=== PATIENT | male | born 1940 | race Caucasian/White ===

== ENCOUNTER 2018-03-23 05:11 | Inpatient (IN) | payer MEDICARE ==
[~2018-03-23] VITALS: Ht 175.3 cm; Wt 78.1 kg
[2018-03-23] VITALS (7 sets, daily range): BP systolic 115–141; BP diastolic 58–67
[~2018-03-23 05:11] MED LIST: CHOL200018 PO; DOXY100C2 PO; GLUC500C2 PO; HCT25T PO; MULT-608 PO; OMEG1CAP74 PO; VLS80C PO
--- OUTSIDE RECORDS SUMMARY | 2018-03-23 05:20 | XMS REPORT | CCD ---
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 Name Role Phone PP Unavailable CCM Unavailable Summary Purpose Interface Exchange Insurance Providers Payer name Policy type / Coverage type Covered democrat ID Effective Begin Date Effective End Date WPS Medicare Part B Medicare Part B [id number] Unknown [facility] Medicare Part B [id number] Unknown Family history Brother Diagnosis Age At Onset No Family Disease Entered N/A Father Diagnosis Age At Onset Stroke Unknown Arthritis Unknown Mother Diagnosis Age At Onset Hypertension Unknown Diabetes Unknown Cancer Unknown Daughter Diagnosis Age At Onset No Family Disease Entered N/A Social History Social History Element Codes Description Effective Dates Number of children Unknown 1 daughter - does not have contact with her 11/24/2011 Employment Unknown Currently employed bee-keeper 11/24/[address]: 774652 Currently drinks alcohol 1 beer & 1 wine daily 11/24/2011 Has the patient ever used illegal drugs? Unknown Has never used illegal drugs 11/24/2011 Marital status Unknown Single Co-habiting with girlfriend 11/20/[address]: 711565891 Never smoker 11/20/2011 Allergies, Adverse Reactions, Alerts Substance Reaction Codes Entered Date Inactivated Date Status * NO KNOWN FOOD ALLERGIES Unknown 11/24/2011 No Inactive Date Active * NO KNOWN ENVIRONMENTAL ALLERGIES Unknown 11/24/2011 No Inactive Date Active SULFA (SULFONAMIDES) Unknown 04/20/2017 No Inactive Date Active Past Medical History Illness Codes Condition Status Onset Date Resolved Date Encounter for removal of sutures ICD-9: V58.32 ICD-10: Z48.02 Active 10/28/2017 Unknown Essential (primary) hypertension ICD-9: 401.1 ICD-10: I10 Active 09/16/2016 Unknown Mixed hyperlipidemia ICD-9: 272.2 ICD-10: E78.2 Active 09/17/2017 Unknown Benign paroxysmal vertigo, bilateral ICD-9: 386.11 ICD-10: H81.13 Active 07/17/2017 Unknown Dizziness and giddiness ICD-9: 780.4 ICD-10: R42 Active 07/17/2017 Unknown Ganglion, left hand ICD-9: 727.43 ICD-10: M67.442 Active 10/15/2016 Unknown Enlarged prostate without lower urinary tract symptoms ICD-9: 600.00 ICD-10: N40.0 Active 03/10/2016 Unknown Other skin changes ICD -9: 709.8 ICD-10: R23.8 Active 03/19/2017 Unknown Squamous cell carcinoma of skin of unspecified parts of face ICD-9: 173.32 ICD-10: C44.320 Active 04/23/2016 Unknown Essential (primary) hypertension ICD-9: 401.9 ICD-10: I10 Active 10/27/2013 Unknown Insect bite (nonvenomous) of unspecified parts of thorax, initial encounter ICD-9: 911.4 ICD-10: S20.96XA Active 03/10/2016 Unknown Mucous in stools ICD-9 : 792.1 Active 10/25/2014 Unknown Polymyalgia rheumatica ICD-9: 725 Active 06/29/2014 Unknown Arthralgia ICD-9: 719.40 Active 03/30/2014 Unknown Knee pain ICD-9: 719.46 Active 03/30/2014 Unknown Myalgia and myositis ICD-9: 729.1 Active 03/30/2014 Unknown Need for vaccine for TD (tetanus-diphtheria) ICD-9: V06.5 Active 03/30/2014 Unknown Osteoarthritis ICD-9: 715.90 Active 03/30/2014 Unknown Tick bite ICD-9: 919.4 Active 03/30/2014 Unknown Suture check ICD-9: V58.49 Active 02/22/2014 Unknown ESSENTIAL HYPERTENSION ICD-9: 401.9 Active 10/27/2013 Unknown Osteoarthritis Unknown Active 06/01/2013 Unknown BPPV (benign paroxysmal positional vertigo) ICD-9: 386.11 Active 06/01/2013 Unknown Cellulitis, leg ICD-9 : 682.6 Active 10/11/2012 Unknown Blood glucose elevated ICD-9: 790.29 Active 04/26/2012 Unknown Encounter for long-term (current) use of medications ICD-9: V58.69 Active 04/26/2012 Unknown Dysuria ICD-9: 788.1 Active 04/08/2012 Unknown UTI ICD-9: 599.0 Active 04/08/2012 Unknown Bullous rash ICD-9: 694.9 Active 01/13/2012 Unknown Pityriasis rosea ICD-9 : 696.3 Active 01/13/2012 Unknown Skin cancer Unknown Inactive 11/24/2011 Unknown Heart murmur ICD-9: 785.2 Active 11/24/2011 Unknown Rash ICD-9: 782.1 Active 11/24/2011 Unknown Hyperlipidemia Unknown Active 11/20/2011 Unknown Hypertension Unknown Active 11/20/2011 Unknown Problems Condition Codes Effective Dates Condition Status Encounter for removal of sutures ICD-9: V58.32 ICD-10: Z48.02 10/28/2017 Active Essential (primary) hypertension ICD-9: 401.1 ICD-10: I10 09/16/2016 Active Mixed hyperlipidemia ICD-9: 272.2 ICD-10: E78.2 09/17/2017 Active Benign paroxysmal vertigo, bilateral ICD-9: 386.11 ICD-10: H81.13 07/17/2017 Active Dizziness and giddiness ICD-9: 780.4 ICD-10: R42 07/17/2017 Active Ganglion, left hand ICD-9: 727.43 ICD-10: M67.442 10/15/2016 Active Enlarged prostate without lower urinary tract symptoms ICD-9: 600.00 ICD-10: N40.0 03/10/2016 Active Other skin changes ICD -9: 709.8 ICD-10: R23.8 03/19/2017 Active Squamous cell carcinoma of skin of unspecified parts of face ICD-9: 173.32 ICD-10: C44.320 04/23/2016 Active Essential (primary) hypertension ICD-9: 401.9 ICD-10: I10 10/27/2013 Active Insect bite (nonvenomous) of unspecified parts of thorax, initial encounter ICD-9: 911.4 ICD-10: S20.96XA 03/10/2016 Active Mucous in stools ICD-9 : 792.1 10/25/2014 Active Polymyalgia rheumatica ICD-9: 725 06/29/2014 Active Arthralgia ICD-9: 719.40 03/30/2014 Active Knee pain ICD-9: 719.46 03/30/2014 Active Myalgia and myositis ICD-9: 729.1 03/30/2014 Active Need for vaccine for TD (tetanus-diphtheria) ICD-9: V06.5 03/30/2014 Active Osteoarthritis ICD-9: 715.90 03/30/2014 Active Tick bite ICD-9: 919.4 03/30/2014 Active Suture check ICD-9: V58.49 02/22/2014 Active ESSENTIAL HYPERTENSION ICD-9: 401.9 10/27/2013 Active Osteoarthritis Unknown 06/01/2013 Active BPPV (benign paroxysmal positional vertigo) ICD-9: 386.11 06/01/2013 Active Cellulitis, leg ICD-9 : 682.6 10/11/2012 Active Blood glucose elevated ICD-9: 790.29 04/26/2012 Active Encounter for long-term (current) use of medications ICD-9: V58.69 04/26/2012 Active Dysuria ICD-9: 788.1 04/08/2012 Active UTI ICD-9: 599.0 04/08/2012 Active Bullous rash ICD-9: 694.9 01/13/2012 Active Pityriasis rosea ICD-9 : 696.3 01/13/2012 Active Skin cancer Unknown 11/24/2011 Inactive Heart murmur ICD-9: 785.2 11/24/2011 Active Rash ICD-9: 782.1 11/24/2011 Active Hyperlipidemia Unknown 11/20/2011 Active Hypertension Unknown 11/20/2011 Active Medications Medication Codes Instructions Start Date Stop Date Status Fill Instructions irbesartan 300 mg-hydrochlorothiazide 12.5 mg tablet RxNorm: 884522 TAKE ONE TABLET BY MOUTH ONCE DAILY 02/08/2018 No Stop Date Active amlodipine 10 mg tablet RxNorm: 819836 TAKE ONE TABLET BY MOUTH ONCE DAILY 01/20/2018 No Stop Date Active Maxzide-25mg 37.5 mg-25 mg tablet RxNorm: 94348 TAKE ONE-HALF TABLET BY MOUTH ONCE DAILY 01/04/2018 No Stop Date Active Maxzide-25mg 37.5 mg-25 mg tablet RxNorm: 64525 1/2 Tablet(s) PO daily 07/17/2017 01/03/2018 Inactive irbesartan 300 mg-hydrochlorothiazide 12.5 mg tablet RxNorm: 693822 TAKE ONE TABLET BY MOUTH ONCE DAILY 05/04/2017 Inactive amlodipine 10 mg tablet RxNorm: 846528 TAKE ONE TABLET BY MOUTH ONCE DAILY 04/20/2017 01/19/2018 Inactive hydrochlorothiazide 25 mg tablet RxNorm: 402487 TAKE ONE-HALF TABLET BY MOUTH ONCE DAILY WITH IRBESARTAN COMBINATION PILL 01/12/2017 07/16/2017 Inactive irbesartan 300 mg-hydrochlorothiazide 12.5 mg tablet RxNorm: 120023 TAKE ONE TABLET BY MOUTH ONCE DAILY 07/11/2016 Inactive amlodipine 10 mg tablet RxNorm: 264105 TAKE ONE TABLET BY MOUTH ONCE DAILY 07/11/2016 04/06/2017 Inactive hydrochlorothiazide 25 mg tablet RxNorm: 950463 1/2 Tablet(s) PO daily take with the irbesartan combination pill 09/05/2015 09/17/2015 Inactive irbesartan 300 mg-hydrochlorothiazide 12.5 mg tablet RxNorm: 944803 1 Tablet(s) PO daily 07/10/2015 07/03/2016 Inactive amlodipine 10 mg tablet RxNorm: 196202 1 Tablet(s) PO daily 07/03/2016 Inactive tramadol 50 mg tablet RxNorm: 714719 1 Tablet(s) PO Q6 hours prn 07/17/2014 07/31/2014 Inactive Voltaren 1 % topical gel RxNorm: 143330 4 Gram(s) TOP QID 06/2902/26/2015 Inactive [SAVINGS FOR UNINSURED PATIENTS -- BIN:[id number], PCN: [id number], Group: [id number], ID# [id number], Process claim through [place] Self Representation Document Preparation, for questions: . THIS IS NOT INSURANCE.] irbesartan 300 mg-hydrochlorothiazide 12.5 mg tablet RxNorm: 860033 1 Tablet(s) PO daily 06/07/2014 06/01/2015 Inactive amlodipine 10 mg tablet RxNorm: 488957 1 Tablet(s) PO daily 06/01/2015 Inactive ketorolac 60 mg/2 mL intramuscular solution RxNorm: 202797 1 Milliliter(s) IM 04/27/2014 04/27/2014 Inactive prednisone 20 mg tablet RxNorm: 204623 3 Tablet(s) PO daily 04/15/2014 Inactive prednisone 20 mg tablet RxNorm: 859673 3 Tablet(s) PO daily 04/10/2014 Inactive doxycycline hyclate 100 mg tablet RxNorm: 266951 1 Tablet(s) PO BID 04/07/2014 04/10/2014 Inactive for total of 2 weeks on abt. Exforge HCT 10 mg-320 mg-25 mg tablet RxNorm: 703254 1 Tablet(s) PO daily 04/03/2014 06/07/2014 Inactive doxycycline hyclate 100 mg tablet RxNorm: 981994 1 Tablet(s) PO BID 03/30/2014 04/06/2014 Inactive K-Dur 10 mEq tablet,extended release RxNorm: 766722 1 Tablet(s) PO daily 11/28/2013 11/27/2013 Inactive K-Dur 10 mEq tablet,extended release RxNorm: 777659 1 Tablet(s) PO daily 11/28/2013 12/07/2013 Inactive aspirin 81 mg chewable tablet RxNorm: 191369 1 Tablet(s) PO daily 10/27/2013 05/18/2017 Inactive Exforge HCT 10 mg-320 mg-25 mg tablet RxNorm: 855953 1 Tablet(s) PO daily 08/11/2013 04/02/2014 Inactive Exforge 5 mg-320 mg tablet RxNorm: 560585 1 Tablet(s) PO daily TAKE ONE TABLET BY MOUTH EVERY DAY 07/27/2013 08/10/2013 Inactive lisinopril 40 mg tablet RxNorm: 179118 1 Tablet(s) PO daily 02/201407/26/2013 Inactive Exforge 5 mg-320 mg tablet RxNorm: 443723 Tablet(s) PO TAKE ONE TABLET BY MOUTH EVERY DAY 06/20/2013 06/29/2013 Inactive doxycycline hyclate 100 mg tablet RxNorm: 398203 1 Tablet(s) PO BID 11/23/2012 12/22/2012 Inactive doxycycline hyclate 100 mg tablet RxNorm: 750122 1 Tablet(s) PO BID 10/11/2012 10/20/2012 Inactive Exforge 5 mg-320 mg tablet RxNorm: 202737 1 Tablet(s) PO daily 05/25/2012 09/17/2015 Inactive Exforge 5 mg-320 mg tablet RxNorm: 890495 1 Tablet(s) PO daily 05/19/2012 05/24/2012 Inactive Exforge 5 mg-320 mg tablet RxNorm: 874059 1 Tablet(s) PO daily 04/29/2012 05/18/2012 Inactive Cipro 500 mg tablet RxNorm: 031869 1 Tablet(s) PO BID 201104/14/2012 Inactive Diovan 320 mg tablet RxNorm: 805549 1 Tablet(s) PO 03/29/2012 04/28/2012 Inactive Diovan 160 mg tablet RxNorm: 364574 1 Tablet(s) PO daily 201103/28/2012 Inactive clotrimazole-betamethasone 1 %-0.05 % Lotion RxNorm: 438562 1 Application TOP TID 11/24/2011 03/28/2012 Inactive mupirocin 2 % Ointment RxNorm: 581337 1 Application TOP TID 09/201101/22/2012 Inactive glucosamine &[id number]-[id number] oral RxNorm: oral No Start Date 09/15/2016 Inactive Exforge HCT 10 mg-320 mg-25 mg tablet RxNorm: 196503 1 Tablet(s) PO daily No Start Date 08/10/2013 Inactive Lotrisone 1 %-0.05 % Topical Cream RxNorm: 058656 Topical No Start Date 11/23/2011 Inactive niacinamide 500 mg tablet RxNorm: 621814 1 Tablet(s) PO BID No Start Date 04/19/2017 Inactive hydrochlorothiazide 25 mg tablet RxNorm: 185774 1/2 Tablet(s) PO daily No Start Date 07/16/2017 Inactive Fish Oil 300 mg-1,000 mg capsule RxNorm: 349496 1 Capsule(s) PO daily No Start Date 09/15/2016 Inactive bee pollen 550 mg capsule RxNorm: 750558 2 Capsule(s) PO daily No Start Date 09/15/2016 Inactive Vitamin D3 1,000 unit tablet RxNorm: 489304 1 Tablet(s) PO daily No Start Date 09/15/2016 Inactive Centrum Silver Ultra Men's oral RxNorm: 01901 oral No Start Date 09/15/2016 Inactive levofloxacin 500 mg tablet RxNorm: 096723 1 Tablet(s) PO daily No Start Date 03/10/2016 Inactive Proscar 5 mg tablet RxNorm: 296488 1 Tablet(s) PO daily No Start Date 03/18/2017 Inactive Diovan 160 mg tablet RxNorm: 768798 1 Tablet(s) PO daily No Start Date 02/03/2012 Inactive niacin 500 mg tablet RxNorm: 593312 1 Tablet(s) PO QHS No Start Date 06/29/2013 Inactive Medication Administered Medication Codes Instructions Start Date Status ketorolac 60 mg/2 mL intramuscular solution RxNorm: 135542 1Milliliter 04/27/2014 No longer Active Immunizations Vaccine Codes Date Status Influenza CVX: 141 03/29/2017 completed PPD Unknown 10/03/2015 completed Tetanus, Diptheria, Pertussis CVX: 113 completed Tetanus, Diptheria, Pertussis CVX: 113 completed Tetanus/Diptheria CVX: 113 03/30/2014 completed Tetanus/Diptheria CVX: 113 03/30/2014 completed PPD Unknown 02/22/2014 completed Influenza CVX: 141 05/02/2013 completed Influenza CVX: 141 06/22/2010 completed Pneumococcal (Adult) CVX: 33 06/22/2009 completed Tetanus, Diptheria, Pertussis CVX: 113 completed Tetanus/Diptheria CVX: 113 06/22/1994 completed Assessments Condition Codes Effective Dates Encounter for removal of sutures ICD-10: Z48.02 ICD-9: V58.32 10/28/2017 Mixed hyperlipidemia ICD-10: E78.2 ICD-9: 272.2 09/17/2017 Essential (primary) hypertension ICD-10: I10 ICD-9: 401.1 09/17/2017 Dizziness and giddiness ICD-10: R42 ICD-9: 780.4 07/17/2017 Benign paroxysmal vertigo, bilateral ICD-10: H81.13 ICD-9: 386.11 07/17/2017 Ganglion, left hand ICD-10: M67.442 ICD-9: 727.43 04/20/2017 Other skin changes ICD-10: R23.8 ICD-9: 709.8 03/19/2017 Squamous cell carcinoma of skin of unspecified parts of face ICD-10: C44.320 ICD-9: 173.32 04/24/2016 Essential (primary) hypertension ICD-10: I10 ICD-9: 401.9 03/11/2016 Insect bite (nonvenomous) of unspecified parts of thorax, initial encounter ICD-10: S20.96XA ICD-9: 911.4 03/11/2016 Enlarged prostate without lower urinary tract symptoms ICD- 10: N40.0 ICD-9: 600.00 03/11/2016 ESSENTIAL HYPERTENSION ICD-9: 401.9 02/27 Mucous in stools ICD-9: 792.1 10/26/2014 Polymyalgia rheumatica ICD-9: 725 2014 Myalgia and myositis ICD-9: 729.1 2013 Arthralgia ICD-9: 719.40 04/27/2014 Tick bite ICD-9: 919.4 03/30/2014 Need for vaccine for TD (tetanus-diphtheria) ICD-9: V06.5 03/30/2014 Osteoarthritis ICD-9: 715.90 03/30/2014 Knee pain ICD-9: 719.46 03/30/2014 Suture check ICD-9: V58.49 02/22/2014 BPPV (benign paroxysmal positional vertigo) ICD-9: 386.11 06/01/2013 ENCNTR LONG-RX USE NEC ICD-9: V58.69 04/2013 Cellulitis, leg ICD-9: 682.6 10/11/2012 PITYRIASIS ROSEA ICD-9: 696.3 04/26/2012 Blood glucose elevated ICD-9: 790.29 10/2011 UTI ICD-9: 599.0 04/08/2012 Dysuria ICD-9: 788.1 04/08/2012 BULLOUS DERMATOSES ICD-9: 694.9 2011 Rash ICD-9: 782.1 01/13/2012 Heart murmur ICD-9: 785.2 11/24/2011 Reason For Visit Reason For Visit Effective Dates Notes hypertension 09/17/2017 hypertension 07/17/2017 paresthesia 04/20/2017 hypertension 03/19/2017 joint complaint 10/15/2016 hypertension 09/16/2016 hypertension 03/11/2016 hypertension 09/05/2015 hypertension 02/27/2015 hypertension 10/26/2014 muscle soreness especially at night hypertension 06/29/2014 muscle soreness especially at night hypertension 04/27/2014 muscle soreness hypertension 03/30/2014 muscle soreness hypertension 10/27/2013 hypertension 07/27/2013 vertigo 06/30/2013 hypertension 06/01/2013 knee pain 11/23/2012 rash 10/11/2012 hypertension 05/25/2012 hypertension 04/29/2012 dysuria 04/08/2012 hypertension 03/29/2012 rash 02/12/2012 rash 01/13/2012 rash 01/06/2012 pain 11/24/2011 pt states that since he has had surgery for an anal fissure, he continues to have pain. he states that it appears to be like a bed sore Results Observation Observation Code Item Item Code Result Date Comp Metabolic Qvd904 NA 139 mEq/L 09/17/2017 Comp Metabolic Bwz548 K 4.2 mEq/L 09/17/2017 Comp Metabolic Uol797 CL 105 mEq/L 09/17/2017 Comp Metabolic Fbm896 CO2 24.0 mEq/L 09/17/2017 Comp Metabolic Vlr620 ANION GAP 14 09/17/2017 Comp Metabolic Ppv230 GLUCOSE 102 mg/dL 09/17/2017 Comp Metabolic Spe580 Creat 0.9 mg/dL 09/17/2017 Comp Metabolic Rox940 eGFR 91 ml/min/1.73m2 09/17/2017 Comp Metabolic Ypp345 BUN 18 mg/dL 09/17/2017 Comp Metabolic Yhi033 B/C Ratio 20.9 Ratio 09/17/2017 Comp Metabolic Sgl562 CALCIUM 9.8 mg/dL 09/17/2017 Comp Metabolic Zxq637 ALK PHOS 59 U/L 09/17/2017 Comp Metabolic Qhx252 AST(SGOT) 28 U/L 09/17/2017 Comp Metabolic Gbd463 ALT(SGPT) 20 U/L 09/17/2017 Comp Metabolic Lru560 BILI T 0.6 mg/dL 09/17/2017 Comp Metabolic Nmy745 ALBUMIN 4.3 g/dL 09/17/2017 Comp Metabolic Tfw415 TPRO 7.2 g/dL 09/17/2017 Comp Metabolic Fen736 GLOB 2.9 g/dL 09/17/2017 Comp Metabolic Sjp899 A/G Ratio 1.5 Ratio 09/17/2017 Comp Metabolic Hje275 Osmo 280 mOsmo 09/17/2017 Tsh Ord6 TSH (3rd IS) 1.50 uIU/mL 09/17/2017 Lipid Ord30 CHOL 214 mg/dL 09/17/2017 Lipid Ord30 HDL 46.0 mg/dl 09/17/2017 Lipid Ord30 TRIG 110 mg/dL 09/17/2017 Lipid Ord30 LDL 146 mg/dL 09/17/2017 Lipid Ord30 C/HDL 4.7 Ratio 09/17/2017 Cbc With Differential Ord2 WBC 7.93 K/ul 09/17/2017 Cbc With Differential Ord2 RBC 4.87 M/ul 09/17/2017 Cbc With Differential Ord2 HGB 15.2 g/dl 09/17/2017 Cbc With Differential Ord2 Neut% 61.7 % 09/17/2017 Cbc With Differential Ord2 HCT 44.5 % 09/17/2017 Cbc With Differential Ord2 Lymph% 29.8 % 09/17/2017 Cbc With Differential Ord2 MCV 91.4 fl 09/17/2017 Cbc With Differential Ord2 MCH 31.2 pg 09/17/2017 Cbc With Differential Ord2 [place]% 7.6 % 09/17/2017 Cbc With Differential Ord2 MCHC 34.2 pg 09/17/2017 Cbc With Differential Ord2 Eos% 0.8 % 09/17/2017 Cbc With Differential Ord2 PLT 289 K/ul 09/17/2017 Cbc With Differential Ord2 Baso% 0.1 % 09/17/2017 Cbc With Differential Ord2 Neut ABS# 4.90 K/ul 09/17/2017 Cbc With Differential Ord2 RDW 13.4 % 09/17/2017 Cbc With Differential Ord2 Lymph ABS# 2.36 K/ul 09/17/2017 Cbc With Differential Ord2 [place] ABS# 0.6 K/ul 09/17/2017 Cbc With Differential Ord2 Eos ABS# 0.1 K/ul 09/17/2017 Cbc With Differential Ord2 Baso ABS# 0.0 K/ul 09/17/2017 Tsh Ord6 hTSH II 1.29 uIU/mL 03/19/2017 Cbc With Differential Ord2 WBC 6.44 K/ul 03/19/2017 Cbc With Differential Ord2 RBC 4.62 M/ul 03/19/2017 Cbc With Differential Ord2 HGB 14.8 g/dl 03/19/2017 Cbc With Differential Ord2 HCT 43.2 % 03/19/2017 Cbc With Differential Ord2 Neut% 58.8 % 03/19/2017 Cbc With Differential Ord2 Lymph% 30.0 % 03/19/2017 Cbc With Differential Ord2 MCV 93.5 fl 03/19/2017 Cbc With Differential Ord2 [place]% 9.6 % 03/19/2017 Cbc With Differential Ord2 MCH 32.0 pg 03/19/2017 Cbc With Differential Ord2 Eos% 1.4 % 03/19/2017 Cbc With Differential Ord2 MCHC 34.3 pg 03/19/2017 Cbc With Differential Ord2 Baso% 0.2 % 03/19/2017 Cbc With Differential Ord2 PLT 284 K/ul 03/19/2017 Cbc With Differential Ord2 Neut ABS# 3.79 K/ul 03/19/2017 Cbc With Differential Ord2 RDW 13.1 % 03/19/2017 Cbc With Differential Ord2 Lymph ABS# 1.93 K/ul 03/19/2017 Cbc With Differential Ord2 [place] ABS# 0.6 K/ul 03/19/2017 Cbc With Differential Ord2 Eos ABS# 0.1 K/ul 03/19/2017 Cbc With Differential Ord2 Baso ABS# 0.0 K/ul 03/19/2017 Comp Metabolic Prd358 NA 139 mEq/L 03/19/2017 Comp Metabolic Pjh824 K 3.8 mEq/L 03/19/2017 Comp Metabolic Vfo465 CL 101 mEq/L 03/19/2017 Comp Metabolic Nlq654 CO2 21.0 mEq/L 03/19/2017 Comp Metabolic Rtr515 ANION GAP 21 03/19/2017 Comp Metabolic Ttp019 GLUCOSE 103 mg/dL 03/19/2017 Comp Metabolic Azu928 Creat 0.6 mg/dL 03/19/2017 Comp Metabolic Ejw985 eGFR 131 ml/min/1.73m2 03/19/2017 Comp Metabolic Wbt555 BUN 17 mg/dL 03/19/2017 Comp Metabolic Tog211 B/C Ratio 27.0 Ratio 03/19/2017 Comp Metabolic Ipt852 CALCIUM 9.4 mg/dL 03/19/2017 Comp Metabolic Elv093 ALK PHOS 53 U/L 03/19/2017 Comp Metabolic Cef869 AST(SGOT) 23 U/L 03/19/2017 Comp Metabolic Jla070 ALT(SGPT) 16 U/L 03/19/2017 Comp Metabolic Inm030 BILI T 0.6 mg/dL 03/19/2017 Comp Metabolic Xwp798 ALBUMIN 4.1 g/dL 03/19/2017 Comp Metabolic Nnz138 TPRO 6.9 g/dL 03/19/2017 Comp Metabolic Xie692 GLOB 2.8 g/dL 03/19/2017 Comp Metabolic Bdx497 A/G Ratio 1.4 Ratio 03/19/2017 Comp Metabolic Oel181 Osmo 279 mOsmo 03/19/2017 Lipid Ord30 CHOL 188 mg/dL 03/19/2017 Lipid Ord30 HDL 47.0 mg/dl 03/19/2017 Lipid Ord30 TRIG 73 mg/dL 03/19/2017 Lipid Ord30 LDL 126 mg/dL 03/19/2017 Lipid Ord30 C/HDL 4.0 Ratio 03/19/2017 Ehrlichia Chaffeensis Antibody Igm [id number] EHRLICHIA CHAFFEENSIS IGM < 1:16 03/17/2016 Ehrlichia Chaffeensis Antibody Igg 339319 EHRLICHIA CHAFFEENSIS IGG 1:256 03/17/2016 Lymes Disease Total Antibodies With Western Blot Reflex [id number] B. BURGDORFERI, IGG/IGM 0.17 LI 03/14/2016 Lymes Disease Total Antibodies With Western Blot Reflex [id number] 03/14/2016 [place] Spotted Fever Igg/Igm 305294 [place] SPOTTED FEVER IGM EIA . 03/14/2016 [place] Spotted Fever Igg/Igm 004945 RMSF, IGM 0.47 index 03/14/2016 [place] Spotted Fever Igg/Igm 339200 [place] SPOTTED FEVER IGG EIA FLEX . 03/14/2016 [place] Spotted Fever Igg/Igm 917776 RMSF, IGG SCREEN-FLEX Positive 03/14/2016 [place] Spot'D Fev Igg 135854 RMSF, IGG -TITER IFA 1:128 Comp Metabolic Jcv492 NA 136 mEq/L 03/11/2016 Comp Metabolic Dqr902 K 3.9 mEq/L 03/11/2016 Comp Metabolic Kam763 CL 106 mEq/L 03/11/2016 Comp Metabolic Oqi383 CO2 25.0 mEq/L 03/11/2016 Comp Metabolic Boe645 ANION GAP 9 03/11/2016 Comp Metabolic Iyh194 GLUCOSE 107 mg/dL 03/11/2016 Comp Metabolic Tmc900 Creat 0.7 mg/dL 03/11/2016 Comp Metabolic Xsj333 eGFR 120 ml/min/1.73m2 03/11/2016 Comp Metabolic Bib189 BUN 18 mg/dL 03/11/2016 Comp Metabolic Kah036 B/C Ratio 26.5 Ratio 03/11/2016 Comp Metabolic Ulu350 CALCIUM 9.5 mg/dL 03/11/2016 Comp Metabolic Unv737 ALK PHOS 42 U/L 03/11/2016 Comp Metabolic Hxe833 AST(SGOT) 17 U/L 03/11/2016 Comp Metabolic Trr724 ALT(SGPT) 13 U/L 03/11/2016 Comp Metabolic Baa214 BILI T 0.5 mg/dL 03/11/2016 Comp Metabolic Euj927 ALBUMIN 4.2 g/dL 03/11/2016 Comp Metabolic Lib344 TPRO 6.9 g/dL 03/11/2016 Comp Metabolic Ocm899 GLOB 2.7 g/dL 03/11/2016 Comp Metabolic Ehi190 A/G Ratio 1.5 Ratio 03/11/2016 Comp Metabolic Xrj498 Osmo 274 mOsmo 03/11/2016 Lipid Ord30 CHOL 203 mg/dL 03/11/2016 Lipid Ord30 HDL 42.0 mg/dl 03/11/2016 Lipid Ord30 TRIG 127 mg/dL 03/11/2016 Lipid Ord30 LDL 136 mg/dL 03/11/2016 Lipid Ord30 C/HDL 4.8 Ratio 03/11/2016 Cbc With Differential Ord2 WBC 6.52 K/ul 03/11/2016 Cbc With Differential Ord2 RBC 4.56 M/ul 03/11/2016 Cbc With Differential Ord2 HGB 14.4 g/dl 03/11/2016 Cbc With Differential Ord2 Neut% 63.9 % 03/11/2016 Cbc With Differential Ord2 HCT 42.1 % 03/11/2016 Cbc With Differential Ord2 MCV 92.3 fl 03/11/2016 Cbc With Differential Ord2 Lymph% 27.6 % 03/11/2016 Cbc With Differential Ord2 MCH 31.6 pg 03/11/2016 Cbc With Differential Ord2 [place]% 7.1 % 03/11/2016 Cbc With Differential Ord2 Eos% 1.2 % 03/11/2016 Cbc With Differential Ord2 MCHC 34.2 pg 03/11/2016 Cbc With Differential Ord2 PLT 217 K/ul 03/11/2016 Cbc With Differential Ord2 Baso% 0.2 % 03/11/2016 Cbc With Differential Ord2 Neut ABS# 4.17 K/ul 03/11/2016 Cbc With Differential Ord2 RDW 13.0 % 03/11/2016 Cbc With Differential Ord2 Lymph ABS# 1.80 K/ul 03/11/2016 Cbc With Differential Ord2 [place] ABS# 0.5 K/ul 03/11/2016 Cbc With Differential Ord2 Eos ABS# 0.1 K/ul 03/11/2016 Cbc With Differential Ord2 Baso ABS# 0.0 K/ul 03/11/2016 Tsh Ord6 hTSH II 1.13 uIU/mL 03/11/2016 Cbc With Differential Ord2 WBC 6.76 K/ul 09/03/2015 Cbc With Differential Ord2 RBC 4.68 M/ul 09/03/2015 Cbc With Differential Ord2 HGB 14.3 g/dl 09/03/2015 Cbc With Differential Ord2 HCT 43.0 % 09/03/2015 Cbc With Differential Ord2 Neut% 52.7 % 09/03/2015 Cbc With Differential Ord2 MCV 91.9 fl 09/03/2015 Cbc With Differential Ord2 Lymph% 35.2 % 09/03/2015 Cbc With Differential Ord2 [place]% 9.3 % 09/03/2015 Cbc With Differential Ord2 MCH 30.6 pg 09/03/2015 Cbc With Differential Ord2 MCHC 33.3 pg 09/03/2015 Cbc With Differential Ord2 Eos% 2.7 % 09/03/2015 Cbc With Differential Ord2 Baso% 0.1 % 09/03/2015 Cbc With Differential Ord2 PLT 276 K/ul 09/03/2015 Cbc With Differential Ord2 RDW 13.0 % 09/03/2015 Cbc With Differential Ord2 Neut ABS# 3.56 K/ul 09/03/2015 Cbc With Differential Ord2 Lymph ABS# 2.38 K/ul 09/03/2015 Cbc With Differential Ord2 [place] ABS# 0.6 K/ul 09/03/2015 Cbc With Differential Ord2 Eos ABS# 0.2 K/ul 09/03/2015 Cbc With Differential Ord2 Baso ABS# 0.0 K/ul 09/03/2015 Cbc With Differential Ord2 New Analyzer Notice Please note new ref ranges starting 07-04-2015 due to implemntation of new five part differential hematolgy analyzer. 09/03/2015 Tsh Ord6 hTSH II 1.66 uIU/mL 09/03/2015 Lipid Ord30 CHOL 205 mg/dL 09/03/2015 Lipid Ord30 HDL 46.0 mg/dl 09/03/2015 Lipid Ord30 TRIG 96 mg/dL 09/03/2015 Lipid Ord30 LDL 140 mg/dL 09/03/2015 Lipid Ord30 C/HDL 4.5 Ratio 09/03/2015 Comp Metabolic Mjo439 NA 137 mEq/L 09/03/2015 Comp Metabolic Pln625 K 3.8 mEq/L 09/03/2015 Comp Metabolic Dsd137 CL 105 mEq/L 09/03/2015 Comp Metabolic Xsa553 CO2 25.0 mEq/L 09/03/2015 Comp Metabolic Hyn682 ANION GAP 11 09/03/2015 Comp Metabolic Jok058 GLUCOSE 100 mg/dL 09/03/2015 Comp Metabolic Tze400 Creat 0.7 mg/dL 09/03/2015 Comp Metabolic Fto492 eGFR 118 ml/min/1.73m2 09/03/2015 Comp Metabolic Hxl083 BUN 21 mg/dL 09/03/2015 Comp Metabolic Kjf801 B/C Ratio 30.4 Ratio 09/03/2015 Comp Metabolic Kjc144 CALCIUM 9.3 mg/dL 09/03/2015 Comp Metabolic Atc999 ALK PHOS 47 U/L 09/03/2015 Comp Metabolic Fpk045 AST(SGOT) 18 U/L 09/03/2015 Comp Metabolic Sbb618 ALT(SGPT) 13 U/L 09/03/2015 Comp Metabolic Egd209 BILI T 0.5 mg/dL 09/03/2015 Comp Metabolic Uqs288 ALBUMIN 4.1 g/dL 09/03/2015 Comp Metabolic Yhy523 TPRO 6.8 g/dL 09/03/2015 Comp Metabolic Uqu408 GLOB 2.7 g/dL 09/03/2015 Comp Metabolic Foz399 A/G Ratio 1.5 Ratio 09/03/2015 Comp Metabolic Huj788 Osmo 277 mOsmo 09/03/2015 A1C 3024357 A1C HPLC 79812-6 5.6 % 06/02/2013 CHEM 14 [id number] AST 20 U/L 06/01/2013 CHEM 14 [id number] ALT 17 IU/L 06/01/2013 CHEM 14 [id number] BUN 18 MG/DL 06/01/2013 CHEM 14 [id number] ALBUMIN 4.3 GM/DL 06/01/2013 CHEM 14 0106848 CHLORIDE 107 MMOL/L 06/01/2013 CHEM 14 [id number] BILI TOT 0.4 MG/DL 06/01/2013 CHEM 14 4392388 ALK PHOS 46 U/L 06/01/2013 CHEM 14 0972205 SODIUM 138 MMOL/L 06/01/2013 CHEM 14 0823092 CREATININE 0.71 MG/DL 06/01/2013 CHEM 14 1028112 CALCIUM 9.2 MG/DL 06/01/2013 CHEM 14 4088949 POTASSIUM 4.0 MMOL/L 06/01/2013 CHEM 14 4784334 PROT TOT 6.8 GM/DL 06/01/2013 CHEM 14 [id number] GLUCOSE 108 MG/DL 06/01/2013 CHEM 14 6177013 BICARB 24 MMOL/L 06/01/2013 CHEM 14 9813163 ANION GAP 7 MEQ/L 06/01/2013 TSH [id number] TSH 1.033 uIU/ML 06/01/2013 GFR CALC 0414955 GFR AA >60 ML/MIN 06/01/2013 GFR CALC 8211355 GFR NON-AA >60 ML/MIN 06/01/2013 CBC [id number] WBC 5.7 10e9/L 06/01/2013 CBC [id number] RBC 4.89 10e12/L 06/01/2013 CBC [id number] HGB 15.3 g/dL 06/01/2013 CBC [id number] HCT DET 45.3 % 06/01/2013 CBC [id number] MCV 92.6 fL 06/01/2013 CBC [id number] MCH 31.3 pg 06/01/2013 CBC [id number] MCHC 33.8 g/dL 06/01/2013 CBC [id number] PLT 254 10e9/L 06/01/2013 CBC [id number] MPV 10.3 fL 06/01/2013 CBC [id number] VONNIE % 55.3 % 06/01/2013 CBC [id number] LY % 33.4 % 06/01/2013 CBC [id number] MON % 8.7 % 06/01/2013 CBC [id number] EOS % 2.4 % 06/01/2013 CBC [id number] BASO % 0.2 % 06/01/2013 CBC 7961588 RDW 12.7 % 06/01/2013 CBC [id number] ABS VONNIE 3.15 10e9/L 06/01/2013 CBC [id number] ABS LYMPH 1.90 10e9/L 06/01/2013 CBC [id number] ABS MONO 0.50 10e9/L 06/01/2013 CBC [id number] ABS EOS 0.14 10e9/L 06/01/2013 CBC [id number] ABS BASO 0.01 10e9/L 06/01/2013 CBC [id number] RDW-SD 42.2 fL 06/01/2013 LIPID GRP HDL TEST 46 MG/DL 06/01/2013 LIPID GRP TRIG 94 MG/DL 06/01/2013 LIPID GRP TEST LDL 161 MG/DL 06/01/2013 LIPID GRP CHOL 226 MG/DL 06/01/2013 LIPID GRP RCHOL/HDL 4.91 RATIO 06/01/2013 CRP [id number] CRP 0.9 MG/DL 11/23/2012 ESR [id number] ESR 22 MM/HR 11/23/2012 GFR CALC 2657219 GFR AA >60 ML/MIN 11/23/2012 GFR CALC 9725250 GFR NON-AA >60 ML/MIN 11/23/2012 CHEM 14 [id number] AST 21 U/L 11/23/2012 CHEM 14 [id number] ALT 15 IU/L 11/23/2012 CHEM 14 7025436 BUN 20 MG/DL 11/23/2012 CHEM 14 1050850 ALBUMIN 4.3 GM/DL 11/23/2012 CHEM 14 7583802 CHLORIDE 106 MMOL/L 11/23/2012 CHEM 14 [id number] BILI TOT 0.5 MG/DL 11/23/2012 CHEM 14 3202450 ALK PHOS 55 U/L 11/23/2012 CHEM 14 6676980 SODIUM 139 MMOL/L 11/23/2012 CHEM 14 5260336 CREATININE 0.72 MG/DL 11/23/2012 CHEM 14 8581716 CALCIUM 9.4 MG/DL 11/23/2012 CHEM 14 4376142 POTASSIUM 4.5 MMOL/L 11/23/2012 CHEM 14 0415650 PROT TOT 6.7 GM/DL 11/23/2012 CHEM 14 1430343 GLUCOSE 104 MG/DL 11/23/2012 CHEM 14 7080953 BICARB 26 MMOL/L 11/23/2012 CHEM 14 0174134 ANION GAP 7 MEQ/L 11/23/2012 LIPID GRP HDL TEST 48 MG/DL 04/26/2012 LIPID GRP TRIG 93 MG/DL 04/26/2012 LIPID GRP TEST LDL 185 MG/DL 04/26/2012 LIPID GRP CHOL 252 MG/DL 04/26/2012 LIPID GRP RCHOL/HDL 5.25 RATIO 04/26/2012 TSH [id number] TSH 1.468 uIU/ML 04/26/2012 CBC [id number] WBC 6.3 10e9/L 04/26/2012 CBC [id number] RBC 4.94 10e12/L 04/26/2012 CBC 6121485 HGB 15.4 g/dL 04/26/2012 CBC [id number] HCT DET 45.5 % 04/26/2012 CBC [id number] MCV 92.1 fL 04/26/2012 CBC 4061538 MCH 31.2 pg 04/26/2012 CBC [id number] MCHC 33.8 g/dL 04/26/2012 CBC [id number] PLT 251 10e9/L 04/26/2012 CBC [id number] MPV 10.7 fL 04/26/2012 CBC [id number] VONNIE % 47.9 % 04/26/2012 CBC [id number] LY % 40.1 % 04/26/2012 CBC [id number] MON % 9.6 % 04/26/2012 CBC [id number] EOS % 2.2 % 04/26/2012 CBC [id number] BASO % 0.2 % 04/26/2012 CBC [id number] RDW 12.6 % 04/26/2012 CBC [id number] ABS VONNIE 3.02 10e9/L 04/26/2012 CBC [id number] ABS LYMPH 2.53 10e9/L 04/26/2012 CBC [id number] ABS MONO 0.60 10e9/L 04/26/2012 CBC [id number] ABS EOS 0.14 10e9/L 04/26/2012 CBC [id number] ABS BASO 0.01 10e9/L 04/26/2012 CBC [id number] RDW-SD 41.1 fL 04/26/2012 GFR CALC 9321084 GFR AA >60 ML/MIN 04/26/2012 GFR CALC 5520602 GFR NON-AA >60 ML/MIN 04/26/2012 A1C HPLC [id number] A1C HPLC 60724-9 5.3 % 04/26/2012 CHEM 14 [id number] AST 24 U/L 04/26/2012 CHEM 14 1207639 ALT 18 IU/L 04/26/2012 CHEM 14 6347635 BUN 17 MG/DL 04/26/2012 CHEM 14 [id number] ALBUMIN 4.2 GM/DL 04/26/2012 CHEM 14 2849844 CHLORIDE 105 MMOL/L 04/26/2012 CHEM 14 [id number] BILI TOT 0.7 MG/DL 04/26/2012 CHEM 14 2203208 ALK PHOS 42 U/L 04/26/2012 CHEM 14 9518298 SODIUM 138 MMOL/L 04/26/2012 CHEM 14 6505621 CREATININE 0.78 MG/DL 04/26/2012 CHEM 14 2202231 CALCIUM 9.6 MG/DL 04/26/2012 CHEM 14 1231303 POTASSIUM 4.4 MMOL/L 04/26/2012 CHEM 14 6310669 PROT TOT 6.9 GM/DL 04/26/2012 CHEM 14 7829962 GLUCOSE 97 MG/DL 04/26/2012 CHEM 14 8983819 BICARB 27 MMOL/L 04/26/2012 CHEM 14 0014220 ANION GAP 6 MEQ/L 04/26/2012 Review of Systems System Result Effective Dates Constitutional recent illness 09/17/2017 Constitutional No chills 09/17/2017 Constitutional No fatigue 09/17/2017 Constitutional No fever 09/17/2017 Ears/Nose/Throat/Neck No dysphagia 2017 Ears/Nose/Throat/Neck No headache 2017 Ears/Nose/Throat/Neck No hearing loss Ears/Nose/Throat/Neck nasal allergies Ears/Nose/Throat/Neck nasal discharge Ears/Nose/Throat/Neck No sore throat Cardiovascular No chest pain/pressure Cardiovascular No edema 09/17/2017 Cardiovascular No exercise intolerance Cardiovascular No fatigue 09/17/2017 Cardiovascular hypertension 09/17/2017 Cardiovascular No near-syncope/dizziness 09/17/2017 Respiratory No chest tightness 2017 Respiratory No cigarette smoking 2017 Respiratory cough 09/17/2017 Respiratory No dyspnea 09/17/2017 Respiratory No pedal edema 09/17/2017 Respiratory No snoring 09/17/2017 Respiratory No wheezing 09/17/2017 Gastrointestinal No hemorrhoids 2017 Gastrointestinal No abdominal pain 2017 Gastrointestinal No constipation 2017 Gastrointestinal No diarrhea 09/17/2017 Gastrointestinal No gastroesophageal reflux 09/17/2017 Gastrointestinal No melena 09/17/2017 Gastrointestinal No nausea 09/17/2017 Gastrointestinal No vomiting 09/17/2017 Genitourinary/Nephrology No dysuria 09/17 Genitourinary/Nephrology nocturia 2017 Genitourinary/Nephrology No urinary incontinence 09/17/2017 Musculoskeletal stiffness 09/17/2017 Musculoskeletal joint complaint 2017 Musculoskeletal muscle weakness 2017 Musculoskeletal neck pain 09/17/2017 Dermatologic No rash 09/17/2017 Dermatologic No sores 09/17/2017 Dermatologic No scar 09/17/2017 Neurologic No dizziness 09/17/2017 Neurologic No headache 09/17/2017 Neurologic No syncope 09/17/2017 Neurologic weakness 09/17/2017 Psychiatric No anxiety 09/17/2017 Psychiatric No depression 09/17/2017 Constitutional recent illness 07/17/2017 Constitutional No chills 07/17/2017 Constitutional No fatigue 07/17/2017 Constitutional No fever 07/17/2017 Ears/Nose/Throat/Neck No dysphagia 2017 Ears/Nose/Throat/Neck No headache 2017 Ears/Nose/Throat/Neck No hearing loss Ears/Nose/Throat/Neck nasal allergies Ears/Nose/Throat/Neck nasal discharge Ears/Nose/Throat/Neck No sore throat Cardiovascular No chest pain/pressure Cardiovascular No edema 07/17/2017 Cardiovascular No exercise intolerance Cardiovascular No fatigue 07/17/2017 Cardiovascular hypertension 07/17/2017 Cardiovascular No near-syncope/dizziness 07/17/2017 Respiratory No chest tightness 2017 Respiratory No cigarette smoking 2017 Respiratory cough 07/17/2017 Respiratory No dyspnea 07/17/2017 Respiratory No pedal edema 07/17/2017 Respiratory No snoring 07/17/2017 Respiratory No wheezing 07/17/2017 Gastrointestinal No hemorrhoids 2017 Gastrointestinal No abdominal pain 2017 Gastrointestinal No constipation 2017 Gastrointestinal No diarrhea 07/17/2017 Gastrointestinal No gastroesophageal reflux 07/17/2017 Gastrointestinal No melena 07/17/2017 Gastrointestinal No nausea 07/17/2017 Gastrointestinal No vomiting 07/17/2017 Genitourinary/Nephrology No dysuria 07/17 Genitourinary/Nephrology nocturia 2017 Genitourinary/Nephrology No urinary incontinence 07/17/2017 Musculoskeletal stiffness 07/17/2017 Musculoskeletal joint complaint 2017 Musculoskeletal muscle weakness 2017 Musculoskeletal neck pain 07/17/2017 Dermatologic No rash 07/17/2017 Dermatologic No sores 07/17/2017 Dermatologic No scar 07/17/2017 Neurologic No dizziness 07/17/2017 Neurologic No headache 07/17/2017 Neurologic No syncope 07/17/2017 Neurologic weakness 07/17/2017 Psychiatric No anxiety 07/17/2017 Psychiatric No depression 07/17/2017 Constitutional No recent illness 2016 Constitutional No chills 04/20/2017 Constitutional No fatigue 04/20/2017 Constitutional No fever 04/20/2017 Cardiovascular No chest pain/pressure Cardiovascular No fatigue 04/20/2017 Respiratory No cough 04/20/2017 Respiratory No chest congestion 2016 Neurologic No dizziness 04/20/2017 Neurologic No headache 04/20/2017 Psychiatric No anxiety 04/20/2017 Psychiatric No depression 04/20/2017 Neurologic paresthesia 04/20/2017 Gastrointestinal No hemorrhoids 2016 Gastrointestinal No abdominal pain 2016 Gastrointestinal No constipation 2016 Gastrointestinal No diarrhea 04/20/2017 Gastrointestinal No gastroesophageal reflux 04/20/2017 Gastrointestinal No melena 04/20/2017 Gastrointestinal No nausea 04/20/2017 Gastrointestinal No vomiting 04/20/2017 Constitutional No recent illness 2016 Constitutional No chills 03/19/2017 Constitutional No fatigue 03/19/2017 Constitutional No fever 03/19/2017 Constitutional No insomnia 03/19/2017 Constitutional No malaise 03/19/2017 Eyes No blindness 03/19/2017 Eyes No vision change 03/19/2017 Ears/Nose/Throat/Neck No dental pain Ears/Nose/Throat/Neck No dizziness 2016 Ears/Nose/Throat/Neck No dysphagia 2016 Ears/Nose/Throat/Neck No headache 2016 Ears/Nose/Throat/Neck No hearing loss Ears/Nose/Throat/Neck No nasal allergies 03/19/2017 Ears/Nose/Throat/Neck No sore throat Ears/Nose/Throat/Neck No postnasal drip 03/19/2017 Ears/Nose/Throat/Neck No sinus congestion 03/19/2017 Cardiovascular No exercise intolerance Cardiovascular No fatigue 03/19/2017 Cardiovascular hypertension 03/19/2017 Respiratory No chest tightness 2016 Respiratory No cigarette smoking 2016 Respiratory No cough 03/19/2017 Respiratory No dyspnea 03/19/2017 Respiratory No pedal edema 03/19/2017 Respiratory No snoring 03/19/2017 Respiratory No wheezing 03/19/2017 Gastrointestinal No hemorrhoids 2016 Gastrointestinal No abdominal pain 2016 Gastrointestinal No constipation 2016 Gastrointestinal No diarrhea 03/19/2017 Gastrointestinal No gastroesophageal reflux 03/19/2017 Gastrointestinal No melena 03/19/2017 Gastrointestinal No nausea 03/19/2017 Gastrointestinal No vomiting 03/19/2017 Genitourinary/Nephrology No dysuria 03/19 Genitourinary/Nephrology No nocturia Genitourinary/Nephrology No urinary incontinence 03/19/2017 Dermatologic No rash 03/19/2017 Neurologic No dizziness 03/19/2017 Neurologic No headache 03/19/2017 Neurologic No neck pain 03/19/2017 Neurologic No syncope 03/19/2017 Psychiatric No anxiety 03/19/2017 Psychiatric No depression 03/19/2017 Constitutional No recent illness 2016 Constitutional No chills 10/15/2016 Constitutional No fever 10/15/2016 Eyes No eye erythema 10/15/2016 Ears/Nose/Throat/Neck No nasal allergies 10/15/2016 Ears/Nose/Throat/Neck No nasal discharge 10/15/2016 Cardiovascular No chest pain/pressure Respiratory No dyspnea 10/15/2016 Dermatologic cyst 10/15/2016 Neurologic No alteration of consciousness 10/15/2016 Neurologic No mental status change 2016 Constitutional recent illness 09/16/2016 Constitutional No chills 09/16/2016 Constitutional No fatigue 09/16/2016 Constitutional No fever 09/16/2016 Ears/Nose/Throat/Neck No dysphagia 2016 Ears/Nose/Throat/Neck No headache 2016 Ears/Nose/Throat/Neck No hearing loss Ears/Nose/Throat/Neck nasal allergies Ears/Nose/Throat/Neck nasal discharge Ears/Nose/Throat/Neck No sore throat Cardiovascular No chest pain/pressure Cardiovascular No edema 09/16/2016 Cardiovascular No exercise intolerance Cardiovascular No fatigue 09/16/2016 Cardiovascular hypertension 09/16/2016 Cardiovascular No near-syncope/dizziness 09/16/2016 Respiratory No chest tightness 2016 Respiratory No cigarette smoking 2016 Respiratory cough 09/16/2016 Respiratory No dyspnea 09/16/2016 Respiratory No pedal edema 09/16/2016 Respiratory No snoring 09/16/2016 Respiratory No wheezing 09/16/2016 Gastrointestinal No hemorrhoids 2016 Gastrointestinal No abdominal pain 2016 Gastrointestinal No constipation 2016 Gastrointestinal No diarrhea 09/16/2016 Gastrointestinal No gastroesophageal reflux 09/16/2016 Gastrointestinal No melena 09/16/2016 Gastrointestinal No nausea 09/16/2016 Gastrointestinal No vomiting 09/16/2016 Genitourinary/Nephrology No dysuria 09/16 Genitourinary/Nephrology nocturia 2016 Genitourinary/Nephrology No urinary incontinence 09/16/2016 Musculoskeletal stiffness 09/16/2016 Musculoskeletal joint complaint 2016 Musculoskeletal muscle weakness 2016 Musculoskeletal neck pain 09/16/2016 Dermatologic No rash 09/16/2016 Dermatologic No sores 09/16/2016 Dermatologic No scar 09/16/2016 Neurologic No dizziness 09/16/2016 Neurologic No headache 09/16/2016 Neurologic No syncope 09/16/2016 Neurologic weakness 09/16/2016 Psychiatric No anxiety 09/16/2016 Psychiatric No depression 09/16/2016 Constitutional No chills 03/11/2016 Constitutional No fever 03/11/2016 Ears/Nose/Throat/Neck No dysphagia 2015 Ears/Nose/Throat/Neck No headache 2015 Ears/Nose/Throat/Neck No hearing loss Ears/Nose/Throat/Neck nasal allergies Ears/Nose/Throat/Neck No sore throat Respiratory No chest tightness 2015 Respiratory No cigarette smoking 2015 Respiratory cough 03/11/2016 Respiratory No dyspnea 03/11/2016 Respiratory No pedal edema 03/11/2016 Respiratory No snoring 03/11/2016 Respiratory No wheezing 03/11/2016 Gastrointestinal No hemorrhoids 2015 Gastrointestinal No abdominal pain 2015 Gastrointestinal No constipation 2015 Gastrointestinal No diarrhea 03/11/2016 Gastrointestinal No gastroesophageal reflux 03/11/2016 Gastrointestinal No melena 03/11/2016 Gastrointestinal No nausea 03/11/2016 Gastrointestinal No vomiting 03/11/2016 Genitourinary/Nephrology No dysuria 03/11 Genitourinary/Nephrology nocturia 2015 Genitourinary/Nephrology No urinary incontinence 03/11/2016 Musculoskeletal stiffness 03/11/2016 Musculoskeletal joint complaint 2015 Musculoskeletal muscle weakness 2015 Musculoskeletal neck pain 03/11/2016 Dermatologic No rash 03/11/2016 Dermatologic No sores 03/11/2016 Dermatologic No scar 03/11/2016 Neurologic No dizziness 03/11/2016 Neurologic No headache 03/11/2016 Neurologic No syncope 03/11/2016 Neurologic weakness 03/11/2016 Psychiatric No anxiety 03/11/2016 Psychiatric No depression 03/11/2016 Constitutional recent illness 03/11/2016 Constitutional No fatigue 03/11/2016 Cardiovascular No chest pain/pressure Cardiovascular No edema 03/11/2016 Cardiovascular No exercise intolerance Cardiovascular No fatigue 03/11/2016 Cardiovascular No near-syncope/dizziness 03/11/2016 Cardiovascular hypertension 03/11/2016 Ears/Nose/Throat/Neck nasal discharge Constitutional No recent illness 2015 Constitutional No chills 09/05/2015 Constitutional No fatigue 09/05/2015 Constitutional No fever 09/05/2015 Constitutional No insomnia 09/05/2015 Constitutional No malaise 09/05/2015 Eyes No blindness 09/05/2015 Eyes No vision change 09/05/2015 Ears/Nose/Throat/Neck No dental pain Ears/Nose/Throat/Neck No dizziness 2015 Ears/Nose/Throat/Neck No dysphagia 2015 Ears/Nose/Throat/Neck No headache 2015 Ears/Nose/Throat/Neck No hearing loss Ears/Nose/Throat/Neck No nasal allergies 09/05/2015 Ears/Nose/Throat/Neck No sore throat Ears/Nose/Throat/Neck No postnasal drip 09/05/2015 Ears/Nose/Throat/Neck No sinus congestion 09/05/2015 Respiratory No chest tightness 2015 Respiratory No cigarette smoking 2015 Respiratory No cough 09/05/2015 Respiratory No dyspnea 09/05/2015 Respiratory No pedal edema 09/05/2015 Respiratory No snoring 09/05/2015 Respiratory No wheezing 09/05/2015 Gastrointestinal No hemorrhoids 2015 Gastrointestinal No abdominal pain 2015 Gastrointestinal No constipation 2015 Gastrointestinal No diarrhea 09/05/2015 Gastrointestinal No gastroesophageal reflux 09/05/2015 Gastrointestinal No melena 09/05/2015 Gastrointestinal No nausea 09/05/2015 Gastrointestinal No vomiting 09/05/2015 Genitourinary/Nephrology No dysuria 09/04 Genitourinary/Nephrology No nocturia Genitourinary/Nephrology No urinary incontinence 09/05/2015 Dermatologic No rash 09/05/2015 Dermatologic No sores 09/05/2015 Dermatologic No scar 09/05/2015 Neurologic No dizziness 09/05/2015 Neurologic No headache 09/05/2015 Neurologic No neck pain 09/05/2015 Neurologic No syncope 09/05/2015 Psychiatric No anxiety 09/05/2015 Psychiatric No depression 09/05/2015 Cardiovascular hypertension 09/05/2015 Cardiovascular No fatigue 09/05/2015 Cardiovascular No exercise intolerance Constitutional No recent illness 2014 Constitutional No chills 02/27/2015 Constitutional No fatigue 02/27/2015 Constitutional No fever 02/27/2015 Constitutional No insomnia 02/27/2015 Constitutional No malaise 02/27/2015 Ears/Nose/Throat/Neck No dental pain 01/2015 Ears/Nose/Throat/Neck No dizziness 2014 Ears/Nose/Throat/Neck No dysphagia 2014 Ears/Nose/Throat/Neck No headache 2014 Ears/Nose/Throat/Neck No hearing loss 01/2015 Ears/Nose/Throat/Neck No nasal allergies 02/27/2015 Ears/Nose/Throat/Neck No sore throat 01/2015 Ears/Nose/Throat/Neck No postnasal drip 02/27/2015 Ears/Nose/Throat/Neck No sinus congestion 02/27/2015 Respiratory No chest tightness 2014 Respiratory No cigarette smoking 2014 Respiratory No cough 02/27/2015 Respiratory No dyspnea 02/27/2015 Respiratory No pedal edema 02/27/2015 Respiratory No snoring 02/27/2015 Respiratory No wheezing 02/27/2015 Gastrointestinal No hemorrhoids 2014 Gastrointestinal No abdominal pain 2014 Gastrointestinal No constipation 2014 Gastrointestinal No diarrhea 02/27/2015 Gastrointestinal No gastroesophageal reflux 02/27/2015 Gastrointestinal No melena 02/27/2015 Gastrointestinal No nausea 02/27/2015 Gastrointestinal No vomiting 02/27/2015 Genitourinary/Nephrology No dysuria 02/27 Genitourinary/Nephrology No nocturia 01/2015 Genitourinary/Nephrology No urinary incontinence 02/27/2015 Dermatologic No rash 02/27/2015 Dermatologic No sores 02/27/2015 Dermatologic No scar 02/27/2015 Neurologic No dizziness 02/27/2015 Neurologic No headache 02/27/2015 Neurologic No neck pain 02/27/2015 Neurologic No syncope 02/27/2015 Psychiatric No anxiety 02/27/2015 Psychiatric No depression 02/27/2015 Eyes No blindness 02/27/2015 Eyes No vision change 02/27/2015 Constitutional No chills 10/26/2014 Constitutional fatigue 10/26/2014 Constitutional No fever 10/26/2014 Ears/Nose/Throat/Neck No dysphagia 2014 Ears/Nose/Throat/Neck No headache 2014 Ears/Nose/Throat/Neck No nasal allergies 10/26/2014 Ears/Nose/Throat/Neck No sore throat 12/2014 Respiratory No chest tightness 2014 Respiratory No cigarette smoking 2014 Respiratory No dyspnea 10/26/2014 Respiratory No pedal edema 10/26/2014 Gastrointestinal abdominal pain 2014 Gastrointestinal No constipation 2014 Gastrointestinal No diarrhea 10/26/2014 Gastrointestinal No gastroesophageal reflux 10/26/2014 Gastrointestinal No nausea 10/26/2014 Gastrointestinal No vomiting 10/26/2014 Genitourinary/Nephrology No dysuria 10/26 Genitourinary/Nephrology No urinary incontinence 10/26/2014 Musculoskeletal stiffness 10/26/2014 Musculoskeletal joint complaint 2014 Musculoskeletal muscle weakness 2014 Musculoskeletal neck pain 10/26/2014 Dermatologic No rash 10/26/2014 Neurologic No dizziness 10/26/2014 Neurologic No headache 10/26/2014 Neurologic No syncope 10/26/2014 Neurologic weakness 10/26/2014 Psychiatric No anxiety 10/26/2014 Psychiatric No depression 10/26/2014 Cardiovascular No chest pain/pressure 12/2014 Cardiovascular No dyspnea 10/26/2014 Cardiovascular No edema 10/26/2014 Cardiovascular No exercise intolerance Cardiovascular No fatigue 10/26/2014 Cardiovascular No near-syncope/dizziness 10/26/2014 Eyes No blindness 10/26/2014 Eyes No vision change 10/26/2014 Constitutional No chills 06/29/2014 Constitutional fatigue 06/29/2014 Constitutional No fever 06/29/2014 Ears/Nose/Throat/Neck No dysphagia 2014 Ears/Nose/Throat/Neck No headache 2014 Ears/Nose/Throat/Neck No nasal allergies 06/29/2014 Ears/Nose/Throat/Neck No sore throat 01/2015 Respiratory No chest tightness 2014 Respiratory No cigarette smoking 2014 Respiratory No dyspnea 06/29/2014 Gastrointestinal No abdominal pain 2014 Gastrointestinal No constipation 2014 Gastrointestinal No diarrhea 06/29/2014 Gastrointestinal No gastroesophageal reflux 06/29/2014 Gastrointestinal No nausea 06/29/2014 Gastrointestinal No vomiting 06/29/2014 Genitourinary/Nephrology No dysuria 06/29 Genitourinary/Nephrology No urinary incontinence 06/29/2014 Musculoskeletal stiffness 06/29/2014 Musculoskeletal joint complaint 2014 Musculoskeletal muscle weakness 2014 Musculoskeletal neck pain 06/29/2014 Dermatologic No rash 06/29/2014 Neurologic No dizziness 06/29/2014 Neurologic No headache 06/29/2014 Neurologic No syncope 06/29/2014 Neurologic weakness 06/29/2014 Psychiatric No anxiety 06/29/2014 Psychiatric No depression 06/29/2014 Respiratory No pedal edema 06/29/2014 Constitutional fatigue 04/27/2014 Respiratory cough 04/27/2014 Respiratory chest congestion 04/27/2014 Respiratory No dyspnea 04/27/2014 Cardiovascular No chest pain/pressure 11/2013 Gastrointestinal No constipation 2013 Gastrointestinal No diarrhea 04/27/2014 Genitourinary/Nephrology nocturia 2013 Musculoskeletal stiffness 04/27/2014 Musculoskeletal muscle weakness 2013 Musculoskeletal joint complaint 2013 Musculoskeletal neck pain 04/27/2014 Neurologic No dizziness 04/27/2014 Neurologic weakness 04/27/2014 Constitutional No chills 04/27/2014 Constitutional No fever 04/27/2014 Ears/Nose/Throat/Neck No dysphagia 2013 Ears/Nose/Throat/Neck No headache 2013 Ears/Nose/Throat/Neck No hearing loss 11/2013 Ears/Nose/Throat/Neck No nasal allergies 04/27/2014 Ears/Nose/Throat/Neck No sore throat 11/2013 Respiratory No chest tightness 2013 Respiratory No cigarette smoking 2013 Respiratory No pedal edema 04/27/2014 Respiratory No snoring 04/27/2014 Respiratory No wheezing 04/27/2014 Gastrointestinal No hemorrhoids 2013 Gastrointestinal No abdominal pain 2013 Gastrointestinal No gastroesophageal reflux 04/27/2014 Gastrointestinal No melena 04/27/2014 Gastrointestinal No nausea 04/27/2014 Gastrointestinal No vomiting 04/27/2014 Genitourinary/Nephrology No dysuria 04/27 Genitourinary/Nephrology No urinary incontinence 04/27/2014 Dermatologic No rash 04/27/2014 Dermatologic No sores 04/27/2014 Dermatologic No scar 04/27/2014 Neurologic No headache 04/27/2014 Neurologic No syncope 04/27/2014 Psychiatric No anxiety 04/27/2014 Psychiatric No depression 04/27/2014 Constitutional No recent illness 2013 Constitutional No chills 03/30/2014 Constitutional fatigue 03/30/2014 Constitutional No fever 03/30/2014 Constitutional No insomnia 03/30/2014 Constitutional malaise 03/30/2014 Ears/Nose/Throat/Neck No dental pain 02/2014 Ears/Nose/Throat/Neck No dizziness 2013 Ears/Nose/Throat/Neck No dysphagia 2013 Ears/Nose/Throat/Neck No headache 2013 Ears/Nose/Throat/Neck No hearing loss 02/2014 Ears/Nose/Throat/Neck No nasal allergies 03/30/2014 Ears/Nose/Throat/Neck No sore throat 02/2014 Ears/Nose/Throat/Neck No postnasal drip 03/30/2014 Ears/Nose/Throat/Neck No sinus congestion 03/30/2014 Respiratory No chest tightness 2013 Respiratory No cigarette smoking 2013 Respiratory No cough 03/30/2014 Respiratory No dyspnea 03/30/2014 Respiratory No pedal edema 03/30/2014 Respiratory No snoring 03/30/2014 Respiratory No wheezing 03/30/2014 Gastrointestinal No hemorrhoids 2013 Gastrointestinal No abdominal pain 2013 Gastrointestinal No constipation 2013 Gastrointestinal No diarrhea 03/30/2014 Gastrointestinal No gastroesophageal reflux 03/30/2014 Gastrointestinal No melena 03/30/2014 Gastrointestinal No nausea 03/30/2014 Gastrointestinal No vomiting 03/30/2014 Genitourinary/Nephrology No dysuria 03/30 Genitourinary/Nephrology No nocturia 02/2014 Genitourinary/Nephrology No urinary incontinence 03/30/2014 Dermatologic No rash 03/30/2014 Dermatologic No scar 03/30/2014 Neurologic No dizziness 03/30/2014 Neurologic No headache 03/30/2014 Neurologic No neck pain 03/30/2014 Neurologic No syncope 03/30/2014 Psychiatric No anxiety 03/30/2014 Psychiatric No depression 03/30/2014 Musculoskeletal arthralgia(s) 03/30/2014 Musculoskeletal myalgias 03/30/2014 Musculoskeletal stiffness 03/30/2014 Cardiovascular No dyspnea 03/30/2014 Cardiovascular fatigue 03/30/2014 Constitutional No recent illness 2013 Constitutional No chills 10/27/2013 Constitutional No fatigue 10/27/2013 Constitutional No fever 10/27/2013 Constitutional No insomnia 10/27/2013 Constitutional No malaise 10/27/2013 Ears/Nose/Throat/Neck No dental pain 01/2014 Ears/Nose/Throat/Neck No dizziness 2013 Ears/Nose/Throat/Neck No dysphagia 2013 Ears/Nose/Throat/Neck No headache 2013 Ears/Nose/Throat/Neck No hearing loss 01/2014 Ears/Nose/Throat/Neck No nasal allergies 10/27/2013 Ears/Nose/Throat/Neck No sore throat 01/2014 Ears/Nose/Throat/Neck No postnasal drip 10/27/2013 Ears/Nose/Throat/Neck No sinus congestion 10/27/2013 Respiratory No chest tightness 2013 Respiratory No cigarette smoking 2013 Respiratory No cough 10/27/2013 Respiratory No dyspnea 10/27/2013 Respiratory No pedal edema 10/27/2013 Respiratory No snoring 10/27/2013 Respiratory No wheezing 10/27/2013 Gastrointestinal No hemorrhoids 2013 Gastrointestinal No abdominal pain 2013 Gastrointestinal No constipation 2013 Gastrointestinal No diarrhea 10/27/2013 Gastrointestinal No gastroesophageal reflux 10/27/2013 Gastrointestinal No melena 10/27/2013 Gastrointestinal No nausea 10/27/2013 Gastrointestinal No vomiting 10/27/2013 Genitourinary/Nephrology No dysuria 10/27 Genitourinary/Nephrology No nocturia 01/2014 Genitourinary/Nephrology No urinary incontinence 10/27/2013 Dermatologic No rash 10/27/2013 Dermatologic No sores 10/27/2013 Dermatologic No scar 10/27/2013 Neurologic No dizziness 10/27/2013 Neurologic No headache 10/27/2013 Neurologic No neck pain 10/27/2013 Neurologic No syncope 10/27/2013 Psychiatric No anxiety 10/27/2013 Psychiatric No depression 10/27/2013 Constitutional No recent illness 2013 Constitutional No chills 07/27/2013 Constitutional No fatigue 07/27/2013 Constitutional No fever 07/27/2013 Constitutional No insomnia 07/27/2013 Constitutional No malaise 07/27/2013 Ears/Nose/Throat/Neck No dental pain 10/2013 Ears/Nose/Throat/Neck No dizziness 2013 Ears/Nose/Throat/Neck No dysphagia 2013 Ears/Nose/Throat/Neck No headache 2013 Ears/Nose/Throat/Neck No hearing loss 10/2013 Ears/Nose/Throat/Neck No nasal allergies 07/27/2013 Ears/Nose/Throat/Neck No sore throat 10/2013 Ears/Nose/Throat/Neck No postnasal drip 07/27/2013 Ears/Nose/Throat/Neck No sinus congestion 07/27/2013 Respiratory No chest tightness 2013 Respiratory No cigarette smoking 2013 Respiratory No cough 07/27/2013 Respiratory No dyspnea 07/27/2013 Respiratory No pedal edema 07/27/2013 Respiratory No snoring 07/27/2013 Respiratory No wheezing 07/27/2013 Gastrointestinal No hemorrhoids 2013 Gastrointestinal No abdominal pain 2013 Gastrointestinal No constipation 2013 Gastrointestinal No diarrhea 07/27/2013 Gastrointestinal No gastroesophageal reflux 07/27/2013 Gastrointestinal No melena 07/27/2013 Gastrointestinal No nausea 07/27/2013 Gastrointestinal No vomiting 07/27/2013 Genitourinary/Nephrology No dysuria 07/27 Genitourinary/Nephrology No nocturia 10/2013 Genitourinary/Nephrology No urinary incontinence 07/27/2013 Dermatologic No rash 07/27/2013 Dermatologic No sores 07/27/2013 Dermatologic No scar 07/27/2013 Neurologic No dizziness 07/27/2013 Neurologic No headache 07/27/2013 Neurologic No neck pain 07/27/2013 Neurologic No syncope 07/27/2013 Psychiatric No anxiety 07/27/2013 Psychiatric No depression 07/27/2013 Constitutional No recent illness 2013 Constitutional No chills 06/30/2013 Constitutional No fatigue 06/30/2013 Constitutional No fever 06/30/2013 Constitutional No insomnia 06/30/2013 Constitutional No malaise 06/30/2013 Ears/Nose/Throat/Neck No dental pain 02/2014 Ears/Nose/Throat/Neck No dizziness 2013 Ears/Nose/Throat/Neck No dysphagia 2013 Ears/Nose/Throat/Neck No headache 2013 Ears/Nose/Throat/Neck No hearing loss 02/2014 Ears/Nose/Throat/Neck No nasal allergies 06/30/2013 Ears/Nose/Throat/Neck No sore throat 02/2014 Ears/Nose/Throat/Neck No postnasal drip 06/30/2013 Ears/Nose/Throat/Neck No sinus congestion 06/30/2013 Respiratory No chest tightness 2013 Respiratory No cigarette smoking 2013 Respiratory No cough 06/30/2013 Respiratory No dyspnea 06/30/2013 Respiratory No pedal edema 06/30/2013 Respiratory No snoring 06/30/2013 Respiratory No wheezing 06/30/2013 Gastrointestinal No hemorrhoids 2013 Gastrointestinal No abdominal pain 2013 Gastrointestinal No constipation 2013 Gastrointestinal No diarrhea 06/30/2013 Gastrointestinal No gastroesophageal reflux 06/30/2013 Gastrointestinal No melena 06/30/2013 Gastrointestinal No nausea 06/30/2013 Gastrointestinal No vomiting 06/30/2013 Genitourinary/Nephrology No dysuria 06/30 Genitourinary/Nephrology No nocturia 02/2014 Genitourinary/Nephrology No urinary incontinence 06/30/2013 Dermatologic No rash 06/30/2013 Dermatologic No scar 06/30/2013 Psychiatric No anxiety 06/30/2013 Psychiatric No depression 06/30/2013 Constitutional No recent illness 2012 Constitutional No chills 06/01/2013 Constitutional No fatigue 06/01/2013 Constitutional No fever 06/01/2013 Constitutional No insomnia 06/01/2013 Constitutional No malaise 06/01/2013 Ears/Nose/Throat/Neck No dental pain 04/2013 Ears/Nose/Throat/Neck No dizziness 2012 Ears/Nose/Throat/Neck No dysphagia 2012 Ears/Nose/Throat/Neck No headache 2012 Ears/Nose/Throat/Neck No hearing loss 04/2013 Ears/Nose/Throat/Neck No nasal allergies 06/01/2013 Ears/Nose/Throat/Neck No sore throat 04/2013 Ears/Nose/Throat/Neck No postnasal drip 06/01/2013 Ears/Nose/Throat/Neck No sinus congestion 06/01/2013 Respiratory No chest tightness 2012 Respiratory No cigarette smoking 2012 Respiratory No cough 06/01/2013 Respiratory No dyspnea 06/01/2013 Respiratory No pedal edema 06/01/2013 Respiratory No snoring 06/01/2013 Respiratory No wheezing 06/01/2013 Gastrointestinal No hemorrhoids 2012 Gastrointestinal No abdominal pain 2012 Gastrointestinal No constipation 2012 Gastrointestinal No diarrhea 06/01/2013 Gastrointestinal No gastroesophageal reflux 06/01/2013 Gastrointestinal No melena 06/01/2013 Gastrointestinal No nausea 06/01/2013 Gastrointestinal No vomiting 06/01/2013 Genitourinary/Nephrology No dysuria 06/01 Genitourinary/Nephrology No nocturia 04/2013 Genitourinary/Nephrology No urinary incontinence 06/01/2013 Neurologic No dizziness 06/01/2013 Neurologic No headache 06/01/2013 Neurologic No neck pain 06/01/2013 Neurologic No syncope 06/01/2013 Psychiatric No anxiety 06/01/2013 Psychiatric No depression 06/01/2013 Dermatologic No rash 06/01/2013 Dermatologic No scar 06/01/2013 Dermatologic No sores 06/01/2013 Musculoskeletal stiffness 06/01/2013 Musculoskeletal No swelling 06/01/2013 Musculoskeletal No muscle weakness 2012 Musculoskeletal No myalgias 06/01/2013 Musculoskeletal joint complaint 2012 Constitutional No recent illness 2012 Constitutional No chills 11/23/2012 Constitutional No fatigue 11/23/2012 Constitutional No fever 11/23/2012 Constitutional No insomnia 11/23/2012 Constitutional No malaise 11/23/2012 Ears/Nose/Throat/Neck No dental pain 09/2012 Ears/Nose/Throat/Neck No dizziness 2012 Ears/Nose/Throat/Neck No dysphagia 2012 Ears/Nose/Throat/Neck No headache 2012 Ears/Nose/Throat/Neck No hearing loss 09/2012 Ears/Nose/Throat/Neck No nasal allergies 11/23/2012 Ears/Nose/Throat/Neck No sore throat 09/2012 Ears/Nose/Throat/Neck No postnasal drip 11/23/2012 Ears/Nose/Throat/Neck No sinus congestion 11/23/2012 Respiratory No chest tightness 2012 Respiratory No cigarette smoking 2012 Respiratory No cough 11/23/2012 Respiratory No dyspnea 11/23/2012 Respiratory No pedal edema 11/23/2012 Respiratory No snoring 11/23/2012 Respiratory No wheezing 11/23/2012 Gastrointestinal No hemorrhoids 2012 Gastrointestinal No abdominal pain 2012 Gastrointestinal No constipation 2012 Gastrointestinal No diarrhea 11/23/2012 Gastrointestinal No gastroesophageal reflux 11/23/2012 Gastrointestinal No melena 11/23/2012 Gastrointestinal No nausea 11/23/2012 Gastrointestinal No vomiting 11/23/2012 Genitourinary/Nephrology No dysuria 11/23 Genitourinary/Nephrology No nocturia 09/2012 Genitourinary/Nephrology No urinary incontinence 11/23/2012 Dermatologic No sores 11/23/2012 Neurologic No dizziness 11/23/2012 Neurologic No headache 11/23/2012 Neurologic No neck pain 11/23/2012 Neurologic No syncope 11/23/2012 Psychiatric No anxiety 11/23/2012 Psychiatric No depression 11/23/2012 Dermatologic No rash 11/23/2012 Dermatologic No scar 11/23/2012 Constitutional No recent illness 2012 Constitutional No anorexia 10/11/2012 Constitutional No night sweats 2012 Constitutional No chills 10/11/2012 Constitutional No diaphoresis 10/11/2012 Constitutional No fatigue 10/11/2012 Constitutional No fever 10/11/2012 Constitutional No insomnia 10/11/2012 Constitutional No malaise 10/11/2012 Eyes No eye discharge 10/11/2012 Eyes No eye erythema 10/11/2012 Ears/Nose/Throat/Neck No dizziness 2012 Ears/Nose/Throat/Neck No headache 2012 Cardiovascular No chest pain/pressure Respiratory No productive sputum 2012 Respiratory No chest congestion 2012 Gastrointestinal No abdominal pain 2012 Gastrointestinal No constipation 2012 Gastrointestinal No diarrhea 10/11/2012 Gastrointestinal No nausea 10/11/2012 Genitourinary/Nephrology No dysuria 10/11 Musculoskeletal No joint complaint 2012 Dermatologic rash 10/11/2012 Constitutional No recent illness 2011 Constitutional No chills 05/25/2012 Constitutional No fatigue 05/25/2012 Constitutional No fever 05/25/2012 Constitutional No insomnia 05/25/2012 Constitutional No malaise 05/25/2012 Ears/Nose/Throat/Neck No dental pain 09/2011 Ears/Nose/Throat/Neck No dizziness 2011 Ears/Nose/Throat/Neck No dysphagia 2011 Ears/Nose/Throat/Neck No headache 2011 Ears/Nose/Throat/Neck No hearing loss 09/2011 Ears/Nose/Throat/Neck No nasal allergies 05/25/2012 Ears/Nose/Throat/Neck No sore throat 09/2011 Ears/Nose/Throat/Neck No postnasal drip 05/25/2012 Ears/Nose/Throat/Neck No sinus congestion 05/25/2012 Respiratory No chest tightness 2011 Respiratory No cigarette smoking 2011 Respiratory No cough 05/25/2012 Respiratory No dyspnea 05/25/2012 Respiratory No pedal edema 05/25/2012 Respiratory No snoring 05/25/2012 Respiratory No wheezing 05/25/2012 Gastrointestinal No hemorrhoids 2011 Gastrointestinal No abdominal pain 2011 Gastrointestinal No constipation 2011 Gastrointestinal No diarrhea 05/25/2012 Gastrointestinal No gastroesophageal reflux 05/25/2012 Gastrointestinal No melena 05/25/2012 Gastrointestinal No nausea 05/25/2012 Gastrointestinal No vomiting 05/25/2012 Genitourinary/Nephrology No dysuria 05/25 Genitourinary/Nephrology No nocturia 09/2011 Genitourinary/Nephrology No urinary incontinence 05/25/2012 Dermatologic No rash 05/25/2012 Dermatologic No sores 05/25/2012 Dermatologic No scar 05/25/2012 Neurologic No dizziness 05/25/2012 Neurologic No headache 05/25/2012 Neurologic No neck pain 05/25/2012 Neurologic No syncope 05/25/2012 Psychiatric No anxiety 05/25/2012 Psychiatric No depression 05/25/2012 Constitutional No recent illness 2011 Constitutional No chills 04/29/2012 Constitutional No fatigue 04/29/2012 Constitutional No fever 04/29/2012 Constitutional No insomnia 04/29/2012 Constitutional No malaise 04/29/2012 Ears/Nose/Throat/Neck No dental pain 01/2012 Ears/Nose/Throat/Neck No dizziness 2011 Ears/Nose/Throat/Neck No dysphagia 2011 Ears/Nose/Throat/Neck No headache 2011 Ears/Nose/Throat/Neck No hearing loss 01/2012 Ears/Nose/Throat/Neck No nasal allergies 04/29/2012 Ears/Nose/Throat/Neck No sore throat 01/2012 Ears/Nose/Throat/Neck No postnasal drip 04/29/2012 Ears/Nose/Throat/Neck No sinus congestion 04/29/2012 Respiratory No chest tightness 2011 Respiratory No cigarette smoking 2011 Respiratory No cough 04/29/2012 Respiratory No dyspnea 04/29/2012 Respiratory No pedal edema 04/29/2012 Respiratory No snoring 04/29/2012 Respiratory No wheezing 04/29/2012 Gastrointestinal No hemorrhoids 2011 Gastrointestinal No abdominal pain 2011 Gastrointestinal No constipation 2011 Gastrointestinal No diarrhea 04/29/2012 Gastrointestinal No gastroesophageal reflux 04/29/2012 Gastrointestinal No melena 04/29/2012 Gastrointestinal No nausea 04/29/2012 Gastrointestinal No vomiting 04/29/2012 Genitourinary/Nephrology No dysuria 04/29 Genitourinary/Nephrology No nocturia 01/2012 Genitourinary/Nephrology No urinary incontinence 04/29/2012 Dermatologic No rash 04/29/2012 Dermatologic No sores 04/29/2012 Dermatologic No scar 04/29/2012 Neurologic No dizziness 04/29/2012 Neurologic No headache 04/29/2012 Neurologic No neck pain 04/29/2012 Neurologic No syncope 04/29/2012 Psychiatric No anxiety 04/29/2012 Psychiatric No depression 04/29/2012 Constitutional No recent illness 2011 Constitutional No anorexia 04/08/2012 Constitutional No night sweats 2011 Constitutional No chills 04/08/2012 Constitutional No diaphoresis 04/08/2012 Constitutional No fatigue 04/08/2012 Constitutional No fever 04/08/2012 Constitutional No insomnia 04/08/2012 Constitutional No malaise 04/08/2012 Eyes No eye discharge 04/08/2012 Eyes No eye erythema 04/08/2012 Ears/Nose/Throat/Neck No dizziness 2011 Cardiovascular No chest pain/pressure Respiratory No productive sputum 2011 Cardiovascular No edema 04/08/2012 Cardiovascular No dyspnea 04/08/2012 Respiratory No cough 04/08/2012 Gastrointestinal No abdominal pain 2011 Gastrointestinal No constipation 2011 Gastrointestinal No diarrhea 04/08/2012 Gastrointestinal No nausea 04/08/2012 Gastrointestinal No vomiting 04/08/2012 Musculoskeletal No joint complaint 2011 Dermatologic No rash 04/08/2012 Dermatologic No sores 04/08/2012 Constitutional No recent illness 2011 Constitutional No chills 03/29/2012 Constitutional No fatigue 03/29/2012 Constitutional No fever 03/29/2012 Constitutional No insomnia 03/29/2012 Constitutional No malaise 03/29/2012 Ears/Nose/Throat/Neck No dental pain 01/2012 Ears/Nose/Throat/Neck No dizziness 2011 Ears/Nose/Throat/Neck No dysphagia 2011 Ears/Nose/Throat/Neck No headache 2011 Ears/Nose/Throat/Neck No hearing loss 01/2012 Ears/Nose/Throat/Neck No nasal allergies 03/29/2012 Ears/Nose/Throat/Neck No sore throat 01/2012 Ears/Nose/Throat/Neck No postnasal drip 03/29/2012 Ears/Nose/Throat/Neck No sinus congestion 03/29/2012 Respiratory No chest tightness 2011 Respiratory No cigarette smoking 2011 Respiratory No cough 03/29/2012 Respiratory No dyspnea 03/29/2012 Respiratory No pedal edema 03/29/2012 Respiratory No snoring 03/29/2012 Respiratory No wheezing 03/29/2012 Gastrointestinal No hemorrhoids 2011 Gastrointestinal No abdominal pain 2011 Gastrointestinal No constipation 2011 Gastrointestinal No diarrhea 03/29/2012 Gastrointestinal No gastroesophageal reflux 03/29/2012 Gastrointestinal No melena 03/29/2012 Gastrointestinal No nausea 03/29/2012 Gastrointestinal No vomiting 03/29/2012 Genitourinary/Nephrology No dysuria 03/29 Genitourinary/Nephrology No nocturia 01/2012 Genitourinary/Nephrology No urinary incontinence 03/29/2012 Dermatologic No rash 03/29/2012 Dermatologic No scar 03/29/2012 Dermatologic No sores 03/29/2012 Psychiatric No anxiety 03/29/2012 Psychiatric No depression 03/29/2012 Neurologic No dizziness 03/29/2012 Neurologic No headache 03/29/2012 Neurologic No neck pain 03/29/2012 Neurologic No syncope 03/29/2012 Constitutional No recent illness 2011 Constitutional No chills 02/12/2012 Constitutional No fever 02/12/2012 Cardiovascular No chest pain/pressure Cardiovascular No fatigue 02/12/2012 Cardiovascular No near-syncope/dizziness 02/12/2012 Respiratory No chest congestion 2011 Respiratory No chest tightness 2011 Respiratory No cough 02/12/2012 Psychiatric No anxiety 02/12/2012 Psychiatric No depression 02/12/2012 Constitutional No recent illness 2011 Constitutional No chills 01/13/2012 Constitutional No fever 01/13/2012 Cardiovascular No chest pain/pressure Cardiovascular No fatigue 01/13/2012 Cardiovascular No near-syncope/dizziness 01/13/2012 Respiratory No chest congestion 2011 Respiratory No chest tightness 2011 Respiratory No cough 01/13/2012 Psychiatric No anxiety 01/13/2012 Psychiatric No depression 01/13/2012 Constitutional No recent illness 2011 Constitutional No chills 11/24/2011 Constitutional No fever 11/24/2011 Eyes No vision change 11/24/2011 Eyes No eye discharge 11/24/2011 Ears/Nose/Throat/Neck No dizziness 2011 Ears/Nose/Throat/Neck No headache 2011 Cardiovascular No chest pain/pressure 09/2011 Cardiovascular No fatigue 11/24/2011 Cardiovascular No near-syncope/dizziness 11/24/2011 Respiratory No cough 11/24/2011 Respiratory No chest tightness 2011 Respiratory No chest congestion 2011 Gastrointestinal No abdominal pain 2011 Gastrointestinal No constipation 2011 Gastrointestinal No diarrhea 11/24/2011 Musculoskeletal No stiffness 11/24/2011 Musculoskeletal No arthralgia(s) 2011 Neurologic No headache 11/24/2011 Neurologic No dizziness 11/24/2011 Psychiatric No anxiety 11/24/2011 Psychiatric No depression 11/24/2011 Physical Exam Exam Name System Name Item Name Status Result Effective Dates Notes Full Exam - General 1994 Constitutional general appearance Overall: well developed 09/17/2017 None Full Exam - General 1994 Constitutional general appearance Overall: in no acute distress 09/17/2017 None Full Exam - General 1994 Constitutional general appearance Overall: well nourished 09/17/2017 None Full Exam - General 1994 Eyes pupils and irises Overall: pupils equal, round, reactive to light and accomodation 09/17/2017 None Full Exam - General 1994 Ears/Nose/Throat oral cavity/pharynx/larynx Overall: oral mucosa clear 09/17/2017 None Full Exam - General 1994 Ears/Nose/Throat oral cavity/pharynx/larynx Overall: oropharyngeal mucosa clear 09/17/2017 None Full Exam - General 1994 Ears/Nose/Throat oral cavity/pharynx/larynx Overall: no masses 09/17/2017 None Full Exam - General 1994 Respiratory auscultation Overall: breath sounds clear bilaterally 09/17/2017 None Full Exam - General 1994 Respiratory respiratory effort/rhythm Overall: no retractions 09/17/2017 None Full Exam - General 1994 Respiratory respiratory effort/rhythm Overall: normal rate 09/17/2017 None Full Exam - General 1994 Cardiovascular extremities Overall: no clubbing 09/17/2017 None Full Exam - General 1994 Cardiovascular auscultation of heart Overall: regular rate 09/17/2017 None Full Exam - General 1994 Cardiovascular auscultation of heart Overall: normal heart sounds 09/17/2017 None Full Exam - General 1994 Cardiovascular auscultation of heart Overall: no murmurs 09/17/2017 None Full Exam - General 1994 Abdomen abdominal exam Overall: no tenderness 09/17/2017 None Full Exam - General 1994 Abdomen abdominal exam Overall: normal bowel sounds 09/17/2017 None Full Exam - General 1994 Musculoskeletal spine, ribs and pelvis Overall: good posture 09/17/2017 None Full Exam - General 1994 Psychiatric orientation/consciousness Overall: oriented to person, place and time 09/17/2017 None Full Exam - General 1994 Psychiatric mood and affect Overall: normal mood and affect 09/17/2017 None Full Exam - General 1994 Psychiatric mood and affect Mood: happy 09/17/2017 None Full Exam - General 1994 Constitutional general appearance Overall: well developed 07/17/2017 None Full Exam - General 1994 Constitutional general appearance Overall: in no acute distress 07/17/2017 None Full Exam - General 1994 Constitutional general appearance Overall: well nourished 07/17/2017 None Full Exam - General 1994 Ears/Nose/Throat oral cavity/pharynx/larynx Overall: oral mucosa clear 07/17/2017 None Full Exam - General 1994 Ears/Nose/Throat oral cavity/pharynx/larynx Overall: oropharyngeal mucosa clear 07/17/2017 None Full Exam - General 1994 Ears/Nose/Throat oral cavity/pharynx/larynx Overall: no masses 07/17/2017 None Full Exam - General 1994 Respiratory auscultation Overall: breath sounds clear bilaterally 07/17/2017 None Full Exam - General 1994 Respiratory respiratory effort/rhythm Overall: no retractions 07/17/2017 None Full Exam - General 1994 Respiratory respiratory effort/rhythm Overall: normal rate 07/17/2017 None Full Exam - General 1994 Cardiovascular extremities Overall: no clubbing 07/17/2017 None Full Exam - General 1994 Cardiovascular auscultation of heart Overall: regular rate 07/17/2017 None Full Exam - General 1994 Cardiovascular auscultation of heart Overall: normal heart sounds 07/17/2017 None Full Exam - General 1994 Cardiovascular auscultation of heart Overall: no murmurs 07/17/2017 None Full Exam - General 1994 Abdomen abdominal exam Overall: no tenderness 07/17/2017 None Full Exam - General 1994 Abdomen abdominal exam Overall: normal bowel sounds 07/17/2017 None Full Exam - General 1994 Musculoskeletal spine, ribs and pelvis Overall: good posture 07/17/2017 None Full Exam - General 1994 Psychiatric orientation/consciousness Overall: oriented to person, place and time 07/17/2017 None Full Exam - General 1994 Psychiatric mood and affect Overall: normal mood and affect 07/17/2017 None Full Exam - General 1994 Psychiatric mood and affect Mood: happy 07/17/2017 None Full Exam - General 1994 Eyes pupils and irises Overall: pupils equal, round, reactive to light and accomodation 07/17/2017 nystagmus to right and left Full Exam - General 1994 Constitutional general appearance Overall: well developed 04/20/2017 None Full Exam - General 1994 Constitutional general appearance Overall: in no acute distress 04/20/2017 None Full Exam - General 1994 Constitutional general appearance Overall: well nourished 04/20/2017 None Full Exam - General 1994 Eyes pupils and irises Overall: pupils equal, round, reactive to light and accomodation 04/20/2017 None Full Exam - General 1994 Ears/Nose/Throat oral cavity/pharynx/larynx Overall: oral mucosa clear 04/20/2017 None Full Exam - General 1994 Ears/Nose/Throat oral cavity/pharynx/larynx Overall: oropharyngeal mucosa clear 04/20/2017 None Full Exam - General 1994 Ears/Nose/Throat oral cavity/pharynx/larynx Overall: no masses 04/20/2017 None Full Exam - General 1994 Respiratory auscultation Overall: breath sounds clear bilaterally 04/20/2017 None Full Exam - General 1994 Respiratory respiratory effort/rhythm Overall: no retractions 04/20/2017 None Full Exam - General 1994 Respiratory respiratory effort/rhythm Overall: normal rate 04/20/2017 None Full Exam - General 1994 Cardiovascular extremities Overall: no clubbing 04/20/2017 None Full Exam - General 1994 Cardiovascular auscultation of heart Overall: regular rate 04/20/2017 None Full Exam - General 1994 Cardiovascular auscultation of heart Overall: normal heart sounds 04/20/2017 None Full Exam - General 1994 Cardiovascular auscultation of heart Overall: no murmurs 04/20/2017 None Full Exam - General 1994 Abdomen abdominal exam Overall: no tenderness 04/20/2017 None Full Exam - General 1994 Abdomen abdominal exam Overall: normal bowel sounds 04/20/2017 None Full Exam - General 1994 Musculoskeletal spine, ribs and pelvis Overall: good posture 04/20/2017 None Full Exam - General 1994 Psychiatric orientation/consciousness Overall: oriented to person, place and time 04/20/2017 None Full Exam - General 1994 Psychiatric mood and affect Overall: normal mood and affect 04/20/2017 None Full Exam - General 1994 Psychiatric mood and affect Mood: happy 04/20/2017 None Full Exam - General 1994 Musculoskeletal digits and nails DIPs: third 04/20/2017 left hand 3rd digit ganglion cyst Full Exam - General 1994 Constitutional general appearance Overall: well developed 03/19/2017 None Full Exam - General 1994 Constitutional general appearance Overall: in no acute distress 03/19/2017 None Full Exam - General 1994 Constitutional general appearance Overall: well nourished 03/19/2017 None Full Exam - General 1994 Eyes pupils and irises Overall: pupils equal, round, reactive to light and accomodation 03/19/2017 None Full Exam - General 1994 Ears/Nose/Throat oral cavity/pharynx/larynx Overall: oral mucosa clear 03/19/2017 None Full Exam - General 1994 Ears/Nose/Throat oral cavity/pharynx/larynx Overall: oropharyngeal mucosa clear 03/19/2017 None Full Exam - General 1994 Ears/Nose/Throat oral cavity/pharynx/larynx Overall: no masses 03/19/2017 None Full Exam - General 1994 Respiratory auscultation Overall: breath sounds clear bilaterally 03/19/2017 None Full Exam - General 1994 Respiratory respiratory effort/rhythm Overall: no retractions 03/19/2017 None Full Exam - General 1994 Respiratory respiratory effort/rhythm Overall: normal rate 03/19/2017 None Full Exam - General 1994 Cardiovascular extremities Overall: no clubbing 03/19/2017 None Full Exam - General 1994 Cardiovascular auscultation of heart Overall: regular rate 03/19/2017 None Full Exam - General 1994 Cardiovascular auscultation of heart Overall: normal heart sounds 03/19/2017 None Full Exam - General 1994 Cardiovascular auscultation of heart Overall: no murmurs 03/19/2017 None Full Exam - General 1994 Abdomen abdominal exam Overall: no tenderness 03/19/2017 None Full Exam - General 1994 Abdomen abdominal exam Overall: normal bowel sounds 03/19/2017 None Full Exam - General 1994 Musculoskeletal spine, ribs and pelvis Overall: good posture 03/19/2017 None Full Exam - General 1994 Psychiatric orientation/consciousness Overall: oriented to person, place and time 03/19/2017 None Full Exam - General 1994 Psychiatric mood and affect Overall: normal mood and affect 03/19/2017 None Full Exam - General 1994 Psychiatric mood and affect Mood: happy 03/19/2017 None Full Exam - General 1994 Integument inspection of skin Rash/Lesions: papule 03/19/2017 nodule on edge of scar on nose - Full Exam - Dermatology Constitutional general appearance Overall: well nourished 10/15/2016 None Full Exam - Dermatology Constitutional general appearance Overall: well developed 10/15/2016 None Full Exam - Dermatology Constitutional general appearance Overall: in no acute distress 10/15/2016 None Full Exam - Dermatology Eyes conjunctiva/ eyelids Overall: clear conjunctiva bilaterally 10/15/2016 None Full Exam - Dermatology Eyes conjunctiva/ eyelids Overall: normal eyelids 10/15/2016 None Full Exam - Dermatology Ears/Nose/Throat lips/teeth/gingiva Overall: benign lips 10/15/2016 None Full Exam - Dermatology Respiratory respiratory effort/rhythm Overall: no retractions 10/15/2016 None Full Exam - Dermatology Respiratory respiratory effort/rhythm Overall: normal rate 10/15/2016 None Full Exam - Dermatology Integument insp & palp - left upper extremity Location: on the fingers 10/15/2016 middle finger Full Exam - Dermatology Integument insp & palp - left upper extremity Lesion: cyst 10/15/2016 None Full Exam - Dermatology Integument insp & palp - left upper extremity Consistency: non-tender 10/15/2016 None Full Exam - Dermatology Psychiatric orientation Overall: oriented to person, place and time 10/15/2016 None Full Exam - Dermatology Psychiatric mood and affect Overall: normal mood and affect 10/15/2016 None Full Exam - General 1994 Constitutional general appearance Overall: well developed 09/16/2016 None Full Exam - General 1994 Constitutional general appearance Overall: in no acute distress 09/16/2016 None Full Exam - General 1994 Constitutional general appearance Overall: well nourished 09/16/2016 None Full Exam - General 1994 Eyes pupils and irises Overall: pupils equal, round, reactive to light and accomodation 09/16/2016 None Full Exam - General 1994 Ears/Nose/Throat oral cavity/pharynx/larynx Overall: oral mucosa clear 09/16/2016 None Full Exam - General 1994 Ears/Nose/Throat oral cavity/pharynx/larynx Overall: oropharyngeal mucosa clear 09/16/2016 None Full Exam - General 1994 Ears/Nose/Throat oral cavity/pharynx/larynx Overall: no masses 09/16/2016 None Full Exam - General 1994 Respiratory auscultation Overall: breath sounds clear bilaterally 09/16/2016 None Full Exam - General 1994 Respiratory respiratory effort/rhythm Overall: no retractions 09/16/2016 None Full Exam - General 1994 Respiratory respiratory effort/rhythm Overall: normal rate 09/16/2016 None Full Exam - General 1994 Cardiovascular extremities Overall: no clubbing 09/16/2016 None Full Exam - General 1994 Cardiovascular auscultation of heart Overall: regular rate 09/16/2016 None Full Exam - General 1994 Cardiovascular auscultation of heart Overall: normal heart sounds 09/16/2016 None Full Exam - General 1994 Cardiovascular auscultation of heart Overall: no murmurs 09/16/2016 None Full Exam - General 1994 Musculoskeletal spine, ribs and pelvis Overall: good posture 09/16/2016 None Full Exam - General 1994 Psychiatric orientation/consciousness Overall: oriented to person, place and time 09/16/2016 None Full Exam - General 1994 Psychiatric mood and affect Overall: normal mood and affect 09/16/2016 None Full Exam - General 1994 Psychiatric mood and affect Mood: happy 09/16/2016 None Full Exam - General 1994 Abdomen abdominal exam Overall: no tenderness 09/16/2016 None Full Exam - General 1994 Abdomen abdominal exam Overall: normal bowel sounds 09/16/2016 None Full Exam - General 1994 Constitutional general appearance Overall: well developed 03/11/2016 None Full Exam - General 1994 Constitutional general appearance Overall: in no acute distress 03/11/2016 None Full Exam - General 1994 Constitutional general appearance Overall: well nourished 03/11/2016 None Full Exam - General 1994 Eyes pupils and irises Overall: pupils equal, round, reactive to light and accomodation 03/11/2016 None Full Exam - General 1994 Ears/Nose/Throat oral cavity/pharynx/larynx Overall: oral mucosa clear 03/11/2016 None Full Exam - General 1994 Ears/Nose/Throat oral cavity/pharynx/larynx Overall: oropharyngeal mucosa clear 03/11/2016 None Full Exam - General 1994 Ears/Nose/Throat oral cavity/pharynx/larynx Overall: no masses 03/11/2016 None Full Exam - General 1994 Respiratory auscultation Overall: breath sounds clear bilaterally 03/11/2016 None Full Exam - General 1994 Respiratory respiratory effort/rhythm Overall: no retractions 03/11/2016 None Full Exam - General 1994 Respiratory respiratory effort/rhythm Overall: normal rate 03/11/2016 None Full Exam - General 1994 Cardiovascular extremities Overall: no clubbing 03/11/2016 None Full Exam - General 1994 Cardiovascular auscultation of heart Overall: regular rate 03/11/2016 None Full Exam - General 1994 Cardiovascular auscultation of heart Overall: normal heart sounds 03/11/2016 None Full Exam - General 1994 Cardiovascular auscultation of heart Overall: no murmurs 03/11/2016 None Full Exam - General 1994 Musculoskeletal spine, ribs and pelvis Overall: good posture 03/11/2016 None Full Exam - General 1994 Psychiatric orientation/consciousness Overall: oriented to person, place and time 03/11/2016 None Full Exam - General 1994 Psychiatric mood and affect Overall: normal mood and affect 03/11/2016 None Full Exam - General 1994 Psychiatric mood and affect Mood: happy 03/11/2016 None Full Exam - General 1994 Constitutional general appearance Overall: well developed 09/05/2015 None Full Exam - General 1994 Constitutional general appearance Overall: in no acute distress 09/05/2015 None Full Exam - General 1994 Constitutional general appearance Overall: well nourished 09/05/2015 None Full Exam - General 1994 Eyes pupils and irises Overall: pupils equal, round, reactive to light and accomodation 09/05/2015 None Full Exam - General 1994 Ears/Nose/Throat oral cavity/pharynx/larynx Overall: oral mucosa clear 09/05/2015 None Full Exam - General 1994 Ears/Nose/Throat oral cavity/pharynx/larynx Overall: oropharyngeal mucosa clear 09/05/2015 None Full Exam - General 1994 Ears/Nose/Throat oral cavity/pharynx/larynx Overall: no masses 09/05/2015 None Full Exam - General 1994 Respiratory auscultation Overall: breath sounds clear bilaterally 09/05/2015 None Full Exam - General 1994 Respiratory respiratory effort/rhythm Overall: no retractions 09/05/2015 None Full Exam - General 1994 Respiratory respiratory effort/rhythm Overall: normal rate 09/05/2015 None Full Exam - General 1994 Cardiovascular extremities Overall: no clubbing 09/05/2015 None Full Exam - General 1994 Cardiovascular auscultation of heart Overall: regular rate 09/05/2015 None Full Exam - General 1994 Cardiovascular auscultation of heart Overall: normal heart sounds 09/05/2015 None Full Exam - General 1994 Cardiovascular auscultation of heart Overall: no murmurs 09/05/2015 None Full Exam - General 1994 Abdomen abdominal exam Overall: no tenderness 09/05/2015 None Full Exam - General 1994 Abdomen abdominal exam Overall: normal bowel sounds 09/05/2015 None Full Exam - General 1994 Musculoskeletal spine, ribs and pelvis Overall: good posture 09/05/2015 None Full Exam - General 1994 Psychiatric orientation/consciousness Overall: oriented to person, place and time 09/05/2015 None Full Exam - General 1994 Psychiatric mood and affect Overall: normal mood and affect 09/05/2015 None Full Exam - General 1994 Psychiatric mood and affect Mood: happy 09/05/2015 None Full Exam - General 1994 Constitutional general appearance Overall: well developed 02/27/2015 None Full Exam - General 1994 Constitutional general appearance Overall: in no acute distress 02/27/2015 None Full Exam - General 1994 Constitutional general appearance Overall: well nourished 02/27/2015 None Full Exam - General 1994 Eyes pupils and irises Overall: pupils equal, round, reactive to light and accomodation 02/27/2015 None Full Exam - General 1994 Ears/Nose/Throat oral cavity/pharynx/larynx Overall: oral mucosa clear 02/27/2015 None Full Exam - General 1994 Ears/Nose/Throat oral cavity/pharynx/larynx Overall: oropharyngeal mucosa clear 02/27/2015 None Full Exam - General 1994 Ears/Nose/Throat oral cavity/pharynx/larynx Overall: no masses 02/27/2015 None Full Exam - General 1994 Respiratory auscultation Overall: breath sounds clear bilaterally 02/27/2015 None Full Exam - General 1994 Respiratory respiratory effort/rhythm Overall: no retractions 02/27/2015 None Full Exam - General 1994 Respiratory respiratory effort/rhythm Overall: normal rate 02/27/2015 None Full Exam - General 1994 Cardiovascular extremities Overall: no clubbing 02/27/2015 None Full Exam - General 1994 Cardiovascular auscultation of heart Overall: regular rate 02/27/2015 None Full Exam - General 1994 Cardiovascular auscultation of heart Overall: normal heart sounds 02/27/2015 None Full Exam - General 1994 Cardiovascular auscultation of heart Overall: no murmurs 02/27/2015 None Full Exam - General 1994 Musculoskeletal spine, ribs and pelvis Overall: good posture 02/27/2015 None Full Exam - General 1994 Psychiatric orientation/consciousness Overall: oriented to person, place and time 02/27/2015 None Full Exam - General 1994 Psychiatric mood and affect Overall: normal mood and affect 02/27/2015 None Full Exam - General 1994 Psychiatric mood and affect Mood: happy 02/27/2015 None Full Exam - General 1994 Abdomen abdominal exam Overall: no tenderness 02/27/2015 None Full Exam - General 1994 Abdomen abdominal exam Overall: normal bowel sounds 02/27/2015 None Full Exam - General 1994 Constitutional general appearance Overall: well developed 10/26/2014 None Full Exam - General 1994 Constitutional general appearance Overall: in no acute distress 10/26/2014 None Full Exam - General 1994 Constitutional general appearance Overall: well nourished 10/26/2014 None Full Exam - General 1994 Eyes pupils and irises Overall: pupils equal, round, reactive to light and accomodation 10/26/2014 None Full Exam - General 1994 Ears/Nose/Throat oral cavity/pharynx/larynx Overall: oral mucosa clear 10/26/2014 None Full Exam - General 1994 Ears/Nose/Throat oral cavity/pharynx/larynx Overall: oropharyngeal mucosa clear 10/26/2014 None Full Exam - General 1994 Ears/Nose/Throat oral cavity/pharynx/larynx Overall: no masses 10/26/2014 None Full Exam - General 1994 Respiratory auscultation Overall: breath sounds clear bilaterally 10/26/2014 None Full Exam - General 1994 Respiratory respiratory effort/rhythm Overall: no retractions 10/26/2014 None Full Exam - General 1994 Respiratory respiratory effort/rhythm Overall: normal rate 10/26/2014 None Full Exam - General 1994 Cardiovascular extremities Overall: no clubbing 10/26/2014 None Full Exam - General 1994 Cardiovascular auscultation of heart Overall: regular rate 10/26/2014 None Full Exam - General 1994 Cardiovascular auscultation of heart Overall: normal heart sounds 10/26/2014 None Full Exam - General 1994 Cardiovascular auscultation of heart Overall: no murmurs 10/26/2014 None Full Exam - General 1994 Musculoskeletal spine, ribs and pelvis Overall: good posture 10/26/2014 None Full Exam - General 1994 Psychiatric orientation/consciousness Overall: oriented to person, place and time 10/26/2014 None Full Exam - General 1994 Psychiatric mood and affect Overall: normal mood and affect 10/26/2014 None Full Exam - General 1994 Psychiatric mood and affect Mood: happy 10/26/2014 None Full Exam - General 1994 Abdomen abdominal exam Overall: no tenderness 10/26/2014 None Full Exam - General 1994 Abdomen abdominal exam Overall: normal bowel sounds 10/26/2014 None Full Exam - General 1994 Lymphatic neck nodes Overall: anterior cervical chain benign 10/26/2014 None Full Exam - General 1994 Lymphatic neck nodes Overall: posterior cervical chain benign 10/26/2014 None Full Exam - General 1994 Neurologic cranial nerves Overall: crainial nerves 2 - 12 grossly intact 10/26/2014 None Full Exam - General 1994 Constitutional general appearance Overall: well developed 06/29/2014 None Full Exam - General 1994 Constitutional general appearance Overall: in no acute distress 06/29/2014 None Full Exam - General 1994 Constitutional general appearance Overall: well nourished 06/29/2014 None Full Exam - General 1994 Eyes pupils and irises Overall: pupils equal, round, reactive to light and accomodation 06/29/2014 None Full Exam - General 1994 Ears/Nose/Throat oral cavity/pharynx/larynx Overall: oral mucosa clear 06/29/2014 None Full Exam - General 1994 Ears/Nose/Throat oral cavity/pharynx/larynx Overall: oropharyngeal mucosa clear 06/29/2014 None Full Exam - General 1994 Ears/Nose/Throat oral cavity/pharynx/larynx Overall: no masses 06/29/2014 None Full Exam - General 1994 Respiratory auscultation Overall: breath sounds clear bilaterally 06/29/2014 None Full Exam - General 1994 Respiratory respiratory effort/rhythm Overall: no retractions 06/29/2014 None Full Exam - General 1994 Respiratory respiratory effort/rhythm Overall: normal rate 06/29/2014 None Full Exam - General 1994 Cardiovascular extremities Overall: no clubbing 06/29/2014 None Full Exam - General 1994 Cardiovascular auscultation of heart Overall: regular rate 06/29/2014 None Full Exam - General 1994 Cardiovascular auscultation of heart Overall: normal heart sounds 06/29/2014 None Full Exam - General 1994 Cardiovascular auscultation of heart Overall: no murmurs 06/29/2014 None Full Exam - General 1994 Musculoskeletal spine, ribs and pelvis Overall: good posture 06/29/2014 None Full Exam - General 1994 Psychiatric orientation/consciousness Overall: oriented to person, place and time 06/29/2014 None Full Exam - General 1994 Psychiatric mood and affect Overall: normal mood and affect 06/29/2014 None Full Exam - General 1994 Psychiatric mood and affect Mood: happy 06/29/2014 None Full Exam - General 1994 Constitutional general appearance Overall: well developed 04/27/2014 None Full Exam - General 1994 Constitutional general appearance Overall: in no acute distress 04/27/2014 None Full Exam - General 1994 Constitutional general appearance Overall: well nourished 04/27/2014 None Full Exam - General 1994 Eyes pupils and irises Overall: pupils equal, round, reactive to light and accomodation 04/27/2014 None Full Exam - General 1994 Ears/Nose/Throat oral cavity/pharynx/larynx Overall: oral mucosa clear 04/27/2014 None Full Exam - General 1994 Ears/Nose/Throat oral cavity/pharynx/larynx Overall: oropharyngeal mucosa clear 04/27/2014 None Full Exam - General 1994 Ears/Nose/Throat oral cavity/pharynx/larynx Overall: no masses 04/27/2014 None Full Exam - General 1994 Respiratory auscultation Overall: breath sounds clear bilaterally 04/27/2014 None Full Exam - General 1994 Respiratory respiratory effort/rhythm Overall: no retractions 04/27/2014 None Full Exam - General 1994 Respiratory respiratory effort/rhythm Overall: normal rate 04/27/2014 None Full Exam - General 1994 Cardiovascular extremities Overall: no clubbing 04/27/2014 None Full Exam - General 1994 Cardiovascular auscultation of heart Overall: regular rate 04/27/2014 None Full Exam - General 1994 Cardiovascular auscultation of heart Overall: normal heart sounds 04/27/2014 None Full Exam - General 1994 Cardiovascular auscultation of heart Overall: no murmurs 04/27/2014 None Full Exam - General 1994 Musculoskeletal spine, ribs and pelvis Overall: good posture 04/27/2014 None Full Exam - General 1994 Psychiatric orientation/consciousness Overall: oriented to person, place and time 04/27/2014 None Full Exam - General 1994 Psychiatric mood and affect Overall: normal mood and affect 04/27/2014 None Full Exam - General 1994 Psychiatric mood and affect Mood: happy 04/27/2014 None Full Exam - General 1994 Constitutional general appearance Overall: well developed 03/30/2014 None Full Exam - General 1994 Constitutional general appearance Overall: in no acute distress 03/30/2014 None Full Exam - General 1994 Constitutional general appearance Overall: well nourished 03/30/2014 None Full Exam - General 1994 Eyes pupils and irises Overall: pupils equal, round, reactive to light and accomodation 03/30/2014 None Full Exam - General 1995 Ears/Nose/Throat oral cavity/pharynx/larynx Overall: oral mucosa clear 03/30/2014 None Full Exam - General 1994 Ears/Nose/Throat oral cavity/pharynx/larynx Overall: oropharyngeal mucosa clear 03/30/2014 None Full Exam - General 1994 Ears/Nose/Throat oral cavity/pharynx/larynx Overall: no masses 03/30/2014 None Full Exam - General 1994 Respiratory auscultation Overall: breath sounds clear bilaterally 03/30/2014 None Full Exam - General 1994 Respiratory respiratory effort/rhythm Overall: no retractions 03/30/2014 None Full Exam - General 1994 Respiratory respiratory effort/rhythm Overall: normal rate 03/30/2014 None Full Exam - General 1994 Cardiovascular extremities Overall: no clubbing 03/30/2014 None Full Exam - General 1994 Cardiovascular auscultation of heart Overall: regular rate 03/30/2014 None Full Exam - General 1994 Cardiovascular auscultation of heart Overall: normal heart sounds 03/30/2014 None Full Exam - General 1994 Cardiovascular auscultation of heart Overall: no murmurs 03/30/2014 None Full Exam - General 1994 Musculoskeletal spine, ribs and pelvis Overall: good posture 03/30/2014 None Full Exam - General 1994 Psychiatric orientation/consciousness Overall: oriented to person, place and time 03/30/2014 None Full Exam - General 1994 Psychiatric mood and affect Overall: normal mood and affect 03/30/2014 None Full Exam - General 1994 Psychiatric mood and affect Mood: happy 03/30/2014 None Full Exam - General 1994 Integument inspection of skin Location: left arm 03/30/2014 None Full Exam - General 1994 Integument inspection of skin Location: right arm 03/30/2014 None Full Exam - General 1994 Integument inspection of skin Rash/Lesions: laceration 03/30/2014 on forearms - scratches Full Exam - General 1994 Constitutional general appearance Overall: well developed 10/27/2013 None Full Exam - General 1994 Constitutional general appearance Overall: in no acute distress 10/27/2013 None Full Exam - General 1994 Constitutional general appearance Overall: well nourished 10/27/2013 None Full Exam - General 1994 Eyes pupils and irises Overall: pupils equal, round, reactive to light and accomodation 10/27/2013 None Full Exam - General 1994 Ears/Nose/Throat oral cavity/pharynx/larynx Overall: oral mucosa clear 10/27/2013 None Full Exam - General 1995 Ears/Nose/Throat oral cavity/pharynx/larynx Overall: oropharyngeal mucosa clear 10/27/2013 None Full Exam - General 1994 Ears/Nose/Throat oral cavity/pharynx/larynx Overall: no masses 10/27/2013 None Full Exam - General 1994 Respiratory auscultation Overall: breath sounds clear bilaterally 10/27/2013 None Full Exam - General 1994 Respiratory respiratory effort/rhythm Overall: no retractions 10/27/2013 None Full Exam - General 1994 Respiratory respiratory effort/rhythm Overall: normal rate 10/27/2013 None Full Exam - General 1994 Cardiovascular extremities Overall: no clubbing 10/27/2013 None Full Exam - General 1994 Cardiovascular auscultation of heart Overall: regular rate 10/27/2013 None Full Exam - General 1994 Cardiovascular auscultation of heart Overall: normal heart sounds 10/27/2013 None Full Exam - General 1994 Cardiovascular auscultation of heart Overall: no murmurs 10/27/2013 None Full Exam - General 1994 Musculoskeletal spine, ribs and pelvis Overall: good posture 10/27/2013 None Full Exam - General 1994 Psychiatric orientation/consciousness Overall: oriented to person, place and time 10/27/2013 None Full Exam - General 1994 Psychiatric mood and affect Overall: normal mood and affect 10/27/2013 None Full Exam - General 1994 Psychiatric mood and affect Mood: happy 10/27/2013 None Full Exam - General 1994 Constitutional general appearance Overall: well developed 07/27/2013 None Full Exam - General 1994 Constitutional general appearance Overall: in no acute distress 07/27/2013 None Full Exam - General 1994 Constitutional general appearance Overall: well nourished 07/27/2013 None Full Exam - General 1994 Eyes pupils and irises Overall: pupils equal, round, reactive to light and accomodation 07/27/2013 None Full Exam - General 1994 Ears/Nose/Throat oral cavity/pharynx/larynx Overall: oral mucosa clear 07/27/2013 None Full Exam - General 1994 Ears/Nose/Throat oral cavity/pharynx/larynx Overall: oropharyngeal mucosa clear 07/27/2013 None Full Exam - General 1994 Ears/Nose/Throat oral cavity/pharynx/larynx Overall: no masses 07/27/2013 None Full Exam - General 1994 Respiratory auscultation Overall: breath sounds clear bilaterally 07/27/2013 None Full Exam - General 1994 Respiratory respiratory effort/rhythm Overall: no retractions 07/27/2013 None Full Exam - General 1994 Respiratory respiratory effort/rhythm Overall: normal rate 07/27/2013 None Full Exam - General 1994 Cardiovascular extremities Overall: no clubbing 07/27/2013 None Full Exam - General 1994 Cardiovascular auscultation of heart Overall: regular rate 07/27/2013 None Full Exam - General 1994 Cardiovascular auscultation of heart Overall: normal heart sounds 07/27/2013 None Full Exam - General 1994 Cardiovascular auscultation of heart Overall: no murmurs 07/27/2013 None Full Exam - General 1994 Musculoskeletal spine, ribs and pelvis Overall: good posture 07/27/2013 None Full Exam - General 1994 Psychiatric orientation/consciousness Overall: oriented to person, place and time 07/27/2013 None Full Exam - General 1994 Psychiatric mood and affect Overall: normal mood and affect 07/27/2013 None Full Exam - General 1994 Psychiatric mood and affect Mood: happy 07/27/2013 None Full Exam - General 1994 Constitutional general appearance Overall: well developed 06/30/2013 None Full Exam - General 1994 Constitutional general appearance Overall: in no acute distress 06/30/2013 None Full Exam - General 1994 Constitutional general appearance Overall: well nourished 06/30/2013 None Full Exam - General 1994 Eyes pupils and irises Overall: pupils equal, round, reactive to light and accomodation 06/30/2013 None Full Exam - General 1994 Ears/Nose/Throat oral cavity/pharynx/larynx Overall: oral mucosa clear 06/30/2013 None Full Exam - General 1994 Ears/Nose/Throat oral cavity/pharynx/larynx Overall: oropharyngeal mucosa clear 06/30/2013 None Full Exam - General 1994 Ears/Nose/Throat oral cavity/pharynx/larynx Overall: no masses 06/30/2013 None Full Exam - General 1994 Respiratory auscultation Overall: breath sounds clear bilaterally 06/30/2013 None Full Exam - General 1994 Respiratory respiratory effort/rhythm Overall: no retractions 06/30/2013 None Full Exam - General 1995 Respiratory respiratory effort/rhythm Overall: normal rate 06/30/2013 None Full Exam - General 1995 Cardiovascular extremities Overall: no clubbing 06/30/2013 None Full Exam - General 1995 Cardiovascular auscultation of heart Overall: regular rate 06/30/2013 None Full Exam - General 1994 Cardiovascular auscultation of heart Overall: normal heart sounds 06/30/2013 None Full Exam - General 1994 Cardiovascular auscultation of heart Overall: no murmurs 06/30/2013 None Full Exam - General 1994 Musculoskeletal spine, ribs and pelvis Overall: good posture 06/30/2013 None Full Exam - General 1994 Psychiatric orientation/consciousness Overall: oriented to person, place and time 06/30/2013 None Full Exam - General 1994 Psychiatric mood and affect Overall: normal mood and affect 06/30/2013 None Full Exam - General 1994 Psychiatric mood and affect Mood: happy 06/30/2013 None Full Exam - General 1994 Constitutional general appearance Overall: well developed 06/01/2013 None Full Exam - General 1994 Constitutional general appearance Overall: in no acute distress 06/01/2013 None Full Exam - General 1994 Constitutional general appearance Overall: well nourished 06/01/2013 None Full Exam - General 1994 Eyes pupils and irises Overall: pupils equal, round, reactive to light and accomodation 06/01/2013 None Full Exam - General 1994 Ears/Nose/Throat oral cavity/pharynx/larynx Overall: oral mucosa clear 06/01/2013 None Full Exam - General 1994 Ears/Nose/Throat oral cavity/pharynx/larynx Overall: oropharyngeal mucosa clear 06/01/2013 None Full Exam - General 1994 Ears/Nose/Throat oral cavity/pharynx/larynx Overall: no masses 06/01/2013 None Full Exam - General 1994 Respiratory auscultation Overall: breath sounds clear bilaterally 06/01/2013 None Full Exam - General 1994 Respiratory respiratory effort/rhythm Overall: no retractions 06/01/2013 None Full Exam - General 1994 Respiratory respiratory effort/rhythm Overall: normal rate 06/01/2013 None Full Exam - General 1994 Cardiovascular extremities Overall: no clubbing 06/01/2013 None Full Exam - General 1994 Cardiovascular auscultation of heart Overall: regular rate 06/01/2013 None Full Exam - General 1994 Cardiovascular auscultation of heart Overall: normal heart sounds 06/01/2013 None Full Exam - General 1994 Cardiovascular auscultation of heart Overall: no murmurs 06/01/2013 None Full Exam - General 1995 Lymphatic neck nodes Overall: anterior cervical chain benign 06/01/2013 None Full Exam - General 1994 Lymphatic neck nodes Overall: posterior cervical chain benign 06/01/2013 None Full Exam - General 1995 Musculoskeletal spine, ribs and pelvis Overall: spine benign 06/01/2013 None Full Exam - General 1995 Musculoskeletal spine, ribs and pelvis Overall: sacroiliac joint benign 06/01/2013 None Full Exam - General 1994 Musculoskeletal spine, ribs and pelvis Overall: good posture 06/01/2013 None Full Exam - General 1994 Psychiatric orientation/consciousness Overall: oriented to person, place and time 06/01/2013 None Full Exam - General 1994 Psychiatric mood and affect Overall: normal mood and affect 06/01/2013 None Full Exam - General 1994 Psychiatric mood and affect Mood: happy 06/01/2013 None Full Exam - General 1994 Abdomen abdominal exam Overall: no tenderness 06/01/2013 None Full Exam - General 1994 Abdomen abdominal exam Overall: normal bowel sounds 06/01/2013 None Full Exam - General 1994 Abdomen liver and spleen exam Overall: no hepatosplenomegaly 06/01/2013 None Full Exam - General 1994 Abdomen liver and spleen exam Overall: no stigmata of chronic liver disease 06/01/2013 None Full Exam - General 1994 Ears/Nose/Throat otoscopic exam Overall: external auditory canals clear 06/01/2013 None Full Exam - General 1994 Ears/Nose/Throat otoscopic exam Tympanic membrane: tympanosclerosis 06/01/2013 None Full Exam - General 1994 Neck inspection of neck Carotid arteries: a normal exam 06/01/2013 None Full Exam - General 1994 Neurologic cranial nerves Overall: crainial nerves 2 - 12 grossly intact 06/01/2013 None Full Exam - General 1994 Musculoskeletal head and neck Overall: cervical spine benign 06/01/2013 None Full Exam - General 1994 Musculoskeletal head and neck Overall: head atraumatic 06/01/2013 None Full Exam - General 1994 Musculoskeletal lower extremity Palpation - knee: crepitus 06/01/2013 None Full Exam - General 1994 Constitutional general appearance Overall: well developed 11/23/2012 None Full Exam - General 1994 Constitutional general appearance Overall: in no acute distress 11/23/2012 None Full Exam - General 1994 Constitutional general appearance Overall: well nourished 11/23/2012 None Full Exam - General 1994 Eyes pupils and irises Overall: pupils equal, round, reactive to light and accomodation 11/23/2012 None Full Exam - General 1995 Ears/Nose/Throat oral cavity/pharynx/larynx Overall: oral mucosa clear 11/23/2012 None Full Exam - General 1995 Ears/Nose/Throat oral cavity/pharynx/larynx Overall: oropharyngeal mucosa clear 11/23/2012 None Full Exam - General 1995 Ears/Nose/Throat oral cavity/pharynx/larynx Overall: no masses 11/23/2012 None Full Exam - General 1994 Respiratory auscultation Overall: breath sounds clear bilaterally 11/23/2012 None Full Exam - General 1995 Respiratory respiratory effort/rhythm Overall: no retractions 11/23/2012 None Full Exam - General 1995 Respiratory respiratory effort/rhythm Overall: normal rate 11/23/2012 None Full Exam - General 1994 Cardiovascular extremities Overall: no clubbing 11/23/2012 None Full Exam - General 1994 Cardiovascular auscultation of heart Overall: regular rate 11/23/2012 None Full Exam - General 1994 Cardiovascular auscultation of heart Overall: normal heart sounds 11/23/2012 None Full Exam - General 1994 Cardiovascular auscultation of heart Overall: no murmurs 11/23/2012 None Full Exam - General 1994 Musculoskeletal spine, ribs and pelvis Overall: spine benign 11/23/2012 None Full Exam - General 1994 Musculoskeletal spine, ribs and pelvis Overall: sacroiliac joint benign 11/23/2012 None Full Exam - General 1994 Musculoskeletal spine, ribs and pelvis Overall: good posture 11/23/2012 None Full Exam - General 1994 Psychiatric orientation/consciousness Overall: oriented to person, place and time 11/23/2012 None Full Exam - General 1994 Psychiatric mood and affect Overall: normal mood and affect 11/23/2012 None Full Exam - General 1994 Psychiatric mood and affect Mood: happy 11/23/2012 None Full Exam - General 1994 Musculoskeletal lower extremity Inspection - knee: swelling 11/23/2012 None Full Exam - General 1994 Musculoskeletal lower extremity Inspection - knee: fullness in popliteal fossa 11/23/2012 None Full Exam - General 1994 Musculoskeletal lower extremity Palpation - knee: positive ballottement sign 11/23/2012 None Full Exam - General 1994 Constitutional general appearance Overall: well developed 10/11/2012 None Full Exam - General 1994 Constitutional general appearance Overall: in no acute distress 10/11/2012 None Full Exam - General 1994 Constitutional general appearance Overall: well nourished 10/11/2012 None Full Exam - General 1994 Psychiatric orientation/consciousness Overall: oriented to person, place and time 10/11/2012 None Full Exam - General 1994 Integument inspection of skin Location: left leg 10/11/2012 None Full Exam - General 1994 Integument inspection of skin Pigmentation: erythematous 10/11/2012 None Full Exam - General 1994 Integument inspection of skin Rash/Lesions: nodule 10/11/2012 2cm erythematous area left posterior leg Full Exam - General 1994 Constitutional general appearance Overall: well developed 05/25/2012 None Full Exam - General 1994 Constitutional general appearance Overall: in no acute distress 05/25/2012 None Full Exam - General 1994 Constitutional general appearance Overall: well nourished 05/25/2012 None Full Exam - General 1994 Eyes pupils and irises Overall: pupils equal, round, reactive to light and accomodation 05/25/2012 None Full Exam - General 1994 Ears/Nose/Throat oral cavity/pharynx/larynx Overall: oral mucosa clear 05/25/2012 None Full Exam - General 1994 Ears/Nose/Throat oral cavity/pharynx/larynx Overall: oropharyngeal mucosa clear 05/25/2012 None Full Exam - General 1994 Ears/Nose/Throat oral cavity/pharynx/larynx Overall: no masses 05/25/2012 None Full Exam - General 1994 Respiratory auscultation Overall: breath sounds clear bilaterally 05/25/2012 None Full Exam - General 1994 Respiratory respiratory effort/rhythm Overall: no retractions 05/25/2012 None Full Exam - General 1994 Respiratory respiratory effort/rhythm Overall: normal rate 05/25/2012 None Full Exam - General 1994 Cardiovascular extremities Overall: no clubbing 05/25/2012 None Full Exam - General 1994 Cardiovascular auscultation of heart Overall: regular rate 05/25/2012 None Full Exam - General 1994 Cardiovascular auscultation of heart Overall: normal heart sounds 05/25/2012 None Full Exam - General 1994 Cardiovascular auscultation of heart Overall: no murmurs 05/25/2012 None Full Exam - General 1994 Lymphatic neck nodes Overall: anterior cervical chain benign 05/25/2012 None Full Exam - General 1994 Lymphatic neck nodes Overall: posterior cervical chain benign 05/25/2012 None Full Exam - General 1994 Musculoskeletal spine, ribs and pelvis Overall: spine benign 05/25/2012 None Full Exam - General 1995 Musculoskeletal spine, ribs and pelvis Overall: sacroiliac joint benign 05/25/2012 None Full Exam - General 1994 Musculoskeletal spine, ribs and pelvis Overall: good posture 05/25/2012 None Full Exam - General 1994 Psychiatric orientation/consciousness Overall: oriented to person, place and time 05/25/2012 None Full Exam - General 1994 Psychiatric mood and affect Overall: normal mood and affect 05/25/2012 None Full Exam - General 1994 Psychiatric mood and affect Mood: happy 05/25/2012 None Full Exam - General 1994 Constitutional general appearance Overall: well developed 04/29/2012 None Full Exam - General 1994 Constitutional general appearance Overall: in no acute distress 04/29/2012 None Full Exam - General 1994 Constitutional general appearance Overall: well nourished 04/29/2012 None Full Exam - General 1994 Eyes pupils and irises Overall: pupils equal, round, reactive to light and accomodation 04/29/2012 None Full Exam - General 1994 Ears/Nose/Throat oral cavity/pharynx/larynx Overall: oral mucosa clear 04/29/2012 None Full Exam - General 1994 Ears/Nose/Throat oral cavity/pharynx/larynx Overall: oropharyngeal mucosa clear 04/29/2012 None Full Exam - General 1994 Ears/Nose/Throat oral cavity/pharynx/larynx Overall: no masses 04/29/2012 None Full Exam - General 1994 Respiratory auscultation Overall: breath sounds clear bilaterally 04/29/2012 None Full Exam - General 1994 Respiratory respiratory effort/rhythm Overall: no retractions 04/29/2012 None Full Exam - General 1994 Respiratory respiratory effort/rhythm Overall: normal rate 04/29/2012 None Full Exam - General 1994 Cardiovascular extremities Overall: no clubbing 04/29/2012 None Full Exam - General 1994 Cardiovascular auscultation of heart Overall: regular rate 04/29/2012 None Full Exam - General 1994 Cardiovascular auscultation of heart Overall: normal heart sounds 04/29/2012 None Full Exam - General 1994 Cardiovascular auscultation of heart Overall: no murmurs 04/29/2012 None Full Exam - General 1994 Lymphatic neck nodes Overall: anterior cervical chain benign 04/29/2012 None Full Exam - General 1994 Lymphatic neck nodes Overall: posterior cervical chain benign 04/29/2012 None Full Exam - General 1994 Musculoskeletal spine, ribs and pelvis Overall: spine benign 04/29/2012 None Full Exam - General 1994 Musculoskeletal spine, ribs and pelvis Overall: sacroiliac joint benign 04/29/2012 None Full Exam - General 1994 Musculoskeletal spine, ribs and pelvis Overall: good posture 04/29/2012 None Full Exam - General 1994 Psychiatric orientation/consciousness Overall: oriented to person, place and time 04/29/2012 None Full Exam - General 1994 Psychiatric mood and affect Overall: normal mood and affect 04/29/2012 None Full Exam - General 1994 Psychiatric mood and affect Mood: happy 04/29/2012 None Full Exam - General 1995 Constitutional general appearance Overall: well developed 04/08/2012 None Full Exam - General 1994 Constitutional general appearance Overall: in no acute distress 04/08/2012 None Full Exam - General 1994 Constitutional general appearance Overall: well nourished 04/08/2012 None Full Exam - General 1994 Cardiovascular auscultation of heart Systolic murmur grade: II/ 04/08/2012 None Full Exam - General 1994 Genitourinary M : bladder Palpation: tender 04/08/2012 None Full Exam - General 1994 Ears/Nose/Throat otoscopic exam Overall: external auditory canals clear 04/08/2012 None Full Exam - General 1994 Ears/Nose/Throat otoscopic exam Overall: tympanic membranes clear 04/08/2012 None Full Exam - General 1994 Respiratory auscultation Overall: breath sounds clear bilaterally 04/08/2012 None Full Exam - General 1994 Respiratory respiratory effort/rhythm Overall: no retractions 04/08/2012 None Full Exam - General 1994 Respiratory respiratory effort/rhythm Overall: normal rate 04/08/2012 None Full Exam - General 1994 Cardiovascular extremities Overall: no clubbing 04/08/2012 None Full Exam - General 1994 Abdomen abdominal exam Overall: no tenderness 04/08/2012 None Full Exam - General 1994 Abdomen abdominal exam Overall: normal bowel sounds 04/08/2012 None Full Exam - General 1994 Psychiatric orientation/consciousness Overall: oriented to person, place and time 04/08/2012 None Full Exam - General 1994 Psychiatric mood and affect Overall: normal mood and affect 04/08/2012 None Full Exam - General 1994 Psychiatric mood and affect Mood: happy 04/08/2012 None Full Exam - General 1994 Cardiovascular auscultation of heart Murmur: previously known murmur unchanged 04/08/2012 None Full Exam - General 1994 Cardiovascular auscultation of heart Overall: regular rate 04/08/2012 None Full Exam - General 1994 Cardiovascular auscultation of heart Systolic murmur: early systolic 04/08/2012 None Full Exam - General 1995 Constitutional general appearance Overall: well nourished 03/29/2012 None Full Exam - General 1995 Constitutional general appearance Overall: well developed 03/29/2012 None Full Exam - General 1994 Constitutional general appearance Overall: in no acute distress 03/29/2012 None Full Exam - General 1994 Eyes pupils and irises Overall: pupils equal, round, reactive to light and accomodation 03/29/2012 None Full Exam - General 1995 Ears/Nose/Throat oral cavity/pharynx/larynx Overall: oropharyngeal mucosa clear 03/29/2012 None Full Exam - General 1995 Ears/Nose/Throat oral cavity/pharynx/larynx Overall: no masses 03/29/2012 None Full Exam - General 1995 Ears/Nose/Throat oral cavity/pharynx/larynx Overall: oral mucosa clear 03/29/2012 None Full Exam - General 1994 Respiratory respiratory effort/rhythm Overall: normal rate 03/29/2012 None Full Exam - General 1994 Respiratory respiratory effort/rhythm Overall: no retractions 03/29/2012 None Full Exam - General 1994 Respiratory auscultation Overall: breath sounds clear bilaterally 03/29/2012 None Full Exam - General 1994 Cardiovascular auscultation of heart Overall: regular rate 03/29/2012 None Full Exam - General 1994 Cardiovascular auscultation of heart Overall: normal heart sounds 03/29/2012 None Full Exam - General 1994 Cardiovascular auscultation of heart Overall: no murmurs 03/29/2012 None Full Exam - General 1994 Cardiovascular extremities Overall: no clubbing 03/29/2012 None Full Exam - General 1994 Lymphatic neck nodes Overall: anterior cervical chain benign 03/29/2012 None Full Exam - General 1994 Lymphatic neck nodes Overall: posterior cervical chain benign 03/29/2012 None Full Exam - General 1994 Musculoskeletal spine, ribs and pelvis Overall: good posture 03/29/2012 None Full Exam - General 1994 Musculoskeletal spine, ribs and pelvis Overall: sacroiliac joint benign 03/29/2012 None Full Exam - General 1994 Musculoskeletal spine, ribs and pelvis Overall: spine benign 03/29/2012 None Full Exam - General 1994 Psychiatric orientation/consciousness Overall: oriented to person, place and time 03/29/2012 None Full Exam - General 1994 Psychiatric mood and affect Mood: happy 03/29/2012 None Full Exam - General 1994 Psychiatric mood and affect Overall: normal mood and affect 03/29/2012 None Full Exam - General 1994 Integument inspection of skin Consistency: moist 02/12/2012 None Full Exam - General 1995 Neurologic deep tendon reflexes Overall: deep tendon reflexes intact 02/12/2012 None Full Exam - General 1995 Neurologic gait Overall: no ataxia, no unsteadiness 02/12/2012 None Full Exam - General 1994 Neurologic cranial nerves Overall: crainial nerves 2 - 12 grossly intact 02/12/2012 None Full Exam - General 1994 Psychiatric orientation/consciousness Overall: oriented to person, place and time 02/12/2012 None Full Exam - General 1994 Psychiatric mood and affect Overall: normal mood and affect 02/12/2012 None Full Exam - General 1994 Psychiatric mood and affect Mood: happy 02/12/2012 None Full Exam - General 1994 Integument inspection of skin Location: buttocks 02/12/2012 None Full Exam - General 1994 Constitutional general appearance Overall: well developed 02/12/2012 None Full Exam - General 1994 Constitutional general appearance Overall: in no acute distress 02/12/2012 None Full Exam - General 1994 Constitutional general appearance Overall: well nourished 02/12/2012 None Full Exam - General 1994 Respiratory auscultation Overall: breath sounds clear bilaterally 02/12/2012 None Full Exam - General 1994 Cardiovascular extremities Overall: no clubbing 02/12/2012 None Full Exam - General 1994 Cardiovascular auscultation of heart Overall: regular rate 02/12/2012 None Full Exam - General 1994 Integument inspection of skin Dermatitis: scaling 02/12/2012 None Full Exam - General 1994 Integument inspection of skin Rash/Lesions: patch 02/12/2012 over gluteus and right hip Full Exam - General 1994 Integument inspection of skin Consistency: indurated 02/12/2012 None Full Exam - General 1994 Constitutional general appearance Overall: well developed 01/13/2012 None Full Exam - General 1994 Constitutional general appearance Overall: in no acute distress 01/13/2012 None Full Exam - General 1994 Constitutional general appearance Overall: well nourished 01/13/2012 None Full Exam - General 1994 Respiratory auscultation Overall: breath sounds clear bilaterally 01/13/2012 None Full Exam - General 1994 Cardiovascular extremities Overall: no clubbing 01/13/2012 None Full Exam - General 1994 Cardiovascular auscultation of heart Overall: regular rate 01/13/2012 None Full Exam - General 1994 Integument inspection of skin Dermatitis: scaling 01/13/2012 None Full Exam - General 1994 Integument inspection of skin Location: buttocks 01/13/2012 None Full Exam - General 1994 Integument inspection of skin Rash/Lesions: patch 01/13/2012 over gluteus and right hip Full Exam - General 1994 Neurologic deep tendon reflexes Overall: deep tendon reflexes intact 01/13/2012 None Full Exam - General 1994 Neurologic gait Overall: no ataxia, no unsteadiness 01/13/2012 None Full Exam - General 1994 Neurologic cranial nerves Overall: crainial nerves 2 - 12 grossly intact 01/13/2012 None Full Exam - General 1994 Psychiatric orientation/consciousness Overall: oriented to person, place and time 01/13/2012 None Full Exam - General 1994 Psychiatric mood and affect Overall: normal mood and affect 01/13/2012 None Full Exam - General 1994 Psychiatric mood and affect Mood: happy 01/13/2012 None Full Exam - General 1994 Integument inspection of skin Consistency: moist 01/13/2012 None Full Exam - General 1994 Integument inspection of skin Consistency: indurated 01/13/2012 None Full Exam - General 1994 Integument inspection of skin Dermatitis: dryness/ flaking 01/06/2012 None Full Exam - General 1994 Integument inspection of skin Dermatitis: scaling 01/06/2012 None Full Exam - General 1994 Integument inspection of skin Location: buttocks 01/06/2012 and extends into perineum and includes scrotum and penis Full Exam - General 1994 Integument inspection of skin Rash/Lesions: patch 01/06/2012 over gluteus and right hip-area prepped and draped-using sterile technique 1ml 1% lidocaine with epi infiltrated the area and using an 8mm punch-a biopsy was taken from patch on right hip lateral aspect of wound Area was cauterized with silver nitrate, neosporin applied and covered with occlusive dressing. Patient tolerated well. Full Exam - General 1994 Integument inspection of skin Location: left arm 01/06/2012 crusted lesions noted on both upper arms and lower legs-new areas per patient-biopsy taken from right posterior arm. Sterile technique utilized, area was prepped and draped and 1ml 1 %lidocaine with epi infiltrated the area. 8mm punch biopsy taken and closed with 5-0 sutures x 3 and covered with neosporin and occlusive dressing Full Exam - General 1995 Integument inspection of skin Location: right arm 01/06/2012 None Full Exam - General 1994 Musculoskeletal head and neck Overall: head atraumatic 11/24/2011 None Full Exam - General 1994 Musculoskeletal spine, ribs and pelvis Overall: ribs benign 11/24/2011 None Full Exam - General 1994 Musculoskeletal spine, ribs and pelvis Overall: sacroiliac joint benign 11/24/2011 None Full Exam - General 1994 Musculoskeletal spine, ribs and pelvis Overall: left hip benign 11/24/2011 None Full Exam - General 1994 Musculoskeletal spine, ribs and pelvis Overall: right hip benign 11/24/2011 None Full Exam - General 1994 Musculoskeletal spine, ribs and pelvis Overall: good posture 11/24/2011 None Full Exam - General 1994 Musculoskeletal digits and nails Digits: a normal exam 11/24/2011 None Full Exam - General 1994 Abdomen abdominal exam Overall: no tenderness 11/24/2011 None Full Exam - General 1994 Abdomen abdominal exam Overall: normal bowel sounds 11/24/2011 None Full Exam - General 1994 Cardiovascular extremities Overall: no clubbing 11/24/2011 None Full Exam - General 1994 Cardiovascular auscultation of heart Overall: regular rate 11/24/2011 None Full Exam - General 1994 Cardiovascular auscultation of heart Murmur: new murmur 11/24/2011 None Full Exam - General 1994 Respiratory auscultation Overall: breath sounds clear bilaterally 11/24/2011 None Full Exam - General 1994 Respiratory respiratory effort/rhythm Overall: normal rate 11/24/2011 None Full Exam - General 1994 Respiratory respiratory effort/rhythm Overall: no retractions 11/24/2011 None Full Exam - General 1994 Psychiatric orientation/consciousness Overall: oriented to person, place and time 11/24/2011 None Full Exam - General 1994 Psychiatric mood and affect Mood: happy 11/24/2011 None Full Exam - General 1994 Psychiatric mood and affect Overall: normal mood and affect 11/24/2011 None Full Exam - General 1994 Neurologic gait Overall: no ataxia, no unsteadiness 11/24/2011 None Full Exam - General 1994 Neurologic deep tendon reflexes Overall: deep tendon reflexes intact 11/24/2011 None Full Exam - General 1994 Neurologic cranial nerves Overall: crainial nerves 2 - 12 grossly intact 11/24/2011 None Full Exam - General 1994 Integument inspection of skin Dermatitis: dryness/ flaking 11/24/2011 None Full Exam - General 1994 Integument inspection of skin Dermatitis: scaling 11/24/2011 None Full Exam - General 1994 Integument inspection of skin Location: buttocks 11/24/2011 None Full Exam - General 1994 Integument inspection of skin Rash/Lesions: patch 11/24/2011 over gluteus and right hip Full Exam - General 1994 Musculoskeletal head and neck Overall: cervical spine benign 11/24/2011 None Full Exam - General 1994 Ears/Nose/Throat otoscopic exam Overall: tympanic membranes clear 11/24/2011 None Full Exam - General 1994 Ears/Nose/Throat otoscopic exam Overall: external auditory canals clear 11/24/2011 None Full Exam - General 1994 Ears/Nose/Throat oral cavity/pharynx/larynx Overall: oropharyngeal mucosa clear 11/24/2011 None Full Exam - General 1994 Ears/Nose/Throat oral cavity/pharynx/larynx Overall: no masses 11/24/2011 None Full Exam - General 1994 Ears/Nose/Throat oral cavity/pharynx/larynx Overall: oral mucosa clear 11/24/2011 None Full Exam - General 1994 Eyes pupils and irises Overall: pupils equal, round, reactive to light and accomodation 11/24/2011 None Full Exam - General 1994 Constitutional general appearance Overall: well nourished 11/24/2011 None Full Exam - General 1994 Constitutional general appearance Overall: well developed 11/24/2011 None Full Exam - General 1994 Constitutional general appearance Overall: in no acute distress 11/24/2011 None Procedures Procedure Codes Date THER/PROPH/DIAG INJ SC/IM CPT-4: 24477 04/27/2014 KETOROLAC TROMETHAMINE INJ CPT-4: J1885 04/27/2014 TENIVAC TD VACCINE NO PRSRV 7/> IM Assigned to/Pepper Stoddard CPT-4: [id number] 03/30/2014 ROUTINE VENIPUNCTURE CPT-4: 91643 06/01/2013 ROUTINE VENIPUNCTURE CPT-4: 17364 11/23/2012 PRESCRIP TRANSMIT VIA ERX SY CPT-4: G8553 10/11/2012 PRESCRIP TRANSMIT VIA ERX SY CPT-4: G8553 05/25/2012 PRESCRIP TRANSMIT VIA ERX SY CPT-4: G8553 04/29/2012 ROUTINE VENIPUNCTURE CPT-4: 07325 04/26/2012 URINALYSIS NONAUTO W/O SCOPE CPT-4: 89789 04/08/2012 PRESCRIP TRANSMIT VIA ERX SY CPT-4: G8553 04/08/2012 PRESCRIP TRANSMIT VIA ERX SY CPT-4: G8553 03/29/2012 BIOPSY SKIN LESION CPT -4: 58027 01/06/2012 BIOPSY SKIN ADD-ON CPT -4: 78348 01/06/2012 PRESCRIP TRANSMIT VIA ERX SY CPT-4: G8553 11/24/2011 Vital Signs Date Vital 09/17/2017 Blood Pressure 1: 122/76 Code : 8480-6 BMI: 27.3 Code : 11035-8 Heart Rate 1 : 73 bpm Height: 5'9" SpO2: 98% Weight: 185 lbs 07/17/2017 Blood Pressure 1: 136/74 Code : 8480-6 BMI: 27.8 Code : 35081-6 Heart Rate 1 : 87 bpm Height: 5'9" SpO2: 92% Weight: 188 lbs 04/20/2017 Blood Pressure 1: 134/74 Code : 8480-6 BMI: 27.0 Code : 65973-4 Heart Rate 1 : 65 bpm Height: 5'9" SpO2: 98% Weight: 183 lbs 03/19/2017 Blood Pressure 1: 128/74 Code : 8480-6 BMI: 27.5 Code : 02318-8 Heart Rate 1 : 74 bpm Height: 5'9" SpO2: 98% Weight: 186 lbs 10/15/2016 Blood Pressure 1: 140/72 Code : 8480-6 BMI: 26.7 Code : 84570-3 Heart Rate 1 : 75 bpm Height: 5'9" SpO2: 96% Weight: 181 lbs 09/16/2016 Blood Pressure 1: 130/70 Code : 8480-6 BMI: 26.7 Code : 84199-4 Heart Rate 1 : 82 bpm Height: 5'9" SpO2: 97% Weight: 181 lbs 03/11/2016 Blood Pressure 1: 150/76 Code : 8480-6 BMI: 26.5 Code : 86905-5 Heart Rate 1 : 74 bpm Height: 5'9" SpO2: 98% Weight: 179 lbs 8 oz 10/03/2015 Blood Pressure 1: 140/76 Code : 8480-6 Blood Pressure 1: 130/78 Code: 8480-6 Heart Rate 1: 65 bpm SpO2: 96% 09/05/2015 Blood Pressure 1: 148/80 Code : 8480-6 BMI: 26.6 Code : 50917-6 Heart Rate 1 : 65 bpm Height: 5'9" SpO2: 98% Weight: 180 lbs 02/27/2015 Blood Pressure 1: 120/70 Code : 8480-6 BMI: 26.6 Code : 92085-1 Heart Rate 1 : 80 bpm Height: 5'9" Weight: 180 lbs 10/26/2014 Blood Pressure 1: 142/76 Code : 8480-6 BMI: 27.8 Code : 96194-2 Heart Rate 1 : 64 bpm Height: 5'9" Weight: 188 lbs 06/29/2014 Blood Pressure 1: 132/84 Code : 8480-6 BMI: 27.5 Code : 34084-5 Heart Rate 1 : 76 bpm Height: 5'9" Weight: 186 lbs 04/27/2014 Blood Pressure 1: 138/80 Code : 8480-6 BMI: 27.3 Code : 29139-2 Heart Rate 1 : 84 bpm Height: 5'9" Weight: 185 lbs 03/30/2014 Blood Pressure 1: 140/76 Code : 8480-6 BMI: 27.3 Code : 70830-2 Heart Rate 1 : 80 bpm Height: 5'9" Weight: 185 lbs 10/27/2013 Blood Pressure 1: 124/78 Code : 8480-6 BMI: 27.0 Code : 61038-1 Heart Rate 1 : 64 bpm Height: 5'9" Weight: 183 lbs 07/27/2013 Blood Pressure 1: 152/92 Code : 8480-6 BMI: 27.8 Code : 92290-6 Heart Rate 1 : 60 bpm Height: 5'9" Weight: 188 lbs 06/30/2013 Blood Pressure 1: 176/100 Code: 8480-6 BMI: 28.2 Code: 75060-2 Heart Rate 1: 60 bpm Height: 5'9" Weight: 191 lbs 06/01/2013 Blood Pressure 1: 128/82 Code : 8480-6 BMI: 27.6 Code : 58437-9 Heart Rate 1 : 72 bpm Height: 5'9" Weight: 187 lbs 11/23/2012 Blood Pressure 1: 140/82 Code : 8480-6 BMI: 27.8 Code : 80164-1 Heart Rate 1 : 60 bpm Height: 5'9" Weight: 188 lbs 10/11/2012 Blood Pressure 1: 142/82 Code : 8480-6 Heart Rate 1: 80 bpm Weight: 186 lbs 05/25/2012 Blood Pressure 1: 144/86 Code : 8480-6 Heart Rate 1: 68 bpm Weight: 188 lbs 04/29/2012 Blood Pressure 1: 164/86 Code : 8480-6 Heart Rate 1: 64 bpm Respiratory Rate : 16 bpm Weight: 184 lbs 04/08/2012 Blood Pressure 1: 150/82 Code : 8480-6 Heart Rate 1: 69 bpm SpO2: 99% Weight: 03/29/2012 Blood Pressure 1: 148/90 Code : 8480-6 BMI: 27.8 Code : 37202-5 Heart Rate 1 : 64 bpm Height: 5'9" Respiratory Rate: 16 bpm Weight: 188 lbs 02/12/2012 Blood Pressure 1: 144/82 Code : 8480-6 Heart Rate 1: 76 bpm Respiratory Rate : 16 bpm Weight: 184 lbs 01/13/2012 Blood Pressure 1: 160/90 Code : 8480-6 01/06/2012 Blood Pressure 1: 132/82 Code : 8480-6 Heart Rate 1: 78 bpm 11/24/2011 Blood Pressure 1: 140/86 Code : 8480-6 BMI: 26.7 Code : 90071-8 Heart Rate 1 : 70 bpm Height: 5'9" Respiratory Rate: 16 bpm Weight: 181 lbs Functional Status No Functional Status data History of Present Illness Symptom Name Status Result Effective Date Notes hypertension Quality primary hypertension 09/17/2017 None hypertension Onset and Resolution ongoing 09/17/2017 None hypertension Onset of Symptom during adulthood 09/17/2017 None hypertension Blood Pressure Values not checking blood pressure at home 09/17/2017 None hypertension Alleviating Factors medication 09/17/2017 None hypertension Pertinent Findings dizziness 09/17/2017 --has improved some hypertension Pertinent Findings Denies dyspnea 09/17/2017 None hypertension Pertinent Findings Denies edema 09/17/2017 None hypertension Quality stable 09/17/2017 None hypertension Quality chronic 09/17/2017 None hypertension Quality intermittent 07/17/2017 None hypertension Quality primary hypertension 07/17/2017 None hypertension Onset and Resolution ongoing 07/17/2017 None hypertension Onset of Symptom during adulthood 07/17/2017 None hypertension Blood Pressure Values not checking blood pressure at home 07/17/2017 None hypertension Severity mild 07/17/2017 None hypertension Alleviating Factors medication 07/17/2017 None hypertension Pertinent Findings dizziness 07/17/2017 --He was having dizziness, but he stopped his proscar and it has improved hypertension Pertinent Findings Denies dyspnea 07/17/2017 None hypertension Pertinent Findings Denies edema 07/17/2017 None dizziness Quality chronic 07/17/2017 None dizziness Quality drop attacks 07/17/2017 None dizziness Quality feelings of unsteadiness 07/17/2017 None dizziness Quality fogginess 07/17/2017 None dizziness Quality loss of balance 07/17/2017 None dizziness Quality sense of motion 07/17/2017 None dizziness Quality sense of room spinning 07/17/2017 None dizziness Quality spinning 07/17/2017 None dizziness Quality swaying 07/17/2017 None dizziness Quality tilting 07/17/2017 None dizziness Quality worsening 07/17/2017 None dizziness Onset and Resolution ongoing 07/17/2017 None dizziness Onset and Resolution sudden in onset 07/17/2017 None dizziness Onset of Symptom 5 years ago 07/17/2017 started dizziness Onset of Symptom 1 months ago 07/17/2017 worsening dizziness Pertinent Findings Denies blurred vision 07/17/2017 None dizziness Pertinent Findings problems with coordination 07/17/2017 None dizziness Pertinent Findings Denies tachycardia 07/17/2017 None dizziness Pertinent Findings syncope 07/17/2017 None dizziness Pertinent Findings nausea 07/17/2017 None dizziness Pertinent Findings lightheadedness 07/17/2017 None dizziness Pertinent Findings imbalance 07/17/2017 None dizziness Exacerbating Factors turning the head 07/17/2017 None dizziness Exacerbating Factors standing 07/17/2017 None dizziness Exacerbating Factors activity 07/17/2017 None dizziness Significant Medications antihypertensives 07/17/2017 None dizziness Triggers no known associated factors 07/17/2017 None dizziness Triggers position change 07/17/2017 None dizziness Triggers standing position 07/17/2017 None dizziness Triggers lying 07/17/2017 None dizziness Triggers head turning 07/17/2017 None paresthesia Quality numbness 04/20/2017 None paresthesia Location on the left foot 04/20/2017 3rd and 4th toes paresthesia Onset and Resolution ongoing 04/20/2017 None cyst Onset and Resolution ongoing 04/20/2017 None cyst Quality non-tender 04/20/2017 None cyst Quality firm None cyst Location on the left hand 04/20/2017 middle finger hypertension Quality intermittent 03/19/2017 None hypertension Onset and Resolution ongoing 03/19/2017 None hypertension Blood Pressure Values not checking blood pressure at home 03/19/2017 None hypertension Severity mild 03/19/2017 None hypertension Alleviating Factors medication 03/19/2017 None hypertension Pertinent Findings dizziness 03/19/2017 --He was having dizziness, but he stopped his proscar and it has improved hypertension Pertinent Findings Denies dyspnea 03/19/2017 None hypertension Pertinent Findings Denies edema 03/19/2017 None hypertension Quality primary hypertension 03/19/2017 None hypertension Onset of Symptom during adulthood 03/19/2017 None cough Quality acute None cough Quality intermittent 03/19/2017 None cough Onset and Resolution sudden in onset 03/19/2017 None cough Onset of Symptom 2 months ago 03/19/2017 None cough Frequency of Episodes daily 03/19/2017 None cough Pertinent Findings Denies fever 03/19/2017 None cough Pertinent Findings Denies sputum production 03/19/2017 None cough Pertinent Findings post nasal drip 03/19/2017 None cough Quality dry None cough Triggers change of seasons 03/19/2017 None joint complaint Location left Hand 10/15/2016 None joint complaint Pertinent Findings Denies fever 10/15/2016 None joint complaint Pertinent Findings Denies joint redness 10/15/2016 None joint complaint Pertinent Findings Denies limitation of motion 10/15/2016 None hypertension Quality intermittent 09/16/2016 None hypertension Onset and Resolution ongoing 09/16/2016 None hypertension Severity mild 09/16/2016 None hypertension Alleviating Factors medication 09/16/2016 None hypertension Pertinent Findings Denies dizziness 09/16/2016 None hypertension Pertinent Findings Denies dyspnea 09/16/2016 None hypertension Pertinent Findings Denies edema 09/16/2016 None hypertension Blood Pressure Values not checking blood pressure at home 09/16/2016 None hypertension Quality intermittent 03/11/2016 None hypertension Onset and Resolution ongoing 03/11/2016 None hypertension Pertinent Findings Denies dizziness 03/11/2016 None hypertension Pertinent Findings Denies dyspnea 03/11/2016 None hypertension Pertinent Findings Denies edema 03/11/2016 None hypertension Blood Pressure Values patient checking blood pressure at home - did not bring in readings 03/11/2016 -Checks occasionally hypertension Alleviating Factors medication 03/11/2016 None arthropod bite Location on the chest 03/11/2016 None arthropod bite Quality acute 03/11/2016 None arthropod bite Quality improving 03/11/2016 None arthropod bite Onset of Symptom 10 days ago 03/11/2016 None arthropod bite Limitation on Activities does not limit activities 03/11/2016 None arthropod bite Triggers outdoor exposure 03/11/2016 None arthropod bite Alleviating Factors medication 03/11/2016 None postnasal drip Quality acute 03/11/2016 None postnasal drip Quality intermittent 03/11/2016 None postnasal drip Pertinent Findings cough 03/11/2016 None hypertension Severity mild 03/11/2016 None hypertension Quality intermittent 09/05/2015 None hypertension Onset and Resolution ongoing 09/05/2015 None hypertension Blood Pressure Values not checking blood pressure at home 09/05/2015 None hypertension Pertinent Findings dizziness 09/05/2015 at times- loses orientation- imbalanced hypertension Pertinent Findings Denies dyspnea 09/05/2015 None hypertension Pertinent Findings Denies edema 09/05/2015 None myalgias Location diffusely 09/05/2015 None myalgias Quality improving 09/05/2015 since he started taking sour cruz juice concentrate myalgias Quality stable 09/05/2015 None myalgias Onset and Resolution ongoing 09/05/2015 None myalgias Pertinent Findings muscle tenderness 09/05/2015 None hypertension Quality intermittent 02/27/2015 None hypertension Onset and Resolution ongoing 02/27/2015 None hypertension Blood Pressure Values not checking blood pressure at home 02/27/2015 None hypertension Pertinent Findings Denies dizziness 02/27/2015 None hypertension Pertinent Findings Denies dyspnea 02/27/2015 None hypertension Pertinent Findings Denies edema 02/27/2015 None myalgias Location diffusely 02/27/2015 None myalgias Onset and Resolution ongoing 02/27/2015 None myalgias Quality stable 02/27/2015 not taking aleve myalgias Quality improving 02/27/2015 None myalgias Pertinent Findings muscle tenderness 02/27/2015 None hypertension Quality intermittent 10/26/2014 None hypertension Onset and Resolution ongoing 10/26/2014 None hypertension Pertinent Findings decreased energy 10/26/2014 None hypertension Pertinent Findings dizziness 10/26/2014 occasionally, depends on what he is doing muscle weakness Location diffusely 10/26/2014 None muscle weakness Onset of Symptom _ months ago 10/26/2014 None muscle weakness Pertinent Findings muscle tenderness 10/26/2014 None muscle weakness Pertinent Findings tick bite 10/26/2014 hx of fatigue Onset of Symptom _ months ago 10/26/2014 occasionally fatigue Quality improving 10/26/2014 None fatigue Pertinent Findings Denies dyspnea 10/26/2014 None fatigue Pertinent Findings Denies fever 10/26/2014 None fatigue Pertinent Findings weakness 10/26/2014 due to soreness hypertension Blood Pressure Values not checking blood pressure at home 10/26/2014 None hypertension Quality intermittent 06/29/2014 None hypertension Onset and Resolution ongoing 06/29/2014 None hypertension Blood Pressure Values patient checking blood pressure at home - did not bring in readings 06/29/2014 occasionally hypertension Pertinent Findings decreased energy 06/29/2014 None hypertension Pertinent Findings dizziness 06/29/2014 occasionally, depends on what he is doing hypertension Pertinent Findings lethargy 06/29/2014 None muscle weakness Location diffusely 06/29/2014 None muscle weakness Pertinent Findings muscle tenderness 06/29/2014 None muscle weakness Pertinent Findings tick bite 06/29/2014 hx of fatigue Pertinent Findings weakness 06/29/2014 due to soreness muscle weakness Onset of Symptom _ months ago 06/29/2014 None fatigue Onset of Symptom _ months ago 06/29/2014 None fatigue Quality improving 06/29/2014 None fatigue Pertinent Findings Denies dyspnea 06/29/2014 None fatigue Pertinent Findings Denies fever 06/29/2014 None hypertension Quality intermittent 04/27/2014 None hypertension Onset and Resolution ongoing 04/27/2014 None hypertension Blood Pressure Values patient checking blood pressure at home - did not bring in readings 04/27/2014 occasionally hypertension Pertinent Findings decreased energy 04/27/2014 None hypertension Pertinent Findings dizziness 04/27/2014 past year /when laying down to work on something hypertension Pertinent Findings lethargy 04/27/2014 None muscle weakness Location diffusely 04/27/2014 None muscle weakness Onset of Symptom 6 weeks ago 04/27/2014 None muscle weakness Pertinent Findings muscle tenderness 04/27/2014 None muscle weakness Pertinent Findings tick bite 04/27/2014 hx of fatigue Pertinent Findings weakness 04/27/2014 None hypertension Quality intermittent 03/30/2014 None hypertension Onset and Resolution ongoing 03/30/2014 None hypertension Blood Pressure Values patient checking blood pressure at home - did not bring in readings 03/30/2014 occasionally hypertension Pertinent Findings decreased energy 03/30/2014 None hypertension Pertinent Findings dizziness 03/30/2014 past year /when laying down to work on something hypertension Pertinent Findings lethargy 03/30/2014 None muscle weakness Location diffusely 03/30/2014 None muscle weakness Onset of Symptom 6 weeks ago 03/30/2014 None muscle weakness Pertinent Findings muscle tenderness 03/30/2014 None muscle weakness Pertinent Findings tick bite 03/30/2014 hx of hypertension Blood Pressure Values patient checking blood pressure at home - did not bring in readings 10/27/2013 None hypertension Pertinent Findings Denies dizziness 10/27/2013 None hypertension Pertinent Findings Denies dyspnea 10/27/2013 None hypertension Pertinent Findings Denies edema 10/27/2013 None hypertension Pertinent Findings Denies palpitations 10/27/2013 None hypertension Quality chronic 10/27/2013 None hypertension Onset and Resolution ongoing 10/27/2013 None hypertension Onset of Symptom during adulthood 10/27/2013 None hypertension Quality chronic 07/27/2013 pt reading of meter hypertension Pertinent Findings dizziness 07/27/2013 None hypertension Pertinent Findings Denies dyspnea 07/27/2013 None hypertension Pertinent Findings Denies edema 07/27/2013 None hypertension Pertinent Findings Denies tachycardia 07/27/2013 None hypertension Blood Pressure Values Stage 1:SBP 140-159 mmHg / DBP 90-99 mmHg 07/27/2013 None hypertension Severity mild 07/27/2013 Pt states that he stopped the exforge due to vertigo - but he is not sure now that the exforge was the cause of the vertigo. vertigo Quality chronic 06/30/2013 pt is wondering if it could be a side effect of exforge. states the exercises didn't help hypertension Quality chronic 06/30/2013 None hypertension Onset and Resolution ongoing 06/30/2013 None hypertension Blood Pressure Values patient checking blood pressure at home - did not bring in readings 06/30/2013 None hypertension Onset of Symptom during adulthood 06/30/2013 None hypertension Triggers stress 06/30/2013 None hypertension Alleviating Factors medication 06/30/2013 None hypertension Exacerbating Factors change in dietary habits 06/30/2013 None hypertension Exacerbating Factors stress 06/30/2013 None vertigo Onset and Resolution ongoing 06/30/2013 None hypertension Quality chronic 06/01/2013 None hypertension Onset and Resolution ongoing 06/01/2013 None hypertension Pertinent Findings dizziness 06/01/2013 None hypertension Pertinent Findings Denies edema 06/01/2013 None hypertension Pertinent Findings Denies dyspnea 06/01/2013 None hypertension Pertinent Findings Denies tachycardia 06/01/2013 None hypertension Severity mild 06/01/2013 None hypertension Triggers no known associated factors 06/01/2013 None hypertension Alleviating Factors medication 06/01/2013 None knee pain Location on the left 11/23/2012 None knee pain Mechanism of injury unknown 11/23/2012 None knee pain Quality dull pain 11/23/2012 None knee pain Quality intermittent 11/23/2012 None knee pain Pertinent Findings swelling 11/23/2012 None knee pain Pertinent Findings Denies bruising 11/23/2012 None knee pain Pertinent Findings Denies clicking 11/23/2012 None knee pain Pertinent Findings decreased range of motion 11/23/2012 None knee pain Pertinent Findings Denies locking 11/23/2012 None knee pain Pertinent Findings pain with movement 11/23/2012 None knee pain Pertinent Findings inability to extend 11/23/2012 None knee pain Exacerbating Factors exertion 11/23/2012 None knee pain Exacerbating Factors weight bearing 11/23/2012 None knee pain Exacerbating Factors extension of the knee 11/23/2012 None knee pain Onset of Symptom 2 weeks ago 11/23/2012 None rash Location-Major on the legs 10/11/2012 back of left leg rash Quality acute None rash Color erythematous 10/11/2012 None rash Onset and Resolution ongoing 10/11/2012 None rash Onset of Symptom 2 days ago 10/11/2012 None rash Limitation on Activities does not limit activities 10/11/2012 pulled tick off 2 days ago, unsure of how long tick was attached rash Prior Treatments previously untreated 10/11/2012 None hypertension Quality stable 05/25/2012 None hypertension Onset and Resolution ongoing 05/25/2012 None hypertension Onset of Symptom during adulthood 05/25/2012 None hypertension Blood Pressure Values not checking blood pressure at home 05/25/2012 None hypertension Severity mild 05/25/2012 None hypertension Triggers stress 05/25/2012 None hypertension Alleviating Factors medication 05/25/2012 None hypertension Exacerbating Factors stress 05/25/2012 None hypertension Pertinent Findings Denies anxiety 05/25/2012 None hypertension Pertinent Findings Denies confusion 05/25/2012 None hypertension Pertinent Findings Denies dyspnea 05/25/2012 None hypertension Pertinent Findings Denies edema 05/25/2012 None hypertension Pertinent Findings Denies lethargy 05/25/2012 None hypertension Quality chronic 04/29/2012 None hypertension Onset and Resolution ongoing 04/29/2012 None hypertension Blood Pressure Values patient checking blood pressure at home - did not bring in readings 04/29/2012 None hypertension Quality stable 04/29/2012 None hypertension Onset of Symptom during adulthood 04/29/2012 None hypertension Blood Pressure Values not checking blood pressure at home 04/29/2012 None hypertension Severity mild 04/29/2012 None hypertension Triggers stress 04/29/2012 None hypertension Alleviating Factors medication 04/29/2012 None hypertension Exacerbating Factors stress 04/29/2012 None hypertension Pertinent Findings Denies anxiety 04/29/2012 None hypertension Pertinent Findings Denies confusion 04/29/2012 None hypertension Pertinent Findings Denies dyspnea 04/29/2012 None hypertension Pertinent Findings Denies edema 04/29/2012 None hypertension Pertinent Findings Denies lethargy 04/29/2012 None dysuria Quality acute 04/08/2012 None dysuria Onset and Resolution ongoing 04/08/2012 None dysuria Onset of Symptom 2 weeks ago 04/08/2012 pressure over bladder dysuria Limitation on Activities does not limit urination 04/08/2012 None dysuria Frequency of Episodes unchanged 04/08/2012 None dysuria Triggers no known associated factors 04/08/2012 None dysuria Pertinent Findings Denies back pain 04/08/2012 None dysuria Pertinent Findings bladder pain 04/08/2012 None dysuria Pertinent Findings Denies chills 04/08/2012 None dysuria Pertinent Findings Denies enuresis 04/08/2012 None dysuria Pertinent Findings Denies nocturia 04/08/2012 None dysuria Pertinent Findings urinary urgency 04/08/2012 and frequency dysuria Pertinent Findings Denies vomiting 04/08/2012 None hypertension Quality stable 03/29/2012 None hypertension Onset and Resolution ongoing 03/29/2012 None hypertension Onset of Symptom during adulthood 03/29/2012 None hypertension Blood Pressure Values not checking blood pressure at home 03/29/2012 None hypertension Severity mild 03/29/2012 None hypertension Pertinent Findings Denies anxiety 03/29/2012 None hypertension Pertinent Findings Denies confusion 03/29/2012 None hypertension Pertinent Findings Denies lethargy 03/29/2012 None hypertension Pertinent Findings Denies edema 03/29/2012 None hypertension Pertinent Findings Denies dyspnea 03/29/2012 None hypertension Exacerbating Factors stress 03/29/2012 None hypertension Alleviating Factors medication 03/29/2012 None hypertension Triggers stress 03/29/2012 None rash Quality acute None rash Quality chronic 02/12/2012 None rash Quality worsening 02/12/2012 None rash Onset and Resolution ongoing 02/12/2012 None rash Severity worsening 02/12/2012 had improved with triamcinalone but since tapering off it is coming back rash Triggers no known triggers 02/12/2012 None rash Location-Major in the groin area 02/12/2012 and buttocks rash Color erythematous 02/12/2012 None rash Prior Treatments partially responsive to treatment 02/12/2012 None rash Location-Major on the upper body 01/13/2012 None rash Location-Major on the lower body 01/13/2012 None rash Quality acute None rash Quality chronic 01/13/2012 None rash Quality worsening 01/13/2012 None rash Color erythematous 01/13/2012 None rash Onset and Resolution ongoing 01/13/2012 None rash Severity severe 01/13/2012 None rash Severity worsening 01/13/2012 None rash Triggers no known triggers 01/13/2012 None pain Location-Major in the groin area 11/24/2011 None pain Location-Trunk in the perianal area 11/24/2011 None pain Quality painful 11/24/2011 None pain Quality pruritic 11/24/2011 None pain Onset and Resolution ongoing 11/24/2011 None rash Location-Trunk in the perianal area 11/24/2011 pt states that it can also spread to other areas on his body pain Pertinent Findings Denies dizziness 11/24/2011 None pain Pertinent Findings Denies itching 11/24/2011 None pain Pertinent Findings Denies history of travel 11/24/2011 None pain Pertinent Findings pain 11/24/2011 None pain Pertinent Findings Denies nausea 11/24/2011 None pain Severity mild 09/2011 None pain Prior Treatments partially responsive to treatment 11/24/2011 None pain Triggers no known triggers 11/24/2011 None pain Limitation on Activities does not limit activities 11/24/2011 None pain Color erythematous 11/24/2011 None rash Location-Major on the lower body 11/24/2011 None rash Quality chronic 11/24/2011 None rash Quality intermittent 11/24/2011 None rash Color erythematous 11/24/2011 None rash Limitation on Activities does not limit activities 11/24/2011 None rash Severity mild 09/2011 None rash Prior Treatments partially responsive to treatment 11/24/2011 None rash Triggers no known triggers 11/24/2011 None Advance Directives No Advance Directive data Encounters Encounter Performer Location Codes Date ([id number]) Miscellaneous no charge Diagnosis: Encounter for removal of sutures[ICD10: Z48.02] Xena Phan MD [facility] CPT-4: 47106 10/28/2017 ([id number]) 44192 EST. PATIENT, LEVEL IV Diagnosis: Essential (primary) hypertension[ICD10: I10] Diagnosis: Mixed hyperlipidemia[ICD10: E78.2] Xena Phan MD [facility] CPT-4: 14490 09/17/2017 ([id number]) 34582 EST. PATIENT, LEVEL III Diagnosis: Benign paroxysmal vertigo, bilateral[ICD10: H81.13] Diagnosis: Dizziness and giddiness[ICD10: R42] Xena Phan MD [facility] CPT-4: 28105 07/17/2017 ([id number]) 49993 EST. PATIENT, LEVEL III Diagnosis: Essential (primary) hypertension[ICD10: I10] Diagnosis: Ganglion, left hand[ICD10: M67.442] Xena Phan MD [facility] CPT-4: 85939 04/20/2017 ([id number]) 29153 EST. PATIENT, LEVEL IV Diagnosis: Essential (primary) hypertension[ICD10: I10] Diagnosis: Other skin changes[ICD10: R23.8] Xena Phan MD [facility] CPT-4: 17052 03/19/2017 66421 EST. PATIENT, LEVEL III Diagnosis: Ganglion, left hand[ICD10: M67.442] Alma Phan MD [facility] CPT-4: 87728 10/15/2016 ([id number]) 21796 EST. PATIENT, LEVEL III Diagnosis: Essential (primary) hypertension[ICD10: I10] Xena Phan MD [facility] CPT-4: 42150 09/16/2016 ([id number]) Miscellaneous no charge Diagnosis: Squamous cell carcinoma of skin of unspecified parts of face[ICD10: C44.320] Jyoti Phan MD [facility] CPT-4: 17197 08/2015 ([id number]) 85670 EST. PATIENT, LEVEL IV Diagnosis: Essential (primary) hypertension[ICD10: I10] Diagnosis: Insect bite (nonvenomous) of unspecified parts of thorax, initial encounter[ICD10: S20.96XA] Diagnosis: Enlarged prostate without lower urinary tract symptoms[ICD10: N40.0] Xena Phan MD [facility] CPT-4: 73291 03/11/2016 ([id number]) Miscellaneous no charge Diagnosis: Essential (primary) hypertension[ICD10: I10] Alma Jeffrey Phan MD [facility] CPT-4: 49944 10/03/2015 ([id number]) 98513 EST. PATIENT, LEVEL III Diagnosis: Essential (primary) hypertension[ICD10: I10] Xena Phan MD [facility] CPT-4: 72794 09/05/2015 ([id number]) 95484 EST. PATIENT, LEVEL III Diagnosis: ESSENTIAL HYPERTENSION[ICD9: 401.9] Xena Phan MD [facility] CPT-4: 78189 02/27/2015 ([id number]) 83572 EST. PATIENT, LEVEL IV Diagnosis: ESSENTIAL HYPERTENSION[ICD9: 401.9] Diagnosis: Mucous in stools[ICD9: 792.1] Xena Phan MD [facility] CPT- 4: 32096 10/26/2014 ([id number]) 10007 EST. PATIENT, LEVEL III Diagnosis: Polymyalgia rheumatica[ICD9: 725] Xena Phan MD [facility] CPT-4: 46360 06/29/2014 ([id number]) 68595 EST. PATIENT, LEVEL IV Diagnosis: ESSENTIAL HYPERTENSION[ICD9: 401.9] Diagnosis: Arthralgia[ICD9: 719.40] Diagnosis: Myalgia and myositis[ICD9: 729.1] Xena Phan MD [facility] CPT-4: 68984 04/27/2014 ([id number]) 40145 EST. PATIENT, LEVEL IV Diagnosis: ESSENTIAL HYPERTENSION[ICD9: 401.9] Diagnosis: Knee pain[ICD9: 719.46] Diagnosis: Tick bite[ICD9: 919.4] Diagnosis: Arthralgia[ICD9: 719.40] Diagnosis: Myalgia and myositis[ICD9: 729.1] Xena Phan MD [facility] CPT-4: 54004 03/30/2014 ([id number]) Miscellaneous no charge Diagnosis: Suture check[ICD9: V58.49] Xena Phan MD [facility] CPT- 4: 27327 02/22/2014 ([id number]) 25340 EST. PATIENT, LEVEL III Diagnosis: ESSENTIAL HYPERTENSION[ICD9: 401.9] Xena Phan MD [facility] CPT-4: 59534 10/27/2013 ([id number]) 76744 EST. PATIENT, LEVEL III Diagnosis: ESSENTIAL HYPERTENSION[SNOMED: 33437360] Xena Phan MD [facility] CPT-4: 52358 07/27/2013 ([id number]) 11318 EST. PATIENT, LEVEL III Diagnosis: ESSENTIAL HYPERTENSION[SNOMED: 62107452] Xena Phan MD [facility] CPT-4: 70590 06/30/2013 ([id number]) 85028 EST. PATIENT, LEVEL IV Diagnosis: ESSENTIAL HYPERTENSION[SNOMED: 20846182] Diagnosis: BPPV (benign paroxysmal positional vertigo)[ICD9: 386.11] Diagnosis: Osteoarthritis[ICD9: 715.90] Diagnosis: Knee pain[ICD9: 719.46] Diagnosis: ENCNTR LONG-RX USE NEC[ICD9: V58.69] Xena Phan MD [facility] CPT-4: 45209 06/01/2013 ([id number]) 57118 EST. PATIENT, LEVEL III Diagnosis: Tick bite[ICD9: 919.4] Diagnosis: Arthralgia[ICD9: 719.40] Xena Phan MD [facility] CPT-4: 90073 11/23/2012 ([id number]) 17710 EST. PATIENT, LEVEL III Diagnosis: Tick bite[ICD9: 919.4] Diagnosis: Cellulitis, leg[ICD9: 682.6] Jyoti Phan MD [facility] CPT-4: 40483 10/11/2012 ([id number]) 24009 EST. PATIENT, LEVEL III Diagnosis: ESSENTIAL HYPERTENSION[SNOMED: 29026598] Xena Phan MD [facility] CPT-4: 07958 05/25/2012 ([id number]) 97799 EST. PATIENT, LEVEL III Diagnosis: ESSENTIAL HYPERTENSION[SNOMED: 58343399] Xena Phan MD, [facility] CPT-4: 36837 04/29/2012 ([id number] 99867 EST. PATIENT, LEVEL III Diagnosis: Dysuria[ICD9: 788.1] Diagnosis: UTI[ICD9: 599.0] Diagnosis: ESSENTIAL HYPERTENSION[SNOMED: 23321346] AMA Bell MD CPT-4: 87506 04/08/2012 ([id number] 75567 EST. PATIENT, LEVEL III Diagnosis: ESSENTIAL HYPERTENSION[SNOMED: 62814658] AMA Bell MD CPT-4: 37064 03/29/2012 [id number] 06265 EST. PATIENT, LEVEL III Diagnosis: PITYRIASIS ROSEA[ICD9: 696.3] Diagnosis: BULLOUS DERMATOSES[ICD9: 694.9] AMA Bell MD CPT- 4: 38961 02/12/2012 ([id number] 39585 EST. PATIENT, LEVEL III Diagnosis: Rash[ICD9: 782.1] Diagnosis: Bullous rash[ICD9: 694.9] Diagnosis: Pityriasis rosea[ICD9: 696.3] Xena Phan MD, [facility] CPT- 4: 60858 01/13/2012 OFFICE VISIT, NEW - LEVEL 3 Diagnosis: ESSENTIAL HYPERTENSION[SNOMED: 53362971] Diagnosis: Rash[ICD9: 782.1] Diagnosis: Heart murmur[ICD9: 785.2] Xena Phan MD, [facility] CPT-4: 75673 11/24/2011 Plan of Care Planned Activity Notes Codes Status Date Appointment: Nurse Visit 10/28/2017 Patient Education: Patient Medication Summary Completed 10/28/2017 Visit Plan: Hypertension - well controlled - continue with current medications, continue with no added salt diet. Pt has been encouraged to exercise daily. The pt has been advised to call the office if there are any acute concerns about change in blood pressure readings at home. Hyperlipidemia - pt has been counseled about appropriate diet, exercise, and need for low fat food choices. I have discussed the need for the patient to take medications as prescribed. If the patient has negative side effects from the medication, they are to CALL the office and not abruptly discontinue the medication without discussion with a practitioner in the office. We will check labs in 3-6 months for follow up on the patient's chronic medical problem and to assure normal liver response to medications. 09/17/2017 Appointment: Xena Phan WPtel: [facility]6 [facility] (15 min) Moderate 09/17/2017 Patient Education: Patient Medication Summary Completed 09/17/2017 Visit Plan: BPPV - Benign Paroxysmal Positional Vertigo - discussed diagnosis with the patient, offered the pt the appropriate additional information in hand-out. Pt instructed in home exercises to help alleviate and prevent future recurrent episodes of vertigo. Pt informed that if symptoms worsen, call the office for further instructions/medication interventions. Maxzide rx - stop hctz [place] - Cocksy exercises as well as Eply exercises given to patient. 07/17/2017 Appointment: Xena Phan WPtel: [facility]8 [facility] (15 min) Moderate 07/17/2017 Patient Education: Patient Medication Summary Completed 07/17/2017 Visit Plan: Hypertension - well controlled - continue with current medications, continue with no added salt diet. Pt has been encouraged to exercise daily. The pt has been advised to call the office if there are any acute concerns about change in blood pressure readings at home. left hand 3rd digit ganglion cyst - advised watchful waiting. 04/20/2017 Appointment: Xena Phan WPtel: [facility]7 [facility] (15 min) Moderate 04/20/2017 Patient Education: Patient Medication Summary Completed 04/20/2017 Visit Plan: Hypertension - well controlled - continue with current medications, continue with no added salt diet. Pt has been encouraged to exercise daily. The pt has been advised to call the office if there are any acute concerns about change in blood pressure readings at home. 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 03/19/2017 Appointment: Xena Phan WPtel: [facility] (15 min) Moderate 03/19/2017 Patient Education: Patient Medication Summary Completed 03/19/2017 Care Plan: Total Psa Pending 03/19/2017 Appointment: Nurse Visit 10/29/2016 Visit Plan: Cyst on finger - monitor - Pt is to notify clinic if any erythema, edema, warmth, or drainage. Pt is to notify clinic if it becomes painful, or changes, or with any questions or concerns. 10/15/2016 Appointment: [phone] (30 min) Complex 10/15/2016 Patient Education: Patient Medication Summary Completed 10/15/2016 Visit Plan: Hypertension - well controlled - continue with current medications, continue with no added salt diet. Pt has been encouraged to exercise daily. The pt has been advised to call the office if there are any acute concerns about change in blood pressure readings at home. Insect bite - check labs 09/16/2016 Patient Education: Patient Medication Summary Completed 09/16/2016 [phone] ([facility] min) Moderate 09/09/2016 Appointment: Nurse Visit 04/24/2016 Patient Education: Patient Medication Summary Completed 04/24/2016 Visit Plan: Hypertension - well controlled - continue with current medications, continue with no added salt diet. Pt has been encouraged to exercise daily. The pt has been advised to call the office if there are any acute concerns about change in blood pressure readings at home. Insect bite - check labs 03/11/2016 [phone] ([facility] min) Moderate 03/11/2016 Patient Education: Patient Medication Summary Completed 03/11/2016 Care Plan: Lipid Pending 03/11/2016 Care Plan: Tsh Pending 03/11/2016 Care Plan: Comp Metabolic Pending 03/11/2016 Care Plan: Cbc With Differential Pending 03/11/2016 Care Plan: LYME DISEASE ANTIBODY Pending 03/11/2016 Care Plan: EHRLICHIA ANTIBODY Pending 03/11/2016 Patient Education: Patient Medication Summary Completed 10/03/2015 Patient Education: Hypertension Completed 10/03/2015 Visit Plan: Hypertension - well controlled - continue with current medications, continue with no added salt diet. Pt has been encouraged to exercise daily. The pt has been advised to call the office if there are any acute concerns about change in blood pressure readings at home. 09/05/2015 Patient Education: Patient Medication Summary Completed 09/05/2015 Patient Education: Hypertension Completed 09/05/2015 Visit Plan: Hypertension - well controlled - continue with current medications, continue with no added salt diet. Pt has been encouraged to exercise daily. The pt has been advised to call the office if there are any acute concerns about change in blood pressure readings at home. 02/27/2015 Appointment: Xena Phan WPtel: [facility]9 [facility] (15 min) Moderate 02/27/2015 Patient Education: Patient Medication Summary Completed 02/27/2015 Patient Education: Hypertension Completed 02/27/2015 Appointment: Xena Phan WPtel: [facility]5 [facility] Follow up 02/26/2015 Visit Plan: Hypertension - well controlled - continue with current medications, continue with no added salt diet. Pt has been encouraged to exercise daily. The pt has been advised to call the office if there are any acute concerns about change in blood pressure readings at home. Muscle weakness - improving - with use of aleeve - monitor symptoms, check esr. Mucus in stools - recommended pt to start on probiotic. 10/26/2014 Appointment: Xena Phan WPtel: [facility]5 [facility] Follow up 10/26/2014 Patient Education: Patient Medication Summary Completed 10/26/2014 Patient Education: Hypertension Completed 10/26/2014 Appointment: Nurse Visit 08/04/2014 Visit Plan: Polymyalgia Rheumatica - rx for topical voltaren given to patient for short term treatment of symptoms. Pt taking prn antiinflammatories - not interested in steroids due to increased side effect profile. Pt to use topical treatment and call if symptoms worsen 06/29/2014 Patient Education: Patient Medication Summary Completed 06/29/2014 Visit Plan: Hypertension - well controlled - continue with current medications, continue with no added salt diet. Pt has been encouraged to exercise daily. The pt has been advised to call the office if there are any acute concerns about change in blood pressure readings at home. Polymyalgia Rheumatica - prn antiinflammatories - pt to call if symptoms not improving. Pt not interested in steroids. 04/27/2014 Appointment: Xena Phan WPtel: [address] [place], [place] [id number] Follow up 04/27/2014 Patient Education: Patient Medication Summary Completed 04/27/2014 Patient Education: Hypertension Completed 04/27/2014 Visit Plan: Hypertension - well controlled - continue with current medications, continue with no added salt diet. Pt has been encouraged to exercise daily. The pt has been advised to call the office if there are any acute concerns about change in blood pressure readings at home. start on doxycycline - pt reports multiple tick bites. check labs - thyroid, chem panel, cbc, crp. 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 Pt to get flu shot at other facility. 03/30/2014 Appointment: Xena Phan WPtel: [address] [place] [id number] [place] Sick 03/30/2014 Patient Education: Patient Medication Summary Completed 03/30/2014 Patient Education: Hypertension Completed 03/30/2014 Visit Plan: nurse removed sutures 02/22/2014 Appointment: Xena Phan WPtel: [address] [place], [place] [id number] [place] Nurse Visit 02/22/2014 Patient Education: Patient Medication Summary Completed 02/22/2014 Appointment: Xena Phan WPtel: [address] [place] [id number] [place] Follow up 11/30/2013 Visit Plan: Hypertension - well controlled - continue with current medications, continue with no added salt diet. Pt has been encouraged to exercise daily. The pt has been advised to call the office if there are any acute concerns about change in blood pressure readings at home. 10/27/2013 Appointment: Xena Phan WPtel: [address] [place] [id number] [place] Follow up 10/27/2013 Patient Education: Patient Medication Summary Completed 10/27/2013 Patient Education: Hypertension Completed 10/27/2013 Visit Plan: Hypertension - uncontrolled - the patient's medications have been modified as documented in the visit note. The patient has been counseled to cut back on salt in diet for a no added salt diet, low fat diet, start an exercise program with low weight bearing exercises and higher aerobic activity for heart health. The patient is to check blood pressure readings as an outpatient and either fax, call, or email the readings to the office next week for practicioner to review. The pt is to call for acute concerns. Pt to stop lisinopril and start back on exforge 5/320mg daily 07/27/2013 Appointment: Xena Phan WPtel: [phone] [facility] Follow up 07/27/2013 Patient Education: Patient Medication Summary Completed 07/27/2013 Patient Education: Hypertension Completed 07/27/2013 Visit Plan: Hypertension - uncontrolled - the patient's medications have been modified as documented in the visit note. The patient has been counseled to cut back on salt in diet for a no added salt diet, low fat diet, start an exercise program with low weight bearing exercises and higher aerobic activity for heart health. The patient is to check blood pressure readings as an outpatient and either fax, call, or email the readings to the office next week for practicioner to review. The pt is to call for acute concerns. 06/30/2013 Appointment: Xena Phan WPtel: [phone] [facility] Follow up 06/30/2013 Patient Education: Patient Medication Summary Completed 06/30/2013 Patient Education: Hypertension Completed 06/30/2013 Visit Plan: Hypertension - well controlled - continue with current medications, continue with no added salt diet. Pt has been encouraged to exercise daily. The pt has been advised to call the office if there are any acute concerns about change in blood pressure readings at home. Arthritis- occasionally uncontrolled symptoms- recommend pt to take antiinflammatory as directed for pain control. Use tylenol for break through pain symptoms. Recommended xray of left knee - also gave pt brochure about [facility] [place] as the pt is not quite sure about who he would prefer for potential orthopedic eval. BPPV - Benign Paroxysmal Positional Vertigo - discussed diagnosis with the patient, offered the pt the appropriate additional information in hand-out. Pt instructed in home exercises to help alleviate and prevent future recurrent episodes of vertigo. Pt informed that if symptoms worsen, call the office for further instructions/medication interventions. 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 11/23/2012 Appointment: Xena Phan WPtel: [address] [place], [place] [id number] [place] Follow up 11/23/2012 Patient Education: Patient Medication Summary Completed 11/23/2012 Visit Plan: Cellulitisi-tick bite-discussed natural and expected course of this diagnosis and to alert me if symptoms do not follow expected course, or if any worse. RX sent to patient's pharmacy. Discussed tick born illnesses and symptoms and to call if he develops any symptoms. Patient verbalized understanding of plan. 10/11/2012 Appointment: Jyoti Inman WPtel: [facility]3 [phone] Other 10/11/2012 Patient Education: Patient Medication Summary Completed 10/11/2012 Visit Plan: Hypertension - well controlled - continue with current medications, continue with no added salt diet. Pt has been encouraged to exercise daily. The pt has been advised to call the office if there are any acute concerns about change in blood pressure readings at home. 05/25/2012 Appointment: Xena Phan WPtel: [facility] [place] Follow up 05/25/2012 Patient Education: Hypertension Completed 05/25/2012 Patient Education: Patient Medication Summary Completed 05/25/2012 [facility]ment[phone] [place] Follow up 05/12/2012 Visit Plan: Hypertension - well controlled - continue with current medications, continue with no added salt diet. Pt has been encouraged to exercise daily. The pt has been advised to call the office if there are any acute concerns about change in blood pressure readings at home. 04/29/2012 Appointment: Xena Phan WPtel: [phone] [facility] Follow up 04/29/2012 Patient Education: Patient Medication Summary Completed 04/29/2012 Patient Education: High Blood Pressure: Essential Hypertension Completed 2011 Appointment: Xena Phan WPtel: [phone] [facility] Lab Draw 04/26/2012 Patient Education: Patient Medication Summary Completed 04/26/2012 Patient Education: High Blood Pressure: Essential Hypertension Completed 2011 Visit Plan: Urinary Tract Infection-discussed natural and expected course of this diagnosis and to alert me if symptoms do not follow expected course, or if any worse. UA positive for infection today in the office- plan to send for culture and will call patient with results. RX sent to patient' s pharmacy. Avoid tub baths, restrictive underwear, etc. Recommend patient start on probiotic while taking the antibiotic to prevent diarrhea. Patient verbalized understanding of plan. Hypertension - not well controlled today but patinet has acute infection- The patient has been counseled to cut back on salt in diet for a no added salt diet, low fat diet, start an exercise program with low weight bearing exercises and higher aerobic activity for heart health. The patient is to check blood pressure readings as an outpatient and either fax, call, or email the readings to the office next week for practicioner to review. The pt is to call for acute concerns. 04/08/2012 Appointment: Jyoti Inman WPtel: [phone] [phone] Follow up 04/08/2012 Patient Education: Patient Medication Summary Completed 04/08/2012 Patient Education: High Blood Pressure: Essential Hypertension Completed 2011 Visit Plan: Hypertension - uncontrolled - the patient's medications have been modified as documented in the visit note. The patient has been counseled to cut back on salt in diet for a no added salt diet, low fat diet, start an exercise program with low weight bearing exercises and higher aerobic activity for heart health. The patient is to check blood pressure readings as an outpatient and either fax, call, or email the readings to the office next week for practicioner to review. The pt is to call for acute concerns. Pt to increase diovan to 320 mg daily, he can cut the pill in 1/2 and take 1/2 pill twice daily, check blood pressure at home, call in results to the clinic in about 10 days. Pt to have labs in one month prior to blood pressure follow up. 03/29/2012 Appointment: Xena Phan WPtel: [facility] [id number] Follow up 03/29/2012 Patient Education: Patient Medication Summary Completed 03/29/2012 Patient Education: High Blood Pressure: Essential Hypertension Completed 2011 Visit Plan: Recommended ammens foot powder for decrease of the moisture on the gluteus and hopefully this will help to further alleviate the symptoms of moisture causing more skin erosions. Pt is to follow up the brim pouncer machine operator and other specialists at as previously directed. 02/12/2012 Appointment: Xena Phan WPtel: [phone] [id number] Other 02/12/2012 Patient Education: Patient Medication Summary Completed 02/12/2012 Visit Plan: Pt has a very macerated rash over his buttocks and concern for bullous rash. Pt has pityriasis rosea from the biopsy - recommendation is for a prednisone taper, call the office to let us know what the brim pouncer machine operator recommended, if he changed the current treatment. 01/13/2012 Appointment: Xena Phan WPtel: [phone] [id number] Other 01/13/2012 Appointment: Jyoti Inman WPtel: [phone] [id number] Other 01/13/2012 Patient Education: Patient Medication Summary Completed 01/13/2012 Visit Plan: Wound Instructions - Pt was instruced to keep the wound clean, wash with antibacterial soap, use triple antibiotic ointment, call if redness, pustular drainage, or any other acute conerns. 01/06/2012 Appointment: Jyoti Inman WPtel: [id number] Surgical Procedure 01/06/2012 Patient Education: Patient Medication Summary Completed 01/06/2012 Appointment: Xena Phan WPtel: [address] [place] [address] Other 01/05/2012 Visit Plan: Cellulitis- continue with lotrisone cream, and start on the bactroban ointment as well, pt is to call if the rash worsens.. The office will call with the culture report. Heart murmur- has not had ECHO for over 40 years, and one was ordered for November 25. Hypertension - well controlled - continue with current medications, continue with no added salt diet. Pt has been encouraged to exercise daily. The pt has been advised to call the office if there are any acute concerns about change in blood pressure readings at home. 11/24/2011 Appointment: Xena Phan WPtel: [address] [place], [place] [id number] New Patient 11/24/2011 Patient Education: Patient Medication Summary Completed 11/24/2011 Patient Education: High Blood Pressure: Essential Hypertension Completed 2011 Instructions Comment . Hypertension - well controlled - continue with current medications, continue with no added salt diet. Pt has been encouraged to exercise daily. The pt has been advised to call the office if there are any acute concerns about change in blood pressure readings at home. left hand 3rd digit ganglion cyst - advised watchful waiting. . Hypertension - well controlled - continue with current medications, continue with no added salt diet. Pt has been encouraged to exercise daily. The pt has been advised to call the office if there are any acute concerns about change in blood pressure readings at home. Arthritis- occasionally uncontrolled symptoms- recommend pt to take antiinflammatory as directed for pain control. Use tylenol for break through pain symptoms. Recommended xray of left knee - also gave pt brochure about [facility] [place] as the pt is not quite sure about who he would prefer for potential orthopedic eval. BPPV - Benign Paroxysmal Positional Vertigo - discussed diagnosis with the patient, offered the pt the appropriate additional information in hand-out. Pt instructed in home exercises to help alleviate and prevent future recurrent episodes of vertigo. Pt informed that if symptoms worsen, call the office for further instructions/medication interventions. POLYMYALGIA RHEUMATICA . Hypertension - well controlled - continue with current medications, continue with no added salt diet. Pt has been encouraged to exercise daily. The pt has been advised to call the office if there are any acute concerns about change in blood pressure readings at home. Polymyalgia Rheumatica - prn antiinflammatories - pt to call if symptoms not improving. Pt not interested in steroids. . Cellulitisi-tick bite-discussed natural and expected course of this diagnosis and to alert me if symptoms do not follow expected course, or if any worse. RX sent to patient's pharmacy. Discussed tick born illnesses and symptoms and to call if he develops any symptoms. Patient verbalized understanding of plan. . Hypertension - well controlled - continue with current medications, continue with no added salt diet. Pt has been encouraged to exercise daily. The pt has been advised to call the office if there are any acute concerns about change in blood pressure readings at home. start on doxycycline - pt reports multiple tick bites. check labs - thyroid, chem panel, cbc, crp. 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 Pt to get flu shot at other facility. . Hypertension - well controlled - continue with current medications, continue with no added salt diet. Pt has been encouraged to exercise daily. The pt has been advised to call the office if there are any acute concerns about change in blood pressure readings at home. . Hypertension - well controlled - continue with current medications, continue with no added salt diet. Pt has been encouraged to exercise daily. The pt has been advised to call the office if there are any acute concerns about change in blood pressure readings at home. Hyperlipidemia - pt has been counseled about appropriate diet, exercise, and need for low fat food choices. I have discussed the need for the patient to take medications as prescribed. If the patient has negative side effects from the medication, they are to CALL the office and not abruptly discontinue the medication without discussion with a practitioner in the office. We will check labs in 3-6 months for follow up on the patient's chronic medical problem and to assure normal liver response to medications. stop the hctz and start on the maxzide . BPPV - Benign Paroxysmal Positional Vertigo - discussed diagnosis with the patient, offered the pt the appropriate additional information in hand-out. Pt instructed in home exercises to help alleviate and prevent future recurrent episodes of vertigo. Pt informed that if symptoms worsen, call the office for further instructions/medication interventions. Maxzide rx - stop hctz [place] - Cocksy exercises as well as Eply exercises given to patient. . Cellulitis- continue with lotrisone cream, and start on the bactroban ointment as well, pt is to call if the rash worsens.. The office will call with the culture report. Heart murmur- has not had ECHO for over 40 years, and one was ordered for November 25. Hypertension - well controlled - continue with current medications, continue with no added salt diet. Pt has been encouraged to exercise daily. The pt has been advised to call the office if there are any acute concerns about change in blood pressure readings at home. . Hypertension - well controlled - continue with current medications, continue with no added salt diet. Pt has been encouraged to exercise daily. The pt has been advised to call the office if there are any acute concerns about change in blood pressure readings at home. 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 STOP EXFORGE FOR NOW - MONITOR PRESSURE AT HOME, START ON LISINOPRIL 40MG DAILY - CALL THE OFFICE ON THURSDAY WITH BLOOD PRESSURE REPORT. CALL THE HOSPITAL OVER THE WEEKEND IF THE BLOOD PRESSURES STAY AT OR ABOVE 180/ 100. . Hypertension - uncontrolled - the patient's medications have been modified as documented in the visit note. The patient has been counseled to cut back on salt in diet for a no added salt diet, low fat diet, start an exercise program with low weight bearing exercises and higher aerobic activity for heart health. The patient is to check blood pressure readings as an outpatient and either fax , call, or email the readings to the office next week for practicioner to review. The pt is to call for acute concerns. . 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 . Recommended ammens foot powder for decrease of the moisture on the gluteus and hopefully this will help to further alleviate the symptoms of moisture causing more skin erosions. Pt is to follow up the brim pouncer machine operator and other specialists at as previously directed. . Hypertension - well controlled - continue with current medications, continue with no added salt diet. Pt has been encouraged to exercise daily. The pt has been advised to call the office if there are any acute concerns about change in blood pressure readings at home. Insect bite - check labs . Cyst on finger - monitor - Pt is to notify clinic if any erythema, edema, warmth, or drainage. Pt is to notify clinic if it becomes painful, or changes, or with any questions or concerns. . Hypertension - uncontrolled - the patient's medications have been modified as documented in the visit note. The patient has been counseled to cut back on salt in diet for a no added salt diet, low fat diet, start an exercise program with low weight bearing exercises and higher aerobic activity for heart health. The patient is to check blood pressure readings as an outpatient and either fax , call, or email the readings to the office next week for practicioner to review. The pt is to call for acute concerns. Pt to stop lisinopril and start back on exforge 5/320mg daily . Urinary Tract Infection-discussed natural and expected course of this diagnosis and to alert me if symptoms do not follow expected course, or if any worse. UA positive for infection today in the office-plan to send for culture and will call patient with results. RX sent to patient's pharmacy. Avoid tub baths, restrictive underwear, etc. Recommend patient start on probiotic while taking the antibiotic to prevent diarrhea. Patient verbalized understanding of plan. Hypertension - not well controlled today but michellenet has acute infection- The patient has been counseled to cut back on salt in diet for a no added salt diet , low fat diet, start an exercise program with low weight bearing exercises and higher aerobic activity for heart health. The patient is to check blood pressure readings as an outpatient and either fax , call, or email the readings to the office next week for practicioner to review. The pt is to call for acute concerns. . Wound Instructions - Pt was instruced to keep the wound clean, wash with antibacterial soap, use triple antibiotic ointment, call if redness, pustular drainage, or any other acute conerns. labs in one month, call out blood pressure and heart rate readings in 10 days. . Hypertension - uncontrolled - the patient's medications have been modified as documented in the visit note. The patient has been counseled to cut back on salt in diet for a no added salt diet, low fat diet, start an exercise program with low weight bearing exercises and higher aerobic activity for heart health. The patient is to check blood pressure readings as an outpatient and either fax , call, or email the readings to the office next week for practicioner to review. The pt is to call for acute concerns. Pt to increase diovan to 320 mg daily, he can cut the pill in 1/2 and take 1/2 pill twice daily, check blood pressure at home, call in results to the clinic in about 10 days. Pt to have labs in one month prior to blood pressure follow up. . Hypertension - well controlled - continue with current medications, continue with no added salt diet. Pt has been encouraged to exercise daily. The pt has been advised to call the office if there are any acute concerns about change in blood pressure readings at home. . Hypertension - well controlled - continue with current medications, continue with no added salt diet. Pt has been encouraged to exercise daily. The pt has been advised to call the office if there are any acute concerns about change in blood pressure readings at home. . Pt has a very macerated rash over his buttocks and concern for bullous rash. Pt has pityriasis rosea from the biopsy - recommendation is for a prednisone taper, call the office to let us know what the brim pouncer machine operator recommended, if he changed the current treatment. . Hypertension - well controlled - continue with current medications, continue with no added salt diet. Pt has been encouraged to exercise daily. The pt has been advised to call the office if there are any acute concerns about change in blood pressure readings at home. Insect bite - check labs . nurse removed sutures . Hypertension - well controlled - continue with current medications, continue with no added salt diet. Pt has been encouraged to exercise daily. The pt has been advised to call the office if there are any acute concerns about change in blood pressure readings at home. . Hypertension - well controlled - continue with current medications, continue with no added salt diet. Pt has been encouraged to exercise daily. The pt has been advised to call the office if there are any acute concerns about change in blood pressure readings at home. . Hypertension - well controlled - continue with current medications, continue with no added salt diet. Pt has been encouraged to exercise daily. The pt has been advised to call the office if there are any acute concerns about change in blood pressure readings at home. Muscle weakness - improving - with use of aleeve - monitor symptoms, check esr. Mucus in stools - recommended pt to start on probiotic. pennsaid samples - use 1/2 packet twice daily on shoulders and neck when the samples run out - start using the voltaren gel up to 4 times dailly on shoulders/neck and other affected sites. . Polymyalgia Rheumatica - rx for topical voltaren given to patient for short term treatment of symptoms. Pt taking prn antiinflammatories - not interested in steroids due to increased side effect profile. Pt to use topical treatment and call if symptoms worsen
--- OUTSIDE RECORDS SUMMARY | 2018-03-23 05:24 | XMS REPORT | CCD ---
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 Unknown Has never used illegal drugs 11/24/2011 Marital status Unknown Single Co-habiting with girlfriend 11/20/[address]: 078278628 Never smoker 11/20/2011 Allergies, Adverse Reactions, Alerts Allergies, Adverse Reactions, Alerts data not found Past Medical History Illness Codes Condition Status Onset Date Resolved Date Benign paroxysmal vertigo, bilateral ICD-9: 386.11 ICD-10: H81.13 Active 07/17/2017 Unknown Dizziness and giddiness ICD-9: 780.4 ICD-10: R42 Active 07/17/2017 Unknown Essential (primary) hypertension ICD-9: 401.1 ICD-10: I10 Active 09/16/2016 Unknown Ganglion, left hand ICD-9: 727.43 ICD-10: [...] Problems Condition Codes Effective Dates Condition Status Benign paroxysmal vertigo, bilateral ICD-9: 386.11 ICD-10: H81.13 07/17/2017 Active Dizziness and giddiness ICD-9: 780.4 ICD-10: R42 07/17/2017 Active Essential (primary) hypertension ICD-9: 401.1 ICD-10: I10 09/16/2016 Active Ganglion, left hand ICD-9: 727.43 ICD-10: [...] Start Date Stop Date Status Fill Instructions Maxzide-25mg 37.5 mg-25 mg tablet RxNorm: 29453 1/2 Tablet(s) PO daily 07/17/2017 01/12/2018 Active irbesartan 300 mg-hydrochlorothiazide 12.5 mg tablet RxNorm: 355557 TAKE ONE TABLET BY MOUTH ONCE DAILY 05/04/2017 No Stop Date Active amlodipine 10 mg tablet RxNorm: 287907 TAKE ONE TABLET BY MOUTH ONCE DAILY 04/20/2017 No Stop Date Active hydrochlorothiazide 25 mg tablet RxNorm: 543426 TAKE ONE-HALF TABLET BY MOUTH ONCE DAILY WITH IRBESARTAN COMBINATION PILL 01/12/2017 07/16/2017 Inactive irbesartan 300 mg-hydrochlorothiazide 12.5 mg tablet RxNorm: 640946 TAKE ONE TABLET BY MOUTH ONCE DAILY 07/11/2016 Inactive amlodipine 10 mg tablet RxNorm: 640489 TAKE ONE TABLET BY MOUTH ONCE DAILY 07/11/2016 04/06/2017 Inactive hydrochlorothiazide 25 mg tablet RxNorm: 496532 1/2 Tablet(s) PO daily take with the irbesartan combination pill 09/05/2015 09/17/2015 Inactive irbesartan 300 mg-hydrochlorothiazide 12.5 mg tablet RxNorm: 517632 1 Tablet(s) PO daily 07/10/2015 07/03/2016 Inactive amlodipine 10 mg tablet RxNorm: 530590 1 Tablet(s) PO daily 07/03/2016 Inactive tramadol 50 mg tablet RxNorm: 545511 1 Tablet(s) PO Q6 hours prn 07/17/2014 07/31/2014 Inactive Voltaren 1 % topical gel RxNorm: 325776 4 Gram(s) TOP QID 06/2902/26/2015 Inactive [SAVINGS FOR UNINSURED PATIENTS -- [id number], PCN: [id number], Group: [id number], ID# [id number], Process claim through [employer], for questions: . THIS IS NOT INSURANCE.] irbesartan 300 mg-hydrochlorothiazide 12.5 mg tablet RxNorm: 482368 1 Tablet(s) PO daily 06/07/2014 06/01/2015 Inactive amlodipine 10 mg tablet RxNorm: 056801 1 Tablet(s) PO daily 06/01/2015 Inactive ketorolac 60 mg/2 mL intramuscular solution RxNorm: 677401 1 Milliliter(s) IM 04/27/2014 04/27/2014 Inactive prednisone 20 mg tablet RxNorm: 647143 3 Tablet(s) PO daily 04/15/2014 Inactive prednisone 20 mg tablet RxNorm: 321744 3 Tablet(s) PO daily 04/10/2014 Inactive doxycycline hyclate 100 mg tablet RxNorm: 096230 1 Tablet(s) PO BID 04/07/2014 04/10/2014 Inactive for total of 2 weeks on abt. Exforge HCT 10 mg-320 mg-25 mg tablet RxNorm: 280719 1 Tablet(s) PO daily 04/03/2014 06/07/2014 Inactive doxycycline hyclate 100 mg tablet RxNorm: 245981 1 Tablet(s) PO BID 03/30/2014 04/06/2014 Inactive K-Dur 10 mEq tablet,extended release RxNorm: 664232 1 Tablet(s) PO daily 11/28/2013 11/27/2013 Inactive K-Dur 10 mEq tablet,extended release RxNorm: 528285 1 Tablet(s) PO daily 11/28/2013 12/07/2013 Inactive aspirin 81 mg chewable tablet RxNorm: 893399 1 Tablet(s) PO daily 10/27/2013 05/18/2017 Inactive Exforge HCT 10 mg-320 mg-25 mg tablet RxNorm: 075021 1 Tablet(s) PO daily 08/11/2013 04/02/2014 Inactive Exforge 5 mg-320 mg tablet RxNorm: 617239 1 Tablet(s) PO daily TAKE ONE TABLET BY MOUTH EVERY DAY 07/27/2013 08/10/2013 Inactive lisinopril 40 mg tablet RxNorm: 612596 1 Tablet(s) PO daily 02/201407/26/2013 Inactive Exforge 5 mg-320 mg tablet RxNorm: 868042 Tablet(s) PO TAKE ONE TABLET BY MOUTH EVERY DAY 06/20/2013 06/29/2013 Inactive doxycycline hyclate 100 mg tablet RxNorm: 464137 1 Tablet(s) PO BID 11/23/2012 12/22/2012 Inactive doxycycline hyclate 100 mg tablet RxNorm: 895304 1 Tablet(s) PO BID 10/11/2012 10/20/2012 Inactive Exforge 5 mg-320 mg tablet RxNorm: 754124 1 Tablet(s) PO daily 05/25/2012 09/17/2015 Inactive Exforge 5 mg-320 mg tablet RxNorm: 009241 1 Tablet(s) PO daily 05/19/2012 05/24/2012 Inactive Exforge 5 mg-320 mg tablet RxNorm: 501832 1 Tablet(s) PO daily 04/29/2012 05/18/2012 Inactive Cipro 500 mg tablet RxNorm: 245767 1 Tablet(s) PO BID 201104/14/2012 Inactive Diovan 320 mg tablet RxNorm: 363932 1 Tablet(s) PO 03/29/2012 04/28/2012 Inactive Diovan 160 mg tablet RxNorm: 878192 1 Tablet(s) PO daily 201103/28/2012 Inactive clotrimazole-betamethasone 1 %-0.05 % Lotion RxNorm: 017596 1 Application TOP TID 11/24/2011 03/28/2012 Inactive mupirocin 2 % Ointment RxNorm: 975376 1 Application TOP TID 09/201101/22/2012 Inactive glucosamine &[id number] oral RxNorm: oral No Start Date 09/15/2016 Inactive Exforge HCT 10 mg-320 mg-25 mg tablet RxNorm: 921275 1 Tablet(s) PO daily No Start Date 08/10/2013 Inactive Lotrisone 1 %-0.05 % Topical Cream RxNorm: 459905 Topical No Start Date 11/23/2011 Inactive niacinamide 500 mg tablet RxNorm: 301354 1 Tablet(s) PO BID No Start Date 04/19/2017 Inactive hydrochlorothiazide 25 mg tablet RxNorm: 998996 1/2 Tablet(s) PO daily No Start Date 07/16/2017 Inactive Fish Oil 300 mg-1,000 mg capsule RxNorm: 610832 1 Capsule(s) PO daily No Start Date 09/15/2016 Inactive bee pollen 550 mg capsule RxNorm: 372738 2 Capsule(s) PO daily No Start Date 09/15/2016 Inactive Vitamin D3 1,000 unit tablet RxNorm: 289692 1 Tablet(s) PO daily No Start Date 09/15/2016 Inactive Centrum Silver Ultra Men's oral RxNorm: 34786 oral No Start Date 09/15/2016 Inactive levofloxacin 500 mg tablet RxNorm: 907135 1 Tablet(s) PO daily No Start Date 03/10/2016 Inactive Proscar 5 mg tablet RxNorm: 460555 1 Tablet(s) PO daily No Start Date 03/18/2017 Inactive Diovan 160 mg tablet RxNorm: 520840 1 Tablet(s) PO daily No Start Date 02/03/2012 Inactive niacin 500 mg tablet RxNorm: 809720 1 Tablet(s) PO QHS No Start Date 06/29/2013 Inactive Medication Administered Medication Codes Instructions Start Date Status ketorolac 60 mg/2 mL intramuscular solution RxNorm: 773660 1Milliliter 04/27/2014 No longer Active Immunizations Vaccine [...] 06/22/1994 completed Assessments Condition Codes Effective Dates Dizziness and giddiness ICD-10: R42 ICD-9: 780.4 07/17/2017 Benign paroxysmal vertigo, bilateral ICD-10: H81.13 ICD-9: 386.11 07/17/2017 Ganglion, left hand ICD-10: M67.442 ICD-9: 727.43 04/20/2017 Essential (primary) hypertension ICD-10: I10 ICD-9: 401.1 04/20/2017 Other skin changes ICD-10: R23.8 ICD-9: [...] Reason For Visit Effective Dates Notes hypertension 07/17/2017 paresthesia 04/20/2017 hypertension 03/19/2017 joint [...] Observation Code Item Item Code Result Date Tsh Ord6 hTSH II 1.29 uIU/mL 03/19/2017 Cbc With Differential Ord2 WBC 6.44 K/ul 03/19/2017 Cbc With Differential Ord2 RBC 4.62 M/ul 03/19/2017 Cbc With Differential Ord2 HGB 14.8 g/dl 03/19/2017 Cbc With Differential Ord2 Neut% 58.8 % 03/19/2017 Cbc With Differential Ord2 HCT 43.2 % 03/19/2017 Cbc With Differential Ord2 Lymph% 30.0 % 03/19/2017 Cbc With Differential Ord2 MCV 93.5 fl 03/19/2017 Cbc With Differential Ord2 MCH 32.0 pg 03/19/2017 Cbc With Differential Ord2 [place]% 9.6 % 03/19/2017 Cbc With Differential Ord2 Eos% 1.4 % 03/19/2017 Cbc With Differential Ord2 MCHC 34.3 pg 03/19/2017 Cbc With Differential Ord2 PLT 284 K/ul 03/19/2017 Cbc With Differential Ord2 Baso% 0.2 % 03/19/2017 Cbc With Differential Ord2 RDW 13.1 % 03/19/2017 Cbc With Differential Ord2 Neut ABS# 3.79 K/ul 03/19/2017 Cbc With Differential Ord2 Lymph ABS# 1.93 K/ul 03/19/2017 Cbc With Differential Ord2 [place] ABS# 0.6 K/ul 03/19/2017 Cbc With Differential Ord2 Eos ABS# 0.1 K/ul 03/19/2017 Cbc With Differential Ord2 Baso ABS# 0.0 K/ul 03/19/2017 Comp Metabolic Cbh783 NA 139 mEq/L 03/19/2017 Comp Metabolic Kqe875 K 3.8 mEq/L 03/19/2017 Comp Metabolic Tib165 CL 101 mEq/L 03/19/2017 Comp Metabolic Gbm041 CO2 21.0 mEq/L 03/19/2017 Comp Metabolic Tsw016 ANION GAP 21 03/19/2017 Comp Metabolic Qmi769 GLUCOSE 103 mg/dL 03/19/2017 Comp Metabolic Ffw852 Creat 0.6 mg/dL 03/19/2017 Comp Metabolic Twl413 eGFR 131 ml/min/1.73m2 03/19/2017 Comp Metabolic Uuq398 BUN 17 mg/dL 03/19/2017 Comp Metabolic Wsj127 B/C Ratio 27.0 Ratio 03/19/2017 Comp Metabolic Kzq722 CALCIUM 9.4 mg/dL 03/19/2017 Comp Metabolic Dcs253 ALK PHOS 53 U/L 03/19/2017 Comp Metabolic Ldl739 AST(SGOT) 23 U/L 03/19/2017 Comp Metabolic Ovl133 ALT(SGPT) 16 U/L 03/19/2017 Comp Metabolic Riy021 BILI T 0.6 mg/dL 03/19/2017 Comp Metabolic Ixn639 ALBUMIN 4.1 g/dL 03/19/2017 Comp Metabolic Trv062 TPRO 6.9 g/dL 03/19/2017 Comp Metabolic Fwv726 GLOB 2.8 g/dL 03/19/2017 Comp Metabolic Vjq703 A/G Ratio 1.4 Ratio 03/19/2017 Comp Metabolic Iqq310 Osmo 279 mOsmo 03/19/2017 Lipid Ord30 CHOL 188 mg/dL 03/19/2017 Lipid Ord30 HDL 47.0 mg/dl 03/19/2017 Lipid Ord30 TRIG 73 mg/dL 03/19/2017 Lipid Ord30 LDL 126 mg/dL 03/19/2017 Lipid Ord30 C/HDL 4.0 Ratio 03/19/2017 Ehrlichia Chaffeensis Antibody Igm 215029 EHRLICHIA CHAFFEENSIS IGM < 1:16 03/17/2016 Ehrlichia Chaffeensis Antibody Igg 747173 EHRLICHIA CHAFFEENSIS IGG 1:256 03/17/2016 Lymes Disease Total Antibodies With Western Blot Reflex [id number] B. BURGDORFERI, IGG/IGM 0.17 LI 03/14/2016 Lymes Disease Total Antibodies With Western Blot Reflex [id number] 03/14/2016 [place] Spotted Fever Igg/Igm 900797 HYUN MT SPOTTED FEVER IGM EIA . 03/14/2016 [place] Spotted Fever Igg/Igm 412480 RMSF, IGM 0.47 index 03/14/2016 [place] Spotted Fever Igg/Igm 576331 HYUN MT SPOTTED FEVER IGG EIA FLEX . 03/14/2016 [place] Spotted Fever Igg/Igm 224516 RMSF, IGG SCREEN-FLEX Positive 03/14/2016 Hyun Mtn Spot'D Fev Igg 491543 RMSF, IGG -TITER IFA 1:128 Comp Metabolic Azn725 NA 136 mEq/L 03/11/2016 Comp Metabolic Qrm164 K 3.9 mEq/L 03/11/2016 Comp Metabolic Yye876 CL 106 mEq/L 03/11/2016 Comp Metabolic Kvo630 CO2 25.0 mEq/L 03/11/2016 Comp Metabolic Usi775 ANION GAP 9 03/11/2016 Comp Metabolic Lgc789 GLUCOSE 107 mg/dL 03/11/2016 Comp Metabolic Til594 Creat 0.7 mg/dL 03/11/2016 Comp Metabolic Yju610 eGFR 120 ml/min/1.73m2 03/11/2016 Comp Metabolic Jmm009 BUN 18 mg/dL 03/11/2016 Comp Metabolic Gdy831 B/C Ratio 26.5 Ratio 03/11/2016 Comp Metabolic Qvh485 CALCIUM 9.5 mg/dL 03/11/2016 Comp Metabolic Bqc014 ALK PHOS 42 U/L 03/11/2016 Comp Metabolic Mpo987 AST(SGOT) 17 U/L 03/11/2016 Comp Metabolic Asb358 ALT(SGPT) 13 U/L 03/11/2016 Comp Metabolic Liw743 BILI T 0.5 mg/dL 03/11/2016 Comp Metabolic Bhf941 ALBUMIN 4.2 g/dL 03/11/2016 Comp Metabolic Atd035 TPRO 6.9 g/dL 03/11/2016 Comp Metabolic Etk508 GLOB 2.7 g/dL 03/11/2016 Comp Metabolic Dhd835 A/G Ratio 1.5 Ratio 03/11/2016 Comp Metabolic Sby975 Osmo 274 mOsmo 03/11/2016 Lipid Ord30 CHOL [...] 31.6 pg 03/11/2016 Cbc With Differential Ord2 [place]% 7.1 % 03/11/2016 Cbc With Differential Ord2 [...] 1.80 K/ul 03/11/2016 Cbc With Differential Ord2 [place] ABS# 0.5 K/ul 03/11/2016 Cbc With Differential [...] 35.2 % 09/03/2015 Cbc With Differential Ord2 [place]% 9.3 % 09/03/2015 Cbc With Differential Ord2 [...] 2.38 K/ul 09/03/2015 Cbc With Differential Ord2 [place] ABS# 0.6 K/ul 09/03/2015 Cbc With Differential [...] Ord30 C/HDL 4.5 Ratio 09/03/2015 Comp Metabolic Uvc729 NA 137 mEq/L 09/03/2015 Comp Metabolic Ckp743 K 3.8 mEq/L 09/03/2015 Comp Metabolic Sdo436 CL 105 mEq/L 09/03/2015 Comp Metabolic Tgy611 CO2 25.0 mEq/L 09/03/2015 Comp Metabolic Wcr780 ANION GAP 11 09/03/2015 Comp Metabolic Tyf115 GLUCOSE 100 mg/dL 09/03/2015 Comp Metabolic Zvb009 Creat 0.7 mg/dL 09/03/2015 Comp Metabolic Qmv709 eGFR 118 ml/min/1.73m2 09/03/2015 Comp Metabolic Gyc358 BUN 21 mg/dL 09/03/2015 Comp Metabolic Jwk906 B/C Ratio 30.4 Ratio 09/03/2015 Comp Metabolic Kcd941 CALCIUM 9.3 mg/dL 09/03/2015 Comp Metabolic Hsm618 ALK PHOS 47 U/L 09/03/2015 Comp Metabolic Irb017 AST(SGOT) 18 U/L 09/03/2015 Comp Metabolic Zva874 ALT(SGPT) 13 U/L 09/03/2015 Comp Metabolic Ebw168 BILI T 0.5 mg/dL 09/03/2015 Comp Metabolic Eho090 ALBUMIN 4.1 g/dL 09/03/2015 Comp Metabolic Fgb952 TPRO 6.8 g/dL 09/03/2015 Comp Metabolic Bal159 GLOB 2.7 g/dL 09/03/2015 Comp Metabolic Yvh612 A/G Ratio 1.5 Ratio 09/03/2015 Comp Metabolic Qau933 Osmo 277 mOsmo 09/03/2015 A1C 9316766 A1C HPLC 39598-6 5.6 % 06/02/2013 CHEM 14 6731614 AST 20 U/L 06/01/2013 CHEM 14 1363690 ALT 17 IU/L 06/01/2013 CHEM 14 5549612 BUN 18 MG/DL 06/01/2013 CHEM 14 7485701 ALBUMIN 4.3 GM/DL 06/01/2013 CHEM 14 9971288 CHLORIDE 107 MMOL/L 06/01/2013 CHEM 14 9742716 BILI TOT 0.4 MG/DL 06/01/2013 CHEM 14 1810874 ALK PHOS 46 U/L 06/01/2013 CHEM 14 8852745 SODIUM 138 MMOL/L 06/01/2013 CHEM 14 9696722 CREATININE 0.71 MG/DL 06/01/2013 CHEM 14 3671901 CALCIUM 9.2 MG/DL 06/01/2013 CHEM 14 6506586 POTASSIUM 4.0 MMOL/L 06/01/2013 CHEM 14 1690247 PROT TOT 6.8 GM/DL 06/01/2013 CHEM 14 2971658 GLUCOSE 108 MG/DL 06/01/2013 CHEM 14 4710960 BICARB 24 MMOL/L 06/01/2013 CHEM 14 3517202 ANION GAP 7 MEQ/L 06/01/2013 TSH 4495341 TSH 1.033 uIU/ML 06/01/2013 GFR CALC 3625411 GFR AA >60 ML/MIN 06/01/2013 GFR CALC 5680870 GFR NON-AA >60 ML/MIN 06/01/2013 CBC 7786471 WBC 5.7 10e9/L 06/01/2013 CBC 2523313 RBC 4.89 10e12/L 06/01/2013 CBC 7357268 HGB 15.3 g/dL 06/01/2013 CBC 0146065 HCT DET 45.3 % 06/01/2013 CBC 5737173 MCV 92.6 fL 06/01/2013 CBC 9788538 MCH 31.3 pg 06/01/2013 CBC 8587321 MCHC 33.8 g/dL 06/01/2013 CBC 4856879 PLT 254 10e9/L 06/01/2013 CBC 5881401 MPV 10.3 fL 06/01/2013 CBC 7914930 VONNIE % 55.3 % 06/01/2013 CBC 7232457 LY % 33.4 % 06/01/2013 CBC 7577531 MON % 8.7 % 06/01/2013 CBC 1568744 EOS % 2.4 % 06/01/2013 CBC 7468950 BASO % 0.2 % 06/01/2013 CBC 2931645 RDW 12.7 % 06/01/2013 CBC 8634552 ABS VONNIE 3.15 10e9/L 06/01/2013 CBC 6804730 ABS LYMPH 1.90 10e9/L 06/01/2013 CBC 0148430 ABS MONO 0.50 10e9/L 06/01/2013 CBC 5145289 ABS EOS 0.14 10e9/L 06/01/2013 CBC 8071455 ABS BASO 0.01 10e9/L 06/01/2013 CBC 8793933 RDW-SD 42.2 fL 06/01/2013 LIPID GRP 4719529 HDL TEST 46 MG/DL 06/01/2013 LIPID GRP TRIG 94 MG/DL 06/01/2013 LIPID GRP TEST LDL 161 MG/DL 06/01/2013 LIPID GRP CHOL 226 MG/DL 06/01/2013 LIPID GRP RCHOL/HDL 4.91 RATIO 06/01/2013 CRP 9370371 CRP 0.9 MG/DL 11/23/2012 ESR 0438394 ESR 22 MM/HR 11/23/2012 GFR CALC 9693696 GFR AA >60 ML/MIN 11/23/2012 GFR CALC 1828648 GFR NON-AA >60 ML/MIN 11/23/2012 CHEM 14 8180229 AST 21 U/L 11/23/2012 CHEM 14 8827328 ALT 15 IU/L 11/23/2012 CHEM 14 7574852 BUN 20 MG/DL 11/23/2012 CHEM 14 1570429 ALBUMIN 4.3 GM/DL 11/23/2012 CHEM 14 2234970 CHLORIDE 106 MMOL/L 11/23/2012 CHEM 14 0104627 BILI TOT 0.5 MG/DL 11/23/2012 CHEM 14 3520862 ALK PHOS 55 U/L 11/23/2012 CHEM 14 5079916 SODIUM 139 MMOL/L 11/23/2012 CHEM 14 7553767 CREATININE 0.72 MG/DL 11/23/2012 CHEM 14 2246204 CALCIUM 9.4 MG/DL 11/23/2012 CHEM 14 8205948 POTASSIUM 4.5 MMOL/L 11/23/2012 CHEM 14 4505710 PROT TOT 6.7 GM/DL 11/23/2012 CHEM 14 1373270 GLUCOSE 104 MG/DL 11/23/2012 CHEM 14 3458291 BICARB 26 MMOL/L 11/23/2012 CHEM 14 3996279 ANION GAP 7 MEQ/L 11/23/2012 LIPID GRP HDL TEST 48 MG/DL 04/26/2012 LIPID GRP TRIG 93 MG/DL 04/26/2012 LIPID GRP TEST LDL 185 MG/DL 04/26/2012 LIPID GRP 1179075 CHOL 252 MG/DL 04/26/2012 LIPID GRP 4476162 RCHOL/HDL 5.25 RATIO 04/26/2012 TSH 6183933 TSH 1.468 uIU/ML 04/26/2012 CBC 2964635 WBC 6.3 10e9/L 04/26/2012 CBC 3084161 RBC 4.94 10e12/L 04/26/2012 CBC 5933539 HGB 15.4 g/dL 04/26/2012 CBC 3873990 HCT DET 45.5 % 04/26/2012 CBC 6377620 MCV 92.1 fL 04/26/2012 CBC 4781258 MCH 31.2 pg 04/26/2012 CBC 1619943 MCHC 33.8 g/dL 04/26/2012 CBC 6877828 PLT 251 10e9/L 04/26/2012 CBC 2120084 MPV 10.7 fL 04/26/2012 CBC 2717029 VONNIE % 47.9 % 04/26/2012 CBC 0033242 LY % 40.1 % 04/26/2012 CBC 7191241 MON % 9.6 % 04/26/2012 CBC 4014396 EOS % 2.2 % 04/26/2012 CBC 2857203 BASO % 0.2 % 04/26/2012 CBC 7548581 RDW 12.6 % 04/26/2012 CBC 1611571 ABS VONNIE 3.02 10e9/L 04/26/2012 CBC 3777957 ABS LYMPH 2.53 10e9/L 04/26/2012 CBC 9853666 ABS MONO 0.60 10e9/L 04/26/2012 CBC 9277517 ABS EOS 0.14 10e9/L 04/26/2012 CBC 2978134 ABS BASO 0.01 10e9/L 04/26/2012 CBC 2670311 RDW-SD 41.1 fL 04/26/2012 GFR CALC 1927344 GFR AA >60 ML/MIN 04/26/2012 GFR CALC 9036142 GFR NON-AA >60 ML/MIN 04/26/2012 A1C HPLC 2592704 A1C HPLC 22457-2 5.3 % 04/26/2012 CHEM 14 9605422 AST 24 U/L 04/26/2012 CHEM 14 3502527 ALT 18 IU/L 04/26/2012 CHEM 14 4575497 BUN 17 MG/DL 04/26/2012 CHEM 14 6964716 ALBUMIN 4.2 GM/DL 04/26/2012 CHEM 14 5152579 CHLORIDE 105 MMOL/L 04/26/2012 CHEM 14 6085762 BILI TOT 0.7 MG/DL 04/26/2012 CHEM 14 2410386 ALK PHOS 42 U/L 04/26/2012 CHEM 14 0241418 SODIUM 138 MMOL/L 04/26/2012 CHEM 14 7117960 CREATININE 0.78 MG/DL 04/26/2012 CHEM 14 3648619 CALCIUM 9.6 MG/DL 04/26/2012 CHEM 14 8367589 POTASSIUM 4.4 MMOL/L 04/26/2012 CHEM 14 7743296 PROT TOT 6.9 GM/DL 04/26/2012 CHEM 14 7512535 GLUCOSE 97 MG/DL 04/26/2012 CHEM 14 9241166 BICARB 27 MMOL/L 04/26/2012 CHEM 14 1465583 ANION GAP 6 MEQ/L 04/26/2012 Review of Systems System Result Effective Dates Constitutional recent illness 07/17/2017 Constitutional No chills [...] accomodation 03/30/2014 None Full Exam - General 1994 [...] accomodation 07/27/2013 None Full Exam - General 1995 Ears/Nose/Throat oral cavity/pharynx/larynx Overall: oral mucosa clear 07/27/2013 None Full Exam - General 1995 Ears/Nose/Throat oral cavity/pharynx/larynx Overall: oropharyngeal mucosa clear 07/27/2013 None Full Exam - General 1995 Ears/Nose/Throat oral cavity/pharynx/larynx Overall: no masses 07/27/2013 [...] retractions 06/30/2013 None Full Exam - General 1994 Respiratory respiratory effort/rhythm Overall: normal rate 06/30/2013 None Full Exam - General 1994 Cardiovascular extremities Overall: no clubbing 06/30/2013 None Full Exam - General 1994 [...] murmurs 06/01/2013 None Full Exam - General 1994 [...] developed 11/23/2012 None Full Exam - General 1995 Constitutional general appearance Overall: in no acute distress 11/23/2012 None Full Exam - General 1995 Constitutional general appearance Overall: well nourished 11/23/2012 [...] bilaterally 11/23/2012 None Full Exam - General 1994 Respiratory respiratory effort/rhythm Overall: no retractions 11/23/2012 None Full Exam - General 1994 Respiratory respiratory effort/rhythm Overall: normal rate 11/23/2012 [...] sign 11/23/2012 None Full Exam - General 1995 Constitutional general appearance Overall: well developed 10/11/2012 None Full Exam - General 1995 Constitutional general appearance Overall: in no acute distress 10/11/2012 None Full Exam - General 1995 Constitutional general appearance Overall: well nourished 10/11/2012 None Full Exam - General 1994 Psychiatric orientation/consciousness Overall: oriented to person, place and time 10/11/2012 None Full Exam - General 1994 Integument inspection of skin Location: left leg 10/11/2012 None Full Exam - General 1995 Integument inspection of skin Pigmentation: erythematous 10/11/2012 None Full Exam - General 1995 Integument inspection of skin Rash/Lesions: nodule 10/11/2012 2cm erythematous area left posterior leg Full Exam - General 1995 Constitutional general appearance Overall: well developed 05/25/2012 None Full Exam - General 1994 Constitutional general appearance Overall: in no acute distress 05/25/2012 None Full Exam - General 1994 Constitutional general appearance Overall: well nourished 05/25/2012 None Full Exam - General 1994 Eyes pupils and irises Overall: pupils equal, round, reactive to light and accomodation 05/25/2012 None Full Exam - General 1995 Ears/Nose/Throat oral cavity/pharynx/larynx Overall: oral mucosa clear 05/25/2012 None Full Exam - General 1995 Ears/Nose/Throat oral cavity/pharynx/larynx Overall: oropharyngeal mucosa clear 05/25/2012 None Full Exam - General 1995 Ears/Nose/Throat oral cavity/pharynx/larynx Overall: no masses 05/25/2012 [...] murmurs 05/25/2012 None Full Exam - General 1995 Lymphatic neck nodes Overall: anterior cervical chain benign 05/25/2012 None Full Exam - General 1995 Lymphatic neck nodes Overall: posterior cervical chain [...] happy 04/29/2012 None Full Exam - General 1994 Constitutional general appearance Overall: well developed 04/08/2012 [...] systolic 04/08/2012 None Full Exam - General 1994 Constitutional general appearance Overall: well nourished 03/29/2012 None Full Exam - General 1995 Constitutional general appearance Overall: well developed 03/29/2012 None Full Exam - General 1995 Constitutional general appearance Overall: in no acute distress 03/29/2012 None Full Exam - General 1994 Eyes pupils and irises Overall: pupils equal, round, reactive to light and accomodation 03/29/2012 None Full Exam - General 1995 Ears/Nose/Throat oral cavity/pharynx/larynx Overall: oropharyngeal mucosa clear 03/29/2012 None Full Exam - General 1994 Ears/Nose/Throat oral cavity/pharynx/larynx Overall: no masses 03/29/2012 [...] benign 03/29/2012 None Full Exam - General 1995 Musculoskeletal spine, ribs and pelvis Overall: spine benign 03/29/2012 None Full Exam - General 1995 Psychiatric orientation/consciousness Overall: oriented to person, place and time 03/29/2012 None Full Exam - General 1995 Psychiatric mood and affect Mood: happy 03/29/2012 None Full Exam - General 1994 Psychiatric mood and affect Overall: normal mood and affect 03/29/2012 None Full Exam - General 1995 Integument inspection of skin Consistency: moist 02/12/2012 None Full Exam - General 1995 Neurologic deep tendon reflexes Overall: deep tendon reflexes intact 02/12/2012 None Full Exam - General 1994 Neurologic gait Overall: no ataxia, no unsteadiness 02/12/2012 None Full Exam - General 1995 Neurologic cranial nerves Overall: crainial nerves 2 [...] and occlusive dressing Full Exam - General 1994 Integument inspection [...] Procedure Codes Date THER/PROPH/DIAG INJ SC/IM CPT-4: 10292 04/27/2014 KETOROLAC TROMETHAMINE INJ CPT-4: J1885 04/27/2014 TENIVAC TD VACCINE NO PRSRV 7/> IM Assigned to/Pepper Stoddard CPT-4: [id number] 03/30/2014 ROUTINE VENIPUNCTURE CPT-4: 04514 06/01/2013 ROUTINE VENIPUNCTURE CPT-4: 13717 11/23/2012 PRESCRIP TRANSMIT VIA ERX SY CPT-4: G8553 10/11/2012 PRESCRIP TRANSMIT VIA ERX SY CPT-4: G8553 05/25/2012 PRESCRIP TRANSMIT VIA ERX SY CPT-4: G8553 04/29/2012 ROUTINE VENIPUNCTURE CPT-4: 15608 04/26/2012 URINALYSIS NONAUTO W/O SCOPE CPT-4: 05278 04/08/2012 PRESCRIP TRANSMIT VIA ERX SY CPT-4: G8553 04/08/2012 PRESCRIP TRANSMIT VIA ERX SY CPT-4: G8553 03/29/2012 BIOPSY SKIN LESION CPT -4: 03571 01/06/2012 BIOPSY SKIN ADD-ON CPT -4: 26559 01/06/2012 PRESCRIP TRANSMIT VIA ERX SY CPT-4: G8553 11/24/2011 Vital Signs Date Vital 07/17/2017 Blood Pressure 1: 136/74 Code : 8480-6 BMI: 27.8 Code : 57904-7 Heart Rate 1 : 87 bpm Height: 5'9" SpO2: 92% Weight: 188 lbs 04/20/2017 Blood Pressure 1: 134/74 Code : 8480-6 BMI: 27.0 Code : 52844-6 Heart Rate 1 : 65 bpm Height: 5'9" SpO2: 98% Weight: 183 lbs 03/19/2017 Blood Pressure 1: 128/74 Code : 8480-6 BMI: 27.5 Code : 05138-3 Heart Rate 1 : 74 bpm Height: 5'9" SpO2: 98% Weight: 186 lbs 10/15/2016 Blood Pressure 1: 140/72 Code : 8480-6 BMI: 26.7 Code : 12958-4 Heart Rate 1 : 75 bpm Height: 5'9" SpO2: 96% Weight: 181 lbs 09/16/2016 Blood Pressure 1: 130/70 Code : 8480-6 BMI: 26.7 Code : 01851-9 Heart Rate 1 : 82 bpm Height: 5'9" SpO2: 97% Weight: 181 lbs 03/11/2016 Blood Pressure 1: 150/76 Code : 8480-6 BMI: 26.5 Code : 79054-4 Heart Rate 1 : 74 bpm Height: 5'9" SpO2: 98% Weight: 179 lbs 8 oz 10/03/2015 Blood Pressure 1: 140/76 Code : 8480-6 Blood Pressure 1: 130/78 Code: 8480-6 Heart Rate 1: 65 bpm SpO2: 96% 09/05/2015 Blood Pressure 1: 148/80 Code : 8480-6 BMI: 26.6 Code : 16053-3 Heart Rate 1 : 65 bpm Height: 5'9" SpO2: 98% Weight: 180 lbs 02/27/2015 Blood Pressure 1: 120/70 Code : 8480-6 BMI: 26.6 Code : 92693-5 Heart Rate 1 : 80 bpm Height: 5'9" Weight: 180 lbs 10/26/2014 Blood Pressure 1: 142/76 Code : 8480-6 BMI: 27.8 Code : 73047-7 Heart Rate 1 : 64 bpm Height: 5'9" Weight: 188 lbs 06/29/2014 Blood Pressure 1: 132/84 Code : 8480-6 BMI: 27.5 Code : 22381-6 Heart Rate 1 : 76 bpm Height: 5'9" Weight: 186 lbs 04/27/2014 Blood Pressure 1: 138/80 Code : 8480-6 BMI: 27.3 Code : 85648-1 Heart Rate 1 : 84 bpm Height: 5'9" Weight: 185 lbs 03/30/2014 Blood Pressure 1: 140/76 Code : 8480-6 BMI: 27.3 Code : 36535-6 Heart Rate 1 : 80 bpm Height: 5'9" Weight: 185 lbs 10/27/2013 Blood Pressure 1: 124/78 Code : 8480-6 BMI: 27.0 Code : 28051-2 Heart Rate 1 : 64 bpm Height: 5'9" Weight: 183 lbs 07/27/2013 Blood Pressure 1: 152/92 Code : 8480-6 BMI: 27.8 Code : 49622-7 Heart Rate 1 : 60 bpm Height: 5'9" Weight: 188 lbs 06/30/2013 Blood Pressure 1: 176/100 Code: 8480-6 BMI: 28.2 Code: 96811-6 Heart Rate 1: 60 bpm Height: 5'9" Weight: 191 lbs 06/01/2013 Blood Pressure 1: 128/82 Code : 8480-6 BMI: 27.6 Code : 56495-2 Heart Rate 1 : 72 bpm Height: 5'9" Weight: 187 lbs 11/23/2012 Blood Pressure 1: 140/82 Code : 8480-6 BMI: 27.8 Code : 83172-1 Heart Rate 1 : 60 bpm Height: [...] Code : 8480-6 BMI: 27.8 Code : 37990-4 Heart Rate 1 : 64 bpm Height: [...] Code : 8480-6 BMI: 26.7 Code : 43181-6 Heart Rate 1 : 70 bpm Height: 5'9" Respiratory Rate: 16 bpm Weight: 181 lbs Functional Status No Functional Status data History of Present Illness Symptom Name Status Result Effective Date Notes hypertension Quality intermittent 07/17/2017 None hypertension Quality [...] data Encounters Encounter Performer Location Codes Date ([id number]) 43588 EST. PATIENT, LEVEL III Diagnosis: Benign paroxysmal vertigo, bilateral[ICD10: H81.13] Diagnosis: Dizziness and giddiness[ICD10: R42] [facility] CPT-4: 41960 07/17/2017 ([id number]) 22473 EST. PATIENT, LEVEL III Diagnosis: Essential (primary) hypertension[ICD10: I10] Diagnosis: Ganglion, left hand[ICD10: M67.442] Xena Phan MD [facility] CPT-4: 19231 04/20/2017 ([id number]) 17303 EST. PATIENT, LEVEL IV Diagnosis: Essential (primary) hypertension[ICD10: I10] Diagnosis: Other skin changes[ICD10: R23.8] Xena Phan MD [facility] CPT-4: 13257 03/19/2017 61158 EST. PATIENT, LEVEL III Diagnosis: Ganglion, left hand[ICD10: M67.442] Alma Phan MD [facility] CPT-4: 77301 10/15/2016 ([id number]) 36179 EST. PATIENT, LEVEL III Diagnosis: Essential (primary) hypertension[ICD10: I10] Xena Phan MD [facility] CPT-4: 60104 09/16/2016 ([id number]) Miscellaneous no charge Diagnosis: Squamous cell carcinoma of skin of unspecified parts of face[ICD10: C44.320] Jyoti Phan MD [facility] CPT-4: 58157 08/2015 ([id number]) 41664 EST. PATIENT, LEVEL IV Diagnosis: Essential (primary) hypertension[ICD10: I10] Diagnosis: Insect bite (nonvenomous) of unspecified parts of thorax, initial encounter[ICD10: S20.96XA] Diagnosis: Enlarged prostate without lower urinary tract symptoms[ICD10: N40.0] Xena Phan MD [facility] CPT-4: 58585 03/11/2016 ([id number]) Miscellaneous no charge Diagnosis: Essential (primary) hypertension[ICD10: I10] Alma Phan MD [facility] CPT-4: 81531 10/03/2015 ([id number]) 84393 EST. PATIENT, LEVEL III Diagnosis: Essential (primary) hypertension[ICD10: I10] Xena Phan MD [facility] CPT-4: 23060 09/05/2015 ([id number]) 20726 EST. PATIENT, LEVEL III Diagnosis: ESSENTIAL HYPERTENSION[ICD9: 401.9] Xena Phan [facility] CPT-4: 42105 02/27/2015 ([id number]) 44492 EST. PATIENT, LEVEL IV Diagnosis: ESSENTIAL HYPERTENSION[ICD9: 401.9] Diagnosis: Mucous in stools[ICD9: 792.1] Xena Phan MD [facility] CPT- 4: 21849 10/26/2014 ([id number]) 18996 EST. PATIENT, LEVEL III Diagnosis: Polymyalgia rheumatica[ICD9: 725] Xena Phan MD [facility] CPT-4: 21403 06/29/2014 ([id number]) 88425 EST. PATIENT, LEVEL IV Diagnosis: ESSENTIAL HYPERTENSION[ICD9: 401.9] Diagnosis: Arthralgia[ICD9: 719.40] Diagnosis: Myalgia and myositis[ICD9: 729.1] Xena Phan MD [facility] CPT-4: 30175 04/27/2014 ([id number]) 61083 EST. PATIENT, LEVEL IV Diagnosis: ESSENTIAL HYPERTENSION[ICD9: 401.9] Diagnosis: Knee pain[ICD9: 719.46] Diagnosis: Tick bite[ICD9: 919.4] Diagnosis: Arthralgia[ICD9: 719.40] Diagnosis: Myalgia and myositis[ICD9: 729.1] Xena Phan MD [facility] CPT-4: 88289 03/30/2014 ([id number]) Miscellaneous no charge Diagnosis: Suture check[ICD9: V58.49] Xena Phan MD [facility] CPT- 4: 54948 02/22/2014 ([id number]) 23430 EST. PATIENT, LEVEL III Diagnosis: ESSENTIAL HYPERTENSION[ICD9: 401.9] Xena Phan MD [facility] CPT-4: 97292 10/27/2013 ([id number]) 37099 EST. PATIENT, LEVEL III Diagnosis: ESSENTIAL HYPERTENSION[SNOMED: 72775753] Xena Phan MD [facility] CPT-4: 10333 07/27/2013 ([id number]) 52798 EST. PATIENT, LEVEL III Diagnosis: ESSENTIAL HYPERTENSION[SNOMED: 95836439] Xena Phan MD [facility] CPT-4: 47224 06/30/2013 ([id number]) 63898 EST. PATIENT, LEVEL IV Diagnosis: ESSENTIAL HYPERTENSION[SNOMED: 54616817] Diagnosis: BPPV (benign paroxysmal positional vertigo)[ICD9: 386.11] Diagnosis: Osteoarthritis[ICD9: 715.90] Diagnosis: Knee pain[ICD9: 719.46] Diagnosis: ENCNTR LONG-RX USE NEC[ICD9: V58.69] Xena Phan MD [facility] CPT-4: 01383 06/01/2013 ([id number]) 16699 EST. PATIENT, LEVEL III Diagnosis: Tick bite[ICD9: 919.4] Diagnosis: Arthralgia[ICD9: 719.40] Xena Phan MD, [facility] CPT-4: 66936 11/23/2012 ([id number]) 75532 EST. PATIENT, LEVEL III Diagnosis: Tick bite[ICD9: 919.4] Diagnosis: Cellulitis, leg[ICD9: 682.6] Jyoti Phan MD, [facility] CPT-4: 32191 10/11/2012 ([id number]) 15685 EST. PATIENT, LEVEL III Diagnosis: ESSENTIAL HYPERTENSION[SNOMED: 14544846] Xena Phan MD [facility] CPT-4: 92527 05/25/2012 ([id number]) 43853 EST. PATIENT, LEVEL III Diagnosis: ESSENTIAL HYPERTENSION[SNOMED: 73232277] Xena Phan MD [facility] CPT-4: 34716 04/29/2012 ([id number]) 57131 EST. PATIENT, LEVEL III Diagnosis: Dysuria[ICD9: 788.1] Diagnosis: UTI[ICD9: 599.0] Diagnosis: ESSENTIAL HYPERTENSION[SNOMED: 72037627] Xena Phan MD, [facility] CPT-4: 73841 04/08/2012 ([id number]) 74663 EST. PATIENT, LEVEL III Diagnosis: ESSENTIAL HYPERTENSION[SNOMED: 35874927] Xena Phan MD [facility] CPT-4: 21585 03/29/2012 ([id number]) 89744 EST. PATIENT, LEVEL III Diagnosis: PITYRIASIS ROSEA[ICD9: 696.3] Diagnosis: BULLOUS DERMATOSES[ICD9: 694.9] Xena Phan MD, [facility] CPT- 4: 42412 02/12/2012 ([id number] 00572 EST. PATIENT, LEVEL III Diagnosis: Rash[ICD9: 782.1] Diagnosis: Bullous rash[ICD9: 694.9] Diagnosis: Pityriasis rosea[ICD9: 696.3] [facility] CPT- 4: 51352 01/13/2012 OFFICE VISIT, NEW - LEVEL 3 Diagnosis: ESSENTIAL HYPERTENSION[SNOMED: 22913852] Diagnosis: Rash[ICD9: 782.1] Diagnosis: Heart murmur[ICD9: 785.2] [facility] CPT-4: 22619 11/24/2011 Plan of Care Planned Activity Notes Codes Status Date Visit Plan: BPPV - Benign Paroxysmal Positional [...] to patient. 07/17/2017 Appointment: Xena Phan WPtel: [facility] (15 min) Moderate 07/17/2017 Patient Education: Patient [...] watchful waiting. 04/20/2017 Appointment[phone] ([facility] min) Moderate 04/20/2017 Patient Education: Patient [...] his nose. 03/19/2017 Appointment: [phone] (15 min) Moderate 03/19/2017 Patient Education: Patient Medication Summary Completed 03/19/2017 Care Plan: Total Psa Pending 03/19/2017 Appointment: Nurse Visit 10/29/2016 Visit Plan: Cyst on finger - monitor - Pt is to notify clinic if any erythema, edema, warmth, or drainage. Pt is to notify clinic if it becomes painful, or changes, or with any questions or concerns. 10/15/2016 [phone] ([facility] min) Complex 10/15/2016 Patient Education: Patient [...] Completed 09/16/2016 Appointment: Xena Phan WPtel: [phone] [facility] (15 min) Moderate 09/09/2016 Appointment: Nurse Visit [...] check labs 03/11/2016 Appointment: [phone] (15 min) Moderate 03/11/2016 Patient Education: Patient [...] at home. 02/27/2015 Appointment: [phone] (15 min) Moderate 02/27/2015 Patient Education: Patient Medication Summary Completed 02/27/2015 Patient Education: Hypertension Completed 02/27/2015 Appointment: [phone] Follow up 02/26/2015 Visit Plan: Hypertension - [...] on probiotic. 10/26/2014 Appointment: [phone] Follow up 10/26/2014 Patient Education: Patient Medication [...] in steroids. 04/27/2014 Appointment: Xena Phan WPtel: [address] [place], [place] [phone] Follow up 04/27/2014 Patient Education: Patient Medication [...] other facility. 03/30/2014 Appointment: Xena Phan WPtel: [address] [place], [place] [phone] Sick 03/30/2014 Patient Education: Patient Medication Summary Completed 03/30/2014 Patient Education: Hypertension Completed 03/30/2014 Visit Plan: nurse removed sutures 02/22/2014 Appointment: Xena Phan WPtel: [address] [place], [place] [phone] Nurse Visit 02/22/2014 Patient Education: Patient Medication Summary Completed 02/22/2014 Appointment: Xena Phan WPtel: [address] [place], [place] [phone] Follow up 11/30/2013 Visit Plan: Hypertension - well controlled - continue with current medications, continue with no added salt diet. Pt has been encouraged to exercise daily. The pt has been advised to call the office if there are any acute concerns about change in blood pressure readings at home. 10/27/2013 Appointment: [phone] Follow up 10/27/2013 Patient Education: Patient Medication [...] 5/320mg daily 07/27/2013 Appointment: [phone] [facility] Follow up 07/27/2013 Patient Education: Patient Medication [...] acute concerns. 06/30/2013 Appointment: [phone] [facility] Follow up 06/30/2013 Patient Education: Patient Medication [...] instructions/medication interventions. 06/01/2013 Appointment: Xena Phan WPtel: [facility] Follow up 06/01/2013 Patient Education: Patient Medication Summary Completed 06/01/2013 Patient Education: Hypertension Completed 06/01/2013 Appointment: Xena Phan WPtel: [address] [place], [place] [phone] Other 01/10/2013 Visit Plan: Arthralgia and Tick [...] the doxy. 11/23/2012 Appointment: Xena Phan WPtel: [address] [place], [place] [phone] Follow up 11/23/2012 Patient Education: Patient Medication [...] of plan. 10/11/2012 Appointment: Jyoti Inman WPtel: [phone] [place] Other 10/11/2012 Patient Education: Patient Medication Summary Completed 10/11/2012 Visit Plan: Hypertension - well controlled - continue with current medications, continue with no added salt diet. Pt has been encouraged to exercise daily. The pt has been advised to call the office if there are any acute concerns about change in blood pressure readings at home. 05/25/2012 Appointment: Xena Phan WPtel: [phone] [facility] Follow up 05/25/2012 Patient Education: Hypertension Completed 05/25/2012 Patient Education: Patient Medication Summary Completed 05/25/2012 Appointment: Xena Phan WPtel: [facility] Follow up 05/12/2012 Visit Plan: Hypertension - well controlled - continue with current medications, continue with no added salt diet. Pt has been encouraged to exercise daily. The pt has been advised to call the office if there are any acute concerns about change in blood pressure readings at home. 04/29/2012 Appointment: Xena Phan WPtel: [phone] [facility] Follow up 04/29/2012 Patient Education: Patient Medication Summary Completed 04/29/2012 Patient Education: High Blood Pressure: Essential Hypertension Completed 2011 Appointment: [phone] [place] Lab Draw 04/26/2012 Patient Education: Patient Medication [...] acute concerns. 04/08/2012 App[facility]ment[phone] [facility] Follow up 04/08/2012 Patient Education: Patient Medication [...] up. 03/29/2012 Appointment: [phone] [facility] [place] Follow up 03/29/2012 Patient Education: Patient Medication Summary Completed 03/29/2012 Patient Education: High Blood Pressure: Essential Hypertension Completed 2011 Visit Plan: Recommended ammens foot powder for decrease of the moisture on the gluteus and hopefully this will help to further alleviate the symptoms of moisture causing more skin erosions. Pt is to follow up the whizzer hand and other specialists at as previously directed. 02/12/2012 Appointment: [phone] Other 02/12/2012 Patient Education: Patient Medication Summary Completed 02/12/2012 Visit Plan: Pt has a very macerated rash over his buttocks and concern for bullous rash. Pt has pityriasis rosea from the biopsy - recommendation is for a prednisone taper, call the office to let us know what the whizzer hand recommended, if he changed the current treatment. 01/13/2012 Appointment: Xena Phan WPtel: [facility] Other 01/13/2012 Appointment: Jyoti Inman WPtel: [address] [place], [place] [phone] Other 01/13/2012 Patient Education: Patient Medication Summary Completed 01/13/2012 Visit Plan: Wound Instructions - Pt was instruced to keep the wound clean, wash with antibacterial soap, use triple antibiotic ointment, call if redness, pustular drainage, or any other acute conerns. 01/06/2012 Appointment: Jyoti Inman WPtel: [address] [place], [place] [phone] Surgical Procedure 01/06/2012 Patient Education: Patient Medication Summary Completed 01/06/2012 Appointment: Xena Phan WPtel: [address] [place], [place] [phone] Other 01/05/2012 Visit Plan: Cellulitis- continue with [...] at home. 11/24/2011 Appointment: Xena Phan WPtel: [facility] New Patient 11/24/2011 Patient Education: Patient Medication [...] home. Insect bite - check labs . Recommended ammens foot powder for decrease of the moisture on the gluteus and hopefully this will help to further alleviate the symptoms of moisture causing more skin erosions. Pt is to follow up the whizzer hand and other specialists at as previously directed. . 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 pennsaid samples - use 1/2 packet twice [...] topical treatment and call if symptoms worsen . Hypertension - well controlled - continue [...] - recommended pt to start on probiotic. STOP EXFORGE FOR NOW - MONITOR PRESSURE [...] is to call for acute concerns. . Hypertension - well controlled - continue with current medications, continue with no added salt diet. Pt has been encouraged to exercise daily. The pt has been advised to call the office if there are any acute concerns about change in blood pressure readings at home. 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 . Hypertension - well controlled - continue with current medications, continue with no added salt diet. Pt has been encouraged to exercise daily. The pt has been advised to call the office if there are any acute concerns about change in blood pressure readings at home. . Cellulitis- continue with lotrisone cream, and [...] change in blood pressure readings at home. stop the hctz and start on the [...] as Eply exercises given to patient. . Hypertension - well controlled - continue [...] get flu shot at other facility. . Pt has a very macerated rash over his buttocks and concern for bullous rash. Pt has pityriasis rosea from the biopsy - recommendation is for a prednisone taper, call the office to let us know what the whizzer hand recommended, if he changed the current treatment. . Cellulitisi-tick bite-discussed natural and expected course [...] change in blood pressure readings at home. POLYMYALGIA RHEUMATICA . Hypertension - well controlled [...] improving. Pt not interested in steroids. . Wound Instructions - Pt was instruced to keep the wound clean, wash with antibacterial soap, use triple antibiotic ointment, call if redness, pustular drainage, or any other acute conerns. . Urinary Tract Infection-discussed natural and expected [...] is to call for acute concerns. . Hypertension - well controlled - continue [...] call the office for further instructions/medication interventions. . Hypertension - well controlled - continue with current medications, continue with no added salt diet. Pt has been encouraged to exercise daily. The pt has been advised to call the office if there are any acute concerns about change in blood pressure readings at home. left hand 3rd digit ganglion cyst - advised watchful waiting. . Cyst on finger - monitor - [...] and start back on exforge 5/320mg daily labs in one month, call out blood [...]
[2018-03-23] MEDS ORDERED: ACETAMINOPHEN 500 MG TAB (TYLENOL) ONE (05:35)
[2018-03-23 05:43] LABS: BASOPHILS % (AUTO) 0 % (0-10); EOSINOPHILS % (AUTO) 0 % (0-10); HEMATOCRIT 40 % (40-54); HEMOGLOBIN 14.2 G/DL (13.3-17.7); LYMPHOCYTES # (AUTO) 0.7 X 10^3 (1.0-4.0); LYMPHOCYTES % (AUTO) 22 % (12-44); MEAN CORPUSCULAR HEMOGLOBIN 32 PG (25-34); MEAN CORPUSCULAR HGB CONC 36 G/DL (32-36); MEAN CORPUSCULAR VOLUME 90 FL (80-99); MEAN PLATELET VOLUME 10.2 FL (7.4-10.4); MONOCYTES # (AUTO) 0.3 X 10^3 (0.0-1.0); MONOCYTES % (AUTO) 8 % (0-12); NEUTROPHILS # (AUTO) 2.1 X 10^3 (1.8-7.8); NEUTROPHILS % (AUTO) 69 % (42-75); PLATELET COUNT 166 10^3/uL (130-400); RED BLOOD COUNT 4.43 10^6/uL (4.35-5.85); RED CELL DISTRIBUTION WIDTH 12.6 % (10.0-14.5)
[2018-03-23] MEDS ORDERED: ACETAMINOPHEN 500 MG TAB (TYLENOL) PO PRN (05:45)
[2018-03-23 05:56] LABS: INR 1.1 (0.8-1.4); PROTHROMBIN TIME PATIENT 14.6 SEC (12.2-14.7)
--- NOTE | 2018-03-23 05:56 | ED General ---
General Stated Complaint: FEVER Source of Information: Patient Exam Limitations: No Limitations (SERG MURRIETA MD) History of Present Illness Date Seen by Provider: Mar 23, 2018 Time Seen by Provider: 05:35 Initial Comments Here with report of fever for the last couple of days and cough for the last week. States it is felt like he's had pneumonia for the last week. He has had some nausea and vomiting this morning. EMS called because he's gotten progressively weak at home. States he was even having difficulty walking. Timing/Duration: 1 Week, Getting Worse Severity: Moderate Associated Systoms: No Chest Pain; Fever/Chills, Nausea/Vomiting, Shortness of Air, Weakness, Other (does report chest tightness) (SERG MURRIETA MD) Allergies and Home Medications Allergies Coded Allergies: Sulfa(Sulfonamide Antibiotics) (Verified Allergy, Unknown, DELERIUM, ) Home Medications Doxycycline Hyclate 100 Mg Capsule, 100 MG PO BID, (Reported) for 7 days, start the evening of 10/03/11 Valsartan 80 Mg Tab, 160 MG PO HS, (Reported) Patient Home Medication List Home Medication List Reviewed: Yes (SERG MURRIETA MD) Home Medication List Reviewed: Yes (MC MOISE DO) Review of Systems Review of Systems Constitutional: see HPI, chills, fever EENTM: nose congestion; No throat pain Respiratory: cough, short of breath Cardiovascular: see HPI; No edema Gastrointestinal: No abdominal pain; nausea, vomiting Genitourinary: No dysuria, No pain Musculoskeletal: No back pain; muscle pain Skin: no symptoms reported Psychiatric/Neurological: See HPI, Weakness (SERG MURRIETA MD) All Other Systems Reviewed Negative Unless Noted: Yes (SERG MURRIETA MD) Past Owmtjsh-Ntpula-Hcobhs Hx Past Med/Social Hx: Reviewed Nursing Past Med/Soc Hx (SERG MURRIETA MD) Patient Social History Alcohol Use: Rarely Uses Alcohol Beverage of Choice: Beer Recreational Drug Use: No Smoking Status: Never a Smoker Recent Foreign Travel: No Contact w/Someone Who Travel: No (SERG MURRIETA MD) Immunizations Up To Date Date of Influenza Vaccine: Feb 20, 2011 (SERG MURRIETA MD) Past Medical History Surgeries: Yes (skin cancer removal with subsequent plastic surgery on the face ) Respiratory: No Cardiac: Yes Hypertension Neurological: No Reproductive Disorders: No Gastrointestinal: No Musculoskeletal: No Endocrine: No Cancer: No (SERG MURRIETA MD) Family Medical History Reviewed Nursing Family Hx (SERG MURRIETA MD) Physical Exam-Suspected Sepsis Physical Exam Vital Signs Vital Signs - First Documented (MC MOISE DO) Vital Signs Capillary Refill : (ESRG MURRIETA MD) Height, Weight, BMI Height: '" Weight: lbs. oz. kg; BMI Method: General Appearance: WD/WN, Mild Distress HEENT: PERRL/EOMI Neck: Full Range of Motion, Normal Inspection, Non Tender, Supple Respiratory: Lungs Clear, Normal Breath Sounds Cardiovascular: Regular Rate, Rhythm, No Murmur Gastrointestinal: Non Tender, Soft Back: Normal Inspection, No CVA Tenderness, No Vertebral Tenderness Extremity: Normal Range of Motion, Non Tender Neurologic/Psychiatric: Alert, Oriented x3 Skin: normal color, warm/dry (SERG MURRIETA MD) Focused Exam Lactate Level 03/23/18 05:30: Lactic Acid Level 0.94 (MC MOISE DO) Time of Focused Exam: 06:45 Respiratory: No Accessory Muscle Use, No Respiratory Distress, Decreased Breath Sounds (IN BASES); No Rales, No Rhonci, No Wheezing Cardiovascular: Regular Rate, Rhythm, No Edema, No JVD, No Murmur Peripheral Pulses: 2+ Dorsalis Pedis (R), 2+ Left Dors-Pedis (L) Skin: normal color, warm/dry Lactic Acid Level Laboratory Tests Test 03/23/18 05:30 Lactic Acid Level 0.94 MMOL/L (0.50-2.00) (MC MOISE DO) Within 3hrs of presentation: Admin fluids, Admin ABX, Blood cultures prior to ABX's, Focus exam, Lactate level (MC MOISE DO) Progress/Results/Core Measures Suspected Sepsis SIRS Temperature: Pulse: Respiratory Rate: Laboratory Tests 03/23/18 05:30: White Blood Count 3.0L Blood Pressure / Mean: 03/23/18 05:30: Lactic Acid Level 0.94 Laboratory Tests 03/23/18 05:30: Platelet Count 166 (SERG MURRIETA MD) Results/Orders Lab Results Laboratory Tests Test 03/23/18 05:30 03/23/18 05:52 Range/Units White Blood Count 3.0 L 4.3-11.0 10^3/uL Red Blood Count 4.43 4.35-5.85 10^6/uL Hemoglobin 14.2 13.3-17.7 G/DL Hematocrit 40 40-54 % Mean Corpuscular Volume 90 80-99 FL Mean Corpuscular Hemoglobin 32 25-34 PG Mean Corpuscular Hemoglobin Concent 36 32-36 G/DL Red Cell Distribution Width 12.6 10.0-14.5 % Platelet Count 166 130-400 10^3/uL Mean Platelet Volume 10.2 7.4-10.4 FL Neutrophils (%) (Auto) 69 42-75 % Lymphocytes (%) (Auto) 22 12-44 % Monocytes (%) (Auto) 8 0-12 % Eosinophils (%) (Auto) 0 0-10 % Basophils (%) (Auto) 0 0-10 % Neutrophils # (Auto) 2.1 1.8-7.8 X 10^3 Lymphocytes # (Auto) 0.7 L 1.0-4.0 X 10^3 Monocytes # (Auto) 0.3 0.0-1.0 X 10^3 Eosinophils # (Auto) 0.0 0.0-0.3 10^3/uL Basophils # (Auto) 0.0 0.0-0.1 10^3/uL Prothrombin Time 14.6 12.2-14.7 SEC INR Comment 1.1 0.8-1.4 Activated Partial Thromboplast Time 40 H 24-35 SEC Sodium Level 131 L 135-145 MMOL/L Potassium Level 3.3 L 3.6-5.0 MMOL/L Chloride Level 101 98-107 MMOL/L Carbon Dioxide Level 21 21-32 MMOL/L Anion Gap 9 5-14 MMOL/L Blood Urea Nitrogen 20 H 7-18 MG/DL Creatinine 0.84 0.60-1.30 MG/DL Estimat Glomerular Filtration Rate > 60 BUN/Creatinine Ratio 24 Glucose Level 189 H 70-105 MG/DL Lactic Acid Level 0.94 0.50-2.00 MMOL/L Calcium Level 8.1 L 8.5-10.1 MG/DL Corrected Calcium 8.4 L 8.5-10.1 MG/DL Total Bilirubin 0.3 0.1-1.0 MG/DL Aspartate Amino Transf (AST/SGOT) 25 5-34 U/L Alanine Aminotransferase (ALT/SGPT) 14 0-55 U/L Alkaline Phosphatase 42 40-136 U/L Total Protein 6.8 6.4-8.2 GM/DL Albumin 3.6 3.2-4.5 GM/DL Urine Color YELLOW Urine Clarity CLEAR Urine pH 5 5-9 Urine Specific [place] 1.025 H 1.016-1.022 Urine Protein 2+ H NEGATIVE Urine Glucose (UA) NEGATIVE NEGATIVE Urine Ketones NEGATIVE NEGATIVE Urine Nitrite NEGATIVE NEGATIVE Urine Bilirubin NEGATIVE NEGATIVE Urine Urobilinogen NORMAL NORMAL MG/DL Urine Leukocyte Esterase NEGATIVE NEGATIVE Urine RBC (Auto) 2+ H NEGATIVE Urine RBC NONE /HPF Urine WBC 0-2 /HPF Urine Squamous Epithelial Cells 0-2 /HPF Urine Crystals NONE /LPF Urine Bacteria TRACE /HPF Urine Casts PRESENT /LPF Urine Hyaline Casts RARE /LPF Urine Mucus SMALL H /LPF Urine Culture Indicated NO (MC MOISE DO) Micro Results Microbiology 03/23/18 Influenza Types A,B Antigen (BRITTANY) - Final, Complete (ANANYA MOISEA K ) My Orders Orders - MC MOISE DO Ibuprofen Tablet (Motrin Tablet) (03/23/18 06:45) Ceftriaxone For Iv Use (Rocephin For I (03/23/18 06:45) Lactated Ringers (Lr 1000 Ml Iv Solution (03/23/18 06:38) (MC MOISE DO) Medications Given in ED Current Medications Medications Dose Ordered Sig/Rigo Route Start Time Stop Time Status Last Admin Dose Admin Acetaminophen 1,000 mg ONCE PRN PO 03/23/18 05:45 03/23/18 05:45 DC 03/23/18 05:44 1,000 MG Ceftriaxone Sodium 1000 mg/ Sodium Chloride 60 ml @ 100 mls/hr ONCE ONCE IV 03/23/18 06:45 03/23/18 07:20 DC 03/23/18 06:53 100 MLS/HR Ibuprofen 800 mg ONCE ONCE PO 03/23/18 06:45 03/23/18 06:46 DC 03/23/18 06:39 800 MG Lactated Ringer's 1,000 ml @ STK-MED ONCE IV 03/23/18 06:38 03/23/18 06:41 DC 03/23/18 06:52 1,000 MLS/HR (MC MOISE DO) Vital Signs/I&O 03/23/18 03/23/18 03/23/18 05:13 05:13 08:16 Temp 103.1 98.1 Pulse 81 64 Resp 17 16 B/P (MAP) 129/71 (90) 115/58 (77) Pulse Ox 95 94 93 O2 Delivery Nasal Cannula Nasal Cannula Nasal Cannula O2 Flow Rate 2.00 2.00 2.00 (MC MOISE DO) Vital Signs/I&O Capillary Refill : (SERG MURRIETA MD) Progress Note : Progress Note Seen and evaluated. Sepsis protocol initiated. IV by EMS with normal saline 1 L bolus running on arrival. EMS did give Zofran 4 mg IV. Labs, EKG, chest x- ray and UA ordered. Tylenol 1 g by mouth ordered. Influenza screen ordered. Care transferred to Dr. Moise at 0555 pending workup. (SERG MURRIETA MD) Progress Note : Progress Note 0555--ASSUMED CARE FROM DR. MURRIETA, TEST RESULTS PENDING O2 SATS 90-93% ON ROOM AIR. UP TO 95% ON 2L/NC NO TACHYCARDIA OR HYPOTENSION DURING ER STAY TEMP DOWN AT TIME OF ADMIT (MC MOISE DO) Diagnostic Imaging Comments CXR--NO ACUTE PROCESS, PER RADIOLOGIST REPORT @ 0635 Reviewed: Reviewed by Me (MC MOISE DO) Departure Communication (PCP) 0640--SPOKE WITH DR. ROLDAN, ACCEPTS PT FOR ADMIT (MC MOISE DO) Impression Primary Impression: Sepsis Additional Impressions: CLINICAL PNEUMONIA Mild dehydration Electrolyte imbalance MILD HYPOXIA Disposition: 09 ADMITTED INPATIENT Condition: Stable Admissions Decision to Admit Reason: Admit from ER (General) Decision to Admit/Date: Mar 23, 2018 Time/Decision to Admit Time: 06:50 (MC MOISE DO) Departure-Patient Inst. Referrals: TRINITY ROLDAN MD (PCP) Primary Care Physician ZOYA ARREDONDO MD FACP FAC CCDS (Family) Primary Care Physician SERG MURRIETA MD Mar 23, 2018 05:55 MC MOISE DO Mar 23, 2018 06:12
[2018-03-23 06:02] LABS: ALANINE AMINOTRANSFERASE 14 U/L (0-55); ALBUMIN 3.6 GM/DL (3.2-4.5); ALKALINE PHOSPHATASE 42 U/L (40-136); BILIRUBIN,TOTAL 0.3 MG/DL (0.1-1.0); BUN/CREATININE RATIO 24; CALCIUM 8.1 MG/DL (8.5-10.1); CARBON DIOXIDE 21 MMOL/L (21-32); CHLORIDE 101 MMOL/L (98-107); CREATININE SERUM 0.84 MG/DL (0.60-1.30); GFR ESTIMATED > 60; GLUCOSE 189 MG/DL (70-105); POTASSIUM 3.3 MMOL/L (3.6-5.0); SODIUM 131 MMOL/L (135-145); TOTAL PROTEIN 6.8 GM/DL (6.4-8.2)
[2018-03-23 06:03] LABS: BILIRUBIN,URINE NEGATIVE (NEGATIVE); CLARITY,URINE CLEAR; COLOR,URINE YELLOW; GLUCOSE, URINE (UA) NEGATIVE (NEGATIVE); KETONES,URINE NEGATIVE (NEGATIVE); LEUKOCYTE ESTERASE ,URINE NEGATIVE (NEGATIVE); NITRITE,URINE NEGATIVE (NEGATIVE); PH,URINE 5 (5-9); PROTEIN,URINE 2+ (NEGATIVE); UROBILINOGEN,URINE NORMAL (NORMAL)
[2018-03-23 06:13] LABS: BACTERIA,URINE TRACE /HPF; WBC,URINE 0-2 /HPF
[2018-03-23 06:14] LABS: HYALINE CASTS, URINE RARE /LPF; SQUAMOUS EPITHELIAL CELL,UR 0-2 /HPF
--- NOTE | 2018-03-23 06:18 | Diagnostic Imaging Report ---
EXAM: CHEST 1 VIEW, AP/PA ONLY INDICATION: Fever. Cough. Congestion. COMPARISON: Chest radiograph 10/02/2011. FINDINGS: Normal heart size and pulmonary vascularity. No focal pulmonary opacity, pleural effusion or pneumothorax. No acute osseous findings. IMPRESSION: No acute cardiopulmonary findings. Dictated by: Dictated on workstation # [id number]
[2018-03-23] MEDS ORDERED: LACTATED RINGERS 1,000 ML IV ONE (06:38)
[2018-03-23] MEDS ORDERED: IBUPROFEN 800 MG (MOTRIN) TAB PO ONE (06:45)
[2018-03-23] MEDS ORDERED: cefTRIAXone FOR IV USE 1,000 MG in NS (IVPB) 50 ML IV ONE (06:45)
[2018-03-23] MEDS ORDERED: AZITHROMYCIN 500 MG/NS 250 ML IVPB IV NR ×2 (08:38)
--- NOTE | 2018-03-23 08:44 | History & Physicial ---
History of Present Illness History of Present Illness Reason for visit/HPI PT IS A 77 Y/O MALE WHO IS WELL KNOWN TO ME FROM CLINIC. HE WAS SEEN IN THE OFFICE ON THURSDAY OF LAST WEEK - HE HAD A SHINGLES SHOT AFTER THE OFFICE VISIT, THEN STARTED TO FEEL POORLY ON THURSDAY. APPARENTLY HE STARTED TO HAVE NAUSEA , EMESIS AND DIARRHEA ON THURSDAY AND THEN HE STARTED TO HAVE A PRODUCTIVE COUGH. HE WAS SO WEAK THAT HE CALLED THE AMBULANCE SERVICE TO PICK HIM UP TO BRING HIM TO THE HOSPITAL. IN THE ER - HIS WHITE COUNT WAS 3 AND HIS PHYSICAL EXAM SHOWED PNEUMONIA - HIS XRAY WAS NEGATIVE, BUT PER ER HE APPEARED TO BE SLIGHTLY DEHYDRATED AND THEY FELT THAT THE CHEST XRAY DID NOT SHOW WHAT HIS PHYSICAL EXAM WAS SHOWING. HE WAS THEN ADVISED THAT HE NEEDED TO BE ADMITTED TO THE HOSPITAL. Date of Admission Mar 23, 2018 at 07:21 Date Seen by a Provider: Mar 23, 2018 Time Seen by a Provider: 08:30 I consulted on this patient on 03/23/18 08:37 Attending Physician Trinity Phan MD Admitting Physician Trinity Phan MD Consult Allergies and Home Medications Allergies Coded Allergies: Sulfa (Sulfonamide Antibiotics) (Verified Allergy, Unknown, DELERIUM, 07/19) Home Medications Doxycycline Hyclate 100 Mg Capsule, 100 MG PO BID, (Reported) for 7 days, start the evening of 10/03/11 Valsartan 80 Mg Tab, 160 MG PO HS, (Reported) Patient Home Medication List Home Medication List Reviewed: Yes Past Ojesozw-Oljkpy-Sbqens Hx Patient Social History Marrital Status: cohabiting Living Status: lives in own home with significant other Employed/Student: retired Alcohol Use: Rarely Uses Alcohol Beverage of Choice: Beer Recreational Drug Use: No Smoking Status: Never a Smoker 2nd Hand Smoke Exposure: No Physical Abuse Screen: No Sexual Abuse: No Recent Foreign Travel: No Contact w/other who traveled: No Recent Hopitalizations: No Recent Infectious Disease Expo: No Immunizations Up To Date Date of Pneumonia Vaccine: Feb 20, 2011 Date of Influenza Vaccine: Feb 20, 2011 Surgeries Yes (skin cancer removal with subsequent plastic surgery on the face) Respiratory No Currently Using CPAP: No Currently Using BIPAP: No Cardiovascular Yes Hypertension Neurological No Reproductive System Hx Reproductive Disorders: No Sexually Transmitted Disease: No HIV/AIDS: No Genitourinary Yes Benign Prostatic Hyperpl Gastrointestinal No Musculoskeletal No Endocrine History of Endocrine Disorders: No HEENT History of HEENT Disorders: No Loss of Vision: Denies Hearing Impairment: Denies Cancer Yes Skin Did You Recieve Any Treatments: Yes Type of Treatment: Surgical Intervention Psychosocial History of Psychiatric Problem: No Integumentary History of Skin or Integumenta: Yes (pityriasis rosea) Blood Transfusions History of Blood Disorders: No Reviewed Nursing Assessment Reviewed/Agree w Nursing PMH: Yes Family Medical History Significant Family History: Hypertension Review of Systems Constitutional: No chills; fever, malaise, weakness EENTM: No hearing loss, No vision loss, No throat pain Respiratory: cough, dyspnea on exertion, short of breath Cardiovascular: No chest pain, No edema, No palpitations Gastrointestinal: No abdominal pain; diarrhea Genitourinary: no symptoms reported Musculoskeletal: no symptoms reported Skin: no symptoms reported; No change in color Psychiatric/Neurological: No Symptoms Reported; Denies Anxiety, Denies Depressed All Other Systems Reviewed Negative Unless Noted: Yes Physical Exam Vital Signs Vital Signs - First Documented Capillary Refill : Less Than 3 Seconds Height, Weight, BMI Height: 5'9.00" Weight: 173lbs. 8.0oz. [id number]; 25.6 BMI Method:Stated General Appearance: No Apparent Distress, WD/WN Eyes: Bilateral Eye Normal Inspection, Bilateral Eye PERRL, Bilateral Eye EOMI HEENT: PERRL/EOMI, Pharynx Normal Neck: Full Range of Motion, Supple Respiratory: Chest Non Tender, Crackles (left base), Decreased Breath Sounds Cardiovascular: Regular Rate, Rhythm, No Edema, Normal Peripheral Pulses Gastrointestinal: Normal Bowel Sounds, Non Tender, Soft Rectal: Deferred Back: Normal Inspection, No Vertebral Tenderness Extremity: Normal Capillary Refill, Normal Inspection, Non Tender, No Calf Tenderness, No Pedal Edema Neurologic/Psychiatric: Alert, Oriented x3, No Motor/Sensory Deficits, Normal Mood/Affect, fleet administrator II-XII Norm as Tested Skin: Normal Color, Warm/Dry Lymphatic: No Adenopathy Assessment/Plan Assessment and Plan LEFT BASILAR PNEUMONIA COUGH LEUKOPENIA FEVER SIMPLE SEPSIS HYPERTENSION DIARRHEA WEAKNESS LEFT BASILAR PNEUMONIA WITH COUGH - REPEAT CHEST XRAY TOMORROW AFTER HYDRATION. CONTINUE WITH IV ROCEPHIN AND AZITHROMYCIN. BLOOD CULTURE PENDING. LEUKOPENIA AND FEVER WITH SIMPLE SEPSIS - WAITING ON CULTURE REPORT, MONITOR SYMPTOMS, PT APPEARS IMPROVED FROM SIMPLE SEPSIS STANDPOINT. HIS FOCUSED EXAM WAS NEGATIVE FOR SEVERE SEPSIS SYMPTOMS. HYPERTENSION - BLOOD PRESSURE LOW AT THIS TIME - MONITOR BLOOD PRESSURES AND HOLD MEDICATION AT THIS TIME. DIARRHEA - PER PT THIS HAS SLOWED DOWN - WILL START ON PROBIOTICS TID, MONITOR OUTPUT. WEAKNESS - SHOULD IMPROVE WITH HIS HYDRATION. DVT PROPHYLAXIS WITH LOVENOX AND SCD'S GI PROPHYLAXIS WITH PEPCID. Admission Diagnosis LEFT BASILAR PNEUMONIA COUGH LEUKOPENIA FEVER SIMPLE SEPSIS HYPERTENSION DIARRHEA WEAKNESS Admission Status: Inpatient Order (span 2 midnights) Reason for Inpatient Admission: INPATIENT ADMISSION DUE TO PNEUMONIA, NEED FOR IV ANTIBIOTICS AND FURTHER SUPPORTIVE CARE OVER AT LEAST TWO MIDNIGHTS. TRINITY PHAN MD Mar 23, 2018 08:44
[2018-03-23] MEDS ORDERED: D5 1/2 NS W/KCL 20 MEQ/L 1,000 ML IV SCH (08:45)
[2018-03-23] MEDS: NS W/KCL 20 MEQ/L 1,000 ML IV SCH ×2 (10:06→16:26)
[2018-03-23] MEDS: ENOXAPARIN 40 MG/0.4 ML (LOVENOX) SYR SC SCH (10:06)
[2018-03-23] MEDS ORDERED: RT-ALBUTEROL SULF 2.5 MG/3 ML PRE-MIX VIAL INH PRN (11:00)
[2018-03-23] MEDS ORDERED: AMLO10TA6 PO (11:15)
[2018-03-23] MEDS ORDERED: TRIA1TAB3 PO (11:15)
[2018-03-23] MEDS ORDERED: IRBE1TAB43 PO (11:15)
[2018-03-23] MEDS ORDERED: MULT-633 PO (11:17)
[2018-03-23] MEDS: LACTOBACILLUS ACIDOPHILUS (PROBIOTIC) CAPSULE PO SCH ×2 (11:36→16:26)
[2018-03-23] MEDS: ACETAMINOPHEN 500 MG TAB (TYLENOL) PO PRN (17:53)
[2018-03-23] MEDS: RT-ALBUTEROL SULF 2.5 MG/3 ML PRE-MIX VIAL INH SCH (19:17)
[2018-03-23] MEDS: FAMOTIDINE 20 MG (PEPCID) TABLET PO SCH (20:03)
[2018-03-24] VITALS (7 sets, daily range): BP systolic 115–153; BP diastolic 59–76
[2018-03-24] MEDS: NS W/KCL 20 MEQ/L 1,000 ML IV SCH ×4 (00:18→20:17)
[2018-03-24] MEDS: IBUPROFEN 800 MG (MOTRIN) TAB PO PRN ×2 (04:03→13:46)
[2018-03-24 05:33] LABS: BASOPHILS % (AUTO) 0 % (0-10); EOSINOPHILS % (AUTO) 0 % (0-10); HEMATOCRIT 38 % (40-54); LYMPHOCYTES # (AUTO) 0.6 X 10^3 (1.0-4.0); LYMPHOCYTES % (AUTO) 34 % (12-44); MEAN CORPUSCULAR HEMOGLOBIN 32 PG (25-34); MEAN CORPUSCULAR HGB CONC 35 G/DL (32-36); MEAN CORPUSCULAR VOLUME 92 FL (80-99); MONOCYTES # (AUTO) 0.2 X 10^3 (0.0-1.0); MONOCYTES % (AUTO) 8 % (0-12); NEUTROPHILS % (AUTO) 58 % (42-75); PLATELET COUNT 138 10^3/uL (130-400); RED CELL DISTRIBUTION WIDTH 12.7 % (10.0-14.5); WHITE BLOOD COUNT 1.8 10^3/uL (4.3-11.0)
[2018-03-24] MEDS: cefTRIAXone 1 GM/NS 50 ML IVPB IV SCH ×2 (06:14)
[2018-03-24] MEDS: LACTOBACILLUS ACIDOPHILUS (PROBIOTIC) CAPSULE PO SCH ×3 (06:15→18:12)
[2018-03-24 06:25] LABS: ALANINE AMINOTRANSFERASE 15 U/L (0-55); ALBUMIN 3.1 GM/DL (3.2-4.5); ALKALINE PHOSPHATASE 34 U/L (40-136); BILIRUBIN,TOTAL 0.2 MG/DL (0.1-1.0); BUN/CREATININE RATIO 19; CALCIUM 7.7 MG/DL (8.5-10.1); CARBON DIOXIDE 19 MMOL/L (21-32); CHLORIDE 110 MMOL/L (98-107); CREATININE SERUM 0.73 MG/DL (0.60-1.30); GFR ESTIMATED > 60; GLUCOSE 98 MG/DL (70-105); POTASSIUM 3.9 MMOL/L (3.6-5.0); SODIUM 137 MMOL/L (135-145); TOTAL PROTEIN 5.7 GM/DL (6.4-8.2)
--- NOTE | 2018-03-24 07:59 | Diagnostic Imaging Report ---
INDICATION: Sepsis with cough and congestion. COMPARISON: 03/23/2018. FINDINGS: The lungs are well aerated. There are no infiltrates. Heart is not enlarged. There is no pulmonary edema. No pneumothorax or pleural effusions. No bony lesions. IMPRESSION: Negative PA and lateral chest. Dictated by: Dictated on workstation # [id number]
[2018-03-24] MEDS: AZITHROMYCIN 250 MG TAB (ZITHROMAX) PO SCH (08:12)
[2018-03-24] MEDS: FAMOTIDINE 20 MG (PEPCID) TABLET PO SCH ×2 (08:12→20:14)
[2018-03-24] MEDS: ENOXAPARIN 40 MG/0.4 ML (LOVENOX) SYR SC SCH (08:12)
--- NOTE | 2018-03-24 08:39 | Progress Note ---
Subjective Date Seen by a Provider: Mar 24, 2018 Time Seen by a Provider: 08:45 Subjective/Events-last exam PT STATES THAT HE IS FEELING BETTER TODAY- HE HAD LOOSE STOOL THIS MORNING, BUT NOT BAD PRIOR TO ADMISSION. HE DENIES CHEST PAIN, HE FEELS LIKE HIS SHORTNESS OF BREATH IS IMPROVED. HE DENIES ABDOMINAL PAIN HE DENIES URINARY CONCERNS. Review of Systems General: Fatigue, Other (FEVER EARLIER THIS MORNING) HEENT: No Head Aches Pulmonary: No Dyspnea, No Cough Cardiovascular: No: Chest Pain Gastrointestinal: Diarrhea (EARLY THIS MORNING LOOSE STOOL); No: Nausea, Abdominal Pain Neurological: Weakness Focused Exam Lactate Level 03/23/18 05:30: Lactic Acid Level 0.94 03/23/18 08:44: Lactic Acid Level 0.67 Time of Focused Exam: 06:45 Objective Exam Last Set of Vital Signs Vital Signs Date Time Temp Pulse Resp B/P (MAP) Pulse Ox O2 Delivery O2 Flow Rate FiO2 03/24/18 07:44 97.4 62 20 140/66 (90) 98 Nasal Cannula 2.00 Capillary Refill : Less Than 3 Seconds I&O Intake and Output 03/24/18 00:00 Intake Total 2700 ml Output Total 450 ml Balance 2250 ml Intake Oral 400 ml IV Total 2300 ml Output Urine Total 450 ml # Voids 1 Daily Weight Change No General: Alert, Oriented X3, Cooperative HEENT: Atraumatic, PERRLA Neck: Supple Lungs: Other (CRACKLES IN BASE ON LEFT) Heart: Regular Rate Abdomen: Normal Bowel Sounds, Soft Extremities: No Clubbing, No Edema Neuro: Cranial Nerves 3-12 NL Psych/Mental Status: Mental Status NL, Mood NL Results Lab Laboratory Tests 03/23/18 08:44: Lactic Acid Level 0.67 03/24/18 05:05: White Blood Count 1.8L, Red Blood Count 4.10L, Hemoglobin 13.0L, Hematocrit 38L , Mean Corpuscular Volume 92, Mean Corpuscular Hemoglobin 32, Mean Corpuscular Hemoglobin Concent 35, Red Cell Distribution Width 12.7, Platelet Count 138, Mean Platelet Volume 10.0, Neutrophils (%) (Auto) 58, Lymphocytes (%) (Auto) 34 , Monocytes (%) (Auto) 8, Eosinophils (%) (Auto) 0, Basophils (%) (Auto) 0, Neutrophils # (Auto) 1.0L, Lymphocytes # (Auto) 0.6L, Monocytes # (Auto) 0.2, Eosinophils # (Auto) 0.0, Basophils # (Auto) 0.0, Sodium Level 137, Potassium Level 3.9, Chloride Level 110H, Carbon Dioxide Level 19L, Anion Gap 8, Blood Urea Nitrogen 14, Creatinine 0.73, Estimat Glomerular Filtration Rate > 60, BUN/ Creatinine Ratio 19, Glucose Level 98, Calcium Level 7.7L, Corrected Calcium 8.4L, Total Bilirubin 0.2, Aspartate Amino Transf (AST/SGOT) 26, Alanine Aminotransferase (ALT/SGPT) 15, Alkaline Phosphatase 34L, Total Protein 5.7L, Albumin 3.1L Microbiology 03/23/18 Gram Stain, Resulted Pending 03/23/18 Sputum Culture - Preliminary, Resulted Sent To [facility] 03/23/18 Urine Culture - Preliminary, Resulted Sent To [facility] Assessment/Plan Assessment/Plan Assess & Plan/Chief Complaint LEFT BASILAR PNEUMONIA COUGH LEUKOPENIA FEVER SIMPLE SEPSIS HYPERTENSION DIARRHEA WEAKNESS LEFT BASILAR PNEUMONIA WITH COUGH - REPEAT CHEST XRAY NEGATIVE - HOWEVER DUE TO PERSISTENT FEVER AND CRACKLES ON EXAM - WE WILL CONTINUE WITH IV ROCEPHIN AND AZITHROMYCIN. BLOOD CULTURE PENDING. LEUKOPENIA AND FEVER WITH SIMPLE SEPSIS - WAITING ON CULTURE REPORT, MONITOR SYMPTOMS, PT APPEARS IMPROVED FROM SIMPLE SEPSIS STANDPOINT. HIS FOCUSED EXAM WAS NEGATIVE FOR SEVERE SEPSIS SYMPTOMS. HYPERTENSION - BLOOD PRESSURE LOW AT THIS TIME - MONITOR BLOOD PRESSURES AND HOLD MEDICATION AT THIS TIME. DIARRHEA - PER PT THIS HAS SLOWED DOWN - WILL START ON PROBIOTICS TID, MONITOR OUTPUT. WEAKNESS - SHOULD IMPROVE WITH HIS HYDRATION. DVT PROPHYLAXIS WITH LOVENOX AND SCD'S GI PROPHYLAXIS WITH PEPCID. Clinical Quality Measures Admission Status Admission Dx LEFT BASILAR PNEUMONIA COUGH LEUKOPENIA FEVER SIMPLE SEPSIS HYPERTENSION DIARRHEA WEAKNESS LEFT BASILAR PNEUMONIA WITH COUGH - REPEAT CHEST XRAY TOMORROW AFTER HYDRATION. CONTINUE WITH IV ROCEPHIN AND AZITHROMYCIN. BLOOD CULTURE PENDING. LEUKOPENIA AND FEVER WITH SIMPLE SEPSIS - WAITING ON CULTURE REPORT, MONITOR SYMPTOMS, PT APPEARS IMPROVED FROM SIMPLE SEPSIS STANDPOINT. HIS FOCUSED EXAM WAS NEGATIVE FOR SEVERE SEPSIS SYMPTOMS. HYPERTENSION - BLOOD PRESSURE LOW AT THIS TIME - MONITOR BLOOD PRESSURES AND HOLD MEDICATION AT THIS TIME. DIARRHEA - PER PT THIS HAS SLOWED DOWN - WILL START ON PROBIOTICS TID, MONITOR OUTPUT. WEAKNESS - SHOULD IMPROVE WITH HIS HYDRATION. DVT PROPHYLAXIS WITH LOVENOX AND SCD'S GI PROPHYLAXIS WITH PEPCID. DVT/VTE Risk/Contraindication: Risk Factor Score Per Nursin RFS Level Per Nursing on Admit: 2=Moderate TRINITY ROLDAN MD Mar 24, 2018 08:39
[2018-03-24] MEDS: RT-ALBUTEROL SULF 2.5 MG/3 ML PRE-MIX VIAL INH SCH ×2 (09:32→19:33)
[2018-03-25] MEDS: NS W/KCL 20 MEQ/L 1,000 ML IV SCH ×4 (02:52→23:18)
[2018-03-25] MEDS: ACETAMINOPHEN 500 MG TAB (TYLENOL) PO PRN ×2 (04:07→15:02)
[2018-03-25 04:29] VITALS: BP 149/72
[2018-03-25] MEDS: LACTOBACILLUS ACIDOPHILUS (PROBIOTIC) CAPSULE PO SCH ×3 (06:00→17:05)
[2018-03-25] MEDS: cefTRIAXone 1 GM/NS 50 ML IVPB IV SCH ×2 (06:01)
[2018-03-25 06:19] LABS: HEMOGLOBIN 13.3 G/DL (13.3-17.7); MEAN PLATELET VOLUME 10.3 FL (7.4-10.4); RED BLOOD COUNT 4.18 10^6/uL (4.35-5.85); RED CELL DISTRIBUTION WIDTH 12.6 % (10.0-14.5); WHITE BLOOD COUNT 2.2 10^3/uL (4.3-11.0)
[2018-03-25] MEDS: RT-ALBUTEROL SULF 2.5 MG/3 ML PRE-MIX VIAL INH SCH ×2 (06:41→18:46)
[2018-03-25 07:09] VITALS: BP 150/75
[2018-03-25] MEDS: AZITHROMYCIN 250 MG TAB (ZITHROMAX) PO SCH (07:58)
[2018-03-25] MEDS: FAMOTIDINE 20 MG (PEPCID) TABLET PO SCH ×2 (07:58→20:39)
[2018-03-25] MEDS: ENOXAPARIN 40 MG/0.4 ML (LOVENOX) SYR SC SCH (07:59)
--- NOTE | 2018-03-25 09:12 | Progress Note ---
Subjective Date Seen by a Provider: Mar 25, 2018 Time Seen by a Provider: 09:00 Subjective/Events-last exam PT REPORTS THAT HE IS FEELING BETTER TODAY, HOWEVER HE IS STILL FATIGUED, HAD FEVERS LAST NIGHT. HE REPORTS THAT HE HAS BEEN COUGHING. Review of Systems General: Fatigue HEENT: Sore Throat, Other (MOUTH PAIN - RIGHT UPPER GUM-LINE) Pulmonary: No Dyspnea; Cough Cardiovascular: No: Chest Pain, Palpitations Gastrointestinal: No: Nausea, Diarrhea Neurological: Weakness Focused Exam Lactate Level 03/23/18 05:30: Lactic Acid Level 0.94 03/23/18 08:44: Lactic Acid Level 0.67 Time of Focused Exam: 06:45 Objective Exam Last Set of Vital Signs Vital Signs Date Time Temp Pulse Resp B/P (MAP) Pulse Ox O2 Delivery O2 Flow Rate FiO2 03/25/18 07:09 99.4 78 16 150/75 (100) 94 Nasal Cannula 2.00 Capillary Refill : Less Than 3 Seconds I&O Intake and Output 03/24/18 23:59 Intake Total 2986 ml Output Total 1325 ml Balance 1661 ml Intake Oral 986 ml IV Total 2000 ml Output Urine Total 1325 ml # Voids 2 # Bowel Movements 2 General: Alert, Oriented X3, Cooperative HEENT: Atraumatic, PERRLA Neck: Supple Lungs: Other (CRACKLES IN BASE ON LEFT) Heart: Regular Rate Abdomen: Normal Bowel Sounds, Soft Extremities: No Clubbing, No Edema Neuro: Cranial Nerves 3-12 NL Psych/Mental Status: Mental Status NL, Mood NL Results Lab Laboratory Tests 03/25/18 05:45: White Blood Count 2.2L, Red Blood Count 4.18L, Hemoglobin 13.3, Hematocrit 38L, Mean Corpuscular Volume 92, Mean Corpuscular Hemoglobin 32, Mean Corpuscular Hemoglobin Concent 35, Red Cell Distribution Width 12.6, Platelet Count 106L, Mean Platelet Volume 10.3 Microbiology 03/23/18 Blood Culture - Preliminary, Resulted No growth 03/23/18 Gram Stain - Final, Resulted 03/23/18 Sputum Culture - Preliminary, Resulted Usual/normal eliezer isolated. 03/23/18 Urine Culture - Final, Complete NO GROWTH Assessment/Plan Assessment/Plan Assess & Plan/Chief Complaint LEFT BASILAR PNEUMONIA COUGH LEUKOPENIA FEVER SIMPLE SEPSIS HYPERTENSION DIARRHEA WEAKNESS THRUSH LEFT BASILAR PNEUMONIA WITH COUGH - REPEAT CHEST XRAY NEGATIVE - BLOOD CULTURE NEGATIVE - WHITE COUNT CONTINUES TO BE SUPPRESSED, WILL STOP IV ANTIBIOTICS AT THIS TIME, AND WILL INVESTIGATE TO SEE IF THERE ARE ANY SPECIFIC TESTS THAT WOULD BE AVAILABLE FROM THE STATE FOR VIRAL SYNDROMES. LEUKOPENIA AND FEVER WITH SIMPLE SEPSIS - MONITOR SYMPTOMS, PT APPEARS IMPROVED FROM SIMPLE SEPSIS STANDPOINT. HIS FOCUSED EXAM WAS NEGATIVE FOR SEVERE SEPSIS SYMPTOMS. HYPERTENSION - BLOOD PRESSURE ELEVATING - WILL RESTART AMLODIPINE AND 1/2 DOSE ON HIS IRBESARTAN DIARRHEA - STARTED ON PROBIOTICS TID, AND IMMODIUM - DIARRHEA HAS SLOWED DOWN. MONITOR OUTPUT. WEAKNESS - SHOULD IMPROVE WITH HIS HYDRATION. THRUSH - RX FOR NYSTATIN DVT PROPHYLAXIS WITH LOVENOX AND SCD'S GI PROPHYLAXIS WITH PEPCID. Clinical Quality Measures Admission Status Admission Dx LEFT BASILAR PNEUMONIA COUGH LEUKOPENIA FEVER SIMPLE SEPSIS HYPERTENSION DIARRHEA WEAKNESS LEFT BASILAR PNEUMONIA WITH COUGH - REPEAT CHEST XRAY TOMORROW AFTER HYDRATION. CONTINUE WITH IV ROCEPHIN AND AZITHROMYCIN. BLOOD CULTURE PENDING. LEUKOPENIA AND FEVER WITH SIMPLE SEPSIS - WAITING ON CULTURE REPORT, MONITOR SYMPTOMS, PT APPEARS IMPROVED FROM SIMPLE SEPSIS STANDPOINT. HIS FOCUSED EXAM WAS NEGATIVE FOR SEVERE SEPSIS SYMPTOMS. HYPERTENSION - BLOOD PRESSURE LOW AT THIS TIME - MONITOR BLOOD PRESSURES AND HOLD MEDICATION AT THIS TIME. DIARRHEA - PER PT THIS HAS SLOWED DOWN - WILL START ON PROBIOTICS TID, MONITOR OUTPUT. WEAKNESS - SHOULD IMPROVE WITH HIS HYDRATION. DVT PROPHYLAXIS WITH LOVENOX AND SCD'S GI PROPHYLAXIS WITH PEPCID. DVT/VTE Risk/Contraindication: Risk Factor Score Per Nursin RFS Level Per Nursing on Admit: 2=Moderate TRINITY ROLDAN MD Mar 25, 2018 09:12
[2018-03-25] MEDS: NYSTATIN ORAL SUSP 5 ML UDC PO SCH ×4 (10:16→23:18)
[2018-03-25] MEDS: amLODIPine 10 MG (NORVASC) TAB PO SCH (10:16)
[2018-03-25] MEDS: IRBESARTAN 150 MG (AVAPRO) TAB PO SCH (10:16)
[2018-03-25 12:00] VITALS: BP 124/63
[2018-03-25 16:47] VITALS: BP 133/73
[2018-03-25 20:03] VITALS: BP 130/70
[2018-03-25] MEDS: IBUPROFEN 800 MG (MOTRIN) TAB PO PRN (22:42)
[2018-03-25 23:05] VITALS: BP 148/67
[2018-03-26 04:00] VITALS: BP 145/70
[2018-03-26] MEDS: LACTOBACILLUS ACIDOPHILUS (PROBIOTIC) CAPSULE PO SCH ×3 (05:16→17:07)
[2018-03-26] MEDS: NYSTATIN ORAL SUSP 5 ML UDC PO SCH ×4 (05:16→23:12)
[2018-03-26] MEDS: amLODIPine 10 MG (NORVASC) TAB PO SCH (08:27)
[2018-03-26] MEDS: FAMOTIDINE 20 MG (PEPCID) TABLET PO SCH ×2 (08:27→20:08)
[2018-03-26] MEDS: IRBESARTAN 150 MG (AVAPRO) TAB PO SCH (08:27)
[2018-03-26] MEDS: NS W/KCL 20 MEQ/L 1,000 ML IV SCH ×2 (08:29→22:03)
[2018-03-26] MEDS: ENOXAPARIN 40 MG/0.4 ML (LOVENOX) SYR SC SCH (08:31)
[2018-03-26 08:47] VITALS: BP 127/61
--- NOTE | 2018-03-26 09:04 | Progress Note ---
Subjective Date Seen by a Provider: Mar 26, 2018 Time Seen by a Provider: 07:50 Subjective/Events-last exam PT REPORTS THAT HE IS FEELING WORSE TODAY - HE IS WEAK, HIS IS UNSTEADY ON HIS FEET - (PER NURSE REPORT). HE REPORTS THAT HE FEELS ABOUT THE SAME WHEN HE WAS ADMITTED. HE COMPLAINS OF DIARRHEA, BUT NURSING STAFF REPORTS THAT THERE HAS NOT BEEN EVIDENCE OF DIARRHEA ON THEIR EVALUATION. HE DID HAVE A FEVER LAST NIGHT- 103 REPORTED - BUT NO PHONE CALL TO ME ABOUT HIS FEVER. PER NURSING REPORT YESTERDAY - THE NURSE REPORTED TO ME THAT HIS SIGNIFICANT OTHER CALLED HER AND WAS VERY UPSET ABOUT VINH NOT RECEIVING DOXYCYCLINE BECAUSE SHE WAS CONCERNED ABOUT HIM HAVING [place] SPOTTED FEVER SHE WAS RECENTLY DIAGNOSED WITH THIS DISEASE AT HER DOCTOR'S OFFICE. - PER NURSING REPORT - SHE WAS UPSET AND TOLD THE NURSE THAT SHE FELT LIKE HE REALLY NEEDED THE DOXYCYCLINE. Review of Systems General: Fatigue, Malaise, Appetite (DECREASED) HEENT: No Head Aches Pulmonary: No Dyspnea; Cough Cardiovascular: No: Chest Pain Gastrointestinal: No: Nausea, Abdominal Pain Genitourinary: No Dysuria; Frequency Musculoskeletal: other (GENERALIZED WEAKNESS); No: back pain, leg pain Neurological: Weakness Focused Exam Time of Focused Exam: 06:45 Objective Exam Last Set of Vital Signs Vital Signs Date Time Temp Pulse Resp B/P (MAP) Pulse Ox O2 Delivery O2 Flow Rate FiO2 03/26/18 08:47 97.8 66 20 127/61 (83) 97 Nasal Cannula 3.00 Capillary Refill : Less Than 3 Seconds I&O Intake and Output 03/26/18 00:00 Intake Total 1940 ml Output Total 2750 ml Balance -810 ml Intake Oral 890 ml IV Total 1050 ml Output Urine Total 2750 ml # Bowel Movements 2 General: Alert, Oriented X3, Cooperative, No Acute Distress HEENT: Atraumatic, PERRLA Neck: Supple Lungs: Other (CRACKLES IN BASE ON LEFT) Heart: Regular Rate Abdomen: Normal Bowel Sounds, Soft Extremities: No Clubbing, No Edema Neuro: Cranial Nerves 3-12 NL Psych/Mental Status: Mental Status NL, Mood NL (FLAT AFFECT) Results Lab Microbiology 03/23/18 Blood Culture - Preliminary, Resulted No growth 03/25/18 Gram Stain - Preliminary, Resulted 03/25/18 Sputum Culture - Preliminary, Resulted Sent To [facility] 03/23/18 Urine Culture - Final, Complete NO GROWTH Assessment/Plan Assessment/Plan Assess & Plan/Chief Complaint LEFT BASILAR PNEUMONIA COUGH LEUKOPENIA FEVER SIMPLE SEPSIS HYPERTENSION DIARRHEA WEAKNESS THRUSH LEFT BASILAR PNEUMONIA WITH COUGH - REPEAT CHEST XRAY NEGATIVE - BLOOD CULTURE NEGATIVE - WHITE COUNT CONTINUES TO BE SUPPRESSED, WILL STOP IV ANTIBIOTICS AT THIS TIME, AND WILL INVESTIGATE TO SEE IF THERE ARE ANY SPECIFIC TESTS THAT WOULD BE AVAILABLE FROM THE [facility] FOR VIRAL SYNDROMES. I HAVE DISCUSSED THE CASE WITH LINDSAY - RN FOR INFECTION CONTROL - YESTERDAY SHE MADE SOME PHONE CALLS TO THE STATE ABOUT SYNDROMIC SURVEILLANCE - THEY REPORT MULTIPLE CASES LIKE VINH'S WITH FEVERS AND SUPPRESSION OF WHITE COUNT. HE WAS MADE AWARE OF THIS AND WE HAVE BEEN GIVEN PERMISSION FROM THE [facility] TO SEND TWO VIRAL CULTURES TO THE [facility] FOR TESTING. MEANWHILE WE WILL CONTINUE WITH SUPPORTIVE CARE, FEVER CONTROL - SCHEDULED IBUPROFEN AND PRN TYLENOL. WEAKNESS - START PHYSICAL THERAPY TODAY. LEUKOPENIA AND FEVER WITH SIMPLE SEPSIS - MONITOR SYMPTOMS, PT APPEARS IMPROVED FROM SIMPLE SEPSIS STANDPOINT. HIS FOCUSED EXAM WAS NEGATIVE FOR SEVERE SEPSIS SYMPTOMS. HYPERTENSION - BLOOD PRESSURE ELEVATING - RESTARTED AMLODIPINE AND IRBESARTAN DIARRHEA - STARTED ON PROBIOTICS TID, AND IMMODIUM - DIARRHEA HAS SLOWED DOWN. MONITOR OUTPUT. WEAKNESS - SHOULD IMPROVE WITH HIS HYDRATION. THRUSH - RX FOR NYSTATIN DVT PROPHYLAXIS WITH LOVENOX AND SCD'S GI PROPHYLAXIS WITH PEPCID. Clinical Quality Measures Admission Status Admission Dx LEFT BASILAR PNEUMONIA COUGH LEUKOPENIA FEVER SIMPLE SEPSIS HYPERTENSION DIARRHEA WEAKNESS LEFT BASILAR PNEUMONIA WITH COUGH - REPEAT CHEST XRAY TOMORROW AFTER HYDRATION. CONTINUE WITH IV ROCEPHIN AND AZITHROMYCIN. BLOOD CULTURE PENDING. LEUKOPENIA AND FEVER WITH SIMPLE SEPSIS - WAITING ON CULTURE REPORT, MONITOR SYMPTOMS, PT APPEARS IMPROVED FROM SIMPLE SEPSIS STANDPOINT. HIS FOCUSED EXAM WAS NEGATIVE FOR SEVERE SEPSIS SYMPTOMS. HYPERTENSION - BLOOD PRESSURE LOW AT THIS TIME - MONITOR BLOOD PRESSURES AND HOLD MEDICATION AT THIS TIME. DIARRHEA - PER PT THIS HAS SLOWED DOWN - WILL START ON PROBIOTICS TID, MONITOR OUTPUT. WEAKNESS - SHOULD IMPROVE WITH HIS HYDRATION. DVT PROPHYLAXIS WITH LOVENOX AND SCD'S GI PROPHYLAXIS WITH PEPCID. DVT/VTE Risk/Contraindication: Risk Factor Score Per Nursin RFS Level Per Nursing on Admit: 2=Moderate TRINITY ROLDAN MD Mar 26, 2018 09:04
[2018-03-26] MEDS ORDERED: LOPERAMIDE 2 MG (IMODIUM) CAP PO PRN (09:15)
[2018-03-26] MEDS ORDERED: ACETAMINOPHEN 325 MG TABLET PO PRN (09:15)
[2018-03-26 11:11] VITALS: BP 127/61
[2018-03-26] MEDS: RT-ALBUTEROL SULF 2.5 MG/3 ML PRE-MIX VIAL INH SCH (11:11)
--- NOTE | 2018-03-26 11:39 | Physical Therapy Evaluation ---
PT Evaluation-General Medical Diagnosis Admission Date Mar 23, 2018 at 07:21 Medical Diagnosis: sepsis/pneumonia Onset Date: Mar 23, 2018 Therapy Diagnosis Therapy Diagnosis: debility/dizziness Height/Weight Height (Feet): 5 Height (Inches): 9.00 Weight (Pounds): 173 Weight (Ounces): 8.0 Precautions Precautions/Isolations: Standard Precautions Weight Bear Status Right Lower Extremity: Right Full Weight Bearing Left Lower Extremity: Left Full Weight Bearing Referral Physician: Emilie Reason for Referral: Evaluation/Treatment Medical History Pertinent Medical History: HTN Current History EMS secondary to weakness/N&V/fever Reviewed History: Yes Social History Home: Single Level Current Living Status: Significant Other Prior/Core FIM Prior Level of Function Functional [place] Measure 0=Not Assessed/NA 4=Minimal Assistance 1=Total Assistance 5=Supervision or Setup 2=Maximal Assistance 6=Modified [place] 3=Moderate Assistance 7=Complete [place] Bed Mobility: 7 Transfers (B,C,W/C) (FIM): 7 Gait: 7 Locomotion: 7 PT Evaluation-Current Subjective Patient reports he has intermittent dizziness x 1 yr. Pain Numeric Pain Scale: 0-No Pain Location: No Pain Reported Objective Patient Orientation: Normal For Age Problem Solving: Fair Attachments: IV ROM/Strength ROM Lower Extremities bilateral LE WFL Strength Lower Extremities 4+/5 grossly Integumentary/Posture Integumentary refer to nursing notes Bowel Incontinence: No Bladder Incontinence: No Posture WFL Neuromuscular (Tone, Coordination, Reflexes) very guarded with all mobility/decreased coordination with noted total body "tremors" "shaking" Sensory Vision: Wears Glasses Hearing: Impaired Sensation Right Lower Extremit: Intact Sensation Left Lower Extremity: Intact Transfers Functional [place] Measure 0=Not Assessed/NA 4=Minimal Assistance 1=Total Assistance 5=Supervision or Setup 2=Maximal Assistance 6=Modified [place] 3=Moderate Assistance 7=Complete [place] Transfers (B, C, W/C) (FIM): 5 Scootin Rollin Supine to/from Sit: 5 Sit to/from Stand: 5 Gait Mode of Locomotion: Walk Anticipated Mode of Locomotion: Walk Gait (FIM): 4 Distance (FIM): 3=150 ft Distance: 250' Gait Level of Assist: 4 Gait Assistive Device: FWW Comments/Gait Description notes ataxia/total body tremors/no deviation Balance Sitting Static: Normal Sitting Dynamic: Normal Standing Static: Normal Standing Dynamic: Normal Treatment Manual therapy performed on cervical spine and musculature to decrease muscle tension and increase ROM. Noted relief per patient report. Assessment/Needs 77 y.o. male, will benefit from skilled PT to address functional mobility. No noted nystagmus during treatment with testing. Patient did perform maneuvers for vertigo, however, patient did cease this due to c/o nausea. SAO2 97% RA with activity. Rehab Potential: Fair PT Children'S Choir Director Goals Children'S Choir Director Goals PT Children'S Choir Director Goals Time Frame: Apr 03, 2018 Transfers (B,C,W/C) (FIM): 7 Gait (FIM): 6 Gait distance (FIM): 3=150 ft Distance: 300' Gait Level of Assist: 6 Gait Assistive Device: FWW PT Plan Problem List Problem List: Activity Tolerance, Functional Strength, Safety, Balance, Gait, Transfer, Bed Mobility Treatment/Plan Treatment Plan: Continue Plan of Care Treatment Plan: Bed Mobility, Education, Functional Activity Jcarlos, Functional Strength, Gait, Safety, Therapeutic Exercise, Transfers Treatment Duration: Apr 03, 2018 Frequency: 6 times per week Estimated Hrs Per Day: .25 hour per day Patient and/or Family Agrees t: Yes Time/GCodes Time In: 1025 Time Out: 1054 Total Billed Treatment Time: 29 Total Billed Treatment 1 visit EVModC 14 min Man 15 min G Codes Necessary: CARLOS Holt PT Mar 26, 2018 11:39
[2018-03-26 12:00] VITALS: BP 136/65
[2018-03-26] MEDS: IBUPROFEN 800 MG (MOTRIN) TAB PO SCH ×2 (14:37→20:07)
[2018-03-26 16:30] VITALS: BP 119/63
[2018-03-26 20:35] VITALS: BP 120/65
[2018-03-27] VITALS: BP 148/70
[2018-03-27] MEDS: IBUPROFEN 800 MG (MOTRIN) TAB PO SCH ×4 (02:52→20:51)
[2018-03-27 04:19] VITALS: BP 133/69
[2018-03-27] MEDS: LACTOBACILLUS ACIDOPHILUS (PROBIOTIC) CAPSULE PO SCH ×3 (06:02→17:37)
[2018-03-27] MEDS: NYSTATIN ORAL SUSP 5 ML UDC PO SCH ×4 (06:02→23:23)
[2018-03-27 07:52] VITALS: BP 152/81
[2018-03-27] MEDS: IRBESARTAN 150 MG (AVAPRO) TAB PO SCH (08:10)
[2018-03-27] MEDS: amLODIPine 10 MG (NORVASC) TAB PO SCH (08:10)
[2018-03-27] MEDS: FAMOTIDINE 20 MG (PEPCID) TABLET PO SCH ×2 (08:10→20:51)
[2018-03-27] MEDS: ENOXAPARIN 40 MG/0.4 ML (LOVENOX) SYR SC SCH (09:27)
--- NOTE | 2018-03-27 10:26 | Physical Therapy Daily Note ---
PT Daily Note-Current Subjective States that he is feeling okay. Pain Numeric Pain Scale: 0-No Pain Transfers Functional [place] Measure 0=Not Assessed/NA 4=Minimal Assistance 1=Total Assistance 5=Supervision or Setup 2=Maximal Assistance 6=Modified [place] 3=Moderate Assistance 7=Complete IndependenceIRFPAI Quality Coding Scale 6 Independent with activity with or without an assistive device 5 Patient requires set up or clean up by helper. Patient completes activity by themselves 4 Supervision or touching assist (CGA). [place] provide cues , steadying assist 3 The helper provides less than half the effort to complete the activity 2 The helper provides more than half the effort to complete the activity 1 Dependent. The helper does all the effort to complete an activity 7 Patient refused to complete or attempt activity 9 The patient did not perform the activity before the current illness or injury 88 Not attempted due to Medical conditions or safety concerns Weight Bearing Right Lower Extremity: Right Full Weight Bearing Left Lower Extremity: Left Full Weight Bearing Gait Training Gait (FIM): 5 Distance (FIM): 3=150 ft Distance: 300' Gait Level of Assist: 5 Gait Persons Needed: 1 Gait Assistive Device: FWW Assessment Current Status: Excellent Progress Patient did well with gait. PT Retirement Goals Retirement Goals PT Family Protection Specialist Goals Time Frame: Apr 03, 2018 Transfers (B,C,W/C) (FIM): 7 Gait (FIM): 6 Gait distance (FIM): 3=150 ft Distance: 300' Gait Level of Assist: 6 Gait Assistive Device: FWW PT Plan Treatment/Plan Treatment Plan: Continue Plan of Care Treatment Plan: Bed Mobility, Education, Functional Activity Jcarlos, Functional Strength, Gait, Safety, Therapeutic Exercise, Transfers Treatment Duration: Apr 03, 2018 Frequency: 6 times per week Estimated Hrs Per Day: .25 hour per day Patient and/or Family Agrees t: Yes Time/GCodes Time In: 1010 Time Out: 1020 Total Billed Treatment Time: 10 Total Billed Treatment 1, GT x 10 G Codes Necessary: MACHO Vickers PT Mar 27, 2018 10:26
[2018-03-27 11:32] LABS: BASOPHILS # (AUTO) 0.1 10^3/uL (0.0-0.1); BASOPHILS % (AUTO) 3 % (0-10); EOSINOPHILS % (AUTO) 0 % (0-10); HEMATOCRIT 39 % (40-54); HEMOGLOBIN 13.6 G/DL (13.3-17.7); LYMPHOCYTES # (AUTO) 1.3 X 10^3 (1.0-4.0); LYMPHOCYTES % (AUTO) 41 % (12-44); MEAN CORPUSCULAR HEMOGLOBIN 32 PG (25-34); MEAN CORPUSCULAR HGB CONC 35 G/DL (32-36); MEAN CORPUSCULAR VOLUME 92 FL (80-99); MEAN PLATELET VOLUME 10.7 FL (7.4-10.4); MONOCYTES # (AUTO) 0.3 X 10^3 (0.0-1.0); MONOCYTES % (AUTO) 10 % (0-12); NEUTROPHILS # (AUTO) 1.4 X 10^3 (1.8-7.8); NEUTROPHILS % (AUTO) 46 % (42-75); PLATELET COUNT 95 10^3/uL (130-400); RED BLOOD COUNT 4.22 10^6/uL (4.35-5.85); RED CELL DISTRIBUTION WIDTH 12.8 % (10.0-14.5); WHITE BLOOD COUNT 3.1 10^3/uL (4.3-11.0)
[2018-03-27 11:51] LABS: ALANINE AMINOTRANSFERASE 195 U/L (0-55); ALBUMIN 3.1 GM/DL (3.2-4.5); ALKALINE PHOSPHATASE 40 U/L (40-136); BILIRUBIN,TOTAL 0.4 MG/DL (0.1-1.0); BUN/CREATININE RATIO 13; CALCIUM 8.3 MG/DL (8.5-10.1); CARBON DIOXIDE 20 MMOL/L (21-32); CHLORIDE 109 MMOL/L (98-107); CREATININE SERUM 0.62 MG/DL (0.60-1.30); GFR ESTIMATED > 60; GLUCOSE 106 MG/DL (70-105); POTASSIUM 4.2 MMOL/L (3.6-5.0); SODIUM 139 MMOL/L (135-145); TOTAL PROTEIN 5.9 GM/DL (6.4-8.2)
--- NOTE | 2018-03-27 12:34 | Progress Note-Hospitalist ---
Subjective HPI/CC On Admission Date Seen by Provider: Mar 27, 2018 Time Seen by Provider: 11:15 Subjective/Events-last exam Patient is about the same although less weak Liver enzyme elevation is noted so will minimize Tylenol and it appears more and more suspicious for Ehrlichia so will order peripheral smear and Doxycycline empirically Eating and drinking well Right gum inflammation is noted and appears abnormal and may need biopsy BM+ Review of Systems General: Fatigue Focused Exam Time of Focused Exam: 06:45 Objective Exam Vital Signs Vital Signs Date Time Temp Pulse Resp B/P (MAP) Pulse Ox O2 Delivery O2 Flow Rate FiO2 03/27/18 07:52 97.9 69 18 152/81 (104) 98 Room Air 03/26/18 08:47 3.00 Capillary Refill : Less Than 3 Seconds General Appearance: No Apparent Distress, WD/WN, Chronically ill Respiratory: Chest Non Tender, Lungs Clear, Normal Breath Sounds, No Accessory Muscle Use, No Respiratory Distress Cardiovascular: Regular Rate, Rhythm, No Edema, No Gallop, No JVD, No Murmur, Normal Peripheral Pulses Neurologic/Psychiatric: Alert, Oriented x3, No Motor/Sensory Deficits, Normal Mood/Affect Skin: Normal Color, Warm/Dry Results/Procedures Lab Laboratory Tests 03/27/18 11:23 Patient resulted labs reviewed. Assessment/Plan Assessment and Plan Assess & Plan/Chief Complaint Laboratory Tests 03/27/18 11:23: White Blood Count 3.1L, Red Blood Count 4.22L, Hemoglobin 13.6, Hematocrit 39L, Mean Corpuscular Volume 92, Mean Corpuscular Hemoglobin 32, Mean Corpuscular Hemoglobin Concent 35, Red Cell Distribution Width 12.8, Platelet Count 95L, Mean Platelet Volume 10.7H, Neutrophils (%) (Auto) 46, Lymphocytes (%) (Auto) 41 , Monocytes (%) (Auto) 10, Eosinophils (%) (Auto) 0, Basophils (%) (Auto) 3, Neutrophils # (Auto) 1.4L, Lymphocytes # (Auto) 1.3, Monocytes # (Auto) 0.3, Eosinophils # (Auto) 0.0, Basophils # (Auto) 0.1, Sodium Level 139, Potassium Level 4.2, Chloride Level 109H, Carbon Dioxide Level 20L, Anion Gap 10, Blood Urea Nitrogen 8, Creatinine 0.62, Estimat Glomerular Filtration Rate > 60, BUN/ Creatinine Ratio 13, Glucose Level 106H, Calcium Level 8.3L, Corrected Calcium 9.0, Total Bilirubin 0.4, Aspartate Amino Transf (AST/SGOT) 249H, Alanine Aminotransferase (ALT/SGPT) 195H, Alkaline Phosphatase 40, Total Protein 5.9L, Albumin 3.1L Microbiology 03/23/18 Blood Culture - Preliminary, Resulted No growth 03/25/18 Gram Stain - Final, Complete 03/25/18 Sputum Culture - Final, Complete Usual upper respiratory eliezer 03/23/18 Urine Culture - Final, Complete NO GROWTH Assessment per PCP: LEFT BASILAR PNEUMONIA COUGH LEUKOPENIA FEVER SIMPLE SEPSIS HYPERTENSION DIARRHEA WEAKNESS THRUSH Elevated LFT's Plan: Minimize Tylenol Monitor labs scott liver Weakness resolving with ambulation Doxycycline empirically Smear Diagnosis/Problems Diagnosis/Problems (1) Ehrlichiosis Status: Acute Assessment & Plan: Smear Tick borne panel pending Doxycycline empirically (2) Leukopenia Status: Acute Qualifiers: Leukopenia type: neutropenia Neutropenia type: unspecified Qualified Codes: D70.9 - Neutropenia, unspecified (3) Bronchitis Status: Acute (4) Hypertension Status: Chronic Qualifiers: Hypertension type: essential hypertension Qualified Codes: I10 - Essential (primary) hypertension (5) Gum inflammation Status: Acute (6) Sepsis Status: Resolved Qualifiers: Sepsis type: sepsis due to unspecified organism Qualified Codes: A41.9 - Sepsis, unspecified organism (7) Mild dehydration Status: Resolved (8) Electrolyte imbalance Status: Acute (9) Elevated liver enzymes Status: Acute Assessment & Plan: Minimize Tylenol Could be Ehrlichia? Clinical Quality Measures DVT/VTE Risk/Contraindication: Risk Factor Score Per Nursin RFS Level Per Nursing on Admit: 2=Moderate EMI GARCIA DO Mar 27, 2018 12:34
[2018-03-27] MEDS: NS W/KCL 20 MEQ/L 1,000 ML IV SCH (12:40)
[2018-03-27] MEDS ORDERED: ACETAMINOPHEN 325 MG TABLET PO PRN (12:45)
--- NOTE | 2018-03-27 14:24 | Consultation-Cardiology ---
HPI-Cardiology Cardiology Consultation: Date of Consultation 03/27/18 Date of Admission Attending Physician Xena Phan MD Admitting Physician Xena Phan MD Consulting Physician Jim HARVEY MD HPI: Time Seen by a Provider: 12:50 Chief Complaint: Shortness of breath This is a 77-year-old patient of Dr. Phan. He presents with complain of nausea, diarrhea, duct if cough and shortness of breath. He was admitted to the hospital for possible pneumonia and has been receiving treatment for pneumonia. Suspicion for Gravity spotted fever. History of hypertension. Her previous echocardiogram in 2011 was within normal limits. Review of Systems-Cardiology Review of Systems Constitutional: As described under HPI; No As described under HPI, No no symptoms reported, No chills, No fever, No lightheadedness; malaise Eyes: No As described under HPI, No no symptoms reported, No blindness, No blurred vision, No contact lenses, No drainage, No decreased acuity, No foreign body sensation, No pain, No vision change Ears/Nose/Throat: No As described under HPI, No no symptoms reported, No chronic hearing loss, No ear discharge, No ear pain, No nasal drainage, No ulcerations Respiratory: No no symptoms reported; As described under HPI; No As described under HPI, No cough, No orthopnea; shortness of breath; No SOB with excertion Cardiovascular: No no symptoms reported; As described under HPI; No As described under HPI, No chest pain, No edema, No irregular heart rate, No lightheadedness, No palpitations Gastrointestinal: No no symptoms reported, No As described under HPI, No abdomen distended, No abdominal pain, No blood streaked bowels, No constipation , No diarrhea, No nausea, No vomiting; nausea/vomiting/diarrhea; No stool coloration changes Genitourinary: No As described under HPI, No burning, No dysuria, No discharge , No frequency, No flank pain, No hematuria, No urgency Skin: No rash, No skin related problems, No ulcerations Psychiatric/Neurological: No anxiety, No depression, No seizure, No focal weakness, No syncope Hematologic: No bleeding abnormalities All Other Systems Reviewed Negative Unless Noted: Yes [id number] Hx Patient Social History Marrital Status: cohabiting Living Status: lives in own home with significant other Employed/Student: retired Alcohol Use: Rarely Uses Recreational Drug Use: No Smoking Status: Never a Smoker 2nd Hand Smoke Exposure: No Recent Foreign Travel: No Recent Infectious Disease Expo: No Hospitalization with Isolation: Denies Physical Abuse Screen: No Sexual Abuse: No Immunizations Up To Date Date of Pneumonia Vaccine: Feb 20, 2011 Date of Influenza Vaccine: Mar 08, 2018 Past Medical History PMH As described under Assessment. Family Medical History Family History: Patient reports no known family medical history. Allergies and Home Medications Allergies Coded Allergies: Sulfa (Sulfonamide Antibiotics) (Verified Allergy, Unknown, DELERIUM, 07/19) Home Medications Amlodipine Besylate 10 Mg Tablet, 10 MG PO DAILY, (Reported) Irbesartan/Hydrochlorothiazide 1 Each Tablet, 1 TAB PO DAILY, (Reported) Multivitamin 1 Each Tablet, 1 TAB PO DAILY, (Reported) Triamterene/Hydrochlorothiazid 1 Each Tablet, 0.5 TAB PO DAILY, (Reported) Patient Home Medication List Home Medication List Reviewed: Yes Physical Exam-Cardiology Physical Exam Vital Signs/I&O 03/27/18 03/27/18 04:19 07:52 Temp 96.9 97.9 Pulse 67 69 Resp 16 18 B/P (MAP) 133/69 (90) 152/81 (104) Pulse Ox 94 98 O2 Delivery Room Air Room Air 03/27/18 00:00 Intake Total 2840 ml Output Total 850 ml Balance 1990 ml Capillary Refill : Less Than 3 Seconds Constitutional: appears stated age, AAO x 3; No apparent distress; well- developed, well-nourished HEENT: PERRL; No normal ENT inspection, No TMs normal, No pharynx normal, No scleral icterus (R), No scleral icterus (L), No pale conjunctivae (R), No pale conjunctivae (L), No photophobia, No TM abnormal (R), No TM abnormal (L), No pharyngeal erythema, No tonsillar exudate, No other, No discharge, No EOMI; hearing is well preserved; No hard of hearing; oral hygience is good; No ulceration, No xanthelasmas are seen Neck: No non-tender, No full range of motion, No supple, No normal inspection, No carotid bruit, No limited range of motion, No lymphadenopathy (R), No lymphadenopathy (L), No tender lateral, No tender midline, No thyromegaly, No other; carotid pulses are 2 + bilaterally; No with good upstrokes Respiratory: No accessory muscle use, No respiratory distress, No chest tender , No chest expansion is symmetric; chest is bilaterally symmetric; No lungs clear to percussion; lungs clear to auscultation; No crackles, No rhonchi, No rales, No stridor, No wheezing, No pleural rub, No other Cardiovascular: regular rate-rhythm; No irregularly irregular, No extra beats, No parasternal heave is noted, No JVD, No edema, No bradycardia, No tachycardia , No point of maximal impulse, No cardiac thrills are palpable; S1 and S2; No gallop/S3, No gallop/S4, No diastolic murmur, No systolic murmur, No friction rub, No click, No other Gastrointestinal: No tender, No soft, No round, No distended, No pulsatile mass , No organomegaly, No guarding, No rebound, No tenderness, No hernia, No mass, No audible bowel sounds, No abnormal bowel sounds, No abdominal bruits, No spleenomegaly, No other Rectal: deferred Extremities: No normal range of motion, No non-tender, No normal inspection, No pedal edema, No calf tenderness, No normal capillary refill, No pelvis stable , No calf tenderness, No inflammation, No pedal edema, No slow capillary refill , No swelling, No other, No abrasion, No clubbing, No cyanosis, No ecchymosis, No laceration, No no lower extremity edema bilateral, No significant edema, No tenderness, No wound Neurologic/Psychiatric: no motor/sensory deficits, alert, normal mood/affect, oriented x 3, power is 5/5 both on sides Skin: normal color, warm/dry Data Review Labs Laboratory Tests 03/27/18 11:23: White Blood Count 3.1L, Red Blood Count 4.22L, Hemoglobin 13.6, Hematocrit 39L, Mean Corpuscular Volume 92, Mean Corpuscular Hemoglobin 32, Mean Corpuscular Hemoglobin Concent 35, Red Cell Distribution Width 12.8, Platelet Count 95L, Mean Platelet Volume 10.7H, Neutrophils (%) (Auto) 46, Lymphocytes (%) (Auto) 41 , Monocytes (%) (Auto) 10, Eosinophils (%) (Auto) 0, Basophils (%) (Auto) 3, Neutrophils # (Auto) 1.4L, Lymphocytes # (Auto) 1.3, Monocytes # (Auto) 0.3, Eosinophils # (Auto) 0.0, Basophils # (Auto) 0.1, Sodium Level 139, Potassium Level 4.2, Chloride Level 109H, Carbon Dioxide Level 20L, Anion Gap 10, Blood Urea Nitrogen 8, Creatinine 0.62, Estimat Glomerular Filtration Rate > 60, BUN/ Creatinine Ratio 13, Glucose Level 106H, Calcium Level 8.3L, Corrected Calcium 9.0, Total Bilirubin 0.4, Aspartate Amino Transf (AST/SGOT) 249H, Alanine Aminotransferase (ALT/SGPT) 195H, Alkaline Phosphatase 40, Total Protein 5.9L, Albumin 3.1L Microbiology 03/23/18 Blood Culture - Preliminary, Resulted No growth 03/25/18 Gram Stain - Final, Complete 03/25/18 Sputum Culture - Final, Complete Usual upper respiratory eliezer 03/23/18 Urine Culture - Final, Complete NO GROWTH A/P-Cardiology Assessment/Admission Diagnosis Pneumonia, Suspicion for [place] SPOTTED FEVER, Hypertension, Shortness of breath Plan On IV antibiotics for pneumonia. Leukopenia is noted with anemia. Atypical bacteria or viral syndrome is suspected. Hypertension: Continue angiotensin receptor blanca and amlodipine. Shortness of breath: Euvolemic on examination with no significant evidence of congestive heart failure. Will recommend an echocardiogram. Thank you for your consultation. Please call me if you have any questions. Nael Harvey MD, FACP, FACC, FSCAI, FHRS, CCDS Interventional Cardiology Cardiac Electrophysiology Vascular Medicine and Endovascular Interventions Clinical Quality Measures DVT/VTE Risk/Contraindication: Risk Factor Score Per Nursin RFS Level Per Nursing on Admit: 2=Moderate Jim HARVEY MD Mar 27, 2018 2:24 pm
[2018-03-27 15:20] LABS: ABSOLUTE RETIC # 14 10e9/L (24-90); RETICULOCYTE % 0.33 % (0.50-2.40)
[2018-03-27] MEDS: DOXYCYCLINE INJECTION 100 MG in NS (IVPB) 100 ML IV SCH (15:43)
[2018-03-27 16:05] VITALS: BP 141/71
[2018-03-27 16:05] LABS: LYMPHOCYTES % (MANUAL) 30 %; MONOCYTES % (MANUAL) 11 %; NEUTROPHILS % (MANUAL) 53 %; REACTIVE LYMPHOCYTES 6 %
[2018-03-27 16:06] LABS: BURR CELLS SLIGHT; CRENATED RBC MODERATE
[2018-03-28 00:07] VITALS: BP 134/63
[2018-03-28] MEDS: NS W/KCL 20 MEQ/L 1,000 ML IV SCH (02:42)
[2018-03-28] MEDS: IBUPROFEN 800 MG (MOTRIN) TAB PO SCH ×4 (02:51→20:27)
[2018-03-28 03:30] LABS: BASOPHILS % (AUTO) 1 % (0-10); EOSINOPHILS # (AUTO) 0.1 10^3/uL (0.0-0.3); EOSINOPHILS % (AUTO) 2 % (0-10); HEMATOCRIT 38 % (40-54); HEMOGLOBIN 12.8 G/DL (13.3-17.7); LYMPHOCYTES # (AUTO) 1.5 X 10^3 (1.0-4.0); LYMPHOCYTES % (AUTO) 53 % (12-44); MEAN CORPUSCULAR HEMOGLOBIN 31 PG (25-34); MEAN CORPUSCULAR HGB CONC 34 G/DL (32-36); MEAN CORPUSCULAR VOLUME 91 FL (80-99); MEAN PLATELET VOLUME 10.6 FL (7.4-10.4); MONOCYTES # (AUTO) 0.4 X 10^3 (0.0-1.0); MONOCYTES % (AUTO) 13 % (0-12); NEUTROPHILS # (AUTO) 0.9 X 10^3 (1.8-7.8); NEUTROPHILS % (AUTO) 32 % (42-75); PLATELET COUNT 128 10^3/uL (130-400); RED BLOOD COUNT 4.18 10^6/uL (4.35-5.85); RED CELL DISTRIBUTION WIDTH 12.8 % (10.0-14.5); WHITE BLOOD COUNT 2.9 10^3/uL (4.3-11.0)
[2018-03-28 03:53] LABS: ALANINE AMINOTRANSFERASE 272 U/L (0-55); ALKALINE PHOSPHATASE 39 U/L (40-136); BILIRUBIN,TOTAL 0.4 MG/DL (0.1-1.0); BUN/CREATININE RATIO 17; CALCIUM 8.2 MG/DL (8.5-10.1); CARBON DIOXIDE 22 MMOL/L (21-32); CHLORIDE 111 MMOL/L (98-107); CREATININE SERUM 0.63 MG/DL (0.60-1.30); GFR ESTIMATED > 60; GLUCOSE 90 MG/DL (70-105); POTASSIUM 3.9 MMOL/L (3.6-5.0); SODIUM 140 MMOL/L (135-145); TOTAL PROTEIN 5.7 GM/DL (6.4-8.2)
[2018-03-28] MEDS: DOXYCYCLINE INJECTION 100 MG in NS (IVPB) 100 ML IV SCH (03:54)
[2018-03-28] MEDS: NYSTATIN ORAL SUSP 5 ML UDC PO SCH ×4 (06:00→23:48)
[2018-03-28] MEDS: LACTOBACILLUS ACIDOPHILUS (PROBIOTIC) CAPSULE PO SCH ×3 (06:00→17:22)
[2018-03-28 08:00] VITALS: BP 154/72
[2018-03-28] MEDS: FAMOTIDINE 20 MG (PEPCID) TABLET PO SCH ×2 (09:05→20:27)
[2018-03-28] MEDS: IRBESARTAN 150 MG (AVAPRO) TAB PO SCH (09:05)
[2018-03-28] MEDS: ENOXAPARIN 40 MG/0.4 ML (LOVENOX) SYR SC SCH (09:05)
[2018-03-28] MEDS: amLODIPine 10 MG (NORVASC) TAB PO SCH (09:05)
--- NOTE | 2018-03-28 11:52 | Progress Note-Hospitalist ---
Subjective HPI/CC On Admission Date Seen by Provider: Mar 28, 2018 Time Seen by Provider: 11:00 Subjective/Events-last exam Patient feels much better today Once IV fluids stop so he can ambulate more Tolerating doxycycline well so we'll shift to oral formulation He has Ehrlichia in the past and had a lengthy illness due to presumed tickborne illness years ago Primary care provider head checked tickborne illness panel 2 years ago Gets ticks a [place] USG will be ordered for tomorrow LFT's continue to rise but platelets have improved Review of Systems General: Fatigue Pulmonary: Cough Focused Exam Time of Focused Exam: 06:45 Objective Exam Vital Signs Vital Signs Date Time Temp Pulse Resp B/P (MAP) Pulse Ox O2 Delivery O2 Flow Rate FiO2 03/28/18 08:00 97.5 67 18 154/72 (99) 95 Room Air 03/26/18 08:47 3.00 Capillary Refill : Less Than 3 Seconds General Appearance: No Apparent Distress, WD/WN, Chronically ill Respiratory: Chest Non Tender, Lungs Clear, Normal Breath Sounds, No Accessory Muscle Use, No Respiratory Distress Cardiovascular: Regular Rate, Rhythm, No Edema, No Gallop, No JVD, No Murmur, Normal Peripheral Pulses Neurologic/Psychiatric: Alert, Oriented x3, No Motor/Sensory Deficits, Normal Mood/Affect Results/Procedures Lab Laboratory Tests 03/28/18 02:40 Patient resulted labs reviewed. Assessment/Plan Assessment and Plan Assess & Plan/Chief Complaint Laboratory Tests 03/28/18 02:40: White Blood Count 2.9L, Red Blood Count 4.18L, Hemoglobin 12.8L, Hematocrit 38L , Mean Corpuscular Volume 91, Mean Corpuscular Hemoglobin 31, Mean Corpuscular Hemoglobin Concent 34, Red Cell Distribution Width 12.8, Platelet Count 128L, Mean Platelet Volume 10.6H, Neutrophils (%) (Auto) 32L, Lymphocytes (%) (Auto) 53H, Monocytes (%) (Auto) 13H, Eosinophils (%) (Auto) 2, Basophils (%) (Auto) 1 , Neutrophils # (Auto) 0.9L, Lymphocytes # (Auto) 1.5, Monocytes # (Auto) 0.4, Eosinophils # (Auto) 0.1, Basophils # (Auto) 0.0, Sodium Level 140, Potassium Level 3.9, Chloride Level 111H, Carbon Dioxide Level 22, Anion Gap 7, Blood Urea Nitrogen 11, Creatinine 0.63, Estimat Glomerular Filtration Rate > 60, BUN/ Creatinine Ratio 17, Glucose Level 90, Calcium Level 8.2L, Corrected Calcium 9.0 , Total Bilirubin 0.4, Aspartate Amino Transf (AST/SGOT) 302H, Alanine Aminotransferase (ALT/SGPT) 272H, Alkaline Phosphatase 39L, Total Protein 5.7L, Albumin 3.0L Microbiology 03/23/18 Blood Culture - Preliminary, Resulted No growth 03/25/18 Gram Stain - Final, Complete 03/25/18 Sputum Culture - Final, Complete Usual upper respiratory eliezer 03/23/18 Urine Culture - Final, Complete NO GROWTH Assessment per PCP: LEFT BASILAR PNEUMONIA COUGH LEUKOPENIA FEVER SIMPLE SEPSIS HYPERTENSION DIARRHEA WEAKNESS THRUSH Elevated LFT's Plan: Minimize Tylenol Monitor labs scott liver and check USG liver tomorrow Weakness resolving with ambulation Doxycycline empirically but change to PO Smear review once read tomorrow looking for inclusion bodies Diagnosis/Problems Diagnosis/Problems (1) Ehrlichiosis Status: Acute Assessment & Plan: Smear Tick borne panel pending Doxycycline empirically (2) Leukopenia Status: Acute Qualifiers: Leukopenia type: neutropenia Neutropenia type: unspecified Qualified Codes: D70.9 - Neutropenia, unspecified (3) Bronchitis Status: Acute (4) Hypertension Status: Chronic Qualifiers: Hypertension type: essential hypertension Qualified Codes: I10 - Essential (primary) hypertension (5) Gum inflammation Status: Acute (6) Sepsis Status: Resolved Qualifiers: Sepsis type: sepsis due to unspecified organism Qualified Codes: A41.9 - Sepsis, unspecified organism (7) Mild dehydration Status: Resolved (8) Electrolyte imbalance Status: Acute (9) Elevated liver enzymes Status: Acute Assessment & Plan: Minimize Tylenol Could be Ehrlichia? (10) Thrombocytopenia Status: Acute Clinical Quality Measures DVT/VTE Risk/Contraindication: Risk Factor Score Per Nursin RFS Level Per Nursing on Admit: 2=Moderate EMI GARCIA DO Mar 28, 2018 11:52
--- NOTE | 2018-03-28 14:31 | Cardiology Progress Note ---
Cardiology SOAP Progress Note Subjective: Some improvement in symptoms. Denies any significant shortness of breath. Objective: I&O/Vital Signs 03/28/18 08:00 Temp 97.5 Pulse 67 Resp 18 B/P (MAP) 154/72 (99) Pulse Ox 95 O2 Delivery Room Air 03/28/18 00:00 Intake Total 2270 ml Output Total 1500 ml Balance 770 ml Weight (Pounds): 173 Weight (Ounces): 8.0 Weight (Calculated Kilograms): 78.123938 Constitutional: appears stated age, AAO x 3; No apparent distress; well- developed, well-nourished Respiratory: No accessory muscle use, No respiratory distress, No chest tender , No chest expansion is symmetric; chest is bilaterally symmetric; No lungs clear to percussion; lungs clear to auscultation; No crackles, No rhonchi, No rales, No stridor, No wheezing, No pleural rub, No other Cardiovascular: regular rate-rhythm; No irregularly irregular, No extra beats, No parasternal heave is noted, No JVD, No edema, No bradycardia, No tachycardia , No point of maximal impulse, No cardiac thrills are palpable; S1 and S2; No gallop/S3, No gallop/S4, No diastolic murmur; systolic murmur; No friction rub, No click, No other Gastrointestional: No tender, No soft, No round, No distended, No pulsatile mass, No organomegaly, No guarding, No rebound, No tenderness, No hernia, No mass, No audible bowel sounds, No abnormal bowel sounds, No abdominal bruits, No spleenomegaly, No other Extremities: No normal range of motion, No non-tender, No normal inspection, No pedal edema, No calf tenderness, No normal capillary refill, No pelvis stable , No calf tenderness, No inflammation, No pedal edema, No slow capillary refill , No swelling, No other, No abrasion, No clubbing, No cyanosis, No ecchymosis, No laceration, No no lower extremity edema bilateral, No significant edema, No tenderness, No wound Neurologic/Psychiatric: no motor/sensory deficits, alert, normal mood/affect, oriented x 3, power is 5/5 both on sides Skin: normal color, warm/dry Results/Procedures: Labs Laboratory Tests 03/28/18 02:40: White Blood Count 2.9L, Red Blood Count 4.18L, Hemoglobin 12.8L, Hematocrit 38L , Mean Corpuscular Volume 91, Mean Corpuscular Hemoglobin 31, Mean Corpuscular Hemoglobin Concent 34, Red Cell Distribution Width 12.8, Platelet Count 128L, Mean Platelet Volume 10.6H, Neutrophils (%) (Auto) 32L, Lymphocytes (%) (Auto) 53H, Monocytes (%) (Auto) 13H, Eosinophils (%) (Auto) 2, Basophils (%) (Auto) 1 , Neutrophils # (Auto) 0.9L, Lymphocytes # (Auto) 1.5, Monocytes # (Auto) 0.4, Eosinophils # (Auto) 0.1, Basophils # (Auto) 0.0, Sodium Level 140, Potassium Level 3.9, Chloride Level 111H, Carbon Dioxide Level 22, Anion Gap 7, Blood Urea Nitrogen 11, Creatinine 0.63, Estimat Glomerular Filtration Rate > 60, BUN/ Creatinine Ratio 17, Glucose Level 90, Calcium Level 8.2L, Corrected Calcium 9.0 , Total Bilirubin 0.4, Aspartate Amino Transf (AST/SGOT) 302H, Alanine Aminotransferase (ALT/SGPT) 272H, Alkaline Phosphatase 39L, Total Protein 5.7L, Albumin 3.0L Microbiology 03/23/18 Blood Culture - Preliminary, Resulted No growth 03/25/18 Gram Stain - Final, Complete 03/25/18 Sputum Culture - Final, Complete Usual upper respiratory eliezer 03/23/18 Urine Culture - Final, Complete NO GROWTH A/P: Assessment/Dx: Pneumonia, Suspicion for Michel [place] SPOTTED FEVER/tick borne illness, Hypertension, Shortness of breath, Moderate to severe mitral regurgitation, Diastolic dysfunction Plan: On IV antibiotics for pneumonia. Leukopenia is noted with anemia. Atypical bacteria or viral syndrome is suspected. Hypertension: Continue angiotensin receptor blanca and amlodipine. Shortness of breath: Euvolemic on examination with no significant evidence of congestive heart failure. Echocardiogram shows normal LV function. Moderate severe mitral regurgitation: With left atrial enlargement on echocardiogram, suggest chronic mitral regurgitation. We will need further review in the near future to assess candidature for mitral valve surgery. Currently normal EF and normal dimensions of the LV. Moderate diastolic dysfunction, continue to monitor. Thank you for your consultation. Please call me if you have any questions. Nael Harvey MD, FACP, FACC, FSCAI, FHRS, CCDS Interventional Cardiology Cardiac Electrophysiology Vascular Medicine and Endovascular Interventions Focused Exam Time of Focused Exam: 06:45 Jim HARVEY MD Mar 28, 2018 2:31 pm
[2018-03-28 15:35] VITALS: BP 135/73
[2018-03-28] MEDS: DOXYCYCLINE 100 MG (VIBRAMYCIN) TABLET PO SCH (17:22)
[2018-03-29 00:51] VITALS: BP 158/86
[2018-03-29] MEDS: IBUPROFEN 800 MG (MOTRIN) TAB PO SCH ×4 (03:09→20:44)
[2018-03-29 04:27] LABS: BASOPHILS % (AUTO) 1 % (0-10); EOSINOPHILS # (AUTO) 0.1 10^3/uL (0.0-0.3); EOSINOPHILS % (AUTO) 2 % (0-10); HEMATOCRIT 38 % (40-54); HEMOGLOBIN 13.6 G/DL (13.3-17.7); LYMPHOCYTES # (AUTO) 1.7 X 10^3 (1.0-4.0); LYMPHOCYTES % (AUTO) 51 % (12-44); MEAN CORPUSCULAR HEMOGLOBIN 32 PG (25-34); MEAN CORPUSCULAR HGB CONC 36 G/DL (32-36); MEAN CORPUSCULAR VOLUME 90 FL (80-99); MEAN PLATELET VOLUME 10.3 FL (7.4-10.4); MONOCYTES # (AUTO) 0.4 X 10^3 (0.0-1.0); MONOCYTES % (AUTO) 12 % (0-12); NEUTROPHILS # (AUTO) 1.2 X 10^3 (1.8-7.8); NEUTROPHILS % (AUTO) 34 % (42-75); PLATELET COUNT 165 10^3/uL (130-400); RED BLOOD COUNT 4.27 10^6/uL (4.35-5.85); RED CELL DISTRIBUTION WIDTH 12.5 % (10.0-14.5); WHITE BLOOD COUNT 3.4 10^3/uL (4.3-11.0)
[2018-03-29 04:45] LABS: ALANINE AMINOTRANSFERASE 303 U/L (0-55); ALBUMIN 3.4 GM/DL (3.2-4.5); ALKALINE PHOSPHATASE 47 U/L (40-136); BILIRUBIN,TOTAL 0.6 MG/DL (0.1-1.0); BUN/CREATININE RATIO 16; CARBON DIOXIDE 22 MMOL/L (21-32); CHLORIDE 108 MMOL/L (98-107); CREATININE SERUM 0.61 MG/DL (0.60-1.30); GFR ESTIMATED > 60; GLUCOSE 101 MG/DL (70-105); POTASSIUM 3.6 MMOL/L (3.6-5.0); SODIUM 139 MMOL/L (135-145); TOTAL PROTEIN 6.5 GM/DL (6.4-8.2)
[2018-03-29] MEDS: NYSTATIN ORAL SUSP 5 ML UDC PO SCH ×4 (06:04→23:40)
[2018-03-29] MEDS: DOXYCYCLINE 100 MG (VIBRAMYCIN) TABLET PO SCH ×2 (06:05→17:59)
[2018-03-29] MEDS: LACTOBACILLUS ACIDOPHILUS (PROBIOTIC) CAPSULE PO SCH ×3 (06:05→17:58)
[2018-03-29] MEDS: ONDANSETRON 4 MG/2 ML (SDV) Z0FRAN IVP PRN (06:49)
[2018-03-29 07:54] VITALS: BP 158/86
[2018-03-29 08:10] VITALS: BP 153/78
[2018-03-29] MEDS: IRBESARTAN 150 MG (AVAPRO) TAB PO SCH (08:23)
[2018-03-29] MEDS: amLODIPine 10 MG (NORVASC) TAB PO SCH (08:24)
[2018-03-29] MEDS: FAMOTIDINE 20 MG (PEPCID) TABLET PO SCH ×2 (08:24→20:44)
[2018-03-29] MEDS: ENOXAPARIN 40 MG/0.4 ML (LOVENOX) SYR SC SCH (08:24)
--- NOTE | 2018-03-29 08:34 | Progress Note (SOAP) ---
Subjective Time Seen by a Provider: 08:32 Subjective/Events-last exam Patient felt nauseous today and received Zofran IV area Patient has dizziness. Patient feels that he is improving. Focused Exam Time of Focused Exam: 06:45 Objective Exam Vital Signs Date Time Temp Pulse Resp B/P (MAP) Pulse Ox O2 Delivery O2 Flow Rate FiO2 03/29/18 08:10 98.1 65 16 153/78 (103) 95 Room Air 03/29/18 07:54 72 95 03/29/18 07:47 95 Room Air 03/29/18 00:51 98.6 71 18 158/86 (110) 97 Room Air 03/28/18 19:13 Room Air 03/28/18 15:35 98.5 72 20 135/73 (93) 94 Room Air 03/28/18 15:17 Room Air I & O 03/29/18 07:00 Intake Total 2615 ml Output Total 2500 ml Balance 115 ml Capillary Refill : Less Than 3 Seconds General Appearance: No Apparent Distress, WD/WN HEENT: Normal ENT Inspection Neck: Normal Inspection Respiratory: Chest Non Tender, Lungs Clear, Normal Breath Sounds, No Accessory Muscle Use, No Respiratory Distress Cardiovascular: Regular Rate, Rhythm Gastrointestinal: non tender, soft Results Lab Laboratory Tests 03/29/18 03:42 Laboratory Tests 03/29/18 03:42: White Blood Count 3.4L, Red Blood Count 4.27L, Hemoglobin 13.6, Hematocrit 38L, Mean Corpuscular Volume 90, Mean Corpuscular Hemoglobin 32, Mean Corpuscular Hemoglobin Concent 36, Red Cell Distribution Width 12.5, Platelet Count 165, Mean Platelet Volume 10.3, Neutrophils (%) (Auto) 34L, Lymphocytes (%) (Auto) 51H, Monocytes (%) (Auto) 12, Eosinophils (%) (Auto) 2, Basophils (%) (Auto) 1, Neutrophils # (Auto) 1.2L, Lymphocytes # (Auto) 1.7, Monocytes # (Auto) 0.4, Eosinophils # (Auto) 0.1, Basophils # (Auto) 0.0, Sodium Level 139, Potassium Level 3.6, Chloride Level 108H, Carbon Dioxide Level 22, Anion Gap 9, Blood Urea Nitrogen 10, Creatinine 0.61, Estimat Glomerular Filtration Rate > 60, BUN/ Creatinine Ratio 16, Glucose Level 101, Calcium Level 9.0, Corrected Calcium 9.5 , Total Bilirubin 0.6, Aspartate Amino Transf (AST/SGOT) 239H, Alanine Aminotransferase (ALT/SGPT) 303H, Alkaline Phosphatase 47, Total Protein 6.5, Albumin 3.4 Microbiology 03/23/18 Blood Culture - Final, Complete No growth 03/25/18 Gram Stain - Final, Complete 03/25/18 Sputum Culture - Final, Complete Usual upper respiratory eliezer 03/23/18 Urine Culture - Final, Complete NO GROWTH Assessment/Plan Assessment/Plan Assess & Plan/Chief Complaint Left pneumonia. Cough. Leukopenia. Fever. Sepsis. Dizziness. Nauseousness Clinical Quality Measures DVT/VTE Risk/Contraindication: Risk Factor Score Per Nursin RFS Level Per Nursing on Admit: 2=Moderate DIANA HAQ DO Mar 29, 2018 08:34
--- NOTE | 2018-03-29 11:24 | Physical Therapy Daily Note ---
PT Daily Note-Current Subjective Patient reports he is feeling better today. Decreased c/o dizziness. Pain Numeric Pain Scale: 0-No Pain Location: No Pain Reported Mental Status Patient Orientation: Normal For Age Transfers Functional [place] Measure 0=Not Assessed/NA 4=Minimal Assistance 1=Total Assistance 5=Supervision or Setup 2=Maximal Assistance 6=Modified [place] 3=Moderate Assistance 7=Complete IndependenceIRFPAI Quality Coding Scale 6 Independent with activity with or without an assistive device 5 Patient requires set up or clean up by helper. Patient completes activity by themselves 4 Supervision or touching assist (CGA). [place] provide cues , steadying assist 3 The helper provides less than half the effort to complete the activity 2 The helper provides more than half the effort to complete the activity 1 Dependent. The helper does all the effort to complete an activity 7 Patient refused to complete or attempt activity 9 The patient did not perform the activity before the current illness or injury 88 Not attempted due to Medical conditions or safety concerns Transfers (B, C, W/C) (FIM): 7 Scootin Rollin Sit to/from Stand: 7 Weight Bearing Right Lower Extremity: Right Full Weight Bearing Left Lower Extremity: Left Full Weight Bearing Gait Training Gait (FIM): 6 Distance (FIM): 3=150 ft Distance: 550' Gait Level of Assist: 6 Gait Assistive Device: FWW safe and functional with no deviation Assessment Patient continues to improve medically and with gross motor skills. PT to dismiss patient from services tomorrow. This PT has encourage/instructed patient to ambulate PRN in hallway with or without FWW. Nursing staff notified. PT Supervisor [employer]ing Goals Supervisor [employer] Casting Goals PT Assisted Goals Time Frame: Apr 03, 2018 Transfers (B,C,W/C) (FIM): 7 Gait (FIM): 6 Gait distance (FIM): 3=150 ft Distance: 300' Gait Level of Assist: 6 Gait Assistive Device: FWW PT Plan Treatment/Plan Treatment Plan: Continue Plan of Care Treatment Plan: Bed Mobility, Education, Functional Activity Jcarlos, Functional Strength, Gait, Safety, Therapeutic Exercise, Transfers Treatment Duration: Apr 03, 2018 Frequency: 6 times per week Estimated Hrs Per Day: .25 hour per day Patient and/or Family Agrees t: Yes Time/GCodes Time In: 1056 Time Out: 1105 Total Billed Treatment Time: 9 Total Billed Treatment 1 visit FA 9 min CARLOS RAHMAN PT Mar 29, 2018 11:24
--- NOTE | 2018-03-29 12:49 | Diagnostic Imaging Report ---
PROCEDURE: US Hepatic (Liver). TECHNIQUE: Multiple Real-time grayscale images were obtained over the right upper quadrant in various projections. INDICATION: Elevated liver enzymes. FINDINGS: The liver is normal in size without focal lesions. There is no biliary ductal dilatation. The common bile duct measures less than 4 mm. There is no cholelithiasis. There is mild gallbladder wall thickening up to 3 mm. There is no pericholecystic fluid. The right kidney is normal in appearance. There is no ascites. IMPRESSION: Contracted gallbladder with mild gallbladder wall thickening up to 3 mm. This is likely incidental. Otherwise, unremarkable right upper quadrant ultrasound. Dictated by: Dictated on workstation # [id number]
--- NOTE | 2018-03-29 14:56 | Cardiology Progress Note ---
Cardiology SOAP Progress Note Subjective: No cardiac complaints. Objective: I&O/Vital Signs 03/29/18 03/29/18 03/29/18 07:47 07:54 08:10 Temp 98.1 Pulse 72 65 Resp 16 B/P (MAP) 153/78 (103) Pulse Ox 95 95 95 O2 Delivery Room Air Room Air 03/29/18 00:00 Intake Total 2515 ml Output Total 1300 ml Balance 1215 ml Weight (Pounds): 173 Weight (Ounces): 8.0 Weight (Calculated Kilograms): 78.847893 Constitutional: appears stated age, AAO x 3; No apparent distress; well- developed, well-nourished Respiratory: No accessory muscle use, No respiratory distress, No chest tender , No chest expansion is symmetric; chest is bilaterally symmetric; No lungs clear to percussion; lungs clear to auscultation; No crackles, No rhonchi, No rales, No stridor, No wheezing, No pleural rub, No other Cardiovascular: regular rate-rhythm; No irregularly irregular, No extra beats, No parasternal heave is noted, No JVD, No edema, No bradycardia, No tachycardia , No point of maximal impulse, No cardiac thrills are palpable; S1 and S2; No gallop/S3, No gallop/S4, No diastolic murmur; systolic murmur; No friction rub, No click, No other Gastrointestional: No tender, No soft, No round, No distended, No pulsatile mass, No organomegaly, No guarding, No rebound, No tenderness, No hernia, No mass, No audible bowel sounds, No abnormal bowel sounds, No abdominal bruits, No spleenomegaly, No other Extremities: No normal range of motion, No non-tender, No normal inspection, No pedal edema, No calf tenderness, No normal capillary refill, No pelvis stable , No calf tenderness, No inflammation, No pedal edema, No slow capillary refill , No swelling, No other, No abrasion, No clubbing, No cyanosis, No ecchymosis, No laceration, No no lower extremity edema bilateral, No significant edema, No tenderness, No wound Neurologic/Psychiatric: no motor/sensory deficits, alert, normal mood/affect, oriented x 3, power is 5/5 both on sides Skin: normal color, warm/dry Results/Procedures: Labs Laboratory Tests 03/29/18 03:42: White Blood Count 3.4L, Red Blood Count 4.27L, Hemoglobin 13.6, Hematocrit 38L, Mean Corpuscular Volume 90, Mean Corpuscular Hemoglobin 32, Mean Corpuscular Hemoglobin Concent 36, Red Cell Distribution Width 12.5, Platelet Count 165, Mean Platelet Volume 10.3, Neutrophils (%) (Auto) 34L, Lymphocytes (%) (Auto) 51H, Monocytes (%) (Auto) 12, Eosinophils (%) (Auto) 2, Basophils (%) (Auto) 1, Neutrophils # (Auto) 1.2L, Lymphocytes # (Auto) 1.7, Monocytes # (Auto) 0.4, Eosinophils # (Auto) 0.1, Basophils # (Auto) 0.0, Sodium Level 139, Potassium Level 3.6, Chloride Level 108H, Carbon Dioxide Level 22, Anion Gap 9, Blood Urea Nitrogen 10, Creatinine 0.61, Estimat Glomerular Filtration Rate > 60, BUN/ Creatinine Ratio 16, Glucose Level 101, Calcium Level 9.0, Corrected Calcium 9.5 , Total Bilirubin 0.6, Aspartate Amino Transf (AST/SGOT) 239H, Alanine Aminotransferase (ALT/SGPT) 303H, Alkaline Phosphatase 47, Total Protein 6.5, Albumin 3.4 Microbiology 03/23/18 Blood Culture - Final, Complete No growth 03/25/18 Gram Stain - Final, Complete 03/25/18 Sputum Culture - Final, Complete Usual upper respiratory eliezer 03/23/18 Urine Culture - Final, Complete NO GROWTH A/P: Assessment/Dx: Pneumonia, Suspicion for Michel [place] SPOTTED FEVER/tick borne illness, Hypertension, Shortness of breath, Moderate to severe mitral regurgitation, Diastolic dysfunction Plan: On IV antibiotics for pneumonia. Leukopenia is noted with anemia. Atypical bacteria or viral syndrome is suspected. Hypertension: Continue angiotensin receptor blanca and amlodipine. Shortness of breath: Euvolemic on examination with no significant evidence of congestive heart failure. Echocardiogram shows normal LV function. Moderate severe mitral regurgitation: With left atrial enlargement on echocardiogram, suggest chronic mitral regurgitation. We will need further review in the near future to assess candidature for mitral valve surgery. Currently normal EF and normal dimensions of the LV. Moderate diastolic dysfunction, continue to monitor. Thank you for your consultation. Please call me if you have any questions. Nael Harvey MD, FACP, FACC, FSCAI, FHRS, CCDS Interventional Cardiology Cardiac Electrophysiology Vascular Medicine and Endovascular Interventions Focused Exam Time of Focused Exam: 06:45 Jim HARVEY MD Mar 29, 2018 2:56 pm
[2018-03-29 16:00] VITALS: BP 152/77
--- NOTE | 2018-03-29 17:49 | Progress Note-Standard ---
Standard Progress Note Progress Notes/Assess & Plan Date Seen by a Provider: Mar 29, 2018 Time Seen by a Provider: 17:45 Progress/Assessment & Plan ENT-Augusto Patient seen for Dizziness -started 2 years ago with signficant postional dizziness which can last for some time currently admitted to hospital for pneumonia-dizziness has worsened Exam-showed no nystagmus which would point toward a central cause-needs MRI with kalen for work-up will also need to see as outpt for audio and forther work-up full consult dictaed-will be back past dylan MRI completed to review results with him later this week Final Diagnosis Central Vertigo Focused Exam Time of Focused Exam: 06:45 SONNY LAYNE MD Mar 29, 2018 5:49 pm
[2018-03-30] VITALS: BP 145/80
[2018-03-30] MEDS: IBUPROFEN 800 MG (MOTRIN) TAB PO SCH ×4 (02:32→21:12)
[2018-03-30] MEDS: NYSTATIN ORAL SUSP 5 ML UDC PO SCH ×4 (05:59→23:38)
[2018-03-30] MEDS: LACTOBACILLUS ACIDOPHILUS (PROBIOTIC) CAPSULE PO SCH ×3 (06:00→16:33)
[2018-03-30] MEDS: DOXYCYCLINE 100 MG (VIBRAMYCIN) TABLET PO SCH ×2 (06:00→16:33)
[2018-03-30 06:42] LABS: BASOPHILS % (AUTO) 0 % (0-10); EOSINOPHILS % (AUTO) 1 % (0-10); HEMATOCRIT 39 % (40-54); HEMOGLOBIN 13.5 G/DL (13.3-17.7); LYMPHOCYTES # (AUTO) 1.6 X 10^3 (1.0-4.0); LYMPHOCYTES % (AUTO) 43 % (12-44); MEAN CORPUSCULAR HEMOGLOBIN 31 PG (25-34); MEAN CORPUSCULAR HGB CONC 34 G/DL (32-36); MEAN CORPUSCULAR VOLUME 90 FL (80-99); MONOCYTES # (AUTO) 0.5 X 10^3 (0.0-1.0); MONOCYTES % (AUTO) 14 % (0-12); NEUTROPHILS # (AUTO) 1.5 X 10^3 (1.8-7.8); NEUTROPHILS % (AUTO) 41 % (42-75); PLATELET COUNT 236 10^3/uL (130-400); RED BLOOD COUNT 4.39 10^6/uL (4.35-5.85); RED CELL DISTRIBUTION WIDTH 12.6 % (10.0-14.5); WHITE BLOOD COUNT 3.6 10^3/uL (4.3-11.0)
[2018-03-30 06:46] LABS: SMEAR SCAN COMMENT YES
[2018-03-30 07:06] LABS: ALANINE AMINOTRANSFERASE 287 U/L (0-55); ALBUMIN 3.5 GM/DL (3.2-4.5); ALKALINE PHOSPHATASE 47 U/L (40-136); BILIRUBIN,TOTAL 0.6 MG/DL (0.1-1.0); BUN/CREATININE RATIO 17; CALCIUM 8.9 MG/DL (8.5-10.1); CARBON DIOXIDE 21 MMOL/L (21-32); CHLORIDE 106 MMOL/L (98-107); CREATININE SERUM 0.65 MG/DL (0.60-1.30); GFR ESTIMATED > 60; GLUCOSE 101 MG/DL (70-105); POTASSIUM 3.6 MMOL/L (3.6-5.0); SODIUM 137 MMOL/L (135-145); TOTAL PROTEIN 6.6 GM/DL (6.4-8.2)
--- NOTE | 2018-03-30 07:46 | CONSULTATION REPORT ---
DATE OF SERVICE: ENT CONSULT REFERRING PHYSICIAN: Dr. Shelton. REASON FOR CONSULTATION: Chronic dizziness. HISTORY OF PRESENT ILLNESS: The patient is currently in the hospital, admitted to the hospital for treatment of pneumonia. He has complained of significant dizziness while in the hospital and he has been unable to really ambulate. He reports these symptoms have been present off and on for the past two years. He reports he cannot lay flat in bed. He has to sleep elevated. If he moves quickly, it can cause the dizziness. Dizziness can last anywhere from several seconds up to hours. It does cause nausea and vomiting at times. He complains of bilateral ringing in his ears as well as decreased hearing and the loss is symmetrical. He has had no significant visual problems that he knows of. He does have a history of two tick-borne diseases that have been documented in the past, by history, one was , the other was a [place] spotted fever. He is being retested for those. Those results are not back. He reports the reason he is still in the hospital is because of the dizziness. He has been seen and evaluated by physical therapy. They noted no nystagmus at that time. Subjectively, he is currently dizzy. PHYSICAL EXAMINATION: GENERAL: He is in no acute distress today. He is alert and oriented x 3. Communication, speech and voice are normal. EYES: Vision was grossly intact. Extraocular muscles were intact. There was no spontaneous nystagmus seen on exam today despite his complaints of dizziness. EARS: Canals were normal and tympanic membranes were intact and mobile. There is no evidence of infection or fluid present. NOSE: Normal nasal mucosa. No mass or lesions seen. Nasopharynx not examined. ORAL: The oral cavity was clear without sign of infection or lesion. Pharynx, no mass or ulceration was seen. Larynx was examined with the mirror. Vocal cords moved well and met in the midline. NECK: No mass, adenopathy or thyromegaly palpable in the neck. NEUROLOGIC: Cranial nerves II-XII are grossly intact. IMPRESSION: 1. Central vertigo. 2. Possible tick-borne disease. RECOMMENDATIONS: The patient has had chronic symptoms. Subjectively, he was dizzy today and yet he has no evidence of a peripheral lesion as he had no nystagmus. Concern for a central abnormality was discussed. Because of that, an MRI of the head with gadolinium was recommended and ordered, will be back past either on Thursday or to review the results with them. This has been scheduled for Thursday. Hopefully by that time, a tick panel will be back as well. If those are nonrevealing, then further workup as an outpatient with an audiogram and potential balance testing would be recommended. I discussed this all with the patient. We will be back past to follow up with him on Thursday or of this week. Job ID: [id number] DocumentID: [id number] Dictated Date: 03/30/2018 07:15:21 Zookeeper Date: 03/30/2018 07:45:26 Dictated By: SONNY LAYNE MD
[2018-03-30 08:00] VITALS: BP 151/77
[2018-03-30] MEDS ORDERED: GADOBUTROL 10 MMOL/10 ML (GADAVIST) VIAL IV ONE (08:30)
--- NOTE | 2018-03-30 08:55 | Progress Note (SOAP) ---
Subjective Time Seen by a Provider: 08:53 Subjective/Events-last exam Patient seen ENT yesterday. Patient to have an MRI today. Patient to be seen tomorrow by ENT for further evaluation area Liver enzymes are going down. White blood cell count going up. Tickborne disease improving Focused Exam Time of Focused Exam: 06:45 Objective Exam Vital Signs Date Time Temp Pulse Resp B/P (MAP) Pulse Ox O2 Delivery O2 Flow Rate FiO2 03/30/18 00:00 97.5 67 20 145/80 (101) 93 Room Air 03/29/18 19:29 Room Air 03/29/18 16:00 98.7 69 20 152/77 (102) 96 Room Air I & O 03/30/18 07:00 Intake Total 1610 ml Output Total 1725 ml Balance -115 ml Capillary Refill : Less Than 3 Seconds General Appearance: No Apparent Distress Results Lab Laboratory Tests 03/30/18 05:29 Laboratory Tests 03/30/18 05:29: White Blood Count 3.6L, Red Blood Count 4.39, Hemoglobin 13.5, Hematocrit 39L, Mean Corpuscular Volume 90, Mean Corpuscular Hemoglobin 31, Mean Corpuscular Hemoglobin Concent 34, Red Cell Distribution Width 12.6, Platelet Count 236, Mean Platelet Volume 10.0, Neutrophils (%) (Auto) 41L, Lymphocytes (%) (Auto) 43 , Monocytes (%) (Auto) 14H, Eosinophils (%) (Auto) 1, Basophils (%) (Auto) 0, Neutrophils # (Auto) 1.5L, Lymphocytes # (Auto) 1.6, Monocytes # (Auto) 0.5, Eosinophils # (Auto) 0.0, Basophils # (Auto) 0.0, Sodium Level 137, Potassium Level 3.6, Chloride Level 106, Carbon Dioxide Level 21, Anion Gap 10, Blood Urea Nitrogen 11, Creatinine 0.65, Estimat Glomerular Filtration Rate > 60, BUN/ Creatinine Ratio 17, Glucose Level 101, Calcium Level 8.9, Corrected Calcium 9.3 , Total Bilirubin 0.6, Aspartate Amino Transf (AST/SGOT) 172H, Alanine Aminotransferase (ALT/SGPT) 287H, Alkaline Phosphatase 47, Total Protein 6.6, Albumin 3.5, Smear Scan YES Microbiology 03/23/18 Blood Culture - Final, Complete No growth 03/25/18 Gram Stain - Final, Complete 03/25/18 Sputum Culture - Final, Complete Usual upper respiratory eliezer 03/23/18 Urine Culture - Final, Complete NO GROWTH Assessment/Plan Assessment/Plan Assess & Plan/Chief Complaint Left pneumonia. Cough. Leukopenia. Fever. Sepsis. Dizziness. Nauseousness area . 03/30/18. Pneumonia. Cough. Tickborne disease. Liver enzymes coming down. Dizziness. White blood cell count is increasing. ENT to see patient tomorrow. MRI today Clinical Quality Measures DVT/VTE Risk/Contraindication: Risk Factor Score Per Nursin RFS Level Per Nursing on Admit: 2=Moderate DIANA HAQ DO Mar 30, 2018 08:55
[2018-03-30] MEDS: FAMOTIDINE 20 MG (PEPCID) TABLET PO SCH ×2 (09:03→21:12)
[2018-03-30] MEDS: amLODIPine 10 MG (NORVASC) TAB PO SCH (09:03)
[2018-03-30] MEDS: IRBESARTAN 150 MG (AVAPRO) TAB PO SCH (09:03)
[2018-03-30] MEDS: ENOXAPARIN 40 MG/0.4 ML (LOVENOX) SYR SC SCH (09:04)
--- NOTE | 2018-03-30 09:21 | Diagnostic Imaging Report ---
MRI of the brain with and without contrast and MRI IACs. Indication: Acute central dizziness. Multiple images utilizing T1 and T2-weighted sequences were obtained. Magnified images of the skull base in the axial and coronal planes were also performed. Intravenous contrast was administered. There are no previous studies available for comparison. On the postcontrast images through the skull base there is no abnormal enhancement of the seventh or eighth nerve complexes to suggest a mass. There is no sign of bony destruction either. The mastoid air cells are generally clear. There is mild mucosal thickening of the ethmoid sinuses, particularly on the right. The paranasal sinuses are otherwise generally clear and well aerated. The sella is not enlarged and expected carotid flow voids are evident. The orbits are symmetrical and within normal limits. The infundibulum is midline and the optic chiasm is undisturbed. There is no intracranial mass, shift of midline or hemorrhage to suggest an acute abnormality. There is no abnormal enhancement to indicate a neoplastic or infectious process either. The diffusion sequence is unremarkable for any signal abnormality to suggest an area of acute ischemia. The ventricles are not abnormally dilated. There is cortical atrophy present. The degree of atrophy is consistent with the patient's age. There is little if any abnormal signal in the periventricular white matter on the FLAIR series to suggest encephalomalacia from microvascular ischemia. Impression: 1. There is no evidence for a mass involving the seventh or eighth nerve complexes to account for patient's central dizziness. 2. There is no acute intracranial abnormality noted either. 3. There is no abnormal enhancement to indicate a neoplastic or infectious process. Dictated by: Dictated on workstation # [id number]
--- NOTE | 2018-03-30 13:57 | Cardiology Progress Note ---
Cardiology SOAP Progress Note Subjective: Patient is not feeling well. He feels weak and complains of fatigue. Objective: I&O/Vital Signs 03/30/18 03/30/18 08:00 10:03 Temp 97.5 Pulse 70 Resp 18 B/P (MAP) 151/77 (101) Pulse Ox 97 94 O2 Delivery Room Air Room Air 03/30/18 00:00 Intake Total 1360 ml Output Total 1425 ml Balance -65 ml Weight (Pounds): 172 Weight (Ounces): 4.0 Weight (Calculated Kilograms): 78.564305 Constitutional: appears stated age, AAO x 3; No apparent distress; well- developed, well-nourished Respiratory: No accessory muscle use, No respiratory distress, No chest tender , No chest expansion is symmetric; chest is bilaterally symmetric; No lungs clear to percussion; lungs clear to auscultation; No crackles, No rhonchi, No rales, No stridor, No wheezing, No pleural rub, No other Cardiovascular: regular rate-rhythm; No irregularly irregular, No extra beats, No parasternal heave is noted, No JVD, No edema, No bradycardia, No tachycardia , No point of maximal impulse, No cardiac thrills are palpable; S1 and S2; No gallop/S3, No gallop/S4, No diastolic murmur; systolic murmur; No friction rub, No click, No other Gastrointestional: No tender, No soft, No round, No distended, No pulsatile mass, No organomegaly, No guarding, No rebound, No tenderness, No hernia, No mass, No audible bowel sounds, No abnormal bowel sounds, No abdominal bruits, No spleenomegaly, No other Extremities: No normal range of motion, No non-tender, No normal inspection, No pedal edema, No calf tenderness, No normal capillary refill, No pelvis stable , No calf tenderness, No inflammation, No pedal edema, No slow capillary refill , No swelling, No other, No abrasion, No clubbing, No cyanosis, No ecchymosis, No laceration, No no lower extremity edema bilateral, No significant edema, No tenderness, No wound Neurologic/Psychiatric: no motor/sensory deficits, alert, normal mood/affect, oriented x 3, power is 5/5 both on sides Skin: normal color, warm/dry Results/Procedures: Labs Laboratory Tests 03/30/18 05:29: White Blood Count 3.6L, Red Blood Count 4.39, Hemoglobin 13.5, Hematocrit 39L, Mean Corpuscular Volume 90, Mean Corpuscular Hemoglobin 31, Mean Corpuscular Hemoglobin Concent 34, Red Cell Distribution Width 12.6, Platelet Count 236, Mean Platelet Volume 10.0, Neutrophils (%) (Auto) 41L, Lymphocytes (%) (Auto) 43 , Monocytes (%) (Auto) 14H, Eosinophils (%) (Auto) 1, Basophils (%) (Auto) 0, Neutrophils # (Auto) 1.5L, Lymphocytes # (Auto) 1.6, Monocytes # (Auto) 0.5, Eosinophils # (Auto) 0.0, Basophils # (Auto) 0.0, Sodium Level 137, Potassium Level 3.6, Chloride Level 106, Carbon Dioxide Level 21, Anion Gap 10, Blood Urea Nitrogen 11, Creatinine 0.65, Estimat Glomerular Filtration Rate > 60, BUN/ Creatinine Ratio 17, Glucose Level 101, Calcium Level 8.9, Corrected Calcium 9.3 , Total Bilirubin 0.6, Aspartate Amino Transf (AST/SGOT) 172H, Alanine Aminotransferase (ALT/SGPT) 287H, Alkaline Phosphatase 47, Total Protein 6.6, Albumin 3.5, Smear Scan YES Microbiology 03/23/18 Blood Culture - Final, Complete No growth 03/25/18 Gram Stain - Final, Complete 03/25/18 Sputum Culture - Final, Complete Usual upper respiratory eliezer 03/23/18 Urine Culture - Final, Complete NO GROWTH A/P: Assessment/Dx: Pneumonia, Suspicion for Michel MOUNTAIN SPOTTED FEVER/tick borne illness, Hypertension, Shortness of breath, Moderate to severe mitral regurgitation, Diastolic dysfunction Plan: Fatigue and weakness: Deferred to the primary team. On IV antibiotics for pneumonia. Leukopenia is noted with anemia. Atypical bacteria or viral syndrome is suspected. Hypertension: Continue angiotensin receptor blanca and amlodipine. Shortness of breath: Euvolemic on examination with no significant evidence of congestive heart failure. Echocardiogram shows normal LV function. Moderate to severe mitral regurgitation: With left atrial enlargement on echocardiogram, suggest chronic mitral regurgitation. We will need further review in the near future to assess candidature for mitral valve surgery. Currently normal EF and normal dimensions of the LV. Moderate diastolic dysfunction, continue to monitor. Thank you for your consultation. Please call me if you have any questions. Nael Harvey MD, FACP, FACC, FSCAI, FHRS, CCDS Interventional Cardiology Cardiac Electrophysiology Vascular Medicine and Endovascular Interventions Focused Exam Time of Focused Exam: 06:45 Jim HARVEY MD Mar 30, 2018 1:57 pm
--- NOTE | 2018-03-30 14:38 | Physical Therapy Daily Note ---
PT Daily Note-Current Subjective Pt laying Supine in bed. BARBER SHOP OPERATOR has attempted to see pt twice this morning but pt asked BARBER SHOP OPERATOR to come back due to not feeling well. Pt agrees to PT this afternoon though. Pain Location: No Pain Reported Mental Status Patient Orientation: Person, Place, Time, Situation Transfers Functional [place] Measure 0=Not Assessed/NA 4=Minimal Assistance 1=Total Assistance 5=Supervision or Setup 2=Maximal Assistance 6=Modified [place] 3=Moderate Assistance 7=Complete IndependenceIRFPAI Quality Coding Scale 6 Independent with activity with or without an assistive device 5 Patient requires set up or clean up by helper. Patient completes activity by themselves 4 Supervision or touching assist (CGA). [place] provide cues , steadying assist 3 The helper provides less than half the effort to complete the activity 2 The helper provides more than half the effort to complete the activity 1 Dependent. The helper does all the effort to complete an activity 7 Patient refused to complete or attempt activity 9 The patient did not perform the activity before the current illness or injury 88 Not attempted due to Medical conditions or safety concerns Scootin Rollin Supine to/from Sit: 7 Sit to/from Stand: 7 Weight Bearing Right Lower Extremity: Right Full Weight Bearing Left Lower Extremity: Left Full Weight Bearing Gait Training Distance (FIM): 3=150 ft Distance: 400' Gait Level of Assist: 6 Gait Persons Needed: 1 Gait Assistive Device: FWW Pt walking with normalized gait and improved activity tolerance. Treatments Pt transfers from bed to standing at [facility]. Pt then ambulates in hallway using FWW at Mod I. Pt returns to room to lay Supine in bed and return to sleep. Pt has all needs met. Assessment Current Status: Good Progress Pt has improved with transfers and ambulation. Pt wants to discharge GAGE. PT Scratcher Tender Goals Jail Goals PT Scratcher Tender Goals Time Frame: Apr 03, 2018 Transfers (B,C,W/C) (FIM): 7 Gait (FIM): 6 Gait distance (FIM): 3=150 ft Distance: 300' Gait Level of Assist: 6 Gait Assistive Device: FWW PT Plan Problem List Problem List: Activity Tolerance Treatment/Plan Treatment Plan: Continue Plan of Care Treatment Plan: Bed Mobility, Education, Functional Activity Jcarlos, Functional Strength, Gait, Safety, Therapeutic Exercise, Transfers Treatment Duration: Apr 03, 2018 Frequency: 6 times per week Estimated Hrs Per Day: .25 hour per day Patient and/or Family Agrees t: Yes Safety Risks/Education Patient Education: Safety Issues Teaching Recipient: Patient Teaching Methods: Discussion Response to Teaching: Verbalize Understanding Time/GCodes Time In: 1420 Time Out: 1435 Total Billed Treatment Time: 15 Total Billed Treatment 1,1, GT (15m) G Codes Necessary: TIM Brito BARBER SHOP OPERATOR Mar 30, 2018 14:38
[2018-03-30 15:30] VITALS: BP 138/71
--- NOTE | 2018-03-30 18:49 | Progress Note (SOAP) ---
Subjective Time Seen by a Provider: 18:47 Subjective/Events-last exam Patient this evening feeling better. Patient still has dizziness. Went over the MRI report. To see ENT tomorrow. Tickborne disease doing better Focused Exam Time of Focused Exam: 06:45 Objective Exam Vital Signs Date Time Temp Pulse Resp B/P (MAP) Pulse Ox O2 Delivery O2 Flow Rate FiO2 03/30/18 15:30 98.2 73 18 138/71 (93) 98 Room Air 03/30/18 10:03 94 Room Air 03/30/18 08:00 97.5 70 18 151/77 (101) 97 Room Air 03/30/18 00:00 97.5 67 20 145/80 (101) 93 Room Air 03/29/18 19:29 Room Air I & O 03/30/18 07:00 Intake Total 1610 ml Output Total 1725 ml Balance -115 ml Capillary Refill : Less Than 3 Seconds General Appearance: No Apparent Distress, WD/WN, Thin HEENT: Normal ENT Inspection Respiratory: Chest Non Tender, No Accessory Muscle Use, No Respiratory Distress Cardiovascular: Regular Rate, Rhythm, No Murmur Gastrointestinal: non tender, soft Results Lab Laboratory Tests 03/30/18 05:29: White Blood Count 3.6L, Red Blood Count 4.39, Hemoglobin 13.5, Hematocrit 39L, Mean Corpuscular Volume 90, Mean Corpuscular Hemoglobin 31, Mean Corpuscular Hemoglobin Concent 34, Red Cell Distribution Width 12.6, Platelet Count 236, Mean Platelet Volume 10.0, Neutrophils (%) (Auto) 41L, Lymphocytes (%) (Auto) 43 , Monocytes (%) (Auto) 14H, Eosinophils (%) (Auto) 1, Basophils (%) (Auto) 0, Neutrophils # (Auto) 1.5L, Lymphocytes # (Auto) 1.6, Monocytes # (Auto) 0.5, Eosinophils # (Auto) 0.0, Basophils # (Auto) 0.0, Sodium Level 137, Potassium Level 3.6, Chloride Level 106, Carbon Dioxide Level 21, Anion Gap 10, Blood Urea Nitrogen 11, Creatinine 0.65, Estimat Glomerular Filtration Rate > 60, BUN/ Creatinine Ratio 17, Glucose Level 101, Calcium Level 8.9, Corrected Calcium 9.3 , Total Bilirubin 0.6, Aspartate Amino Transf (AST/SGOT) 172H, Alanine Aminotransferase (ALT/SGPT) 287H, Alkaline Phosphatase 47, Total Protein 6.6, Albumin 3.5, Smear Scan YES Microbiology 03/23/18 Blood Culture - Final, Complete No growth 03/25/18 Gram Stain - Final, Complete 03/25/18 Sputum Culture - Final, Complete Usual upper respiratory eliezer 03/23/18 Urine Culture - Final, Complete NO GROWTH Assessment/Plan Assessment/Plan Assess & Plan/Chief Complaint Left pneumonia. Cough. Leukopenia. Fever. Sepsis. Dizziness. Nauseousness area . 03/30/18. Pneumonia. Cough. Tickborne disease. Liver enzymes coming down. Dizziness. White blood cell count is increasing. ENT to see patient tomorrow. MRI today. . 03/30/18. Tickborne disease better. Liver enzymes doing better. White blood cell count increasing. Patient still dizzy. Went over MRI report Clinical Quality Measures DVT/VTE Risk/Contraindication: Risk Factor Score Per Nursin RFS Level Per Nursing on Admit: 2=Moderate DIANA HAQ DO Mar 30, 2018 18:49
[2018-03-31] VITALS: BP 143/74
[2018-03-31] MEDS: IBUPROFEN 800 MG (MOTRIN) TAB PO SCH ×4 (02:25→20:29)
[2018-03-31] MEDS: NYSTATIN ORAL SUSP 5 ML UDC PO SCH (05:29)
[2018-03-31] MEDS: DOXYCYCLINE 100 MG (VIBRAMYCIN) TABLET PO SCH ×2 (05:29→18:58)
[2018-03-31] MEDS: LACTOBACILLUS ACIDOPHILUS (PROBIOTIC) CAPSULE PO SCH ×3 (05:29→18:57)
[2018-03-31 06:04] LABS: HEMOGLOBIN 14.1 G/DL (13.3-17.7); MEAN PLATELET VOLUME 9.9 FL (7.4-10.4); RED BLOOD COUNT 4.45 10^6/uL (4.35-5.85); RED CELL DISTRIBUTION WIDTH 12.4 % (10.0-14.5); WHITE BLOOD COUNT 4.3 10^3/uL (4.3-11.0)
[2018-03-31] MEDS: ONDANSETRON 4 MG/2 ML (SDV) Z0FRAN IVP PRN (06:16)
[2018-03-31 06:20] LABS: ALANINE AMINOTRANSFERASE 253 U/L (0-55); ALBUMIN 3.6 GM/DL (3.2-4.5); ALKALINE PHOSPHATASE 52 U/L (40-136); BILIRUBIN,TOTAL 0.8 MG/DL (0.1-1.0); BUN/CREATININE RATIO 18; CARBON DIOXIDE 21 MMOL/L (21-32); CHLORIDE 108 MMOL/L (98-107); CREATININE SERUM 0.66 MG/DL (0.60-1.30); GFR ESTIMATED > 60; GLUCOSE 99 MG/DL (70-105); POTASSIUM 3.7 MMOL/L (3.6-5.0); SODIUM 139 MMOL/L (135-145); TOTAL PROTEIN 6.7 GM/DL (6.4-8.2)
[2018-03-31] MEDS: amLODIPine 10 MG (NORVASC) TAB PO SCH (08:41)
[2018-03-31] MEDS: FAMOTIDINE 20 MG (PEPCID) TABLET PO SCH ×2 (08:41→20:29)
[2018-03-31] MEDS: IRBESARTAN 150 MG (AVAPRO) TAB PO SCH (08:41)
[2018-03-31] MEDS: ENOXAPARIN 40 MG/0.4 ML (LOVENOX) SYR SC SCH (08:41)
[2018-03-31 08:42] VITALS: BP 143/73
--- NOTE | 2018-03-31 09:31 | Physical Therapy Daily Note ---
PT Daily Note-Current Subjective Pt. up in chair visiting with Dr Phan. States he has no appetite, cant eat this hospital food and really wants to go home. Tells this DIPLOMATIC COURIER that he does have dizziness bu its not new and is really opposed to getting up to walk. States he has managed this condition by picking and choosing when he gets up according to hoe bad it is at the time. Pt. does agree to seated LE exercise and standing for balance etc. Pt. states he has never done vestibular exercises but his dizziness is a spinning affect and is positionally sensitive. States he has visited Dr Casas in the past Pain Numeric Pain Scale: 0-No Pain Comment: states his main c/o is weakness Mental Status Patient Orientation: Normal For Age flat affect, appears frustrated Transfers Functional [place] Measure 0=Not Assessed/NA 4=Minimal Assistance 1=Total Assistance 5=Supervision or Setup 2=Maximal Assistance 6=Modified [place] 3=Moderate Assistance 7=Complete IndependenceIRFPAI Quality Coding Scale 6 Independent with activity with or without an assistive device 5 Patient requires set up or clean up by helper. Patient completes activity by themselves 4 Supervision or touching assist (CGA). [place] provide cues , steadying assist 3 The helper provides less than half the effort to complete the activity 2 The helper provides more than half the effort to complete the activity 1 Dependent. The helper does all the effort to complete an activity 7 Patient refused to complete or attempt activity 9 The patient did not perform the activity before the current illness or injury 88 Not attempted due to Medical conditions or safety concerns sit to stands mod i Weight Bearing Right Lower Extremity: Right Full Weight Bearing Left Lower Extremity: Left Full Weight Bearing Balance Special Test Comments static stance 20 to 25 sec no LOB Exercises Seated Therapy Exercises: Ankle pumps, Sit to stand, Long arc quads, Hip flexion, Hip abd/add Seated Reps: 12 Assessment Current Status: Good Progress pt. was visited by Dr Phan and Dr Del Rio both stating he will have a hidascan today , has elevated liver enzymes, want to R/O gall bladder dysfunction and if its negative he can DC PT Data Steward Goals Data Steward Goals PT Care Home Goals Time Frame: Apr 03, 2018 Transfers (B,C,W/C) (FIM): 7 Gait (FIM): 6 Gait distance (FIM): 3=150 ft Distance: 300' Gait Level of Assist: 6 Gait Assistive Device: FWW PT Plan Treatment/Plan Treatment Plan: Continue Plan of Care Treatment Plan: Bed Mobility, Education, Functional Activity Jcarlos, Functional Strength, Gait, Safety, Therapeutic Exercise, Transfers Treatment Duration: Apr 03, 2018 Frequency: 6 times per week Estimated Hrs Per Day: .25 hour per day Patient and/or Family Agrees t: Yes Time/GCodes Time In: 910 Time Out: 930 Total Billed Treatment Time: 20 Total Billed Treatment 1,EX20m G Codes Necessary: GLORIA Oshea DIPLOMATIC COURIER Mar 31, 2018 09:31
--- NOTE | 2018-03-31 11:20 | Cardiology Progress Note ---
Cardiology SOAP Progress Note Subjective: Still feeling unwell. Objective: I&O/Vital Signs 03/31/18 03/31/18 00:00 08:42 Temp 97.3 98.4 Pulse 64 73 Resp 20 18 B/P (MAP) 143/74 (97) 143/73 (96) Pulse Ox 97 97 O2 Delivery Room Air Room Air 03/31/18 00:00 Intake Total 1652 ml Output Total 675 ml Balance 977 ml Weight (Pounds): 172 Weight (Ounces): 4.0 Weight (Calculated Kilograms): 78.051245 Constitutional: appears stated age, AAO x 3; No apparent distress; well- developed, well-nourished Respiratory: No accessory muscle use, No respiratory distress, No chest tender , No chest expansion is symmetric; chest is bilaterally symmetric; No lungs clear to percussion; lungs clear to auscultation; No crackles, No rhonchi, No rales, No stridor, No wheezing, No pleural rub, No other Cardiovascular: regular rate-rhythm; No irregularly irregular, No extra beats, No parasternal heave is noted, No JVD, No edema, No bradycardia, No tachycardia , No point of maximal impulse, No cardiac thrills are palpable; S1 and S2; No gallop/S3, No gallop/S4, No diastolic murmur; systolic murmur; No friction rub, No click, No other Gastrointestional: No tender, No soft, No round, No distended, No pulsatile mass, No organomegaly, No guarding, No rebound, No tenderness, No hernia, No mass, No audible bowel sounds, No abnormal bowel sounds, No abdominal bruits, No spleenomegaly, No other Extremities: No normal range of motion, No non-tender, No normal inspection, No pedal edema, No calf tenderness, No normal capillary refill, No pelvis stable , No calf tenderness, No inflammation, No pedal edema, No slow capillary refill , No swelling, No other, No abrasion, No clubbing, No cyanosis, No ecchymosis, No laceration, No no lower extremity edema bilateral, No significant edema, No tenderness, No wound Neurologic/Psychiatric: no motor/sensory deficits, alert, normal mood/affect, oriented x 3, power is 5/5 both on sides Skin: normal color, warm/dry Results/Procedures: Labs Laboratory Tests 03/31/18 05:35: White Blood Count 4.3, Red Blood Count 4.45, Hemoglobin 14.1, Hematocrit 40, Mean Corpuscular Volume 89, Mean Corpuscular Hemoglobin 32, Mean Corpuscular Hemoglobin Concent 36, Red Cell Distribution Width 12.4, Platelet Count 269, Mean Platelet Volume 9.9, Sodium Level 139, Potassium Level 3.7, Chloride Level 108H, Carbon Dioxide Level 21, Anion Gap 10, Blood Urea Nitrogen 12, Creatinine 0.66, Estimat Glomerular Filtration Rate > 60, BUN/Creatinine Ratio 18, Glucose Level 99, Calcium Level 9.0, Corrected Calcium 9.3, Total Bilirubin 0.8, Aspartate Amino Transf (AST/SGOT) 126H, Alanine Aminotransferase (ALT/SGPT) 253H , Alkaline Phosphatase 52, Total Protein 6.7, Albumin 3.6 Microbiology 03/23/18 Blood Culture - Final, Complete No growth 03/25/18 Gram Stain - Final, Complete 03/25/18 Sputum Culture - Final, Complete Usual upper respiratory eliezer 03/23/18 Urine Culture - Final, Complete NO GROWTH A/P: Assessment/Dx: Pneumonia, Suspicion for Michel MOUNTAIN SPOTTED FEVER/tick borne illness, Hypertension, Shortness of breath, Moderate to severe mitral regurgitation, Diastolic dysfunction Plan: Fatigue and weakness: Deferred to the primary team. On IV antibiotics for pneumonia. Leukopenia is noted with anemia. Atypical bacteria or viral syndrome is suspected. Hypertension: Continue angiotensin receptor blanca and amlodipine. Shortness of breath: Euvolemic on examination with no significant evidence of congestive heart failure. Echocardiogram shows normal LV function. Moderate to severe mitral regurgitation: With left atrial enlargement on echocardiogram, suggest chronic mitral regurgitation. We will need further review in the near future to assess candidature for mitral valve surgery. Currently normal EF and normal dimensions of the LV. Moderate diastolic dysfunction, continue to monitor. Thank you for your consultation. Please call me if you have any questions. Nael Harvey MD, FACP, FACC, FSCAI, FHRS, CCDS Interventional Cardiology Cardiac Electrophysiology Vascular Medicine and Endovascular Interventions Focused Exam Time of Focused Exam: 06:45 Jim HARVEY MD Mar 31, 2018 11:20 am
[2018-03-31] MEDS ORDERED: CATHETER FLUSH 10 ML SYR IV PRN (12:00)
--- NOTE | 2018-03-31 12:55 | Progress Note ---
Focused Exam Time of Focused Exam: 06:45 Objective Exam Last Set of Vital Signs Vital Signs Date Time Temp Pulse Resp B/P (MAP) Pulse Ox O2 Delivery O2 Flow Rate FiO2 03/31/18 08:42 98.4 73 18 143/73 (96) 97 Room Air 03/26/18 08:47 3.00 Capillary Refill : Less Than 3 Seconds I&O Intake and Output 03/31/18 00:00 Intake Total 1902 ml Output Total 975 ml Balance 927 ml Intake Oral 1902 ml Output Urine Total 975 ml # Voids 3 # Bowel Movements 1 General: Alert, Oriented X3, Cooperative, No Acute Distress HEENT: Atraumatic, PERRLA Neck: Supple Lungs: Other (CRACKLES IN BASE ON LEFT) Heart: Regular Rate Abdomen: Normal Bowel Sounds, Soft Extremities: No Clubbing, No Edema Neuro: Cranial Nerves 3-12 NL Psych/Mental Status: Mental Status NL, Mood NL (FLAT AFFECT) Results Lab Laboratory Tests 03/31/18 05:35: White Blood Count 4.3, Red Blood Count 4.45, Hemoglobin 14.1, Hematocrit 40, Mean Corpuscular Volume 89, Mean Corpuscular Hemoglobin 32, Mean Corpuscular Hemoglobin Concent 36, Red Cell Distribution Width 12.4, Platelet Count 269, Mean Platelet Volume 9.9, Sodium Level 139, Potassium Level 3.7, Chloride Level 108H, Carbon Dioxide Level 21, Anion Gap 10, Blood Urea Nitrogen 12, Creatinine 0.66, Estimat Glomerular Filtration Rate > 60, BUN/Creatinine Ratio 18, Glucose Level 99, Calcium Level 9.0, Corrected Calcium 9.3, Total Bilirubin 0.8, Aspartate Amino Transf (AST/SGOT) 126H, Alanine Aminotransferase (ALT/SGPT) 253H , Alkaline Phosphatase 52, Total Protein 6.7, Albumin 3.6 Microbiology 03/23/18 Blood Culture - Final, Complete No growth 03/25/18 Gram Stain - Final, Complete 03/25/18 Sputum Culture - Final, Complete Usual upper respiratory eliezer 03/23/18 Urine Culture - Final, Complete NO GROWTH Assessment/Plan Assessment/Plan Assess & Plan/Chief Complaint LEFT BASILAR PNEUMONIA COUGH LEUKOPENIA FEVER SIMPLE SEPSIS HYPERTENSION DIARRHEA WEAKNESS THRUSH LEFT BASILAR PNEUMONIA WITH COUGH - REPEAT CHEST XRAY NEGATIVE - BLOOD CULTURE NEGATIVE - WHITE COUNT CONTINUES TO BE SUPPRESSED, WILL STOP IV ANTIBIOTICS AT THIS TIME, AND WILL INVESTIGATE TO SEE IF THERE ARE ANY SPECIFIC TESTS THAT WOULD BE AVAILABLE FROM THE [facility] FOR VIRAL SYNDROMES. I HAVE DISCUSSED THE CASE WITH LINDSAY - NELIA FOR INFECTION CONTROL - YESTERDAY SHE MADE SOME PHONE CALLS TO THE STATE ABOUT SYNDROMIC SURVEILLANCE - THEY REPORT MULTIPLE CASES LIKE VINH'S WITH FEVERS AND SUPPRESSION OF WHITE COUNT. HE WAS MADE AWARE OF THIS AND WE HAVE BEEN GIVEN PERMISSION FROM THE [facility] TO SEND TWO VIRAL CULTURES TO THE [facility] FOR TESTING. MEANWHILE WE WILL CONTINUE WITH SUPPORTIVE CARE, FEVER CONTROL - SCHEDULED IBUPROFEN AND PRN TYLENOL. WEAKNESS - START PHYSICAL THERAPY TODAY. LEUKOPENIA AND FEVER WITH SIMPLE SEPSIS - MONITOR SYMPTOMS, PT APPEARS IMPROVED FROM SIMPLE SEPSIS STANDPOINT. HIS FOCUSED EXAM WAS NEGATIVE FOR SEVERE SEPSIS SYMPTOMS. HYPERTENSION - BLOOD PRESSURE ELEVATING - RESTARTED AMLODIPINE AND IRBESARTAN DIARRHEA - STARTED ON PROBIOTICS TID, AND IMMODIUM - DIARRHEA HAS SLOWED DOWN. MONITOR OUTPUT. WEAKNESS - SHOULD IMPROVE WITH HIS HYDRATION. THRUSH - RX FOR NYSTATIN DVT PROPHYLAXIS WITH LOVENOX AND SCD'S GI PROPHYLAXIS WITH PEPCID. Clinical Quality Measures Admission Status Admission Dx LEFT BASILAR PNEUMONIA COUGH LEUKOPENIA FEVER SIMPLE SEPSIS HYPERTENSION DIARRHEA WEAKNESS LEFT BASILAR PNEUMONIA WITH COUGH - REPEAT CHEST XRAY TOMORROW AFTER HYDRATION. CONTINUE WITH IV ROCEPHIN AND AZITHROMYCIN. BLOOD CULTURE PENDING. LEUKOPENIA AND FEVER WITH SIMPLE SEPSIS - WAITING ON CULTURE REPORT, MONITOR SYMPTOMS, PT APPEARS IMPROVED FROM SIMPLE SEPSIS STANDPOINT. HIS FOCUSED EXAM WAS NEGATIVE FOR SEVERE SEPSIS SYMPTOMS. HYPERTENSION - BLOOD PRESSURE LOW AT THIS TIME - MONITOR BLOOD PRESSURES AND HOLD MEDICATION AT THIS TIME. DIARRHEA - PER PT THIS HAS SLOWED DOWN - WILL START ON PROBIOTICS TID, MONITOR OUTPUT. WEAKNESS - SHOULD IMPROVE WITH HIS HYDRATION. DVT PROPHYLAXIS WITH LOVENOX AND SCD'S GI PROPHYLAXIS WITH PEPCID. DVT/VTE Risk/Contraindication: Risk Factor Score Per Nursin RFS Level Per Nursing on Admit: 2=Moderate TRINITY ROLDAN MD Mar 31, 2018 12:55
--- NOTE | 2018-03-31 17:26 | Progress Note-Standard ---
Standard Progress Note Progress Notes/Assess & Plan Date Seen by a Provider: Mar 31, 2018 Time Seen by a Provider: 17:00 Progress/Assessment & Plan ENT-Augusto Patient seen for Dizziness -started 2 years ago with signficant postional dizziness which can last for some time currently admitted to hospital for pneumonia-dizziness has worsened Exam-showed no nystagmus which would point toward a central cause-needs MRI with kalen for work-up will also need to see as outpt for audio and forther work-up full consult dictaed-will be back past dylan MRI completed to review results with him later this week [id number] past to see patient-pt down getting liver scan MRI-normal Lab work reviewd-no tick disease dizziness prob secondary to his primary illness will arrange to see as outpt for audio if further balance testing needed will arrange for as an oupt once he is better form his other illness Focused Exam Time of Focused Exam: 06:45 SONNY LAYNE MD Mar 31, 2018 5:26 pm
[2018-03-31 17:50] VITALS: BP 160/78
--- NOTE | 2018-03-31 18:30 | Diagnostic Imaging Report ---
INDICATION: Elevated liver enzymes. COMPARISON STUDY: Liver ultrasound from two days ago. FINDINGS: The patient was given 4.68 mCi of technetium 99m labeled Choletec intravenously. This was followed by oral ingestion of 8 ounces of Ensure one hour into the exam. Imaging was continued for another 45 minutes. There is normal uptake and excretion of the radiopharmaceutical by the liver. The ejection fraction was a little low at 28.6%. IMPRESSION: There is a decreased ejection fraction of 28%. Normal value is greater than 35%. Dictated by: Dictated on workstation # [id number]
--- NOTE | 2018-03-31 21:24 | Consultation ---
History of Present Illness History of Present Illness Patient Consulted On(jenny/time) 03/31/18 09:16 Date Seen by Provider: Mar 31, 2018 Time Seen by Provider: 09:16 History of Present Illness Consult requested by Dr. Phan for elevated liver enzymes and contracted gallbladder Patient is a 77-year-old male who was admitted on March 23, 2018. Patient was having some nausea vomiting diarrhea a productive cough and extreme weakness. Patient was clinically diagnosed with pneumonia. Patient has also had fever upon initial presentation to the hospital. He's had significant workup. He has significant dizziness he's had for approximately 2 years. Patient liver enzymes upon initial admission were normal range but throughout hospital course became elevated. He had a gallbladder ultrasound performed demonstrating contracted gallbladder with mild gallbladder wall thickening which was felt to be incidental findings. Patient still with cough. He's not having any abdominal. He denies any fevers today or sweats chills shortness of breath or chest pain. Allergies and Home Medications Allergies Coded Allergies: Sulfa (Sulfonamide Antibiotics) (Verified Allergy, Unknown, DELERIUM, 07/19) Home Medications Amlodipine Besylate 10 Mg Tablet, 10 MG PO DAILY, (Reported) Irbesartan/Hydrochlorothiazide 1 Each Tablet, 1 TAB PO DAILY, (Reported) Multivitamin 1 Each Tablet, 1 TAB PO DAILY, (Reported) Triamterene/Hydrochlorothiazid 1 Each Tablet, 0.5 TAB PO DAILY, (Reported) Patient Home Medication List Home Medication List Reviewed: Yes Past [id number] Hx Patient Social History Alcohol Use: Rarely Uses Number of Drinks Today: 0 Recreational Drug Use: No Smoking Status: Never a Smoker 2nd Hand Smoke Exposure: No Recent Foreign Travel: No Contact w/Someone Who Travel: No Recent Infectious Disease Expo: No Recent Hopitalizations: No Physical Abuse Screen: No Sexual Abuse: No Immunizations Up To Date PED Vaccines UTD: Yes Date of Pneumonia Vaccine: Feb 20, 2011 Date of Influenza Vaccine: Mar 08, 2018 Seasonal Allergies Seasonal Allergies: No Surgeries History of Surgeries: Yes (skin cancer removal with subsequent plastic surgery on the face) Respiratory History of Respiratory Disorde: No Cardiovascular History of Cardiac Disorders: Yes Cardiac Disorders: Hypertension Neurological History of Neurological Disord: No Reproductive System Hx Reproductive Disorders: No Sexually Transmitted Disease: No HIV/AIDS: No Genitourinary History of Genitourinary Disor: Yes Genitourinary Disorders: Benign Prostatic Hyperpl Gastrointestinal History of Gastrointestinal Di: No Musculoskeletal History of Musculoskeletal Dis: No Endocrine History of Endocrine Disorders: No HEENT History of HEENT Disorders: No Loss of Vision: Denies Hearing Impairment: Denies Cancer History of Cancer: Yes Cancer: Skin Psychosocial History of Psychiatric Problem: No Integumentary History of Skin or Integumenta: Yes (pityriasis rosea) Blood Transfusions History of Blood Disorders: No Reviewed Nursing Assessment Reviewed/Agree w Nursing PMH: Yes Family Medical History Significant Family History: Hypertension Family Medial History: Patient reports no known family medical history. Review of Systems-General Constitutional: see HPI EENTM: see HPI Respiratory: see HPI Cardiovascular: no symptoms reported Gastrointestinal: see HPI Genitourinary: no symptoms reported Musculoskeletal: no symptoms reported Skin: no symptoms reported Psychiatric/Neurological: No Symptoms Reported Physical Exam-General Problems Physical Exam Vital Signs Vital Signs - First Documented 03/25/18 03/25/18 04:07 04:29 Temp 101.9 Pulse 80 Resp 18 B/P (MAP) 149/72 (97) Pulse Ox 96 O2 Delivery Nasal Cannula O2 Flow Rate 2.00 Capillary Refill : Less Than 3 Seconds General Appearance: no apparent distress HEENT: PERRL/EOMI Neck: supple Respiratory: chest non-tender, no respiratory distress, no accessory muscle use Cardiovascular: regular rate, rhythm Gastrointestinal: normal bowel sounds, non tender, soft, no organomegaly, no pulsatile mass Back: normal inspection, no CVA tenderness Extremities: non-tender, normal inspection Neurologic/Psychiatric: no motor/sensory deficits, alert, normal mood/affect, oriented x 3 Skin: normal color, warm/dry Lymphatic: no adenopathy Data Review Labs Laboratory Tests 03/31/18 05:35: White Blood Count 4.3, Red Blood Count 4.45, Hemoglobin 14.1, Hematocrit 40, Mean Corpuscular Volume 89, Mean Corpuscular Hemoglobin 32, Mean Corpuscular Hemoglobin Concent 36, Red Cell Distribution Width 12.4, Platelet Count 269, Mean Platelet Volume 9.9, Sodium Level 139, Potassium Level 3.7, Chloride Level 108H, Carbon Dioxide Level 21, Anion Gap 10, Blood Urea Nitrogen 12, Creatinine 0.66, Estimat Glomerular Filtration Rate > 60, BUN/Creatinine Ratio 18, Glucose Level 99, Calcium Level 9.0, Corrected Calcium 9.3, Total Bilirubin 0.8, Aspartate Amino Transf (AST/SGOT) 126H, Alanine Aminotransferase (ALT/SGPT) 253H , Alkaline Phosphatase 52, Total Protein 6.7, Albumin 3.6 Microbiology 03/23/18 Blood Culture - Final, Complete No growth 03/25/18 Gram Stain - Final, Complete 03/25/18 Sputum Culture - Final, Complete Usual upper respiratory eliezer 03/23/18 Urine Culture - Final, Complete NO GROWTH Assessment/Plan Assessment/Plan Assessment/Plan elevated liver transaminases Left pneumonia. Cough. Leukopenia. Fever. Sepsis. Dizziness. Nausea Patient with elevated liver transaminases which are improving. He had a contracted gallbladder and slightly thickened wall by ultrasound which is likely an incidental finding. Discussed this with Dr. Phan which I would get a HIDA scan to further evaluate the gallbladder. If the cystic duct is patent there is no acute or chronic cholecystitis that we would need to be concerned about. If the ejection fraction is below normal this could be a false positive finding due to current illness. No surgical intervention at this time. Will follow. Clinical Quality Measures DVT/VTE Risk/Contraindication: Risk Factor Score Per Nursin RFS Level Per Nursing on Admit: 2=Moderate SHANE MERCEDES DO Mar 31, 2018 21:24
[2018-04-01 00:56] VITALS: BP 125/66
[2018-04-01] MEDS: IBUPROFEN 800 MG (MOTRIN) TAB PO SCH ×2 (02:24→08:49)
[2018-04-01] MEDS: DOXYCYCLINE 100 MG (VIBRAMYCIN) TABLET PO SCH (06:01)
[2018-04-01] MEDS: LACTOBACILLUS ACIDOPHILUS (PROBIOTIC) CAPSULE PO SCH (06:01)
[2018-04-01 06:18] LABS: BASOPHILS % (AUTO) 0 % (0-10); EOSINOPHILS # (AUTO) 0.1 10^3/uL (0.0-0.3); EOSINOPHILS % (AUTO) 2 % (0-10); HEMATOCRIT 39 % (40-54); HEMOGLOBIN 13.5 G/DL (13.3-17.7); LYMPHOCYTES % (AUTO) 35 % (12-44); MEAN CORPUSCULAR HEMOGLOBIN 31 PG (25-34); MEAN CORPUSCULAR HGB CONC 34 G/DL (32-36); MEAN CORPUSCULAR VOLUME 89 FL (80-99); MEAN PLATELET VOLUME 9.4 FL (7.4-10.4); MONOCYTES # (AUTO) 0.8 X 10^3 (0.0-1.0); MONOCYTES % (AUTO) 14 % (0-12); NEUTROPHILS # (AUTO) 2.8 X 10^3 (1.8-7.8); NEUTROPHILS % (AUTO) 49 % (42-75); PLATELET COUNT 325 10^3/uL (130-400); RED BLOOD COUNT 4.41 10^6/uL (4.35-5.85); RED CELL DISTRIBUTION WIDTH 12.5 % (10.0-14.5); WHITE BLOOD COUNT 5.8 10^3/uL (4.3-11.0)
[2018-04-01 06:42] LABS: ALANINE AMINOTRANSFERASE 225 U/L (0-55); ALBUMIN 3.6 GM/DL (3.2-4.5); ALKALINE PHOSPHATASE 48 U/L (40-136); BILIRUBIN,TOTAL 0.6 MG/DL (0.1-1.0); BUN/CREATININE RATIO 25; CALCIUM 8.9 MG/DL (8.5-10.1); CARBON DIOXIDE 20 MMOL/L (21-32); CHLORIDE 108 MMOL/L (98-107); CREATININE SERUM 0.69 MG/DL (0.60-1.30); GFR ESTIMATED > 60; GLUCOSE 99 MG/DL (70-105); POTASSIUM 3.7 MMOL/L (3.6-5.0); SODIUM 137 MMOL/L (135-145); TOTAL PROTEIN 6.7 GM/DL (6.4-8.2)
--- NOTE | 2018-04-01 07:11 | Progress Note-Standard ---
Standard Progress Note Progress Notes/Assess & Plan Date Seen by a Provider: Apr 01, 2018 Time Seen by a Provider: 06:00 Progress/Assessment & Plan UNRULY-Augusto Patient seen for Dizziness -started 2 years ago with signficant postional dizziness which can last for some time currently admitted to hospital for pneumonia-dizziness has worsened Exam-showed no nystagmus which would point toward a central cause-needs MRI with kalen for work-up will also need to see as outpt for audio and forther work-up full consult dictaed-will be back past jenaehn MRI completed to review results with him later this week [id number] past to see patient-pt down getting liver scan MRI-normal Lab work reviewd-no tick disease dizziness prob secondary to his primary illness will arrange to see as outpt for audio if further balance testing needed will arrange for as an oupt once he is better form his other illness [id number] Patient seen MRi results reviwed with patient still complains of dizziness reymundo lplan on further work-up s outpatient to include audio may need referral for balance testing Focused Exam Time of Focused Exam: 06:45 SONNY LAYNE MD Apr 01, 2018 7:11 am
[2018-04-01 08:00] VITALS: BP 144/78
[2018-04-01] MEDS: ENOXAPARIN 40 MG/0.4 ML (LOVENOX) SYR SC SCH (08:49)
[2018-04-01] MEDS: amLODIPine 10 MG (NORVASC) TAB PO SCH (08:49)
[2018-04-01] MEDS: FAMOTIDINE 20 MG (PEPCID) TABLET PO SCH (08:49)
[2018-04-01] MEDS: IRBESARTAN 150 MG (AVAPRO) TAB PO SCH (08:49)
--- NOTE | 2018-04-01 09:17 | Discharge Summary ---
Diagnosis/Chief Complaint Date of Admission Mar 23, 2018 at 07:21 Date of Discharge Reason Hospital Visit PT IS A 77 Y/O MALE WHO IS WELL KNOWN TO ME FROM CLINIC. HE WAS SEEN IN THE OFFICE ON THURSDAY OF LAST WEEK - HE HAD A SHINGLES SHOT AFTER THE OFFICE VISIT, THEN STARTED TO FEEL POORLY ON THURSDAY. APPARENTLY HE STARTED TO HAVE NAUSEA , EMESIS AND DIARRHEA ON THURSDAY AND THEN HE STARTED TO HAVE A PRODUCTIVE COUGH. HE WAS SO WEAK THAT HE CALLED THE AMBULANCE SERVICE TO PICK HIM UP TO BRING HIM TO THE HOSPITAL. IN THE ER - HIS WHITE COUNT WAS 3 AND HIS PHYSICAL EXAM SHOWED PNEUMONIA - HIS XRAY WAS NEGATIVE, BUT PER ER HE APPEARED TO BE SLIGHTLY DEHYDRATED AND THEY FELT THAT THE CHEST XRAY DID NOT SHOW WHAT HIS PHYSICAL EXAM WAS SHOWING. HE WAS THEN ADVISED THAT HE NEEDED TO BE ADMITTED TO THE HOSPITAL. Discharge Summary Discharge Physical Examination Allergies: Coded Allergies: Sulfa (Sulfonamide Antibiotics) (Verified Allergy, Unknown, DELERIUM, 07/19) Vitals & I&Os Vital Signs Date Time Temp Pulse Resp B/P (MAP) Pulse Ox O2 Delivery O2 Flow Rate FiO2 04/01/18 08:00 98.6 79 20 144/78 (100) 98 Room Air 03/26/18 08:47 3.00 General Appearance: Alert, Oriented X3, Cooperative, No Acute Distress HEENT: Atraumatic, PERRLA Respiratory: Other (CRACKLES IN BASE ON LEFT) Cardiovascular: Regular Rate Abdominal: Normal Bowel Sounds, Soft Extremities: No Clubbing, No Edema Neuro: Cranial Nerves 3-12 NL Psych/Mental Status: Mental Status NL, Mood NL (FLAT AFFECT) Hospital Course Pending Labs Laboratory Tests 04/01/18 05:39: White Blood Count 5.8, Red Blood Count 4.41, Hemoglobin 13.5, Hematocrit 39, Mean Corpuscular Volume 89, Mean Corpuscular Hemoglobin 31, Mean Corpuscular Hemoglobin Concent 34, Red Cell Distribution Width 12.5, Platelet Count 325, Mean Platelet Volume 9.4, Neutrophils (%) (Auto) 49, Lymphocytes (%) (Auto) 35, Monocytes (%) (Auto) 14, Eosinophils (%) (Auto) 2, Basophils (%) (Auto) 0, Neutrophils # (Auto) 2.8, Lymphocytes # (Auto) 2.0, Monocytes # (Auto) 0.8, Eosinophils # (Auto) 0.1, Basophils # (Auto) 0.0, Sodium Level 137, Potassium Level 3.7, Chloride Level 108, Carbon Dioxide Level 20, Anion Gap 9, Blood Urea Nitrogen 17, Creatinine 0.69, Estimat Glomerular Filtration Rate > 60, BUN/ Creatinine Ratio 25, Glucose Level 99, Calcium Level 8.9, Corrected Calcium 9.2 , Total Bilirubin 0.6, Aspartate Amino Transf (AST/SGOT) 100, Alanine Aminotransferase (ALT/SGPT) 225, Alkaline Phosphatase 48, Total Protein 6.7, Albumin 3.6 Discharge Instructions to patient/family Please see electronic discharge instructions given to patient. Discharge Medications Reviewed and agree with Discharge Medication list on patient's Discharge Instruction sheet Clinical Quality Measures DVT/VTE Risk/Contraindication: Risk Factor Score Per Nursin RFS Level Per Nursing on Admit: 2=Moderate TRINITY ROLDAN MD Apr 01, 2018 09:17
--- NOTE | 2018-04-01 09:20 | Discharge Inst-Complex ---
PDI Med Rec & Follow Up Appt. Continued Medications: Amlodipine Besylate (Amlodipine Besylate) 10 Mg Tablet 10 MG PO DAILY, TAB Irbesartan/Hydrochlorothiazide (Irbesartan-Hctz 300-12.5 mg Tb) 1 Each Tablet 1 TAB PO DAILY, TAB Multivitamin (Daily Value) 1 Each Tablet 1 TAB PO DAILY, TAB Triamterene/Hydrochlorothiazid (Triamterene-Hctz 37.5-25 mg Tb) 1 Each Tablet 0.5 TAB PO DAILY, TAB Prescription: Transmitted to Pharmacy Activity, Diet and PDI Resume Normal Activity: Yes Discharge Diet: Regular Diet Diet After 24 Hours: Clear Liquid if Nauseous Driving Instructions: You May Drive Symptoms to Reoprt to Dr.: Appetite Changes, Fever Over 101 Degrees F, Questions/Concerns For Problems or Questions: Contact Your Physician Infection Signs and Symptoms: Temperature Above 101 F TRINITY ROLDAN MD Apr 01, 2018 09:20
--- NOTE | 2018-04-01 10:31 | Progress Note-Cardiology ---
Cardiology SOAP Progress Note Subjective: Sitting up in a chair at the bedside. Wants to go home. No c/o CP, dyspnea, palpitations, syncope, near syncope or LE edema. Objective: I&O/Vital Signs 04/01/18 04/01/18 04/01/18 04/01/18 00:56 03:11 08:00 10:57 Temp 97.7 98.6 Pulse 69 79 Resp 18 20 B/P (MAP) 125/66 (85) 144/78 (100) Pulse Ox 95 98 O2 Delivery Room Air Room Air Room Air 04/01/18 00:00 Intake Total 1352 ml Output Total 200 ml Balance 1152 ml Weight (Pounds): 172 Weight (Ounces): 4.0 Weight (Calculated Kilograms): 78.636953 Constitutional: appears stated age, AAO x 3, well-developed, well-nourished Respiratory: chest is bilaterally symmetric, lungs clear to auscultation Cardiovascular: regular rate-rhythm, S1 and S2, systolic murmur (2/6) Gastrointestional: audible bowel sounds Extremities: no lower extremity edema bilateral Neurologic/Psychiatric: power is 5/5 both on sides Skin: normal color, warm/dry; No rash, No ulcerations Results/Procedures: Labs Laboratory Tests 04/01/18 05:39: White Blood Count 5.8, Red Blood Count 4.41, Hemoglobin 13.5, Hematocrit 39L, Mean Corpuscular Volume 89, Mean Corpuscular Hemoglobin 31, Mean Corpuscular Hemoglobin Concent 34, Red Cell Distribution Width 12.5, Platelet Count 325, Mean Platelet Volume 9.4, Neutrophils (%) (Auto) 49, Lymphocytes (%) (Auto) 35, Monocytes (%) (Auto) 14H, Eosinophils (%) (Auto) 2, Basophils (%) (Auto) 0, Neutrophils # (Auto) 2.8, Lymphocytes # (Auto) 2.0, Monocytes # (Auto) 0.8, Eosinophils # (Auto) 0.1, Basophils # (Auto) 0.0, Sodium Level 137, Potassium Level 3.7, Chloride Level 108H, Carbon Dioxide Level 20L, Anion Gap 9, Blood Urea Nitrogen 17, Creatinine 0.69, Estimat Glomerular Filtration Rate > 60, BUN/ Creatinine Ratio 25, Glucose Level 99, Calcium Level 8.9, Corrected Calcium 9.2 , Total Bilirubin 0.6, Aspartate Amino Transf (AST/SGOT) 100H, Alanine Aminotransferase (ALT/SGPT) 225H, Alkaline Phosphatase 48, Total Protein 6.7, Albumin 3.6 Microbiology 03/23/18 Blood Culture - Final, Complete No growth 03/25/18 Gram Stain - Final, Complete 03/25/18 Sputum Culture - Final, Complete Usual upper respiratory eliezer 03/23/18 Urine Culture - Final, Complete NO GROWTH A/P: Assessment: Moderate to severe mitral regurgitation with left atrial enlargement on echocardiogram, suggesting chronic mitral regurgitation, per echocardiogram by Dr. Harvey on 03-28-18. Echocardiogram showed conc LVH, normal LV systolic function, and moderate diastolic dysfunction Fatigue and weakness - improved On IV antibiotics for pneumonia. Leukopenia is noted with anemia. Atypical bacteria or viral syndrome is suspected - management per medical services Hypertension: Continue angiotensin receptor blanca and amlodipine. Plan: Continue current medication regimen D/C home today per medical services Advise out pt f/u with Dr. Harvey Plan discussed with pt and he verbalizes understanding of recs Physician Assessment Physician Assessment No cp or palp or syncope or shortness of breath Wishes to go home Lungs: clear Cor: reg with 2/6 HSM at card apex Ext: no c/c/e A&R * As documented in our note above that I updated (italics) and as noted below * I reviewed his record, interviewed him, examined him, and discussed his CV issues with him and answered his questions * Advised f/u with Dr Harvey on cardiac valvular disease (see above) VIV ACEVEDO Apr 01, 2018 10:30 ZOYA ARREDONDO MD FACP [facility] ASYLUMS Apr 01, 2018 11:50
--- NOTE | 2018-04-01 10:53 | Physical Therapy Daily Note ---
PT Daily Note-Current Subjective Pt states he is going home today. MRI (-). Still frustrated he is dizzy. States he has a FWW at home. Is getting ready to take a shower. Mental Status Patient Orientation: Person, Place, Time, Situation Transfers Functional [place] Measure 0=Not Assessed/NA 4=Minimal Assistance 1=Total Assistance 5=Supervision or Setup 2=Maximal Assistance 6=Modified [place] 3=Moderate Assistance 7=Complete IndependenceIRFPAI Quality Coding Scale 6 Independent with activity with or without an assistive device 5 Patient requires set up or clean up by helper. Patient completes activity by themselves 4 Supervision or touching assist (CGA). [place] provide cues , steadying assist 3 The helper provides less than half the effort to complete the activity 2 The helper provides more than half the effort to complete the activity 1 Dependent. The helper does all the effort to complete an activity 7 Patient refused to complete or attempt activity 9 The patient did not perform the activity before the current illness or injury 88 Not attempted due to Medical conditions or safety concerns Supine to/from Sit: 6 Sit to/from Stand: 6 Weight Bearing Right Lower Extremity: Right Full Weight Bearing Left Lower Extremity: Left Full Weight Bearing Gait Training Pt states he is capable of amb 200 ft but does not want to do that today as he is about to take a shower by himself. He amb 40 ft without and assistive device - steady except needed to touch wall for balance. Reviewed the benefits of using the FWW when dizzy. Assessment Current Status: Good Progress Pt's chronic dizziness places him at risk for falls. Recommend he uses his cane of FWW at home when needed. DC today to home. PT Halfway Goals Grain Farmer Goals PT Halfway Goals Time Frame: Apr 03, 2018 Transfers (B,C,W/C) (FIM): 7 Gait (FIM): 6 Gait distance (FIM): 3=150 ft Distance: 300' Gait Level of Assist: 6 Gait Assistive Device: FWW PT Plan Problem List Problem List: Balance Treatment/Plan Treatment Plan: Discontinue PT Treatment Plan: Bed Mobility, Education, Functional Activity Jcarlos, Functional Strength, Gait, Safety, Therapeutic Exercise, Transfers Home today per patient Treatment Duration: Apr 03, 2018 Frequency: 6 times per week Estimated Hrs Per Day: .25 hour per day Patient and/or Family Agrees t: Yes Discharge Recommendations Therapy D/C Recommendations: Home Independently Equpiment Recommendations-D/C: Straight Cane, Front Wheeled Walker Time/GCodes Time In: 925 Time Out: 935 Total Billed Treatment Time: 10 Total Billed Treatment Visit, gt G Codes Necessary: ISRAEL Mercer PT Apr 01, 2018 10:53
--- NOTE | 2018-04-01 11:00 | Progress Note ---
Subjective Date Seen by a Provider: Apr 01, 2018 Time Seen by a Provider: 10:54 Subjective/Events-last exam Patient with no abdominal pain. Still having issues with dizziness. Not having any n/v or diarrhea. Had HIDA scan with patent cystic duct decreased ef. Denies fever sweats chills shortness of breath or chest pain. I Focused Exam Time of Focused Exam: 06:45 Objective Exam Vital Signs Date Time Temp Pulse Resp B/P (MAP) Pulse Ox O2 Delivery O2 Flow Rate FiO2 04/01/18 08:00 98.6 79 20 144/78 (100) 98 Room Air 04/01/18 03:11 Room Air 04/01/18 00:56 97.7 69 18 125/66 (85) 95 Room Air 03/31/18 17:50 98.4 75 18 160/78 (105) 96 Room Air I & O 04/01/18 07:00 Intake Total 1552 ml Output Total 450 ml Balance 1102 ml Capillary Refill : Less Than 3 Seconds General Appearance: No Apparent Distress, WD/WN, Thin HEENT: Normal ENT Inspection Neck: Normal Inspection Respiratory: Chest Non Tender, No Accessory Muscle Use, No Respiratory Distress Cardiovascular: Regular Rate, Rhythm, No Murmur Peripheral Pulses: 2+ Dorsalis Pedis (R), 2+ Left Dors-Pedis (L) Gastrointestinal: normal bowel sounds, non tender, soft, no organomegaly, no pulsatile mass Extremity: Normal Capillary Refill, Normal Inspection, Non Tender, No Calf Tenderness, No Pedal Edema Neurologic/Psychiatric: Alert, Oriented x3, No Motor/Sensory Deficits, Normal Mood/Affect Skin: Normal Color, Warm/Dry Lymphatic: No Adenopathy Results Lab Laboratory Tests 04/01/18 05:39: White Blood Count 5.8, Red Blood Count 4.41, Hemoglobin 13.5, Hematocrit 39L, Mean Corpuscular Volume 89, Mean Corpuscular Hemoglobin 31, Mean Corpuscular Hemoglobin Concent 34, Red Cell Distribution Width 12.5, Platelet Count 325, Mean Platelet Volume 9.4, Neutrophils (%) (Auto) 49, Lymphocytes (%) (Auto) 35, Monocytes (%) (Auto) 14H, Eosinophils (%) (Auto) 2, Basophils (%) (Auto) 0, Neutrophils # (Auto) 2.8, Lymphocytes # (Auto) 2.0, Monocytes # (Auto) 0.8, Eosinophils # (Auto) 0.1, Basophils # (Auto) 0.0, Sodium Level 137, Potassium Level 3.7, Chloride Level 108H, Carbon Dioxide Level 20L, Anion Gap 9, Blood Urea Nitrogen 17, Creatinine 0.69, Estimat Glomerular Filtration Rate > 60, BUN/ Creatinine Ratio 25, Glucose Level 99, Calcium Level 8.9, Corrected Calcium 9.2 , Total Bilirubin 0.6, Aspartate Amino Transf (AST/SGOT) 100H, Alanine Aminotransferase (ALT/SGPT) 225H, Alkaline Phosphatase 48, Total Protein 6.7, Albumin 3.6 Microbiology 03/23/18 Blood Culture - Final, Complete No growth 03/25/18 Gram Stain - Final, Complete 03/25/18 Sputum Culture - Final, Complete Usual upper respiratory eliezer 03/23/18 Urine Culture - Final, Complete NO GROWTH Assessment/Plan Assessment/Plan Assessment/Plan elevated liver transaminases Left pneumonia. Cough. Leukopenia. Fever. Sepsis. Dizziness. Nausea Patient with elevated liver transaminases which are improving. He had a contracted gallbladder and slightly thickened wall by ultrasound which is likely an incidental finding. Discussed this with Dr. Emilie STATON scan results cystic duct is patent there is no acute or chronic cholecystitis and the ejection fraction is below normal but could be a false positive finding due to current illness. He is not having abdominal pain. He has not had any previous symptoms of gallbladder disease. If having more gallbladder like symptoms would do lap brianda but may not cause resolution of symptoms Clinical Quality Measures DVT/VTE Risk/Contraindication: Risk Factor Score Per Nursin RFS Level Per Nursing on Admit: 2=Moderate SHNAE MERCEDES DO Apr 01, 2018 11:00
== END 2018-04-01 10:50 | disposition home or self-care (01) | DRG 871 ==
LOC: EDUNIT# 05:11 → ER 05:13 → 4TH 07:21
PROVIDERS: ADMIT Family Medicine; ATTEND Family Medicine
DX: A41.9 Sepsis, unspecified organism (principal); J18.9 Pneumonia, unspecified organism; J20.9 Acute bronchitis, unspecified; A77.41 Ehrlichiosis chaffeensis [E. chaffeensis]; B37.0 Candidal stomatitis; H81.43 Vertigo of central origin, bilateral; E86.0 Dehydration; E87.8 Other disorders of electrolyte and fluid balance, not elsewhere classified; R09.02 Hypoxemia; I10 Essential (primary) hypertension; I34.0 Nonrheumatic mitral (valve) insufficiency; R19.7 Diarrhea, unspecified; D72.819 Decreased white blood cell count, unspecified; N40.0 Benign prostatic hyperplasia without lower urinary tract symptoms; L42 Pityriasis rosea; K05.10 Chronic gingivitis, plaque induced; Z85.828 Personal history of other malignant neoplasm of skin
CPT/HCPCS: 36415; 70553; 71045; 71046; 76705; 78227; 80053; 81000; 83605; 84145; 85007; 85025; 85027; 85045; 85610; 85730; 86618; 86666; 86668; 86757; 87040; 87070; 87088; 87205; 87804; 93306; 94640; 94760; 96361; 96374

== ENCOUNTER 2020-11-14 22:53 | Emergency (ER) | payer MEDICARE ==
[~2020-11-14] VITALS: Ht 172.7 cm; Wt 79.3 kg
[~2020-11-14 22:53] MED LIST changes: +AMLO-251 PO; +IRBE1TAB43 PO; +MULT-633 PO; +TRIA1TAB3 PO
[2020-11-14 23:00] VITALS: BP 189/86
--- NOTE | 2020-11-14 23:14 | ED Lower Extremity ---
General Chief Complaint: Lower Extremity Stated Complaint: R LEG PAIN Source: patient Exam Limitations: no limitations History of Present Illness Date Seen by Provider: November 14, 2020 Time Seen by Provider: 22:57 Initial Comments Patient presents ER by private conveyance from home with chief complaints of 2 weeks of pain in his low back that radiated down his buttock and into his thigh now it is down into his right anterior lower leg. He read online about blood clots and wanted to make sure this was not the case. He is not have a history of blood clots. He has no coronary or heart disease or peripheral vascular disease history. He takes a blood pressure medicine and medicines for prostate. He is not on any blood thinners. He is not having any shortness of air hemoptysis cough or racing heart rate. Is not having any chest pain. 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 Allergies and Home Medications Allergies Coded Allergies: Sulfa (Sulfonamide Antibiotics) (Verified Allergy, Unknown, DELERIUM, 07/19/07) Home Medications Amlodipine Besylate 10 Mg Tablet, 10 MG PO DAILY, (Reported) Irbesartan/Hydrochlorothiazide 1 Each Tablet, 1 TAB PO DAILY, (Reported) Multivitamin 1 Each Tablet, 1 TAB PO DAILY, (Reported) Triamterene/Hydrochlorothiazid 1 Each Tablet, 0.5 TAB PO DAILY, (Reported) Patient Home Medication List Home Medication List Reviewed: Yes Review of Systems Constitutional: No chills, No diaphoresis EENTM: No ear discharge, No ear pain Respiratory: No cough, No short of breath Cardiovascular: No chest pain, No edema Gastrointestinal: No abdominal pain, No nausea Genitourinary: No discharge, No dysuria All Other Systems Reviewed Negative Unless Noted: Yes Past Pcdgyxm-Kmuyyh-Taxnfa Hx Patient Social History Alcohol Use: Occasionally Uses Alcohol Beverage of Choice: Beer Smoking Status: Never a Smoker 2nd Hand Smoke Exposure: No Recent Hopitalizations: No Immunizations Up To Date PED Vaccines UTD: Yes Date of Pneumonia Vaccine: Feb 20, 2011 Date of Influenza Vaccine: Mar 08, 2018 Seasonal Allergies Seasonal Allergies: No Past Medical History Surgeries: Yes (skin cancer removal with subsequent plastic surgery on the face) Respiratory: No Currently Using CPAP: No Currently Using BIPAP: No Cardiac: Yes Hypertension Neurological: No Reproductive Disorders: No Sexually Transmitted Disease: No HIV/AIDS: No Genitourinary: Yes Benign Prostatic Hyperpl Gastrointestinal: No Musculoskeletal: No Endocrine: No HEENT: No Loss of Vision: Denies Hearing Impairment: Denies Cancer: Yes Skin Did You Recieve Any Treatments: Yes What Type of Treatment Did You: Surgical Intervention Psychosocial: No Integumentary: Yes (pityriasis rosea) Blood Disorders: No Family Medical History Patient reports no known family medical history. Hypertension Physical Exam Vital Signs Capillary Refill : Height, Weight, BMI Height: 5'9.00" Weight: 172lbs. 4.0oz. 78.455282tt; 25.6 BMI Method:Stated General Appearance: WD/WN, no apparent distress HEENT: PERRL/EOMI, pharynx normal Cardiovascular: normal peripheral pulses, regular rate, rhythm, no edema Respiratory: no respiratory distress, no accessory muscle use Hips: bilateral hip non-tender, bilateral hip normal inspection, bilateral hip normal range of motion, bilateral hip no evidence of injury Legs: bilateral leg non-tender, bilateral leg normal inspection, bilateral leg normal range of motion, bilateral leg no evidence of injury Ankles: bilateral ankle non-tender, bilateral ankle normal inspection, bilateral ankle normal range of motion, bilateral ankle no evidence of injury Neurologic/Tendon: normal sensation, normal motor functions, normal tendon functions, responds to pain Neurologic/Psychiatric: no motor/sensory deficits, alert, oriented x 3 Skin: normal color, warm/dry Progress/Results/Core Measures Progress Progress Note : Time: 23:11 Progress Note There is no evidence of DVT. His symptoms start in his low back and radiate down his leg. More likely he has a pinched nerve. His pain is in his anterior lower leg muscle group and he has no redness swelling knots or tenderness to palpation in his calf. This satisfied his concern and I have talked to him about some conservative management for his symptoms. He does not want to think for tonight. We encouraged him to follow-up with primary care if is not getting better in a couple weeks. Departure Impression Primary Impression: Lumbago with sciatica, right side Qualified Codes: M54.41 - Lumbago with sciatica, right side Disposition: 01 HOME, SELF-CARE Condition: Stable Departure-Patient Inst. Decision time for Depature: 23:09 Referrals: TRINITY ROLDAN MD (PCP/Family) Primary Care Physician Patient Instructions: Sciatica (DC), Low Back Pain (DC) Add. Discharge Instructions: I suspect you have a pinched nerve causing the pain radiating down your leg. Your leg muscles may also be sore if you are having problems in your low back and is causing you to walk on them in an abnormal way. Typically physical therapy, Tylenol and ibuprofen as well as topical creams like icy hot or Biofreeze can be helpful. Follow-up with your primary care doctor if not seeing improvement in 1 to 2 weeks. Call the physical therapist at [phone] if you wish to schedule an appointment. Promptly return to the nearest ER if you are having chest pain, shortness of air or other worrisome symptoms. All discharge instructions reviewed with patient and/or family. Voiced u nderstanding. EARL DOVE November 14, 2020 23:14
== END 2020-11-14 23:23 | disposition home or self-care (01) ==
LOC: EDUNIT# 22:53 → ER 22:54
DX: M54.41 Lumbago with sciatica, right side (principal); I10 Essential (primary) hypertension
CPT/HCPCS: 99283

== ENCOUNTER → 2020-12-11 | Outpatient (CLI) | payer MEDICARE ==
[~2020-12-11] VITALS: Ht 172.7 cm; Wt 79.5 kg
[~2020-12-11] MED LIST changes: +BIOF1TAB6 PO; +DUTA0.5C36 PO; +GLUC-219 PO; +LOSA100T57 PO; +MTP25TSR PO; +TURM538C PO; +VITA-246 PO; +VITA1CAP PO
== END | disposition home or self-care (01) ==
LOC: PREOP 05:50
PROVIDERS: ATTEND Internal Medicine
DX: Z01.818 Encounter for other preprocedural examination (principal)

== ENCOUNTER 2020-12-14 08:07 | Day surgery (SDC) | payer MEDICARE ==
--- NOTE | 2020-12-11 09:31 | HISTORY AND PHYSICAL ---
DATE OF SERVICE: COLONOSCOPY HISTORY AND PHYSICAL HISTORY OF PRESENT ILLNESS: The patient is an 80-year-old white male referred by Dr. Phan for surveillance colonoscopy. His brother was diagnosed with colon cancer in his mid 50s and at the age of 56 secondary to colon cancer. It has been little over 6 years since his last colonoscopy at which time, he had no polyps. He is quite spry looking significantly younger than his stated age. He denies change in bowel habits, bright red blood per rectum, melena or abdominal pain. PAST MEDICAL HISTORY: Significant for hypertension with no known history of vascular disease. He has a history of BPH and osteoarthritis. 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 SOCIAL HISTORY: The patient is retired with no past smoking or significant drinking history. FAMILY HISTORY: Pertinent for brother who of colon cancer at the age of 56. He is not aware of any other family history for GI tract malignancy. REVIEW OF SYSTEMS: CONSTITUTIONAL: The patient denies night sweats, chills, fever, change in weight. CARDIOVASCULAR: The patient denies chest pain, shortness of breath, orthopnea, PND or pedal edema. PULMONARY: The patient denies cough, wheezing or dyspnea on exertion. GASTROINTESTINAL: As noted in the HPI. PHYSICAL EXAMINATION: GENERAL: Reveals a fit appearing white male appearing younger than his stated age. VITAL SIGNS: Weight 184 pounds, blood pressure 120/70. HEENT: Unremarkable. CHEST: Clear. CARDIOVASCULAR: Reveals a regular rate and rhythm without murmur, S3 or S4. ABDOMEN: Soft, supple without mass, organomegaly or tenderness. EXTREMITIES: Reveal no cyanosis, clubbing or edema. ASSESSMENT AND PLAN: The patient is being set up for screening colonoscopy. Family history for colon cancer. He reports that he does best with propofol. Previous to this, had nausea with other preps, which I suspect are secondary to narcotic medication. We will avoid narcotics. Recommend likely avoidance of versed as well and just utilize propofol for anesthesia. I thank you for the referral of this pleasant gentleman. Job ID: [id number] DocumentID: [id number] Dictated Date: 12/10/2020 16:16:22 Soil Specialist Date: 12/10/2020 17:17:25 Dictated By: SUSAN ADAM MD MTDD
[~2020-12-14] VITALS: Ht 173 cm; Wt 80.0 kg
[2020-12-14] VITALS (7 sets, daily range): BP systolic 77–174; BP diastolic 47–83
[2020-12-14] MEDS ORDERED: LACTATED RINGERS 1,000 ML IV ONE (08:20)
[2020-12-14] MEDS ORDERED: LACTATED RINGERS 1,000 ML IV STA (08:44)
[2020-12-14] MEDS ORDERED: LIDOCAINE JELLY 2% 6 ML SYRINGE MM PRN (08:45)
--- NOTE | 2020-12-14 08:59 | Pre-Op Note & Conscious Sedat ---
Pre-Operative Progress Note H&P Reviewed The H&P was reviewed, patient examined and no changes noted. Date H&P Reviewed: Dec 14, 2020 Time H&P Reviewed: 08:59 Conscious Sedation Pre-Proced ASA Score 2 For ASA 3 and 4: Consider anesthesia and medical clearance. Also, for patients with a history of failed moderate sedation consider anesthesia. Airway Lungs Heart ASA score ASA 1: a normal healthy patient ASA 2: a patient with a mild systemic disease (mid diabetes, controlled hypertension, obesity ASA 3: a patient with a severe systemic disease that limits activity (angina, COPD, prior Myocardial infarction) ASA 4: a patient with an incapacitating disease that is a constant threat to life (CHF, renal failure) ASA 5: a moribund patient not expected to survive 24 hrs. (ruptured aneurysm) ASA 6: a declared brain- patient whose organs are being harvested. For emergent operations, add the letter E after the classification Mallampati Classification Grade 2 Sedation Plan Analgesia, Amnesia, Plan communicated to team members, Discussed options with patient/fam, Discussed risks with patient/fam The patient is an appropriate candidate to undergo the planned procedure, sedation, and anesthesia. The patient immediately re-assessed prior to indication. SUSAN ADAM MD Dec 14, 2020 08:59
[2020-12-14] MEDS ORDERED: PROPOFOL INJECTION 50 ML IV ONE (09:37)
--- NOTE | 2020-12-14 12:57 | Anesthesia-General Post-Op ---
MAC Patient Condition Mental Status/LOC: Same as Preop Cardiovascular: Satisfactory Nausea/Vomiting: Absent Respiratory: Satisfactory Pain: Controlled Complications: Absent Post Op Complications Complications None Follow Up Care/Instructions Patient Instructions None needed. Anesthesiology Discharge Order Discharge Order Patient is doing well, no complaints, stable vital signs, no apparent adverse anesthesia problems. No complications reported per nursing. OLE WHITNEY [employer]IT MAN Dec 14, 2020 12:57
--- NOTE | 2020-12-14 15:24 | OPERATIVE REPORT ---
DATE OF SERVICE: 12/14/2020 COLONOSCOPY SUMMARY INDICATION FOR THE PROCEDURE: Screening, family history for colon cancer. DESCRIPTION OF PROCEDURE: The patient was placed in the left lateral decubitus position. Prior to undergoing colonoscopy, digital rectal evaluation was performed. Anal sphincter tone was normal and the perianal reflex was intact. Prostate is mildly enlarged and anodular on digital inspection. No abnormalities were noted on digital inspection of the anal canal or distal rectal vault. The colonoscope was then inserted into the rectum and under direct visualization advanced to cecum. The cecum was identified by identification of the ileocecal valve and cecal strap. Photographic documentation was obtained. Quality of prep was good. FINDINGS: There was no evidence for internal or external hemorrhoids and the rectum was unremarkable. Moderate number of small to medium size sigmoid diverticulum were present with haustral hypertrophy and findings compatible with moderate diverticular disease. No endoscopic evidence for diverticulitis was noted. No other sigmoid colonic abnormalities were appreciated. The descending colon and splenic flexure were unremarkable. Present in the distal transverse colon were two adjacent polyps, 1 to 3 mm in size, the other 1 cm in size and sessile with adenomatous features. Both were biopsied and ablated with no subsequent blood loss. A photograph was obtained prior to cauterization. The remainder of the transverse colon, hepatic flexure, ascending colon and cecum were unremarkable. ASSESSMENT: Two adjacent distal transverse polyps were noted. We will await histopathology report before advocating whether or not future surveillance colonoscopy is recommended in light of this patient's age, although he appears to be physiologically younger than stated age of 80. Thank you for the referral of this pleasant gentleman. Job ID: [id number] DocumentID: [id number] Dictated Date: 12/14/2020 10:47:04 Science Specialist Date: 12/14/2020 15:23:58 Dictated By: SUSAN ADAM MD [facility]
== END 2020-12-14 11:35 | disposition home or self-care (01) ==
LOC: ENDO 08:07
PROVIDERS: ATTEND Internal Medicine
DX: Z12.11 Encounter for screening for malignant neoplasm of colon (principal); D12.3 Benign neoplasm of transverse colon; K57.30 Diverticulosis of large intestine without perforation or abscess without bleeding; I10 Essential (primary) hypertension; J44.9 Chronic obstructive pulmonary disease, unspecified; N40.0 Benign prostatic hyperplasia without lower urinary tract symptoms; M19.90 Unspecified osteoarthritis, unspecified site; Z80.0 Family history of malignant neoplasm of digestive organs; Z79.899 Other long term (current) drug therapy; Z85.828 Personal history of other malignant neoplasm of skin

== ENCOUNTER → 2021-08-30 | Outpatient (CLI) | payer MEDICARE ==
--- NOTE | 2021-08-30 10:01 | Diagnostic Imaging Report ---
INDICATION: RIGHT-SIDED ORCHIALGIA AND LUMP TECHNIQUE: Real-time grayscale sonographic imaging and color vascular evaluation of the scrotum. CORRELATION STUDY: None FINDINGS: RIGHT TESTICLE: 4.3 x 3.0 x 2.2 cm. LEFT TESTICLE: 3.8 x 2.2 x 2.1 cm. The testicles are in normal location and demonstrate homogeneous echotexture. There is vascular flow to the testicles. Slight heterogeneity along with increased vascularity about the right epididymis. Probable small left-sided epididymal cyst measuring up to 13 mm. Small left-sided hydrocele as well as very mild bilateral varicoceles. IMPRESSION: 1. Findings suggest probable right-sided epididymitis. 2. Small left-sided hydrocele along with mild bilateral varicoceles. Dictated by: Dictated on workstation # [id number]
== END ==
LOC: RAD 09:00
PROVIDERS: ATTEND Urology
DX: I86.1 Scrotal varices (principal); N43.3 Hydrocele, unspecified
CPT/HCPCS: 76870